=== PATIENT | male | born 1970 | race Hispanic/Latino ===

== ENCOUNTER 2024-03-03 16:11 | Inpatient (IN) | payer SELFPAY ==
[~2024-03-03] VITALS: Ht 157.5 cm; Wt 91.2 kg
[2024-03-03 17:14] LABS: BASOPHILS # (AUTO) 0.01 K/uL (0.00-0.20); BASOPHILS % (AUTO) 0.1 % (0.0-5.0); EOSINOPHILS # (AUTO) 0.01 K/uL (0.00-0.70); EOSINOPHILS % (AUTO) 0.1 % (0.0-8.0); HEMATOCRIT 42.4 % (42-54); IMMATURE GRANULOCYTE ABSOLUTE 0.04 K/uL (0-1); LYMPHOCYTES # (AUTO) 0.9 K/uL (1.0-4.8); LYMPHOCYTES % (AUTO) 9.9 % (21.0-51.0); MEAN CORPUSCULAR HEMOGLOBIN 30.3 pg (27.0-33.0); MEAN CORPUSCULAR HGB CONC 34.9 g/dL (32.0-36.0); MEAN CORPUSCULAR VOLUME 86.7 fL (79-99); MONOCYTES # (AUTO) 0.9 K/uL (0.1-1.0); MONOCYTES % (AUTO) 9.1 % (3.0-13.0); NEUTROPHILS # (AUTO) 7.5 K/uL (1.8-7.7); NEUTROPHILS % (AUTO) 80.4 % (40.0-77.0); PLATELET COUNT (AUTO) 324 K/uL (130-400); RED BLOOD CELL COUNT(AUTO) 4.89 MIL/uL (4.50-6.20); RED CELL DISTRIBUTION WIDTH 12.1 % (11.0-15.5); WHITE BLOOD COUNT (AUTO) 9.3 K/uL (4.8-10.8)
[2024-03-03 17:23] LABS: CREATININE 0.9 mg/dL (0.5-1.3); POTASSIUM 3.5 mmol/L (3.5-5.1)
[2024-03-03 19:22] LABS: BILIRUBIN,DIRECT 0.1 mg/dL (0.0-0.3); BILIRUBIN,TOTAL 0.7 mg/dL (0.2-1.0)
--- NOTE | 2024-03-03 19:31 | ERN ---
ED Note History of Present Illness Stated Complaint: EPIGASTRIC PAIN, CONSTIPATION, NAUSEA Chief Complaint: Abdominal Pain Time Seen by MD: 16:35 Time Seen by Midlevel: 17:30 Dictation: 53-year-old male with history of gout coming in complaining of abdominal pain, nausea and difficulty having a bowel movement. Patient states he had a bowel movement yesterday and today but a very small amount. Denies having any fever, vomiting, chest pain, cough congestion. Allergies: Coded Allergies: No Known Allergies (Unverified Allergy, Unknown, 03/03/24) Past Medical History Past Medical History: Other Additional Past Medical Hx: GOUT Surgical History: None Review of System Dictation Constitutional: Negative for fever,chills, and weight loss Eyes: Negative for injury, pain,redness, and discharge ENT: Negative for injury,pain or swelling Cardiovascular: Negative for chest pain, palpitations, and edema Respiratory: Negative for shortness of breath, cough, and wheezing, Abdomen/GI: Positive for abdominal pain, nausea, no vomiting, no diarrhea, complaining of difficulty having BMs. Back: Negative for injury and pain : Negative for injury, bleeding and discharge MS/Extremity: Negative for injury and deformity Skin: Negative for rash, and discoloration Neuro: Negative for headache, weakness, numbness, tingling, and seizure Psych: Negative for suicide ideation, homicidal ideation, and hallucinations Review of Systems: was completed Initial Vital Sign VS Vital Signs Date Time Temp Pulse Resp B/P (MAP) Pulse Ox O2 Delivery O2 Flow Rate FiO2 03/03/24 16:18 99.1 78 16 158/100 96 Room Air 0 03/03/24 19:40 21 Physical Exam Dictation General: awake, alert, NAD Head/Face: Normocephalic, atraumatic Eyes: PERRL, EOMI, vision at baseline ENT: oral cavity clear, TMs clear, no signs of infection Neck: Trachea midline, supple, no nuchal rigidity Cardiovascular: RRR, normal S1/S2, No MRGs, no JVD Respiratory: CTAB, no respiratory distress, No rales or wheezes Abdomen: Soft, non-tender, non-distended, normal bowel sounds, no guarding or rebound. Skin: Warm, dry, normal turgor, no rash MS/Extremity: Pulses equal, no cyanosis, neurovascular intact, FROM Neuro: COAx4, GCS 15, strength 5/5, CN 2-12 intact, normal cerebellar exam, normal gait, Psych: Normal behavior, mood, and affect normal Results (Laboratory/Radiology) Laboratory/Radiology Laboratory Tests Test 03/03/24 17:02 03/03/24 19:32 03/03/24 21:17 White Blood Count 9.3 K/uL (4.8-10.8) Red Blood Count 4.89 MIL/uL (4.50-6.20) Hemoglobin 14.8 g/dL (14.0-18.0) Hematocrit 42.4 % (42-54) Mean Corpuscular Volume 86.7 fL (79-99) Mean Corpuscular Hemoglobin 30.3 pg (27.0-33.0) Mean Corpuscular Hemoglobin Concent 34.9 g/dL (32.0-36.0) Red Cell Distribution Width 12.1 % (11.0-15.5) Platelet Count 324 K/uL (130-400) Mean Platelet Volume 10.0 fL (7.5-10.5) Immature Granulocyte % (Auto) 0.4 % (0-1) Neutrophils (%) (Auto) 80.4 % (40.0-77.0) H Lymphocytes (%) (Auto) 9.9 % (21.0-51.0) L Monocytes (%) (Auto) 9.1 % (3.0-13.0) Eosinophils (%) (Auto) 0.1 % (0.0-8.0) Basophils (%) (Auto) 0.1 % (0.0-5.0) Neutrophils # (Auto) 7.5 K/uL (1.8-7.7) Lymphocytes # (Auto) 0.9 K/uL (1.0-4.8) L Monocytes # (Auto) 0.9 K/uL (0.1-1.0) Eosinophils # (Auto) 0.01 K/uL (0.00-0.70) Basophils # (Auto) 0.01 K/uL (0.00-0.20) Absolute Immature Granulocyte (auto 0.04 K/uL (0-1) Nucleated Red Blood Cells 0.0 % (0.0-0.19) White Cell Morphology Comment See comments Sodium Level 139 mmol/L (136-145) Potassium Level 3.5 mmol/L (3.5-5.1) Chloride Level 100 mmol/L (101-111) L Carbon Dioxide Level 30 mmol/L (21-32) Blood Urea Nitrogen 12 mg/dL (7-18) Creatinine 0.9 mg/dL (0.5-1.3) Glomerular Filtration Rate Calc 101 mL/min (>90) Random Glucose 124 mg/dL (70-105) H Total Calcium 9.0 mg/dL (8.5-10.1) Total Bilirubin 0.7 mg/dL (0.2-1.0) Direct Bilirubin 0.1 mg/dL (0.0-0.3) Aspartate Amino Transf (AST/SGOT) 22 U/L (10-37) Alanine Aminotransferase (ALT/SGPT) 45 U/L (12-78) Alkaline Phosphatase 70 U/L (50-136) Total Protein 8.0 g/dL (6.0-8.3) Albumin 4.0 g/dL (3.5-5.0) Lipase 58 U/L (16-77) Urine Color YELLOW (YELLOW) Urine Appearance CLEAR (CLEAR) Urine pH 5.5 (5.0-8.0) Urine Specific [place] 1.034 (1.001-1.031) Urine Protein 50 mg/dL (NEGATIVE) H Urine Glucose (UA) NEGATIVE mg/dL (NEGATIVE) Urine Ketones 150 mg/dL (NEGATIVE) H Urine Occult Blood NEGATIVE (NEGATIVE) Urine Nitrate NEGATIVE (NEGATIVE) Urine Bilirubin NEGATIVE mg/dL (NEGATIVE) Urine Urobilinogen 2.0 mg/dL (0.2-1.0) H Urine Leukocyte Esterase NEGATIVE Cuate/uL Urine RBC 2-5 /HPF (0-1) H Urine WBC 0-1 /HPF (0-1) Urine Squamous Epithelial Cells RARE /HPF (0-2) Urine Bacteria RARE /HPF (None Seen) Urine Hyaline Casts 2-5 /LPF (0-1 /LPF) H Lactic Acid Level 1.6 mmol/L (0.8-2.5) Labs Reviewed?: Yes EKG Comment: Date:03/03/24 Time:2232 Ventricular rate:73 DE interval:145 QRS duration:25 QT/QTc:385/424 EKG interpretation: Sinus rhythm, ST elevation probably normal early repolarization pattern Reviewed by ED Attending no STEMI interpreted by ER MD CT Scan Comment: [facility] [address] [place] [address] IMAGING REPORT Signed PATIENT: NELSY DOLL MR#: [id number] : 1970 SEX: M AGE: 53 LOCATION: [facility] ORDER 00 STATUS: REG ER REPORT#: [id number] SERVICE 99 REASON: generalzied abdominal pain ORDERING PHYSICIAN: LURDES BAHENA NP PROCEDURE: ABD PEL W - CT ABDOMEN/PELVIS W/CONTRAST CT ABDOMEN/PELVIS W/CONTRAST HISTORY: Abdominal pain COMPARISON: None TECHNIQUE: Multiple sequential axial images of the abdomen and pelvis were obtained from the dome of the diaphragm through symphysis pubis. Patient was given 75 cc of Omnipaque through intravenous route. Oral contrast was not given. FINDINGS: No pleural effusion is seen bilaterally. There is no evidence of parenchymal disease or pulmonary nodule of the visualized lower lungs. Degenerative changes of the thoracolumbar spine are present. The heart is not enlarged. Liver measures 18 cm. Small hiatal hernia is seen. Small bowel loops are not dilated. There is extensive colonic distention with distal colonic obstruction not completely excluded. The liver, spleen, adrenal glands and pancreas are unremarkable. There is no evidence of hydronephrosis bilaterally. No evidence of renal stone is seen. Fecal material is seen in the colon. There are normal size retroperitoneal and mesenteric lymph nodes. No ascites is seen. Atherosclerotic changes are present. Pelvic sidewalls are symmetric bilaterally. Bladder is well distended without wall thickening. IMPRESSION: 1. Extensive colonic distention with distal colonic obstruction cannot excluded. Findings may also be related to constipation. CT was performed with one or more following dose reduction techniques: automated exposure control, adjustment of the mA and kv according to patient's size, or use of a iterative reconstruction technique. DICTATED BY: LUIS BOWDEN MD DATE: 03/03/242051 ELECTRONICALLY SIGNED BY: LUIS BOWDEN MD DATE: 03/03/242055 ED Course ED Course Orders Procedure Category Date Status Time Cbc With Differential LAB 03/03/24 Complete 16:30 Basic Metabolic Panel LAB 03/03/24 Complete 16:30 Urinalysis Profile LAB 03/03/24 Complete 16:30 Lipase LAB 03/03/24 Complete 18:30 Hepatic Function Panel LAB 03/03/24 Complete 18:30 Ondansetron 4mg Inj PHA 03/03/24 Complete (Zofran 4mg Inj) 18:30 Famotidine 20mg Vial PHA 03/03/24 Complete (Pepcid 20mg Vial) 18:30 Ketorolac PHA 03/03/24 Complete Tromethamine 15mg/Ml 18:30 Ct Abdomen/Pelvis CT 03/03/24 Resulted W/Contrast 20:00 0.9%Nacl 1000ml (Ns PHA 03/03/24 Complete 1000ml) 20:00 Lactic Acid LAB 03/03/24 Complete 21:10 Ngt To Low CPOE 03/03/24 Transmitted Intermittent Suctn 21:18 General Surgery CONPHYSVC 03/03/24 Transmitted Consult 21:18 Abd 1vw RAD 03/03/24 Taken 21:41 Admit Orders ADM 03/03/24 Transmitted 21:50 Edm Admit Bridge Order ADM 03/03/24 Transmitted 21:50 Iohexol (Omnipaque) PHA 03/03/24 Complete 22:19 Admit Orders ADM 03/03/24 Transmitted 22:20 Basic Metabolic Panel LAB 03/04/24 Verified 04:00 Magnesium LAB 03/04/24 Verified 04:00 Phosphorus LAB 03/04/24 Verified 04:00 Cbc With Differential LAB 03/04/24 Verified 04:00 12 Lead Ekg Tracing- EKG 03/03/24 Logged Technical 22:20 Pt And Ptt LAB 03/04/24 Verified 04:00 Type And Screen BBK 03/04/24 Logged 04:00 Famotidine 20mg Vial PHA 03/04/24 In Process (Pepcid 20mg Vial) 09:00 Jesse's And Scd's CPOE 03/03/24 Transmitted 22:20 Acetaminophen 650mg PHA 03/03/24 In Process Supp (Tylenol 650mg 22:30 Ondansetron 4mg Inj PHA 03/03/24 In Process (Zofran 4mg Inj) 22:30 Morphine 4mg Syg PHA 03/03/24 In Process (Morphine 4mg Syg) 22:30 Hydralazine 20mg Inj PHA 03/03/24 In Process (Apresoline 20mg In 22:30 Nothing By Mouth DIET 03/04/24 Transmitted Breakfast Lactated Ringers PHA 03/03/24 In Process 1000ml (Lactated 22:30 Activity: Ad Mariana CPOE 03/03/24 Transmitted 22:20 Vital Signs(Adult CPOE 03/03/24 Transmitted Hospitalist) 22:20 Current Medications Medications (Trade) Dose Ordered Sig/Krishan Route PRN Reason Start Time Stop Time Status Last Admin Dose Admin Acetaminophen (TYLenol 650MG SUPPOSITORY) 650 mg Q6H PRN RC MILD PAIN (1-3) 03/03/24 22:30 04/02/24 22:29 Famotidine (Pepcid 20mg Vial) 20 mg DAILY IV 03/04/24 09:00 04/03/24 08:59 Famotidine (Pepcid 20mg Vial) 20 mg ONCE STAT IV 03/03/24 18:30 03/03/24 18:32 DC 03/03/24 20:11 Hydralazine HCl (APRESOLine 20MG INJ) 10 mg Q6H PRN IV For:SBP above 160;DBP above 90 03/03/24 22:30 04/02/24 22:29 Iohexol (Omnipaque) 75 ml STK-MED ONCE IV 03/03/24 22:19 03/03/24 22:24 DC Ketorolac Tromethamine (toRADol) 15 mg ONCE STAT IV 03/03/24 18:30 03/03/24 18:32 DC 03/03/24 20:11 Lactated Ringer's 1,000 ml @ 100 mls/hr Q10H IV 03/03/24 22:30 04/02/24 22:29 Morphine Sulfate (morPHINE 4MG SYG) 4 mg Q4H PRN IV SEVERE PAIN (7-10) 03/03/24 22:30 03/10/24 22:29 Ondansetron HCl (zoFRAN 4MG INJ) 4 mg ONCE STAT IVP 03/03/24 18:30 03/03/24 18:32 DC 03/03/24 20:11 Ondansetron HCl (zoFRAN 4MG INJ) 4 mg Q6H PRN IV NAUSEA/VOMITING 03/03/24 22:30 04/02/24 22:29 Sodium Chloride 1,000 ml @ 1,000 mls/hr Q1H STAT IV 03/03/24 20:00 03/03/24 20:59 DC 03/03/24 20:11 Vital Signs Date Time Temp Pulse Resp B/P (MAP) Pulse Ox O2 Delivery O2 Flow Rate FiO2 03/03/24 22:15 79 17 147/93 97 Room Air* 0 21 03/03/24 19:40 99.1 78 16 158/100 96 Room Air* 0 21 03/03/24 16:18 99.1 78 16 158/100 96 Room Air 0 Medical Decision Making MDM MDM: 53-year-old male with history of gout coming in complaining of abdominal pain, nausea and difficulty having a bowel movement. Patient states he had a bowel movement yesterday and today but a very small amount. Denies having any fever, vomiting, chest pain, cough congestion. Abdomen is distended, mild pain on palpation.CBC shows no leukocytosis, no anemia, no thrombocytopenia. Chemistry shows no electrolyte abnormality. Normal kidney function. No transaminitis, T bili and lipase within normal range. CT scan of the abdomen shows extensive colonic distention with distal colonic obstruction can not be excluded. Patient's physical assessment and presentation consistent with small- bowel obstruction. Spoke to General surgery on-call Dr. Watkins, agreed to consult patient tomorrow morning. We will insert an NG tube to low intermittent suction. Spoke to Nirmal ROSADO for hospitalist, okay to admit patient Differential diagnosis: Constipation, pancreatitis, GERD Rationale: Tests considered and ordered secondary to shared decision making include: Previous outside records reviewed: Old ER visits. Risk of complication and/or morbidity or mortality of patient management: None Medications-Per medication reconciliation Need for hospitalization: Patient does not meet criteria for hospitalization. Need for emergency major/minor surgery: No There are no social concerns with this patient. Prescription drug management Prescriptions will include symptomatic care Patient's prior external medical records from other ER visits were reviewed by me as indicated. Prior testing and results from previous visits were reviewed. Prior tests were taken into account with medical decision making and resource utilization, independent historian/historians were used to obtain complete medical history. I independently interpreted the test that were performed, results were reviewed by me and considered findings on radiology if ordered. Medical management and examination interpretation discussions were had by me with other qualified healthcare professionals as indicated for the patient's care. DX & DISP Disposition: Inpatient Decision to Admit Date: Mar 03, 2024 Decision to Admit Time: 21:52 Departure Impression: Primary Impression: Small bowel obstruction Condition: Stable Referrals: SELF,REFERRAL (PCP) I have reviewed the case, and I agree with, Diagnosis and Plan LURDES BAHENA NP Mar 03, 2024 19:31
[2024-03-03 19:39] LABS: ADD UA MICROSCOPIC YES; APPEARANCE,URINE CLEAR (CLEAR); BILIRUBIN,URINE NEGATIVE (NEGATIVE); COLOR,URINE YELLOW (YELLOW); GLUCOSE, URINE (UA) NEGATIVE (NEGATIVE); KETONES,URINE 150 mg/dL (NEGATIVE); LEUKOCYTE ESTERASE ,URINE NEGATIVE Leu/uL (NEGATIVE); NITRATE,URINE NEGATIVE (NEGATIVE); OCCULT BLOOD,URINE NEGATIVE (NEGATIVE); PH,URINE 5.5 (5.0-8.0); PROTEIN,URINE 50 mg/dL (NEGATIVE)
[2024-03-03 20:10] LABS: BACTERIA,URINE RARE /HPF (None Seen); MUCUS,URINE FEW LPF (None Seen); SQUAMOUS EPITHELIAL CELL,UR RARE /HPF (0-2); WBC,URINE 0-1 /HPF (0-1)
[2024-03-03] MEDS: ondanSETRON 4MG INJ IVP STA (20:11)
[2024-03-03] MEDS: ketOROlac 15MG/ML VIAL (15MG/ML) IV STA (20:11)
[2024-03-03] MEDS: 0.9%NACL 1000ML 1,000 ML IV STA (20:11)
[2024-03-03] MEDS: FAMOTIDINE 20MG VIAL IV STA (20:11)
--- NOTE | 2024-03-03 20:56 | HMCIMG ---
CT ABDOMEN/PELVIS W/CONTRAST HISTORY: Abdominal pain COMPARISON: None TECHNIQUE: Multiple sequential axial images of the abdomen and pelvis were obtained from the dome of the diaphragm through symphysis pubis. Patient was given 75 cc of Omnipaque through intravenous route. Oral contrast was not given. FINDINGS: No pleural effusion is seen bilaterally. There is no evidence of parenchymal disease or pulmonary nodule of the visualized lower lungs. Degenerative changes of the thoracolumbar spine are present. The heart is not enlarged. Liver measures 18 cm. Small hiatal hernia is seen. Small bowel loops are not dilated. There is extensive colonic distention with distal colonic obstruction not completely excluded. The liver, spleen, adrenal glands and pancreas are unremarkable. There is no evidence of hydronephrosis bilaterally. No evidence of renal stone is seen. Fecal material is seen in the colon. There are normal size retroperitoneal and mesenteric lymph nodes. No ascites is seen. Atherosclerotic changes are present. Pelvic sidewalls are symmetric bilaterally. Bladder is well distended without wall thickening. IMPRESSION: 1. Extensive colonic distention with distal colonic obstruction cannot excluded. Findings may also be related to constipation. CT was performed with one or more following dose reduction techniques: automated exposure control, adjustment of the mA and kv according to patient's size, or use of a iterative reconstruction technique.
--- NOTE | 2024-03-03 21:49 | NUR ---
PT CARE ASSUMED AT THIS TIME, PT PLACED IN ED ROOM 14
--- NOTE | 2024-03-03 21:56 | NUR ---
XRAY CALLED TO VERIFY NG PLACEMENT
--- NOTE | 2024-03-03 22:06 | NUR ---
NG TUBE PLACEMENT CONFIRMED BY RT
[2024-03-03] MEDS ORDERED: IOHEXOL-350 75 ML VIAL IV ONE (22:19)
[2024-03-03] MEDS ORDERED: acetaMINOPHEN 650 MG SUPPOSITORY RC PRN (22:30)
[2024-03-03] MEDS ORDERED: hydrALAZine 20MG/ML VIAL IV PRN (22:30)
--- NOTE | 2024-03-03 22:31 | HP ---
History of Present Illness Reason for Visit: abdominal pain History of Present Illness Mr. Anthony is a 53-year-old male that was seen and examined today 03/03/2024. Patient is a good historian and personal health. Patient's Brynn Dalton is at bedside. Patient reports that he came to the emergency department with a chief complaint of abdominal pain. Onset was one week ago. Location is all four quadrants. Duration is constant. Character is described as" like my stomach is swollen. "There was no alleviating factors. There was no aggravating factors. Patient reports associated decreased appetite. Today in the emergency department CBC unremarkable, chemistry unremarkable, urinalysis unremarkable. CT of abdomen and pelvis shows extensive colonic distention with distal colonic obstruction can not excluded. For that reason emergency room physician contacted general surgeon on-call who requested patient be admitted under hospitalist service. NG tube was inserted in the emergency department. Past Medical History ADDITIONAL PAST MEDICAL HISTORY: [Hyperlipidemia, gout] SOCIAL HISTORY: [Negative for smoking. Patient consumes alcohol about once weekly. Patient reports 2-4 beers that are 12 oz each. Patient denies drug use. Patient lives with his . Patient is typically independent of all his ADLs. Patient denies difficulty pain is bills. 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 Patient has poor access to health care due to lack of health insurance.] SURGICAL HISTORY: [Denies] Review of Systems General: No Fever, No Chills, No Night Sweats, No Fatigue, No Malaise; Appetite (Decrease); No Other HEENT: No Head Aches, No Visual Changes, No Eye Pain, No Ear Pain, No Dysphasia, No Sinus Congestion, No Post Nasal Drip, No Sore Throat, No Other Pulmonary: No Dyspnea, No Cough, No Pleuritic Chest Pain, No Other Cardiovascular: No: Chest Pain, Palpitations, Orthopnea, Paroxysmal Noc. Dyspnea, Edema, Lt Headedness, Other Gastrointestinal: Abdominal Pain; No: Nausea, Vomiting, Diarrhea, Constipation, Melena, Hematochezia, Other Genitourinary: No Dysuria, No Frequency, No Incontinence, No Hematuria, No Retention, No Other Musculoskeletal: No: other, neck pain, shoulder pain, arm pain, back pain, hand pain, leg pain, foot pain Skin: No Urticaria, No Rash, No Other Neurological: No: Weakness, Numbness, Incoordination, Change in speech, Confusion, Seizures, Other Allergies: Coded Allergies: No Known Allergies (Unverified Allergy, Unknown, 03/03/24) Exam Vital Signs Vital Signs Date Time Temp Pulse Resp B/P (MAP) Pulse Ox O2 Delivery O2 Flow Rate FiO2 03/03/24 22:15 79 17 147/93 97 Room Air* 0 21 03/03/24 19:40 99.1 General Appearance: Alert, Oriented X3, Cooperative, mild distress HEENT: Atraumatic, PERRLA, EOMI, Other (Positive nasogastric tube) Respiratory: Clear to auscultation, Normal air movement, NL respiratory effort Cardiovascular: Regular rate, Regular rhythm, Normal S1, Normal S2 Abdominal: Normal bowel sounds, Soft, No tenderness Extremities: No edema Skin: No significant lesion Neuro: Normal speech, Strength at 5/5 X4 ext, Sensation intact, Cranial nerves 3-12 NL Psych/Mental Status: Mental status NL, Mood NL, Thoughts/Content NL Assessment/Plan ASSESSMENT: [ Suspected small bowel obstruction, POA Hyperlipidemia Gout] PLAN: [ Admit patient to medical-surgical floor as inpatient status. Keep patient NPO. Patient is being followed by General surgery Service, Dr. Watkins IV fluid maintenance therapy lactated Ringer's at 100 mL/HR As needed analgesia with morphine Check preprocedure labs, CBC, BMP, magnesium, phosphorus, PTT, UA, type and screen, EKG, CXR Keep nasogastric tube to low wall suction GI prophylaxis, famotidine 20 mg IV once daily. DVT prophylaxis, Jesse's and SCDs avoid anticoagulation at this time due to impending surgical evaluation.] ADVANCED CARE PLANNING 1. Which of the following were discussed? Hospice Care - Yes Therapeutic options - Yes Advance Directives - Yes- patient states he does not have any advance directives in place at this time, however his can make decisions for him if he becomes unable. Other discussions - patient wishes to remain a full code at this time 2. Discussed with who? Patient 3. Voluntary nature of this service was explained to the patient? Yes 4. Amount of time spent - __ 16 minutes 5. Reviewed by Physician? (if this service was performed by NPP) Yes This document was generated in part using voice recognition software, occasional wrong word or sound alike substitutions may have occurred due to the inherent limitations of voice recognition software. Read the chart carefully and recognize using context, where the substitutions have occurred. Although every effort was made to edit the content, locomotive oiler and typing errors may occur ATTESTATION BY PHYSICIAN I have seen and examined the patient. I reviewed the documentation, medical decision making, and treatment plan as noted by the mid-level provider above. I agree with the findings and plan of care. LAUREEN GREEN [facility] Mar 03, 2024 22:31
[2024-03-03] MEDS: LACTATED RINGERS 1000ML 1,000 ML IV SCH (23:49)
[2024-03-04] VITALS (8 sets, daily range): BP systolic 143–156; BP diastolic 83–96; PULSE 70–80; RESP 16–19; TEMP 98.3–98.7; O2SAT 97–99
--- NOTE | 2024-03-04 01:09 | NUR ---
REPORT GIVEN TO DIONI CHAUDHARY AT THIS TIME
--- NOTE | 2024-03-04 01:10 | NUR ---
PT REPORTS NO HOME MEDS
[2024-03-04 05:54] LABS: BASOPHILS # (AUTO) 0.02 K/uL (0.00-0.20); BASOPHILS % (AUTO) 0.2 % (0.0-5.0); EOSINOPHILS # (AUTO) 0.01 K/uL (0.00-0.70); EOSINOPHILS % (AUTO) 0.1 % (0.0-8.0); HEMATOCRIT 38.6 % (42-54); IMMATURE GRANULOCYTE ABSOLUTE 0.03 K/uL (0-1); LYMPHOCYTES # (AUTO) 0.9 K/uL (1.0-4.8); MEAN CORPUSCULAR HEMOGLOBIN 29.5 pg (27.0-33.0); MEAN CORPUSCULAR HGB CONC 34.5 g/dL (32.0-36.0); MEAN CORPUSCULAR VOLUME 85.6 fL (79-99); MONOCYTES # (AUTO) 0.9 K/uL (0.1-1.0); NEUTROPHILS # (AUTO) 6.8 K/uL (1.8-7.7); NEUTROPHILS % (AUTO) 79.3 % (40.0-77.0); PLATELET COUNT (AUTO) 312 K/uL (130-400); RED BLOOD CELL COUNT(AUTO) 4.51 MIL/uL (4.50-6.20); RED CELL DISTRIBUTION WIDTH 12.1 % (11.0-15.5); WHITE BLOOD COUNT (AUTO) 8.5 K/uL (4.8-10.8)
[2024-03-04 06:05] LABS: INR 1.06 (0.85-1.15); PROTHROMBIN TIME 11.4 SEC (9.6-11.6)
[2024-03-04 06:06] LABS: PARTIAL THROMBOPLASTIN TIME 27.5 SEC (26.3-35.5)
[2024-03-04 06:11] LABS: CREATININE 0.7 mg/dL (0.5-1.3); PHOSPHORUS 3.3 mg/dL (2.5-4.9)
[2024-03-04 06:15] LABS: POTASSIUM 2.8 mmol/L (3.5-5.1)
--- NOTE | 2024-03-04 06:27 | EKG ---
[facility] Test Date: 2024-03-03 Test Time: 22:32:17 Pat Name: NELSY DOLL Department: [facility] Room: 311 1 Gender: M Rn Operating Room: 1088 : 1970 Requested By: LAUREEN GREEN Order Number: [id number] Reading MD: Carson Shipley Measurements Intervals [place] Rate: 73 P: 41 TN: 145 QRS: 25 QRSD: 93 T: -7 QT: 385 QTc: 424 Interpretive Statements Sinus rhythm ST elev, probable normal early repol pattern No previous ECG available for comparison Electronically Signed On 03-04-2024 18:10:48 PIN STICKER by Carson Shipley Please click the below link to view image of tracing.
--- NOTE | 2024-03-04 06:38 | NUR ---
notified provider education reporter Joyce simmons of K+ 2.8 provider states she will place order.
--- NOTE | 2024-03-04 08:19 | HMCIMG ---
ABD 1VW REASON: NG TUBE PLACEMENT FINDINGS: Single image of the abdomen was obtained. There is an NG tube with tip just entering the stomach, sidehole remains in the distal esophagus. There is moderate gaseous distention of the colon. There is contrast in the pelvicalyceal systems from recent CT scan. IMPRESSION: 1. NG tube tip just entering the stomach, sidehole remains in the distal esophagus.
[2024-03-04] MEDS: FAMOTIDINE 20MG VIAL IV SCH (09:15)
--- NOTE | 2024-03-04 09:31 | PN ---
[facility] PROGRESS NOTE Date of Service: Mar 04, 2024 Time of Service: 09:22 SUBJECTIVE: [ ] This is a 53-year-old male was admitted on 03/03/2024 presents in ED with chief complaints of abdominal pain. ER workup was consistent with small- bowel obstruction. NGT tube was placed in ED and surgeon was consulted. Patient was seen and examined this morning no output from NG tube patient appears distended. the patient remain Bowel rest until seen by surgeon: will follow recommendations: ordered a repeat KUB for this morning. REVIEW OF SYSTEMS CONSTITUTIONAL: Denies fevers, chills, or night sweats. No unintentional weight loss reported. NEUROLOGICAL: Denies headache, amaurosis fugax, motor weakness, sensory deficit, vertigo/spinning sensation, gait abnormalities, or tremors. ENT: No hearing loss, otalgia, otorrhea, rhinitis, rhinorrhea, hoarseness, or sore throat. CARDIOVASCULAR: Denies any exertional angina, dyspnea on exertion, orthopnea, paroxysmal nocturnal dyspnea, palpitations, life-threatening arrhythmias, claudication. PULMONARY: Denies any shortness of breath, cough, phlegm/sputum, hemoptysis, pleuritic chest pain. SLEEP: Denies morning headaches, daytime somnolence or napping. Denies difficulty falling asleep, staying asleep, waking from sleep. Denies knowledge of snoring. GASTROINTESTINAL: Denies any type of dysphagia to either liquids or solids. Denies nausea, vomiting, pyrosis, early satiety, abdominal pain, diarrhea, co nstipation, or changes in stool consistency or caliber. Denies coffee-ground emesis, hematemesis, hematochezia, or melanotic stools. GENITOURINARY: Denies frequency, urgency, nocturia, hematuria or incontinence (Storage/Irritative symptoms.) Low urinary stream, straining to void, urinary intermittency or hesitancy, splitting of the voiding stream, terminal dribbling. ENDOCRINOLOGIC: Denies polyuria, polydipsia, polyphagia or heat/cold intolerances. HEMATOLOGIC: Denies thrombophilia/previous clots, or coagulopathy/bleeding disorders. ONCOLOGIC: Denies personal history of malignancy. DERMATOLOGIC: Denies rashes or pruritus. PSYCHIATRIC: Denies any suicidal or homicidal ideation. Denies hallucinations. PHYSICAL EXAM GENERAL APPEARANCE: The patient is awake, alert, and oriented, in no acute car diopulmonary distress. NEUROLOGICAL: Cranial nerves II-XII grossly intact. Motor is 5/5 in bilateral upper and lower extremities proximal to distal. No sensory deficits. HEENT: Face is symmetric. Pupils are equal and reactive. Extraocular movements are intact. NECK: Supple. No JVD. No thyromegaly. No submental, submandibular, pre- /postauricular, occipital or supraclavicular lymphadenopathy. CHEST: Normal chest expansion. No Telemetry. LUNGS: Absence of any rales, rhonchi or any wheezing. CARDIOVASCULAR: Regular. S1 and S2 normal. No appreciable rubs, murmurs or gallops. ABDOMEN: Soft, nontender, and nondistended. There is no rebound, voluntary guarding, or rigidity. : Deferred. No Sagastume. EXTREMITIES: Non-edematous and not cyanotic. No clubbing. Good capillary refill. SKIN: No skin breakdown. Vital Signs (last 8hr) Date Time Temp Pulse Resp B/P (MAP) Pulse Ox O2 Delivery O2 Flow Rate FiO2 03/04/24 08:00 98.4 70 18 143/91 94 Room Air 21 03/04/24 03:44 98.8 80 18 154/83 98 Room Air 03/04/24 01:53 99 Room Air* 0 21 03/04/24 01:25 98.8 79 19 156/96 96 Room Air LABS: Laboratory: Test 03/04/24 05:47 03/03/24 21:17 03/03/24 19:32 03/03/24 17:02 Range/Units White Blood Count 8.5 4.8-10.8 K/uL Red Blood Count 4.51 4.50-6.20 MIL/uL Hemoglobin 13.3 L 14.0-18.0 g/dL Hematocrit 38.6 L 42-54 % Mean Corpuscular Volume 85.6 79-99 fL Mean Corpuscular Hemoglobin 29.5 27.0-33.0 pg Mean Corpuscular Hemoglobin Concent 34.5 32.0-36.0 g/dL Red Cell Distribution Width 12.1 11.0-15.5 % Platelet Count 312 130-400 K/uL Mean Platelet Volume 9.9 7.5-10.5 fL Immature Granulocyte % (Auto) 0.4 0-1 % Neutrophils (%) (Auto) 79.3 H 40.0-77.0 % Lymphocytes (%) (Auto) 10.0 L 21.0-51.0 % Monocytes (%) (Auto) 10.0 3.0-13.0 % Eosinophils (%) (Auto) 0.1 0.0-8.0 % Basophils (%) (Auto) 0.2 0.0-5.0 % Neutrophils # (Auto) 6.8 1.8-7.7 K/uL Lymphocytes # (Auto) 0.9 L 1.0-4.8 K/uL Monocytes # (Auto) 0.9 0.1-1.0 K/uL Eosinophils # (Auto) 0.01 0.00-0.70 K/uL Basophils # (Auto) 0.02 0.00-0.20 K/uL Absolute Immature Granulocyte (auto 0.03 0-1 K/uL Nucleated Red Blood Cells 0.0 0.0-0.19 % Prothrombin Time 11.4 9.6-11.6 SEC Prothromb Time International Ratio 1.06 0.85-1.15 Activated Partial Thromboplast Time 27.5 26.3-35.5 SEC Sodium Level 138 136-145 mmol/L Potassium Level 2.8 *L 3.5-5.1 mmol/L Chloride Level 103 101-111 mmol/L Carbon Dioxide Level 27 21-32 mmol/L Blood Urea Nitrogen 11 7-18 mg/dL Creatinine 0.7 0.5-1.3 mg/dL Glomerular Filtration Rate Calc 110 >90 mL/min Random Glucose 106 H 70-105 mg/dL Total Calcium 8.4 L 8.5-10.1 mg/dL Phosphorus Level 3.3 2.5-4.9 mg/dL Magnesium Level 2.00 1.80-2.40 mg/dL Lactic Acid Level 1.6 0.8-2.5 mmol/L Urine Color YELLOW YELLOW Urine Appearance CLEAR CLEAR Urine pH 5.5 5.0-8.0 Urine Specific [place] 1.034 H 1.001-1.031 Urine Protein 50 H NEGATIVE mg/dL Urine Glucose (UA) NEGATIVE NEGATIVE mg/dL Urine Ketones 150 H NEGATIVE mg/dL Urine Occult Blood NEGATIVE NEGATIVE Urine Nitrate NEGATIVE NEGATIVE Urine Bilirubin NEGATIVE NEGATIVE mg/dL Urine Urobilinogen 2.0 H 0.2-1.0 mg/dL Urine Leukocyte Esterase NEGATIVE NEGATIVE Cuate/uL Urine RBC 2-5 H 0-1 /HPF Urine WBC 0-1 0-1 /HPF Urine Squamous Epithelial Cells RARE 0-2 /HPF Urine Bacteria RARE None Seen /HPF Urine Hyaline Casts 2-5 H 0-1 /LPF /LPF White Cell Morphology Comment See comments Total Bilirubin 0.7 0.2-1.0 mg/dL Direct Bilirubin 0.1 0.0-0.3 mg/dL Aspartate Amino Transf (AST/SGOT) 22 10-37 U/L Alanine Aminotransferase (ALT/SGPT) 45 12-78 U/L Alkaline Phosphatase 70 50-136 U/L Total Protein 8.0 6.0-8.3 g/dL Albumin 4.0 3.5-5.0 g/dL Lipase 58 16-77 U/L Current Medications Medications (Trade) Dose Ordered Sig/Krishan Route PRN Reason Start Time Stop Time Status Last Admin Dose Admin Acetaminophen (TYLenol 650MG SUPPOSITORY) 650 mg Q6H PRN RC MILD PAIN (1-3) 03/03/24 22:30 04/02/24 22:29 Famotidine (Pepcid 20mg Vial) 20 mg DAILY IV 03/04/24 09:00 04/03/24 08:59 03/04/24 09:15 20 MG Famotidine (Pepcid 20mg Vial) 20 mg ONCE STAT IV 03/03/24 18:30 03/03/24 18:32 DC 03/03/24 20:11 20 MG Hydralazine HCl (APRESOLine 20MG INJ) 10 mg Q6H PRN IV For:SBP above 160;DBP above 90 03/03/24 22:30 04/02/24 22:29 Ketorolac Tromethamine (toRADol) 15 mg ONCE STAT IV 03/03/24 18:30 03/03/24 18:32 DC 03/03/24 20:11 15 MG Lactated Ringer's 1,000 ml @ 100 mls/hr Q10H IV 03/03/24 22:30 04/02/24 22:29 03/03/24 23:49 100 MLS/HR Morphine Sulfate (morPHINE 4MG SYG) 4 mg Q4H PRN IV SEVERE PAIN (7-10) 03/03/24 22:30 03/10/24 22:29 Ondansetron HCl (zoFRAN 4MG INJ) 4 mg ONCE STAT IVP 03/03/24 18:30 03/03/24 18:32 DC 03/03/24 20:11 4 MG Ondansetron HCl (zoFRAN 4MG INJ) 4 mg Q6H PRN IV NAUSEA/VOMITING 03/03/24 22:30 04/02/24 22:29 Sodium Chloride 1,000 ml @ 1,000 mls/hr Q1H STAT IV 03/03/24 20:00 03/03/24 20:59 DC 03/03/24 20:11 1,000 MLS/HR DIAGNOSTICS / RADIOLOGY: [ ] ASSESSMENT: Suspected small bowel obstruction, POA Intractable abd pain POA Extensive abdominal distention POA electrolytes derangement: Hypokalemia POA Obesity: BMI: 36.1 POA chronic problems; Hyperlipidemia Gout] obe PLAN: [ ] Remain in Surgical floor software sales consultant: General surgeon pending evaluation TEST: repeat KUB Diet: Remain Bowel rest cont with NGT LIWS cont with pain management for adequate pain controlled DVT: SCD applied GI: PUD ppx PRN: MEDICATIONS zofran 4 mg IV every 6 hrs for n/v all questions answered Supervising MD: Dr. Alexander Knapp c/d ATTESTATION BY PHYSICIAN I have seen and examined the patient. I reviewed the documentation, medical decision making, and treatment plan as noted by the resident provider above. I agree with the findings and plan of care. Jt Knapp MD, [facility] NP Mar 04, 2024 09:31
--- NOTE | 2024-03-04 12:11 | HMCIMG ---
ABD 1VW REASON: SBO FINDINGS: Single image of the abdomen was obtained. There is an NG tube with tip at the EG junction, sidehole remains in the distal esophagus. There is persistent gaseous distention of multiple large and small bowel loops, bowel gas pattern is unchanged. Soft tissues appear unremarkable. IMPRESSION: 1. NG tube tip just entering the stomach, sidehole remains in the distal esophagus. 2. Distended loops of large and small bowel, unchanged.
[2024-03-04] MEDS: PoTASSium chloRIDE 20MEQ/100ML 100 ML IV PRN (13:30)
[2024-03-04] MEDS: BisaCODYL 10 MG SUPP.RECT RC ONE (15:13)
--- NOTE | 2024-03-04 16:28 | NUR ---
Discharge Planning: Pt. states she lives with his spouse Lynette Dalton. Contact number is . PCP is Dr. Bernal and preferred pharmacy is [facility] in [place]. Pt. states he is independent with all ADL's. No home health, provider services, or DME. DCP is for home. Pt. is self-pay. Resource packet provided. Financial counselor is following. Addendum: 03/04/24 at 1634 by ANDREW FORTUNE RN CM Amended: Links added.
--- NOTE | 2024-03-04 16:54 | CONS ---
CONSULT NOTE: Consulting physician: Dr. Lopez Consulting service: General surgery Reason for consultation: Small bowel obstruction History of present illness: This is a 53-year-old male consulted to surgery after presenting to the hospital with concerns of abdominal pain that began one week prior. Patient tender in all quadrants. Patient evaluated by Dr. Watkins earlier today. Initial imaging concerning for extensive colonic distention with distal colonic obstruction unable to be excluded and constipation today's KUB however showing distended loops of large bowel bladder unchanged. Patient's abdomen is picker tender helper. Patient's NPO. NG output minimal at this time. Potassium however central bili low at 2.8 currently being covered. Patient has been ambulating since being evaluated by Dr. Watkins Medical history: ADDITIONAL PAST MEDICAL HISTORY: Hyperlipidemia, gout SOCIAL HISTORY: Negative for smoking. Patient consumes alcohol about once weekly. Patient reports 2-4 beers that are 12 oz each. Patient denies drug use. Patient lives with his . Patient is typically independent of all his ADLs. Patient denies difficulty pain is bills. 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 Patient has poor access to health care due to lack of health insurance. SURGICAL HISTORY: Denies Review of systems: General: No Fever, No Chills, No Night Sweats, No Fatigue, No Malaise, No Appetite, No Other HEENT: No Head Aches, No Visual Changes, No Eye Pain, No Ear Pain, No Dysphasia, No Sinus Congestion, No Post Nasal Drip, No Sore Throat, No Other Pulmonary: No Dyspnea, No Cough, No Pleuritic Chest Pain, No Other Cardiovascular: No: Chest Pain, Palpitations, Orthopnea, Paroxysmal No Dyspnea, Edema, Lt Headedness, Other Gastrointestinal: No: Nausea, Vomiting, Diarrhea, Constipation, Melena, Hematochezia, Other Genitourinary: No Dysuria, No Frequency, No Incontinence, No Hematuria, No Retention, No Other Musculoskeletal: No: other, neck pain, shoulder pain, arm pain, back pain, hand pain, leg pain, foot pain Skin: No Urticaria, No Rash, No Other Neurological: No: Weakness, Numbness, Incoordination, Change in speech, Confusion, Seizures, Other Physical exam: General: Awake alert and oriented Heart: Regular rate and rhythm} Lungs: Clear to auscultation no distress Abdomen: [Soft, nontender, nondistended Assessment: This is a 53-year-old male with concerns of small bowel obstruction Plan: This point in time we will continue with conservative management Recommendation will be for suppository Patient encouraged to ambulate Continue with NG tube to LIS Continue to replace and cover potassium Repeat KUB in the morning Dr. Watkins has seen patient and agrees with plan of care at this time. Thank you ROSSY SYLVESTER Jr. Mar 04, 2024 16:54
--- NOTE | 2024-03-04 19:10 | NUR ---
patient ambulating in wild x4, tolerated well
--- NOTE | 2024-03-04 22:01 | NUR ---
patient up and ambulating in wild with , toleration well, voiced no concerns at this time
[2024-03-05] VITALS (7 sets, daily range): BP systolic 132–157; BP diastolic 78–98; PULSE 60–73; RESP 16–20; TEMP 97.8–98.3; O2SAT 96
[2024-03-05 05:27] LABS: BASOPHILS # (AUTO) 0.01 K/uL (0.00-0.20); BASOPHILS % (AUTO) 0.1 % (0.0-5.0); EOSINOPHILS # (AUTO) 0.01 K/uL (0.00-0.70); EOSINOPHILS % (AUTO) 0.1 % (0.0-8.0); HEMATOCRIT 37.4 % (42-54); IMMATURE GRANULOCYTE ABSOLUTE 0.03 K/uL (0-1); LYMPHOCYTES % (AUTO) 12.1 % (21.0-51.0); MEAN CORPUSCULAR HEMOGLOBIN 30.4 pg (27.0-33.0); MEAN CORPUSCULAR HGB CONC 35.6 g/dL (32.0-36.0); MEAN CORPUSCULAR VOLUME 85.4 fL (79-99); MONOCYTES % (AUTO) 11.6 % (3.0-13.0); NEUTROPHILS # (AUTO) 6.2 K/uL (1.8-7.7); NEUTROPHILS % (AUTO) 75.7 % (40.0-77.0); PLATELET COUNT (AUTO) 301 K/uL (130-400); RED BLOOD CELL COUNT(AUTO) 4.38 MIL/uL (4.50-6.20); RED CELL DISTRIBUTION WIDTH 11.9 % (11.0-15.5); WHITE BLOOD COUNT (AUTO) 8.2 K/uL (4.8-10.8)
[2024-03-05 06:03] LABS: ALBUMIN 3.2 g/dL (3.5-5.0); BILIRUBIN,TOTAL 0.5 mg/dL (0.2-1.0); CREATININE 0.7 mg/dL (0.5-1.3); MAGNESIUM 1.9 mg/dL (1.80-2.40); TOTAL PROTEIN, SERUM 6.6 g/dL (6.0-8.3)
[2024-03-05 06:28] LABS: POTASSIUM 2.9 mmol/L (3.5-5.1)
--- NOTE | 2024-03-05 06:40 | NUR ---
PAGED PROVIDER TRAFFIC SIGN SUPERVISOR REGARDING NG TUBE DRAINAGE DARK BROWN IN COLOR, PENDING CALL BACK
--- NOTE | 2024-03-05 07:30 | NUR ---
PAGED PROVIDER ONCALL REGARDING CHANGE IN COLOR ON NG TUBER FROM LIGHT BROWN TO DARK BROWN, PENDING CALL BACK
--- NOTE | 2024-03-05 09:05 | PN ---
[facility] PROGRESS NOTE Date of Service: Mar 05, 2024 Time of Service: 09:04 SUBJECTIVE: [ ] This is a 53-year-old male was admitted on 03/03/2024 presents in ED with chief complaints of abdominal pain. ER workup was consistent with small- bowel obstruction. NGT tube was placed in ED and surgeon was consulted. Patient was seen and examined this morning no output from NG tube patient appears distended. the patient remain Bowel rest until seen by surgeon: will follow recommendations: ordered a repeat KUB for this morning. 03/05/24 Patient is seen and examined with the attending, reviewed chart and discussed. Patient was seen by general surgeon continue conservative management. Patient had four BMs was given suppository laxative. Patient's potassium 2.9 was replaced early this morning we will repeat level and replace as needed we will wait for surgeon continues with NG tube and bowel rest. Repeat KUB: Distended loops of large and small bowel, unchanged. REVIEW OF SYSTEMS CONSTITUTIONAL: Denies fevers, chills, or night sweats. No unintentional weight loss reported. NEUROLOGICAL: Denies headache, amaurosis fugax, motor weakness, sensory deficit, vertigo/spinning sensation, gait abnormalities, or tremors. ENT: No hearing loss, otalgia, otorrhea, rhinitis, rhinorrhea, hoarseness, or sore throat. CARDIOVASCULAR: Denies any exertional angina, dyspnea on exertion, orthopnea, paroxysmal nocturnal dyspnea, palpitations, life-threatening arrhythmias, claudication. PULMONARY: Denies any shortness of breath, cough, phlegm/sputum, hemoptysis, pleuritic chest pain. SLEEP: Denies morning headaches, daytime somnolence or napping. Denies difficulty falling asleep, staying asleep, waking from sleep. Denies knowledge of snoring. GASTROINTESTINAL: Denies any type of dysphagia to either liquids or solids. Denies nausea, vomiting, pyrosis, early satiety, abdominal pain, diarrhea, constipation, or changes in stool consistency or caliber. Denies coffee-ground emesis, hematemesis, hematochezia, or melanotic stools. GENITOURINARY: Denies frequency, urgency, nocturia, hematuria or incontinence (Storage/Irritative symptoms.) Low urinary stream, straining to void, urinary intermittency or hesitancy, splitting of the voiding stream, terminal dribbling. ENDOCRINOLOGIC: Denies polyuria, polydipsia, polyphagia or heat/cold intolerances. HEMATOLOGIC: Denies thrombophilia/previous clots, or coagulopathy/bleeding disorders. ONCOLOGIC: Denies personal history of malignancy. DERMATOLOGIC: Denies rashes or pruritus. PSYCHIATRIC: Denies any suicidal or homicidal ideation. Denies hallucinations. PHYSICAL EXAM GENERAL APPEARANCE: The patient is awake, alert, and oriented, in no acute cardiopulmonary distress. NEUROLOGICAL: Cranial nerves II-XII grossly intact. Motor is 5/5 in bilateral upper and lower extremities proximal to distal. No sensory deficits. HEENT: Face is symmetric. Pupils are equal and reactive. Extraocular movements are intact. NECK: Supple. No JVD. No thyromegaly. No submental, submandibular, pre- /postauricular, occipital or supraclavicular lymphadenopathy. CHEST: Normal chest expansion. No Telemetry. LUNGS: Absence of any rales, rhonchi or any wheezing. CARDIOVASCULAR: Regular. S1 and S2 normal. No appreciable rubs, murmurs or gallops. ABDOMEN: Soft, nontender, and nondistended. There is no rebound, voluntary guarding, or rigidity. : Deferred. No Sagastume. EXTREMITIES: Non-edematous and not cyanotic. No clubbing. Good capillary refill. SKIN: No skin breakdown. Vital Signs (last 8hr) Date Time Temp Pulse Resp B/P (MAP) Pulse Ox O2 Delivery O2 Flow Rate FiO2 03/05/24 08:30 98.2 73 16 150/90 96 03/05/24 04:00 98.2 65 16 132/94 92 Room Air LABS: Laboratory: Test 03/05/24 05:00 03/04/24 05:47 03/03/24 21:17 03/03/24 19:32 Range/Units White Blood Count 8.2 4.8-10.8 K/uL Red Blood Count 4.38 L 4.50-6.20 MIL/uL Hemoglobin 13.3 L 14.0-18.0 g/dL Hematocrit 37.4 L 42-54 % Mean Corpuscular Volume 85.4 79-99 fL Mean Corpuscular Hemoglobin 30.4 27.0-33.0 pg Mean Corpuscular Hemoglobin Concent 35.6 32.0-36.0 g/dL Red Cell Distribution Width 11.9 11.0-15.5 % Platelet Count 301 130-400 K/uL Mean Platelet Volume 9.9 7.5-10.5 fL Immature Granulocyte % (Auto) 0.4 0-1 % Neutrophils (%) (Auto) 75.7 40.0-77.0 % Lymphocytes (%) (Auto) 12.1 L 21.0-51.0 % Monocytes (%) (Auto) 11.6 3.0-13.0 % Eosinophils (%) (Auto) 0.1 0.0-8.0 % Basophils (%) (Auto) 0.1 0.0-5.0 % Neutrophils # (Auto) 6.2 1.8-7.7 K/uL Lymphocytes # (Auto) 1.0 1.0-4.8 K/uL Monocytes # (Auto) 1.0 0.1-1.0 K/uL Eosinophils # (Auto) 0.01 0.00-0.70 K/uL Basophils # (Auto) 0.01 0.00-0.20 K/uL Absolute Immature Granulocyte (auto 0.03 0-1 K/uL Nucleated Red Blood Cells 0.0 0.0-0.19 % Sodium Level 140 136-145 mmol/L Potassium Level 2.9 *L 3.5-5.1 mmol/L Chloride Level 104 101-111 mmol/L Carbon Dioxide Level 27 21-32 mmol/L Blood Urea Nitrogen 10 7-18 mg/dL Creatinine 0.7 0.5-1.3 mg/dL Glomerular Filtration Rate Calc 110 >90 mL/min Random Glucose 106 H 70-105 mg/dL Total Calcium 8.4 L 8.5-10.1 mg/dL Magnesium Level 1.90 1.80-2.40 mg/dL Total Bilirubin 0.5 0.2-1.0 mg/dL Aspartate Amino Transf (AST/SGOT) 17 10-37 U/L Alanine Aminotransferase (ALT/SGPT) 33 12-78 U/L Alkaline Phosphatase 57 50-136 U/L Total Protein 6.6 6.0-8.3 g/dL Albumin 3.2 L 3.5-5.0 g/dL Prothrombin Time 11.4 9.6-11.6 SEC Prothromb Time International Ratio 1.06 0.85-1.15 Activated Partial Thromboplast Time 27.5 26.3-35.5 SEC Phosphorus Level 3.3 2.5-4.9 mg/dL Lactic Acid Level 1.6 0.8-2.5 mmol/L Urine Color YELLOW YELLOW Urine Appearance CLEAR CLEAR Urine pH 5.5 5.0-8.0 Urine Specific [place] 1.034 H 1.001-1.031 Urine Protein 50 H NEGATIVE mg/dL Urine Glucose (UA) NEGATIVE NEGATIVE mg/dL Urine Ketones 150 H NEGATIVE mg/dL Urine Occult Blood NEGATIVE NEGATIVE Urine Nitrate NEGATIVE NEGATIVE Urine Bilirubin NEGATIVE NEGATIVE mg/dL Urine Urobilinogen 2.0 H 0.2-1.0 mg/dL Urine Leukocyte Esterase NEGATIVE NEGATIVE Cuate/uL Urine RBC 2-5 H 0-1 /HPF Urine WBC 0-1 0-1 /HPF Urine Squamous Epithelial Cells RARE 0-2 /HPF Urine Bacteria RARE None Seen /HPF Urine Hyaline Casts 2-5 H 0-1 /LPF /LPF Test 03/03/24 17:02 Range/Units White Cell Morphology Comment See comments Direct Bilirubin 0.1 0.0-0.3 mg/dL Lipase 58 16-77 U/L Current Medications Medications (Trade) Dose Ordered Sig/Krishan Route PRN Reason Start Time Stop Time Status Last Admin Dose Admin Acetaminophen (TYLenol 650MG SUPPOSITORY) 650 mg Q6H PRN RC MILD PAIN (1-3) 03/03/24 22:30 04/02/24 22:29 Famotidine (Pepcid 20mg Vial) 20 mg DAILY IV 03/04/24 09:00 04/03/24 08:59 03/05/24 08:48 20 MG Famotidine (Pepcid 20mg Vial) 20 mg ONCE STAT IV 03/03/24 18:30 03/03/24 18:32 DC 03/03/24 20:11 20 MG Hydralazine HCl (APRESOLine 20MG INJ) 10 mg Q6H PRN IV For:SBP above 160;DBP above 90 03/03/24 22:30 04/02/24 22:29 Ketorolac Tromethamine (toRADol) 15 mg ONCE STAT IV 03/03/24 18:30 03/03/24 18:32 DC 03/03/24 20:11 15 MG Lactated Ringer's 1,000 ml @ 100 mls/hr Q10H IV 03/03/24 22:30 04/02/24 22:29 03/04/24 20:35 100 MLS/HR Magnesium Sulfate 50 ml @ 0 mls/hr PROTOCOL PRN IV low mag level 03/04/24 09:30 04/03/24 09:29 Morphine Sulfate (morPHINE 4MG SYG) 4 mg Q4H PRN IV SEVERE PAIN (7-10) 03/03/24 22:30 03/10/24 22:29 Ondansetron HCl (zoFRAN 4MG INJ) 4 mg ONCE STAT IVP 03/03/24 18:30 03/03/24 18:32 DC 03/03/24 20:11 4 MG Ondansetron HCl (zoFRAN 4MG INJ) 4 mg Q6H PRN IV NAUSEA/VOMITING 03/03/24 22:30 04/02/24 22:29 Potassium Chloride 100 ml @ 50 mls/hr AD PRN IV POTASSIUM PROTOCOL 03/04/24 09:30 04/03/24 09:29 03/05/24 06:32 50 MLS/HR Sodium Chloride 1,000 ml @ 1,000 mls/hr Q1H STAT IV 03/03/24 20:00 03/03/24 20:59 DC 03/03/24 20:11 1,000 MLS/HR DIAGNOSTICS / RADIOLOGY: [ ] ASSESSMENT: Suspected small bowel obstruction, POA Intractable abd pain POA Extensive abdominal distention POA electrolytes derangement: Hypokalemia POA Obesity: BMI: 36.1 POA chronic problems; Hyperlipidemia Gout] obe PLAN: [ ] Remain in Surgical floor continue with conservative family resource management specialist: General surgeon pending evaluation TEST: repeat KUB Distended loops of large and small bowel, unchanged. Diet: Remain Bowel rest cont with NGT LIWS encouraged to ambulate TID oob to chair most of day cont with pain management for adequate pain controlled DVT: SCD applied GI: PUD ppx PRN: MEDICATIONS zofran 4 mg IV every 6 hrs for n/v all questions answered Supervising MD: Dr. Alexander Knapp c/d ATTESTATION BY PHYSICIAN I have seen and examined the patient. I reviewed the documentation, medical decision making, and treatment plan as noted by the resident provider above. I agree with the findings and plan of care. Jt Knapp MD, [facility] CHILD CARE AIDE Mar 05, 2024 09:05
[2024-03-05] MEDS ORDERED: acetylCYSTeine10% 4ML VIAL IH SCH (12:00)
[2024-03-05] MEDS ORDERED: Solu-medROL 40MG VIAL IVP SCH (12:00)
--- NOTE | 2024-03-05 17:09 | PN ---
This is a 53-year-old male with concerns of small bowel obstruction Interval history: This is a 53-year-old male resting in his room Patient with two large bowel movements reported by nursing No abdominal pain on physical exam NG output with 250 reported by nursing Patient reports flatus Physical exam General: Awake alert and oriented Heart: Regular rate and rhythm} Lungs: Clear to auscultation no distress Abdomen: [Soft, nontender, nondistended Assessment : This is a 53-year-old male with concerns of small bowel obstruction which appears to have resolved Plan: NG tube to be removed Patient to be allowed clear liquid diet Diet to be held at clear liquids until advanced by Surgical team Patient to continue with the ambulation Plan will be for continued conservative management Dr. Watkins to be updated in patient's status and surgical team to follow patient closely. Thank you Vitals/Labs Vital Signs Date Time Temp Pulse Resp B/P (MAP) Pulse Ox O2 Delivery O2 Flow Rate FiO2 03/05/24 16:00 97.9 61 20 157/87 97 03/05/24 04:00 Room Air 03/04/24 19:10 0 21 Laboratory Tests 03/05/24 05:00 03/05/24 11:00 Medications Current Medications Ondansetron HCl 4 mg ONCE STAT IVP Last administered on 03/03/24at 20:11; Start 03/03/24 at 18:30; Stop 03/03/24 at 18:32; Status DC Famotidine 20 mg ONCE STAT IV Last administered on 03/03/24at 20:11; Start 03/03/24 at 18:30; Stop 03/03/24 at 18:32; Status DC Ketorolac Tromethamine 15 mg ONCE STAT IV Last administered on 03/03/24at 20:11; Start 03/03/24 at 18:30; Stop 03/03/24 at 18:32; Status DC Sodium Chloride 1,000 ml @ 1,000 mls/hr Q1H STAT IV Last administered on 03/03/24at 20:11; Start 03/03/24 at 20:00; Stop 03/03/24 at 20:59; Status DC Iohexol 75 ml STK-MED ONCE IV; Start 03/03/24 at 22:19; Stop 03/03/24 at 22:24; Status DC Famotidine 20 mg DAILY IV Last administered on 03/05/24at 08:48; Start 03/04/24 at 09:00; Stop 04/03/24 at 08:59 Acetaminophen 650 mg Q6H PRN RC; Start 03/03/24 at 22:30; Stop 04/02/24 at 22:29 Ondansetron HCl 4 mg Q6H PRN IV; Start 03/03/24 at 22:30; Stop 04/02/24 at 22:29 Morphine Sulfate 4 mg Q4H PRN IV; Start 03/03/24 at 22:30; Stop 03/10/24 at 22:29 Hydralazine HCl 10 mg Q6H PRN IV; Start 03/03/24 at 22:30; Stop 04/02/24 at 22:29 Lactated Ringer's 1,000 ml @ 100 mls/hr Q10H IV Last administered on 03/04/24at 20:35; Start 03/03/24 at 22:30; Stop 04/02/24 at 22:29 Magnesium Sulfate 50 ml @ 0 mls/hr PROTOCOL PRN IV; Start 03/04/24 at 09:30; Stop 04/03/24 at 09:29 Potassium Chloride 100 ml @ 50 mls/hr AD PRN IV Last administered on 03/05/24at 06:32; Start 03/04/24 at 09:30; Stop 04/03/24 at 09:29 Bisacodyl 10 mg ONCE ONCE RC Last administered on 03/04/24at 15:13; Start 03/04/24 at 15:00; Stop 03/04/24 at 15:01; Status DC Acetylcysteine 400mg = 4ml [id number] IH; Start 03/05/24 at 12:00; Stop 03/05/24 at 11:36; Status DC Methylprednisolone Sodium Succinate 40 mg Q8H IVP; Start 03/05/24 at 12:00; Stop 03/05/24 at 11:36; Status DC ROSSY SYLVESTER Jr. Mar 05, 2024 17:09
[2024-03-05] MEDS: morPHINE 4 MG SYG IV PRN (17:53)
[2024-03-05] MEDS: MAGNESIUM 2GM PREMIX 50ML 50 ML IV PRN (20:22)
[2024-03-06] VITALS (7 sets, daily range): BP systolic 139–149; BP diastolic 14–94; PULSE 58–66; RESP 18; TEMP 98.6–99.7; O2SAT 96
[2024-03-06 07:25] LABS: POTASSIUM 2.7 mmol/L (3.5-5.1)
--- NOTE | 2024-03-06 08:00 | PN ---
[facility] PROGRESS NOTE Date of Service: Mar 06, 2024 Time of Service: 07:54 SUBJECTIVE: [ ] This is a 53-year-old male was admitted on 03/03/2024 presents in ED with chief complaints of abdominal pain. ER workup was consistent with small- bowel obstruction. NGT tube was placed in ED and surgeon was consulted. Patient was seen and examined this morning no output from NG tube patient appears distended. the patient remain Bowel rest until seen by surgeon: will follow recommendations: ordered a repeat KUB for this morning. 03/05/24 Patient is seen and examined with the attending, reviewed chart and discussed. Patient was seen by general surgeon continue conservative management. Patient had four BMs was given suppository laxative. Patient's potassium 2.9 was replaced early this morning we will repeat level and replace as needed we will wait for surgeon continues with NG tube and bowel rest. Repeat KUB: Distended loops of large and small bowel, unchanged. 03/06/24 patient is seen and examined reviewed chart discussed case with attending. Patient continues with hypokalemia patient is tolerating clear liquid no surgical intervention on this admission we will repeat potassium level at noon. Patient reports no nausea vomiting or abdominal pain. REVIEW OF SYSTEMS CONSTITUTIONAL: Denies fevers, chills, or night sweats. No unintentional weight loss reported. NEUROLOGICAL: Denies headache, amaurosis fugax, motor weakness, sensory deficit , vertigo/spinning sensation, gait abnormalities, or tremors. ENT: No hearing loss, otalgia, otorrhea, rhinitis, rhinorrhea, hoarseness, or sore throat. CARDIOVASCULAR: Denies any exertional angina, dyspnea on exertion, orthopnea, paroxysmal nocturnal dyspnea, palpitations, life-threatening arrhythmias, claudication. PULMONARY: Denies any shortness of breath, cough, phlegm/sputum, hemoptysis, pleuritic chest pain. SLEEP: Denies morning headaches, daytime somnolence or napping. Denies difficulty falling asleep, staying asleep, waking from sleep. Denies knowledge of snoring. GASTROINTESTINAL: Denies any type of dysphagia to either liquids or solids. Denies nausea, vomiting, pyrosis, early satiety, abdominal pain, diarrhea, constipation, or changes in stool consistency or caliber. Denies coffee-ground emesis, hematemesis, hematochezia, or melanotic stools. GENITOURINARY: Denies frequency, urgency, nocturia, hematuria or incontinence (Storage/Irritative symptoms.) Low urinary stream, straining to void, urinary intermittency or hesitancy, splitting of the voiding stream, terminal dribbling. ENDOCRINOLOGIC: Denies polyuria, polydipsia, polyphagia or heat/cold intolerances. HEMATOLOGIC: Denies thrombophilia/previous clots, or coagulopathy/bleeding disorders. ONCOLOGIC: Denies personal history of malignancy. DERMATOLOGIC: Denies rashes or pruritus. PSYCHIATRIC: Denies any suicidal or homicidal ideation. Denies hallucinations. PHYSICAL EXAM GENERAL APPEARANCE: The patient is awake, alert, and oriented, in no acute cardiopulmonary distress. NEUROLOGICAL: Cranial nerves II-XII grossly intact. Motor is 5/5 in bilateral upper and lower extremities proximal to distal. No sensory deficits. HEENT: Face is symmetric. Pupils are equal and reactive. Extraocular movements are intact. NECK: Supple. No JVD. No thyromegaly. No submental, submandibular, pre- /postauricular, occipital or supraclavicular lymphadenopathy. CHEST: Normal chest expansion. No Telemetry. LUNGS: Absence of any rales, rhonchi or any wheezing. CARDIOVASCULAR: Regular. S1 and S2 normal. No appreciable rubs, murmurs or gallops. ABDOMEN: Soft, nontender, and nondistended. There is no rebound, voluntary guarding, or rigidity. : Deferred. No Sagastume. EXTREMITIES: Non-edematous and not cyanotic. No clubbing. Good capillary refill. SKIN: No skin breakdown. Vital Signs (last 8hr) Date Time Temp Pulse Resp B/P (MAP) Pulse Ox O2 Delivery O2 Flow Rate FiO2 03/06/24 04:00 99.0 59 18 149/93 94 Room Air 03/06/24 00:00 98.8 66 18 144/14 96 Room Air LABS: Laboratory: Test 03/06/24 07:04 03/05/24 05:00 Range/Units Potassium Level 2.7 *L 3.5-5.1 mmol/L Magnesium Level 2.00 1.80-2.40 mg/dL White Blood Count 8.2 4.8-10.8 K/uL Red Blood Count 4.38 L 4.50-6.20 MIL/uL Hemoglobin 13.3 L 14.0-18.0 g/dL Hematocrit 37.4 L 42-54 % Mean Corpuscular Volume 85.4 79-99 fL Mean Corpuscular Hemoglobin 30.4 27.0-33.0 pg Mean Corpuscular Hemoglobin Concent 35.6 32.0-36.0 g/dL Red Cell Distribution Width 11.9 11.0-15.5 % Platelet Count 301 130-400 K/uL Mean Platelet Volume 9.9 7.5-10.5 fL Immature Granulocyte % (Auto) 0.4 0-1 % Neutrophils (%) (Auto) 75.7 40.0-77.0 % Lymphocytes (%) (Auto) 12.1 L 21.0-51.0 % Monocytes (%) (Auto) 11.6 3.0-13.0 % Eosinophils (%) (Auto) 0.1 0.0-8.0 % Basophils (%) (Auto) 0.1 0.0-5.0 % Neutrophils # (Auto) 6.2 1.8-7.7 K/uL Lymphocytes # (Auto) 1.0 1.0-4.8 K/uL Monocytes # (Auto) 1.0 0.1-1.0 K/uL Eosinophils # (Auto) 0.01 0.00-0.70 K/uL Basophils # (Auto) 0.01 0.00-0.20 K/uL Absolute Immature Granulocyte (auto 0.03 0-1 K/uL Nucleated Red Blood Cells 0.0 0.0-0.19 % Sodium Level 140 136-145 mmol/L Chloride Level 104 101-111 mmol/L Carbon Dioxide Level 27 21-32 mmol/L Blood Urea Nitrogen 10 7-18 mg/dL Creatinine 0.7 0.5-1.3 mg/dL Glomerular Filtration Rate Calc 110 >90 mL/min Random Glucose 106 H 70-105 mg/dL Total Calcium 8.4 L 8.5-10.1 mg/dL Total Bilirubin 0.5 0.2-1.0 mg/dL Aspartate Amino Transf (AST/SGOT) 17 10-37 U/L Alanine Aminotransferase (ALT/SGPT) 33 12-78 U/L Alkaline Phosphatase 57 50-136 U/L Total Protein 6.6 6.0-8.3 g/dL Albumin 3.2 L 3.5-5.0 g/dL Current Medications Medications (Trade) Dose Ordered Sig/Krishan Route PRN Reason Start Time Stop Time Status Last Admin Dose Admin Acetaminophen (TYLenol 650MG SUPPOSITORY) 650 mg Q6H PRN RC MILD PAIN (1-3) 03/03/24 22:30 04/02/24 22:29 Acetylcysteine (MUComyst 10% 4ML) 400mg = 4ml [id number] IH 03/05/24 12:00 03/05/24 11:36 DC Famotidine (Pepcid 20mg Vial) 20 mg DAILY IV 03/04/24 09:00 04/03/24 08:59 03/05/24 08:48 20 MG Famotidine (Pepcid 20mg Vial) 20 mg ONCE STAT IV 03/03/24 18:30 03/03/24 18:32 DC 03/03/24 20:11 20 MG Hydralazine HCl (APRESOLine 20MG INJ) 10 mg Q6H PRN IV For:SBP above 160;DBP above 90 03/03/24 22:30 04/02/24 22:29 Ketorolac Tromethamine (toRADol) 15 mg ONCE STAT IV 03/03/24 18:30 03/03/24 18:32 DC 03/03/24 20:11 15 MG Lactated Ringer's 1,000 ml @ 100 mls/hr Q10H IV 03/03/24 22:30 04/02/24 22:29 03/06/24 03:34 100 MLS/HR Magnesium Sulfate 50 ml @ 0 mls/hr PROTOCOL PRN IV low mag level 03/04/24 09:30 04/03/24 09:29 03/05/24 20:22 25 MLS/HR Methylprednisolone Sodium Succinate (Solu-medROL 40MG) 40 mg Q8H IVP 03/05/24 12:00 03/05/24 11:36 DC Morphine Sulfate (morPHINE 4MG SYG) 4 mg Q4H PRN IV SEVERE PAIN (7-10) 03/03/24 22:30 03/10/24 22:29 03/05/24 17:53 4 MG Ondansetron HCl (zoFRAN 4MG INJ) 4 mg ONCE STAT IVP 03/03/24 18:30 03/03/24 18:32 DC 03/03/24 20:11 4 MG Ondansetron HCl (zoFRAN 4MG INJ) 4 mg Q6H PRN IV NAUSEA/VOMITING 03/03/24 22:30 04/02/24 22:29 Potassium Chloride 100 ml @ 50 mls/hr AD PRN IV POTASSIUM PROTOCOL 03/04/24 09:30 04/03/24 09:29 03/05/24 06:32 50 MLS/HR Sodium Chloride 1,000 ml @ 1,000 mls/hr Q1H STAT IV 03/03/24 20:00 03/03/24 20:59 DC 03/03/24 20:11 1,000 MLS/HR DIAGNOSTICS / RADIOLOGY: [ ] ASSESSMENT: Suspected small bowel obstruction, POA Intractable abd pain POA Extensive abdominal distention POA electrolytes derangement: Hypokalemia POA Obesity: BMI: 36.1 POA chronic problems; Hyperlipidemia Gout] obe PLAN: [ ] Remain in Surgical floor continue with conservative document management analyst: General surgeon pending evaluation Diet: Clear liquid diet NGT removed yesterday tolerating diet encouraged to ambulate TID oob to chair most of day cont with pain management for adequate pain controlled Repeat potassium and new replace as per protocol. DVT: SCD applied GI: PUD ppx PRN: MEDICATIONS zofran 4 mg IV every 6 hrs for n/v all questions answered Supervising MD: Dr. Alexander Knapp c/d ATTESTATION BY PHYSICIAN I have seen and examined the patient. I reviewed the documentation, medical decision making, and treatment plan as noted by the resident provider above. I agree with the findings and plan of care. Jt Knapp MD, ELIZABETH NP Mar 06, 2024 08:00
[2024-03-06] MEDS: ondanSETRON 4MG INJ IV PRN (08:39)
[2024-03-06] MEDS: PoTASSium chl 10% ELIXIR 20MEQ 20 MEQ/15 ML UDCUP PO PRN (08:43)
--- NOTE | 2024-03-06 10:48 | PN ---
This is a 53-year-old what appears to be resolving small bowel obstruction Interval history: This 53-year-old male seen in his room resting Patient tolerated clear liquids Patient is still reporting some bloatedness been no pain Patient with bowel movements throughout yesterday evening Patient has not been ambulating Physical exam General: Awake alert and oriented Heart: Regular rate and rhythm} Lungs: [Clear to auscultation no distress Abdomen: [No obvious distention on physical exam Assessment : This is a 49 resolving small Plan: At this point we will order KUB to evaluate abdomen Patient could benefit from simethicone Patient encouraged to ambulate more today Surgical team to follow patient closely and conservative management for now. Thank you Vitals/Labs Vital Signs Date Time Temp Pulse Resp B/P (MAP) Pulse Ox O2 Delivery O2 Flow Rate FiO2 03/06/24 08:30 96 Room Air* 0 21 03/06/24 08:12 99.1 58 18 144/89 Laboratory Tests 03/05/24 11:00 03/06/24 07:04 Medications Current Medications Ondansetron HCl 4 mg ONCE STAT IVP Last administered on 03/03/24at 20:11; Start 03/03/24 at 18:30; Stop 03/03/24 at 18:32; Status DC Famotidine 20 mg ONCE STAT IV Last administered on 03/03/24at 20:11; Start 03/03/24 at 18:30; Stop 03/03/24 at 18:32; Status DC Ketorolac Tromethamine 15 mg ONCE STAT IV Last administered on 03/03/24at 20:11; Start 03/03/24 at 18:30; Stop 03/03/24 at 18:32; Status DC Sodium Chloride 1,000 ml @ 1,000 mls/hr Q1H STAT IV Last administered on 03/03/24at 20:11; Start 03/03/24 at 20:00; Stop 03/03/24 at 20:59; Status DC Iohexol 75 ml STK-MED ONCE IV; Start 03/03/24 at 22:19; Stop 03/03/24 at 22:24; Status DC Famotidine 20 mg DAILY IV Last administered on 03/06/24at 08:42; Start 03/04/24 at 09:00; Stop 04/03/24 at 08:59 Acetaminophen 650 mg Q6H PRN RC; Start 03/03/24 at 22:30; Stop 04/02/24 at 22:29 Ondansetron HCl 4 mg Q6H PRN IV Last administered on 03/06/24at 08:39; Start 03/03/24 at 22:30; Stop 04/02/24 at 22:29 Morphine Sulfate 4 mg Q4H PRN IV Last administered on 03/05/24at 17:53; Start 03/03/24 at 22:30; Stop 03/10/24 at 22:29 Hydralazine HCl 10 mg Q6H PRN IV; Start 03/03/24 at 22:30; Stop 04/02/24 at 22:29 Lactated Ringer's 1,000 ml @ 100 mls/hr Q10H IV Last administered on 03/06/24at 03:34; Start 03/03/24 at 22:30; Stop 03/06/24 at 07:54; Status DC Magnesium Sulfate 50 ml @ 0 mls/hr PROTOCOL PRN IV Last administered on 03/05/24at 20:22; Start 03/04/24 at 09:30; Stop 04/03/24 at 09:29 Potassium Chloride 100 ml @ 50 mls/hr AD PRN IV Last administered on 03/05/24at 06:32; Start 03/04/24 at 09:30; Stop 03/06/24 at 07:48; Status DC Bisacodyl 10 mg ONCE ONCE RC Last administered on 03/04/24at 15:13; Start 03/04/24 at 15:00; Stop 03/04/24 at 15:01; Status DC Acetylcysteine 400mg = 4ml [id number] IH; Start 03/05/24 at 12:00; Stop 03/05/24 at 11:36; Status DC Methylprednisolone Sodium Succinate 40 mg Q8H IVP; Start 03/05/24 at 12:00; Stop 03/05/24 at 11:36; Status DC Potassium Chloride 100 ml @ 100 mls/hr AD PRN IV; Start 03/06/24 at 08:00; Stop 04/05/24 at 07:59 Potassium Chloride 20 meq AD PRN PO Last administered on 03/06/24at 08:43; Start 03/06/24 at 08:00; Stop 04/05/24 at 07:59 Potassium Chloride 20 meq AD PRN PO; Start 03/06/24 at 08:00; Stop 04/05/24 at 07:59 ROSSY SYLVESTER Jr. Mar 06, 2024 10:48
--- NOTE | 2024-03-06 12:21 | HMCIMG ---
ABD 1VW REASON: sbo FINDINGS: Single image of the abdomen was obtained. There is persistent moderate to marked gaseous distention of the colon. Small bowel gas pattern appears normal. Bones and soft tissues appear unremarkable. IMPRESSION: 1. Persistent moderate to marked gaseous distention of the colon, this may represent ileus, a low colon obstruction could cause this appearance as well.
[2024-03-06] MEDS: PoTASSium chl 10% ELIXIR 20MEQ 20 MEQ/15 ML UDCUP PO ONE (12:58)
[2024-03-06] MEDS: SIMETHICONE 80 MG TAB.CHEW PO ONE (12:58)
[2024-03-06] MEDS: SIMETHICONE 80 MG TAB.CHEW PO PRN (13:11)
--- NOTE | 2024-03-06 15:01 | NUR ---
PT met with patient who is walking I in halls already and MN for bed mobility. Encouraged continued gait, addressed questions, No needs for PT eval. DC home when ready.
[2024-03-07] VITALS (8 sets, daily range): BP systolic 126–142; BP diastolic 66–92; PULSE 53–70; RESP 18; TEMP 98.2–99.1; O2SAT 94
[2024-03-07 04:48] LABS: BASOPHILS # (AUTO) 0.03 K/uL (0.00-0.20); BASOPHILS % (AUTO) 0.4 % (0.0-5.0); EOSINOPHILS # (AUTO) 0.08 K/uL (0.00-0.70); HEMATOCRIT 37.3 % (42-54); IMMATURE GRANULOCYTE ABSOLUTE 0.02 K/uL (0-1); LYMPHOCYTES # (AUTO) 1.4 K/uL (1.0-4.8); LYMPHOCYTES % (AUTO) 17.7 % (21.0-51.0); MEAN CORPUSCULAR HEMOGLOBIN 30.2 pg (27.0-33.0); MEAN CORPUSCULAR HGB CONC 35.4 g/dL (32.0-36.0); MEAN CORPUSCULAR VOLUME 85.4 fL (79-99); MONOCYTES % (AUTO) 12.8 % (3.0-13.0); NEUTROPHILS # (AUTO) 5.5 K/uL (1.8-7.7); NEUTROPHILS % (AUTO) 67.9 % (40.0-77.0); PLATELET COUNT (AUTO) 284 K/uL (130-400); RED BLOOD CELL COUNT(AUTO) 4.37 MIL/uL (4.50-6.20); RED CELL DISTRIBUTION WIDTH 12.1 % (11.0-15.5); WHITE BLOOD COUNT (AUTO) 8.1 K/uL (4.8-10.8)
[2024-03-07 05:19] LABS: ALBUMIN 3.2 g/dL (3.5-5.0); BILIRUBIN,TOTAL 0.5 mg/dL (0.2-1.0); CREATININE 0.6 mg/dL (0.5-1.3); MAGNESIUM 1.8 mg/dL (1.80-2.40); POTASSIUM 3.2 mmol/L (3.5-5.1); TOTAL PROTEIN, SERUM 6.5 g/dL (6.0-8.3)
--- NOTE | 2024-03-07 08:45 | PN ---
[facility] PROGRESS NOTE Date of Service: Mar 07, 2024 Time of Service: 08:45 SUBJECTIVE: [ ] This is a 53-year-old male was admitted on 03/03/2024 presents in ED with chief complaints of abdominal pain. ER workup was consistent with small- bowel obstruction. NGT tube was placed in ED and surgeon was consulted. Patient was seen and examined this morning no output from NG tube patient appears distended. the patient remain Bowel rest until seen by surgeon: will follow recommendations: ordered a repeat KUB for this morning. 03/05/24 Patient is seen and examined with the attending, reviewed chart and discussed. Patient was seen by general surgeon continue conservative management. Patient had four BMs was given suppository laxative. Patient's potassium 2.9 was replaced early this morning we will repeat level and replace as needed we will wait for surgeon continues with NG tube and bowel rest. Repeat KUB: Distended loops of large and small bowel, unchanged. 03/06/24 patient is seen and examined reviewed chart discussed case with attending. Patient continues with hypokalemia patient is tolerating clear liquid no surgical intervention on this admission we will repeat potassium level at noon. Patient reports no nausea vomiting or abdominal pain. 03/07/24 the patient seen and examined,, the patient continue with abd distention had small bm this moring tolerating CLD General surgeon concern with colonic ileus consulted GI for possible colonoscopy. The patient was made aware a GI specialist will be seeing him today. REVIEW OF SYSTEMS CONSTITUTIONAL: Denies fevers, chills, or night sweats. No unintentional weight loss reported. NEUROLOGICAL: Denies headache, amaurosis fugax, motor weakness, sensory deficit, vertigo/spinning sensation, gait abnormalities, or tremors. ENT: No hearing loss, otalgia, otorrhea, rhinitis, rhinorrhea, hoarseness, or sore throat. CARDIOVASCULAR: Denies any exertional angina, dyspnea on exertion, orthopnea, paroxysmal nocturnal dyspnea, palpitations, life-threatening arrhythmias, claudi cation. PULMONARY: Denies any shortness of breath, cough, phlegm/sputum, hemoptysis, pleuritic chest pain. SLEEP: Denies morning headaches, daytime somnolence or napping. Denies difficulty falling asleep, staying asleep, waking from sleep. Denies knowledge of snoring. GASTROINTESTINAL: Denies any type of dysphagia to either liquids or solids. Denies nausea, vomiting, pyrosis, early satiety, abdominal pain, diarrhea, constipation, or changes in stool consistency or caliber. Denies coffee-ground emesis, hematemesis, hematochezia, or melanotic stools. GENITOURINARY: Denies frequency, urgency, nocturia, hematuria or incontinence (Storage/Irritative symptoms.) Low urinary stream, straining to void, urinary intermittency or hesitancy, splitting of the voiding stream, terminal dribbling. ENDOCRINOLOGIC: Denies polyuria, polydipsia, polyphagia or heat/cold intolerances. HEMATOLOGIC: Denies thrombophilia/previous clots, or coagulopathy/bleeding disorders. ONCOLOGIC: Denies personal history of malignancy. DERMATOLOGIC: Denies rashes or pruritus. PSYCHIATRIC: Denies any suicidal or homicidal ideation. Denies hallucinations. PHYSICAL EXAM GENERAL APPEARANCE: The patient is awake, alert, and oriented, in no acute cardiopulmonary distress. NEUROLOGICAL: Cranial nerves II-XII grossly intact. Motor is 5/5 in bilateral upper and lower extremities proximal to distal. No sensory deficits. HEENT: Face is symmetric. Pupils are equal and reactive. Extraocular movements are intact. NECK: Supple. No JVD. No thyromegaly. No submental, submandibular, pre- /postauricular, occipital or supraclavicular lymphadenopathy. CHEST: Normal chest expansion. No Telemetry. LUNGS: Absence of any rales, rhonchi or any wheezing. CARDIOVASCULAR: Regular. S1 and S2 normal. No appreciable rubs, murmurs or gallops. ABDOMEN: Soft, nontender, and nondistended. There is no rebound, voluntary guarding, or rigidity. : Deferred. No Sagastume. EXTREMITIES: Non-edematous and not cyanotic. No clubbing. Good capillary refill. SKIN: No skin breakdown. Vital Signs (last 8hr) Date Time Temp Pulse Resp B/P (MAP) Pulse Ox O2 Delivery O2 Flow Rate FiO2 03/07/24 07:59 98.2 61 18 136/92 94 Room Air 21 03/07/24 04:00 99.0 61 18 127/66 96 Room Air LABS: Laboratory: Test 03/07/24 04:17 Range/Units White Blood Count 8.1 4.8-10.8 K/uL Red Blood Count 4.37 L 4.50-6.20 MIL/uL Hemoglobin 13.2 L 14.0-18.0 g/dL Hematocrit 37.3 L 42-54 % Mean Corpuscular Volume 85.4 79-99 fL Mean Corpuscular Hemoglobin 30.2 27.0-33.0 pg Mean Corpuscular Hemoglobin Concent 35.4 32.0-36.0 g/dL Red Cell Distribution Width 12.1 11.0-15.5 % Platelet Count 284 130-400 K/uL Mean Platelet Volume 10.1 7.5-10.5 fL Immature Granulocyte % (Auto) 0.2 0-1 % Neutrophils (%) (Auto) 67.9 40.0-77.0 % Lymphocytes (%) (Auto) 17.7 L 21.0-51.0 % Monocytes (%) (Auto) 12.8 3.0-13.0 % Eosinophils (%) (Auto) 1.0 0.0-8.0 % Basophils (%) (Auto) 0.4 0.0-5.0 % Neutrophils # (Auto) 5.5 1.8-7.7 K/uL Lymphocytes # (Auto) 1.4 1.0-4.8 K/uL Monocytes # (Auto) 1.0 0.1-1.0 K/uL Eosinophils # (Auto) 0.08 0.00-0.70 K/uL Basophils # (Auto) 0.03 0.00-0.20 K/uL Absolute Immature Granulocyte (auto 0.02 0-1 K/uL Nucleated Red Blood Cells 0.0 0.0-0.19 % Sodium Level 139 136-145 mmol/L Potassium Level 3.2 L 3.5-5.1 mmol/L Chloride Level 103 101-111 mmol/L Carbon Dioxide Level 25 21-32 mmol/L Blood Urea Nitrogen 10 7-18 mg/dL Creatinine 0.6 0.5-1.3 mg/dL Glomerular Filtration Rate Calc 115 >90 mL/min Random Glucose 95 70-105 mg/dL Total Calcium 8.6 8.5-10.1 mg/dL Magnesium Level 1.80 1.80-2.40 mg/dL Total Bilirubin 0.5 0.2-1.0 mg/dL Aspartate Amino Transf (AST/SGOT) 21 10-37 U/L Alanine Aminotransferase (ALT/SGPT) 33 12-78 U/L Alkaline Phosphatase 53 50-136 U/L Total Protein 6.5 6.0-8.3 g/dL Albumin 3.2 L 3.5-5.0 g/dL Current Medications Medications (Trade) Dose Ordered Sig/Krishan Route PRN Reason Start Time Stop Time Status Last Admin Dose Admin Acetaminophen (TYLenol 325MG TAB) 650 mg Q4H PRN PO TEMPERATURE GREATER THAN 101.5 03/06/24 12:30 04/05/24 12:29 Acetaminophen (TYLenol 650MG SUPPOSITORY) 650 mg Q6H PRN RC MILD PAIN (1-3) 03/03/24 22:30 03/06/24 12:11 DC Acetylcysteine (MUComyst 10% 4ML) 400mg = 4ml [id number] IH 03/05/24 12:00 03/05/24 11:36 DC Famotidine (Pepcid 20mg Vial) 20 mg DAILY IV 03/04/24 09:00 04/03/24 08:59 03/06/24 08:42 20 MG Famotidine (Pepcid 20mg Vial) 20 mg ONCE STAT IV 03/03/24 18:30 03/03/24 18:32 DC 03/03/24 20:11 20 MG Hydralazine HCl (APRESOLine 20MG INJ) 10 mg Q6H PRN IV For:SBP above 160;DBP above 90 03/03/24 22:30 04/02/24 22:29 Ketorolac Tromethamine (toRADol) 15 mg ONCE STAT IV 03/03/24 18:30 03/03/24 18:32 DC 03/03/24 20:11 15 MG Lactated Ringer's 1,000 ml @ 100 mls/hr Q10H IV 03/03/24 22:30 03/06/24 07:54 DC 03/06/24 03:34 100 MLS/HR Magnesium Sulfate 50 ml @ 0 mls/hr PROTOCOL PRN IV low mag level 03/04/24 09:30 04/03/24 09:29 03/05/24 20:22 25 MLS/HR Methylprednisolone Sodium Succinate (Solu-medROL 40MG) 40 mg Q8H IVP 03/05/24 12:00 03/05/24 11:36 DC Morphine Sulfate (morPHINE 4MG SYG) 4 mg Q4H PRN IV SEVERE PAIN (7-10) 03/03/24 22:30 03/10/24 22:29 03/05/24 17:53 4 MG Ondansetron HCl (zoFRAN 4MG INJ) 4 mg ONCE STAT IVP 03/03/24 18:30 03/03/24 18:32 DC 03/03/24 20:11 4 MG Ondansetron HCl (zoFRAN 4MG INJ) 4 mg Q6H PRN IV NAUSEA/VOMITING 03/03/24 22:30 04/02/24 22:29 03/06/24 08:39 4 MG Potassium Chloride 100 ml @ 50 mls/hr AD PRN IV POTASSIUM PROTOCOL 03/04/24 09:30 03/06/24 07:48 DC 03/05/24 06:32 50 MLS/HR Potassium Chloride 100 ml @ 100 mls/hr AD PRN IV POTASSIUM PROTOCOL 03/06/24 08:00 04/05/24 07:59 Potassium Chloride (K-Dur/Klor-Con 20meq) 20 meq AD PRN PO POTASSIUM PROTOCOL 03/06/24 08:00 04/05/24 07:59 Potassium Chloride (KCl 10% Elixir 20meq/15ml) 20 meq AD PRN PO POTASSIUM PROTOCOL 03/06/24 08:00 04/05/24 07:59 03/06/24 19:42 20 MEQ Simethicone (Mylicon) 80 mg PCHS PRN PO GI GAS 03/06/24 12:30 04/05/24 12:29 03/06/24 21:35 80 MG Sodium Chloride 1,000 ml @ 1,000 mls/hr Q1H STAT IV 03/03/24 20:00 03/03/24 20:59 DC 03/03/24 20:11 1,000 MLS/HR DIAGNOSTICS / RADIOLOGY: [ ] ASSESSMENT: Suspected small bowel obstruction, POA Intractable abd pain POA Extensive abdominal distention POA electrolytes derangement: Hypokalemia POA Obesity: BMI: 36.1 POA chronic problems; Hyperlipidemia Gout] obe PLAN: [ ] Remain in Surgical floor continue with conservative management services technician: General surgeon pending evaluation Diet: will be kept NPO for now per surgery. general surgeon: conservative management: consulted GI concern with colonic ileus possible colonoscopy encouraged to ambulate TID oob to chair most of day cont with pain management for adequate pain controlled Repeat potassium and new replace as per protocol. DVT: SCD applied GI: PUD ppx PRN: MEDICATIONS zofran 4 mg IV every 6 hrs for n/v all questions answered Supervising MD: Dr. Alexander Knapp c/d ATTESTATION BY PHYSICIAN I have seen and examined the patient. I reviewed the documentation, medical decision making, and treatment plan as noted by the resident provider above. I agree with the findings and plan of care. Jt Knapp MD, ELIZABETH NP Mar 07, 2024 08:45
[2024-03-07] MEDS: PoTASSium chl 10% ELIXIR 20MEQ 20 MEQ/15 ML UDCUP PO ONE (09:00)
--- NOTE | 2024-03-07 10:39 | PN ---
This is a 53-year-old male with concerns of small bowel obstruction with possible resolution Interval history: This 53-year-old male seen in his room resting Patient continues to have bowel function and tolerating clear liquid diet Patient is still reporting concerns of bloated sensation KUB showing concerns of gaseous distention in the colon concerning for possible ileus No significant abdominal pain reported on physical exam but abdomen for Physical exam General: Awake alert and oriented Heart: Regular rate and rhythm} Lungs: [Clear to auscultation no distress Abdomen: Firm distended nontender Assessment : This is a 53-year-old male with resolving small bowel obstruction with concerns of colonic ileus Plan: Plan will be for conservative management Nursing to consult GI for evaluation of possible colonic ileus and colonoscopy Patient to be kept NPO for now Dr. Watkins to be updated in patient's status and surgical team to follow patient closely. Thank you Vitals/Labs Vital Signs Date Time Temp Pulse Resp B/P (MAP) Pulse Ox O2 Delivery O2 Flow Rate FiO2 03/07/24 07:59 98.2 61 18 136/92 94 Room Air 21 03/06/24 20:00 0 Laboratory Tests 03/06/24 11:42 03/06/24 17:05 03/07/24 04:17 Medications Current Medications Ondansetron HCl 4 mg ONCE STAT IVP Last administered on 03/03/24at 20:11; Start 03/03/24 at 18:30; Stop 03/03/24 at 18:32; Status DC Famotidine 20 mg ONCE STAT IV Last administered on 03/03/24at 20:11; Start 03/03/24 at 18:30; Stop 03/03/24 at 18:32; Status DC Ketorolac Tromethamine 15 mg ONCE STAT IV Last administered on 03/03/24at 20:11; Start 03/03/24 at 18:30; Stop 03/03/24 at 18:32; Status DC Sodium Chloride 1,000 ml @ 1,000 mls/hr Q1H STAT IV Last administered on 03/03/24at 20:11; Start 03/03/24 at 20:00; Stop 03/03/24 at 20:59; Status DC Iohexol 75 ml STK-MED ONCE IV; Start 03/03/24 at 22:19; Stop 03/03/24 at 22:24; Status DC Famotidine 20 mg DAILY IV Last administered on 03/07/24at 08:43; Start 03/04/24 at 09:00; Stop 04/03/24 at 08:59 Acetaminophen 650 mg Q6H PRN RC; Start 03/03/24 at 22:30; Stop 03/06/24 at 12:11; Status DC Ondansetron HCl 4 mg Q6H PRN IV Last administered on 03/06/24at 08:39; Start 03/03/24 at 22:30; Stop 04/02/24 at 22:29 Morphine Sulfate 4 mg Q4H PRN IV Last administered on 03/05/24at 17:53; Start 03/03/24 at 22:30; Stop 03/10/24 at 22:29 Hydralazine HCl 10 mg Q6H PRN IV; Start 03/03/24 at 22:30; Stop 04/02/24 at 22:29 Lactated Ringer's 1,000 ml @ 100 mls/hr Q10H IV Last administered on 03/06/24at 03:34; Start 03/03/24 at 22:30; Stop 03/06/24 at 07:54; Status DC Magnesium Sulfate 50 ml @ 0 mls/hr PROTOCOL PRN IV Last administered on 03/05/24at 20:22; Start 03/04/24 at 09:30; Stop 04/03/24 at 09:29 Potassium Chloride 100 ml @ 50 mls/hr AD PRN IV Last administered on 03/05/24at 06:32; Start 03/04/24 at 09:30; Stop 03/06/24 at 07:48; Status DC Bisacodyl 10 mg ONCE ONCE RC Last administered on 03/04/24at 15:13; Start 03/04/24 at 15:00; Stop 03/04/24 at 15:01; Status DC Acetylcysteine 400mg = 4ml [id number] IH; Start 03/05/24 at 12:00; Stop 03/05/24 at 11:36; Status DC Methylprednisolone Sodium Succinate 40 mg Q8H IVP; Start 03/05/24 at 12:00; Stop 03/05/24 at 11:36; Status DC Potassium Chloride 100 ml @ 100 mls/hr AD PRN IV; Start 03/06/24 at 08:00; Stop 04/05/24 at 07:59 Potassium Chloride 20 meq AD PRN PO Last administered on 03/06/24at 19:42; Start 03/06/24 at 08:00; Stop 04/05/24 at 07:59 Potassium Chloride 20 meq AD PRN PO; Start 03/06/24 at 08:00; Stop 04/05/24 at 07:59 Acetaminophen 650 mg Q4H PRN PO; Start 03/06/24 at 12:30; Stop 04/05/24 at 12:29 Simethicone 120 mg ONCE ONCE PO Last administered on 03/06/24at 12:58; Start 03/06/24 at 12:30; Stop 03/06/24 at 12:31; Status DC Simethicone 80 mg PCHS PRN PO Last administered on 03/06/24at 21:35; Start 03/06/24 at 12:30; Stop 04/05/24 at 12:29 Potassium Chloride 40 meq ONCE ONCE PO Last administered on 03/06/24at 12:58; Start 03/06/24 at 12:30; Stop 03/06/24 at 12:31; Status DC Potassium Chloride 20 meq ONCE ONCE PO; Start 03/07/24 at 09:00; Stop 03/07/24 at 09:01; Status DC ROSSY SYLVESTER Jr. Mar 07, 2024 10:39
--- NOTE | 2024-03-07 10:50 | HMCIMG ---
ABD 1VW REASON: sbo FINDINGS: Single image of the abdomen was obtained. There is persistent marked gaseous distention of the colon to the level of the pelvis. This could represent a low colon obstruction. The small bowel is not distended, and KV and intact ileocecal valve. IMPRESSION: 1. Marked gaseous distention of the colon, this could represent a low colon obstruction.
--- NOTE | 2024-03-07 14:10 | CONS ---
GASTROENTEROLOGY CONSULTATION NOTE Date of Consultation: Mar 07, 2024 Time of Consultation: 14:10 History of Present Illness: This is a 53-year-old male with past medical history of hyperlipidemia and gout who presented due to abdominal pain. On admission he had a CT abdomen and pelvis revealed extensive colonic distention with distal colonic obstruction not excluded. This could be related to constipation. Patient was being followed by surgery for which she had NG tube in place at first. He was eventually started on clear liquid diet and he is having small soft bowel movements. He continues with abdominal distention. KUB today revealing marked gaseous distention of the colon which could represent a low colonic obstruction. Potassium has persistently been low however today 3.2 trending up. No history of colonoscopy. Review of Systems: CONSTITUTIONAL: No malaise or change in sensation of wellbeing. ENMT: No rhinorrhea, otorrhea, sinus pain, ear ache. CARDIOVASCULAR: No angina, palpitations, orthopnea or paroxysmal dyspnea. RESPIRATORY: No SOB. GASTROINTESTINAL: No abdominal pain, nausea, vomiting, diarrhea, hematemesis, melena or change in the patient's habitual bowel movements consistency/number. GENITOURINARY: No dysuria, hematuria or change in bladder continence. MUSCULOSKELETAL: No new muscle pain or decrease in muscular strength. No new joint swelling, redness or tenderness. SKIN: No new rash. Past Medical History: ADDITIONAL PAST MEDICAL HISTORY: [Hyperlipidemia, gout] SOCIAL HISTORY: [Negative for smoking. Patient consumes alcohol about once weekly. Patient reports 2-4 beers that are 12 oz each. Patient denies drug use. Patient lives with his . Patient is typically independent of all his ADLs. Patient denies difficulty pain is bills. 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 Patient has poor access to health care due to lack of health insurance.] SURGICAL HISTORY: [Denies] Coded Allergies: No Known Allergies (Unverified Allergy, Unknown, 03/03/24) Physical Exam: GEN: Awake, alert, oriented in person, time and place, and in no acute distress. HEENT: No sinus tenderness. Tympanic membranes were not examined. No rhinorrhea. Oral pharyngeal mucosa is pink, moist and within normal limits. Neck is supple with no cervical lymphadenopathy, thyromegaly or JVD. CHEST: Inspection, palpation and percussion of the chest were unremarkable. Lung auscultation revealed normal breath sounds bilaterally. CARDIAC: PMI is within normal limits. Heart sounds are regular. Normal S1, S2. No gallop or murmur. ABD: Soft, non-tender and not distended. No peritoneal signs on palpation. No organomegaly. Normal bowel sounds. EXT: No cyanosis or clubbing. No edema. SKIN: Intact. No rashes. JOINTS: No evidence of synovitis or acute arthritis. NEURO: Alert and oriented to name, place and person. Cranial nerve examination is unremarkable. No focal motor deficits. Normal speech. Gait is normal. Strength is normal. Vital Sign (Last 24 Hours) 03/07/24 03/07/24 08:00 12:00 Temp 98.2 Pulse 63 Resp 18 B/P (MAP) 137/86 Pulse Ox 95 O2 Delivery Room Air O2 Flow Rate 0 FiO2 21 l Intake & Output (last 24hrs) 03/06/24 03/06/24 03/07/24 15:00 23:00 07:00 Intake Total 820 ml Balance 820 ml Laboratory: [ ] Laboratory: Test 03/07/24 04:17 Range/Units White Blood Count 8.1 4.8-10.8 K/uL Red Blood Count 4.37 L 4.50-6.20 MIL/uL Hemoglobin 13.2 L 14.0-18.0 g/dL Hematocrit 37.3 L 42-54 % Mean Corpuscular Volume 85.4 79-99 fL Mean Corpuscular Hemoglobin 30.2 27.0-33.0 pg Mean Corpuscular Hemoglobin Concent 35.4 32.0-36.0 g/dL Red Cell Distribution Width 12.1 11.0-15.5 % Platelet Count 284 130-400 K/uL Mean Platelet Volume 10.1 7.5-10.5 fL Immature Granulocyte % (Auto) 0.2 0-1 % Neutrophils (%) (Auto) 67.9 40.0-77.0 % Lymphocytes (%) (Auto) 17.7 L 21.0-51.0 % Monocytes (%) (Auto) 12.8 3.0-13.0 % Eosinophils (%) (Auto) 1.0 0.0-8.0 % Basophils (%) (Auto) 0.4 0.0-5.0 % Neutrophils # (Auto) 5.5 1.8-7.7 K/uL Lymphocytes # (Auto) 1.4 1.0-4.8 K/uL Monocytes # (Auto) 1.0 0.1-1.0 K/uL Eosinophils # (Auto) 0.08 0.00-0.70 K/uL Basophils # (Auto) 0.03 0.00-0.20 K/uL Absolute Immature Granulocyte (auto 0.02 0-1 K/uL Nucleated Red Blood Cells 0.0 0.0-0.19 % Sodium Level 139 136-145 mmol/L Potassium Level 3.2 L 3.5-5.1 mmol/L Chloride Level 103 101-111 mmol/L Carbon Dioxide Level 25 21-32 mmol/L Blood Urea Nitrogen 10 7-18 mg/dL Creatinine 0.6 0.5-1.3 mg/dL Glomerular Filtration Rate Calc 115 >90 mL/min Random Glucose 95 70-105 mg/dL Total Calcium 8.6 8.5-10.1 mg/dL Magnesium Level 1.80 1.80-2.40 mg/dL Total Bilirubin 0.5 0.2-1.0 mg/dL Aspartate Amino Transf (AST/SGOT) 21 10-37 U/L Alanine Aminotransferase (ALT/SGPT) 33 12-78 U/L Alkaline Phosphatase 53 50-136 U/L Total Protein 6.5 6.0-8.3 g/dL Albumin 3.2 L 3.5-5.0 g/dL Current Medications Medications (Trade) Dose Ordered Sig/Krishan Route PRN Reason Start Time Stop Time Status Last Admin Dose Admin Acetaminophen (TYLenol 325MG TAB) 650 mg Q4H PRN PO TEMPERATURE GREATER THAN 101.5 03/06/24 12:30 04/05/24 12:29 Acetaminophen (TYLenol 650MG SUPPOSITORY) 650 mg Q6H PRN RC MILD PAIN (1-3) 03/03/24 22:30 03/06/24 12:11 DC Acetylcysteine (MUComyst 10% 4ML) 400mg = 4ml [id number] IH 03/05/24 12:00 03/05/24 11:36 DC Famotidine (Pepcid 20mg Vial) 20 mg DAILY IV 03/04/24 09:00 04/03/24 08:59 03/07/24 08:43 20 MG Famotidine (Pepcid 20mg Vial) 20 mg ONCE STAT IV 03/03/24 18:30 03/03/24 18:32 DC 03/03/24 20:11 20 MG Hydralazine HCl (APRESOLine 20MG INJ) 10 mg Q6H PRN IV For:SBP above 160;DBP above 90 03/03/24 22:30 04/02/24 22:29 Ketorolac Tromethamine (toRADol) 15 mg ONCE STAT IV 03/03/24 18:30 03/03/24 18:32 DC 03/03/24 20:11 15 MG Lactated Ringer's 1,000 ml @ 100 mls/hr Q10H IV 03/03/24 22:30 03/06/24 07:54 DC 03/06/24 03:34 100 MLS/HR Magnesium Sulfate 50 ml @ 0 mls/hr PROTOCOL PRN IV low mag level 03/04/24 09:30 04/03/24 09:29 03/05/24 20:22 25 MLS/HR Methylprednisolone Sodium Succinate (Solu-medROL 40MG) 40 mg Q8H IVP 03/05/24 12:00 03/05/24 11:36 DC Morphine Sulfate (morPHINE 4MG SYG) 4 mg Q4H PRN IV SEVERE PAIN (7-10) 03/03/24 22:30 03/10/24 22:29 03/05/24 17:53 4 MG Ondansetron HCl (zoFRAN 4MG INJ) 4 mg ONCE STAT IVP 03/03/24 18:30 03/03/24 18:32 DC 03/03/24 20:11 4 MG Ondansetron HCl (zoFRAN 4MG INJ) 4 mg Q6H PRN IV NAUSEA/VOMITING 03/03/24 22:30 04/02/24 22:29 03/06/24 08:39 4 MG Potassium Chloride 100 ml @ 50 mls/hr AD PRN IV POTASSIUM PROTOCOL 03/04/24 09:30 03/06/24 07:48 DC 03/05/24 06:32 50 MLS/HR Potassium Chloride 100 ml @ 100 mls/hr AD PRN IV POTASSIUM PROTOCOL 03/06/24 08:00 04/05/24 07:59 Potassium Chloride (K-Dur/Klor-Con 20meq) 20 meq AD PRN PO POTASSIUM PROTOCOL 03/06/24 08:00 04/05/24 07:59 Potassium Chloride (KCl 10% Elixir 20meq/15ml) 20 meq AD PRN PO POTASSIUM PROTOCOL 03/06/24 08:00 04/05/24 07:59 03/06/24 19:42 20 MEQ Simethicone (Mylicon) 80 mg PCHS PRN PO GI GAS 03/06/24 12:30 04/05/24 12:29 03/06/24 21:35 80 MG Sodium Chloride 1,000 ml @ 1,000 mls/hr Q1H STAT IV 03/03/24 20:00 03/03/24 20:59 DC 03/03/24 20:11 1,000 MLS/HR Diagnostics / Radiology: [COPY/PASTE HERE IF NO REPORTS PLEASE DELETE SECTION] Assessment: Colon distention Constipation Plan: Flex sig in AM Encourage ambulation Avoid opioids Replenish electrolytes PETTY MANUEL [employer]ING [employer] MANAGER Mar 07, 2024 14:10
--- NOTE | 2024-03-07 21:20 | NUR ---
CALL TO [facility] COMPLAINING OF ABDOMINAL DISTENTION, DENIES PASSING FLATUS, AND HAS HAD SOME NAUSEA THROUGH OUT THE DAY, PAGED Dave [employer] METAL CHARGER FOR HOSPITALIST, PENDING CALL BACK.
--- NOTE | 2024-03-07 21:45 | NUR ---
CALL BACK PAGE RETURNED, INFORMED OF PT'S STATUS, ORDERS RECEIVED. INFORMED PT OF [employer] ACQUISITION ANALYST'S ORDER, AGREES WITH TREATMENT PLAN.
[2024-03-08] VITALS (24 sets, daily range): BP systolic 108–138; BP diastolic 40–92; PULSE 75–105; RESP 16–20; TEMP 97.1–98.9; O2SAT 92–98
[2024-03-08] MEDS ORDERED: proPOFol 10 MG/ML 20ML VIAL IV ONE (07:39)
[2024-03-08] MEDS ORDERED: LIDOCAINE PF 100MG/5ML (2%) SYRINGE 5ML ONE (07:39)
--- NOTE | 2024-03-08 09:05 | PN ---
[facility] PROGRESS NOTE Date of Service: Mar 08, 2024 Time of Service: 09:03 SUBJECTIVE: [ ] This is a 53-year-old male was admitted on 03/03/2024 presents in ED with chief complaints of abdominal pain. ER workup was consistent with small- bowel obstruction. NGT tube was placed in ED and surgeon was consulted. Patient was seen and examined this morning no output from NG tube patient appears distended. the patient remain Bowel rest until seen by surgeon: will follow recommendations: ordered a repeat KUB for this morning. 03/05/24 Patient is seen and examined with the attending, reviewed chart and discussed. Patient was seen by general surgeon continue conservative management. Patient had four BMs was given suppository laxative. Patient's potassium 2.9 was replaced early this morning we will repeat level and replace as needed we will wait for surgeon continues with NG tube and bowel rest. Repeat KUB: Distended loops of large and small bowel, unchanged. 03/06/24 patient is seen and examined reviewed chart discussed case with attending. Patient continues with hypokalemia patient is tolerating clear liquid no surgical intervention on this admission we will repeat potassium level at noon. Patient reports no nausea vomiting or abdominal pain. 03/07/24 the patient seen and examined,, the patient continue with abd distention had small bm this moring tolerating CLD General surgeon concern with colonic ileus consulted GI for possible colonoscopy. The patient was made aware a GI specialist will be seeing him today. 03/08/24 the patient was evaluated by GI scheduled patient flex sigmoid today will follow up result: cont Bowel rest with NGT to LIWS. cont with Nauseated. The patient denies chest pain or sob Given to findings of flexible sigmoidoscopy stricture of distal sigmoid will need surgery high risk for perforation today per Dr Watkins ex lap and diversion. The patient aware of risk and benefit is agreement with surgeon recommendations. DR Parnell evaluated the patient reviewed imaging: will scheduled the patient tomorrow am. REVIEW OF SYSTEMS CONSTITUTIONAL: Denies fevers, chills, or night sweats. No unintentional weight loss reported. NEUROLOGICAL: Denies headache, amaurosis fugax, motor weakness, sensory deficit, vertigo/spinning sensation, gait abnormalities, or tremors. ENT: No hearing loss, otalgia, otorrhea, rhinitis, rhinorrhea, hoarseness, or sore throat. CARDIOVASCULAR: Denies any exertional angina, dyspnea on exertion, orthopnea, paroxysmal nocturnal dyspnea, palpitations, life-threatening arrhythmias, claudication. PULMONARY: Denies any shortness of breath, cough, phlegm/sputum, hemoptysis, pleuritic chest pain. SLEEP: Denies morning headaches, daytime somnolence or napping. Denies dif ficulty falling asleep, staying asleep, waking from sleep. Denies knowledge of snoring. GASTROINTESTINAL: Denies any type of dysphagia to either liquids or solids. Denies nausea, vomiting, pyrosis, early satiety, abdominal pain, diarrhea, constipation, or changes in stool consistency or caliber. Denies coffee-ground emesis, hematemesis, hematochezia, or melanotic stools. GENITOURINARY: Denies frequency, urgency, nocturia, hematuria or incontinence (Storage/Irritative symptoms.) Low urinary stream, straining to void, urinary intermittency or hesitancy, splitting of the voiding stream, terminal dribbling. ENDOCRINOLOGIC: Denies polyuria, polydipsia, polyphagia or heat/cold i ntolerances. HEMATOLOGIC: Denies thrombophilia/previous clots, or coagulopathy/bleeding disorders. ONCOLOGIC: Denies personal history of malignancy. DERMATOLOGIC: Denies rashes or pruritus. PSYCHIATRIC: Denies any suicidal or homicidal ideation. Denies hallucinations. PHYSICAL EXAM GENERAL APPEARANCE: The patient is awake, alert, and oriented, in no acute cardiopulmonary distress. NEUROLOGICAL: Cranial nerves II-XII grossly intact. Motor is 5/5 in bilateral upper and lower extremities proximal to distal. No sensory deficits. HEENT: Face is symmetric. Pupils are equal and reactive. Extraocular movements are intact. NECK: Supple. No JVD. No thyromegaly. No submental, submandibular, pre- /postauricular, occipital or supraclavicular lymphadenopathy. CHEST: Normal chest expansion. No Telemetry. LUNGS: Absence of any rales, rhonchi or any wheezing. CARDIOVASCULAR: Regular. S1 and S2 normal. No appreciable rubs, murmurs or gallops. ABDOMEN: Soft, nontender, and nondistended. There is no rebound, voluntary guarding, or rigidity. : Deferred. No Sagastume. EXTREMITIES: Non-edematous and not cyanotic. No clubbing. Good capillary refill. SKIN: No skin breakdown. Vital Signs (last 8hr) Date Time Temp Pulse Resp B/P (MAP) Pulse Ox O2 Delivery O2 Flow Rate FiO2 03/08/24 08:20 97.2 86 19 129/87 97 Nasal Cannula 3.0 28 03/08/24 08:15 97.2 82 20 125/86 95 Nasal Cannula 3.0 28 03/08/24 08:10 97.2 82 19 133/90 96 Nasal Cannula 3.0 03/08/24 08:05 97.2 81 19 137/89 97 Nasal Cannula 3.0 03/08/24 08:00 97.2 84 19 123/84 96 Nasal Cannula 3.0 03/08/24 07:55 97.2 87 19 111/82 96 Nasal Cannula 3.0 03/08/24 07:50 97.2 88 18 117/76 96 Nasal Cannula 3.0 03/08/24 03:44 98.1 103 18 136/92 96 Room Air LABS: Laboratory: Test 03/07/24 04:17 Range/Units White Blood Count 8.1 4.8-10.8 K/uL Red Blood Count 4.37 L 4.50-6.20 MIL/uL Hemoglobin 13.2 L 14.0-18.0 g/dL Hematocrit 37.3 L 42-54 % Mean Corpuscular Volume 85.4 79-99 fL Mean Corpuscular Hemoglobin 30.2 27.0-33.0 pg Mean Corpuscular Hemoglobin Concent 35.4 32.0-36.0 g/dL Red Cell Distribution Width 12.1 11.0-15.5 % Platelet Count 284 130-400 K/uL Mean Platelet Volume 10.1 7.5-10.5 fL Immature Granulocyte % (Auto) 0.2 0-1 % Neutrophils (%) (Auto) 67.9 40.0-77.0 % Lymphocytes (%) (Auto) 17.7 L 21.0-51.0 % Monocytes (%) (Auto) 12.8 3.0-13.0 % Eosinophils (%) (Auto) 1.0 0.0-8.0 % Basophils (%) (Auto) 0.4 0.0-5.0 % Neutrophils # (Auto) 5.5 1.8-7.7 K/uL Lymphocytes # (Auto) 1.4 1.0-4.8 K/uL Monocytes # (Auto) 1.0 0.1-1.0 K/uL Eosinophils # (Auto) 0.08 0.00-0.70 K/uL Basophils # (Auto) 0.03 0.00-0.20 K/uL Absolute Immature Granulocyte (auto 0.02 0-1 K/uL Nucleated Red Blood Cells 0.0 0.0-0.19 % Sodium Level 139 136-145 mmol/L Potassium Level 3.2 L 3.5-5.1 mmol/L Chloride Level 103 101-111 mmol/L Carbon Dioxide Level 25 21-32 mmol/L Blood Urea Nitrogen 10 7-18 mg/dL Creatinine 0.6 0.5-1.3 mg/dL Glomerular Filtration Rate Calc 115 >90 mL/min Random Glucose 95 70-105 mg/dL Total Calcium 8.6 8.5-10.1 mg/dL Magnesium Level 1.80 1.80-2.40 mg/dL Total Bilirubin 0.5 0.2-1.0 mg/dL Aspartate Amino Transf (AST/SGOT) 21 10-37 U/L Alanine Aminotransferase (ALT/SGPT) 33 12-78 U/L Alkaline Phosphatase 53 50-136 U/L Total Protein 6.5 6.0-8.3 g/dL Albumin 3.2 L 3.5-5.0 g/dL Current Medications Medications (Trade) Dose Ordered Sig/Krishan Route PRN Reason Start Time Stop Time Status Last Admin Dose Admin Acetaminophen (TYLenol 325MG TAB) 650 mg Q4H PRN PO TEMPERATURE GREATER THAN 101.5 03/06/24 12:30 04/05/24 12:29 Acetaminophen (TYLenol 650MG SUPPOSITORY) 650 mg Q6H PRN RC MILD PAIN (1-3) 03/03/24 22:30 03/06/24 12:11 DC Acetylcysteine (MUComyst 10% 4ML) 400mg = 4ml [id number] IH 03/05/24 12:00 03/05/24 11:36 DC Famotidine (Pepcid 20mg Vial) 20 mg DAILY IV 03/04/24 09:00 04/03/24 08:59 03/07/24 08:43 20 MG Famotidine (Pepcid 20mg Vial) 20 mg ONCE STAT IV 03/03/24 18:30 03/03/24 18:32 DC 03/03/24 20:11 20 MG Hydralazine HCl (APRESOLine 20MG INJ) 10 mg Q6H PRN IV For:SBP above 160;DBP above 90 03/03/24 22:30 04/02/24 22:29 Ketorolac Tromethamine (toRADol) 15 mg ONCE STAT IV 03/03/24 18:30 03/03/24 18:32 DC 03/03/24 20:11 15 MG Lactated Ringer's 1,000 ml @ 100 mls/hr Q10H IV 03/03/24 22:30 03/06/24 07:54 DC 03/06/24 03:34 100 MLS/HR Magnesium Sulfate 50 ml @ 0 mls/hr PROTOCOL PRN IV low mag level 03/04/24 09:30 04/03/24 09:29 03/05/24 20:22 25 MLS/HR Methylprednisolone Sodium Succinate (Solu-medROL 40MG) 40 mg Q8H IVP 03/05/24 12:00 03/05/24 11:36 DC Morphine Sulfate (morPHINE 4MG SYG) 4 mg Q4H PRN IV SEVERE PAIN (7-10) 03/03/24 22:30 03/10/24 22:29 03/08/24 05:44 4 MG Ondansetron HCl (zoFRAN 4MG INJ) 4 mg ONCE STAT IVP 03/03/24 18:30 03/03/24 18:32 DC 03/03/24 20:11 4 MG Ondansetron HCl (zoFRAN 4MG INJ) 4 mg Q6H PRN IV NAUSEA/VOMITING 03/03/24 22:30 04/02/24 22:29 03/06/24 08:39 4 MG Potassium Chloride 100 ml @ 50 mls/hr AD PRN IV POTASSIUM PROTOCOL 03/04/24 09:30 03/06/24 07:48 DC 03/05/24 06:32 50 MLS/HR Potassium Chloride 100 ml @ 100 mls/hr AD PRN IV POTASSIUM PROTOCOL 03/06/24 08:00 04/05/24 07:59 Potassium Chloride (K-Dur/Klor-Con 20meq) 20 meq AD PRN PO POTASSIUM PROTOCOL 03/06/24 08:00 04/05/24 07:59 Potassium Chloride (KCl 10% Elixir 20meq/15ml) 20 meq AD PRN PO POTASSIUM PROTOCOL 03/06/24 08:00 04/05/24 07:59 03/07/24 18:13 20 MEQ Simethicone (Mylicon) 80 mg PCHS PRN PO GI GAS 03/06/24 12:30 04/05/24 12:29 03/06/24 21:35 80 MG Sodium Chloride 1,000 ml @ 1,000 mls/hr Q1H STAT IV 03/03/24 20:00 03/03/24 20:59 DC 03/03/24 20:11 1,000 MLS/HR DIAGNOSTICS / RADIOLOGY: [ ] ASSESSMENT: colonic stricture distal of sigmoid evidence per flexible sigmoidoscopy Suspected small bowel obstruction, POA Intractable abd pain POA Extensive abdominal distention POA electrolytes derangement: Hypokalemia POA Obesity: BMI: 36.1 POA chronic problems; Hyperlipidemia Gout] obe PLAN: [ ] Remain in Surgical floor continue with conservative management GI: s/p flexible sigmoidoscopy found stricture distal sigmoid validation consultant: General surgeon scheduled the patient for sx today: Ex lap and diversion Diet: NPO remain bowel rest with LIWS encouraged to ambulate TID oob to chair most of day cont with pain management for adequate pain controlled Replaced electrolytes potassium and magnesium to keep potassium >4.0 and mag: > 2.0 DVT: SCD applied GI: PUD ppx PRN: MEDICATIONS Zofran 4 mg IV every 6 hrs for n/v all questions answered further orders as per response to tx. Supervising MD: Dr. Alexander Knapp c/d ATTESTATION BY PHYSICIAN I have seen and examined the patient. I reviewed the documentation, medical decision making, and treatment plan as noted by the resident provider above. I agree with the findings and plan of care. Jt Knapp MD, ELIZABETH NP Mar 08, 2024 09:05
[2024-03-08 09:42] LABS: CREATININE 1.1 mg/dL (0.5-1.3); POTASSIUM 5.2 mmol/L (3.5-5.1)
[2024-03-08 09:46] LABS: ALBUMIN 3.9 g/dL (3.5-5.0); BILIRUBIN,TOTAL 0.9 mg/dL (0.2-1.0); MAGNESIUM 2.2 mg/dL (1.80-2.40)
[2024-03-08] MEDS: ketOROlac 30MG VIAL (30MG/ML) IVP ONE (09:54)
--- NOTE | 2024-03-08 12:02 | PN ---
This is a 53-year-old male with concerns of colonic distention Interval history: This 53-year-old male seen in his room resting Patient underwent EGD this morning with concerns of colonic stricture with recommendations of surgery by GI team made NG tube placed with an output of 800 Patient is no longer reporting flatus as he was yesterday and today before Patient is NPO Physical exam General: Awake alert and oriented Heart: Regular rate and rhythm} Lungs: [Clear to auscultation no distress Abdomen: Distention nontender firm Assessment : This is a 53-year-old male with concerns of colonic stricture noted on recent colonoscopy Plan: At this point in time Dr. Watkins has been updated in patient's status and patient to be taken to OR for open sigmoid colectomy Patient made aware of surgical procedure risks and benefits and agrees with the surgery at this time Dr. Watkins and surgical team to follow patient closely. Thank you Vitals/Labs Vital Signs Date Time Temp Pulse Resp B/P (MAP) Pulse Ox O2 Delivery O2 Flow Rate FiO2 03/08/24 11:25 97.9 87 18 124/76 98 Nasal Cannula 2.0 24 Laboratory Tests 03/08/24 09:10 Medications Current Medications Ondansetron HCl 4 mg ONCE STAT IVP Last administered on 03/03/24at 20:11; Start 03/03/24 at 18:30; Stop 03/03/24 at 18:32; Status DC Famotidine 20 mg ONCE STAT IV Last administered on 03/03/24at 20:11; Start 03/03/24 at 18:30; Stop 03/03/24 at 18:32; Status DC Ketorolac Tromethamine 15 mg ONCE STAT IV Last administered on 03/03/24at 20:11; Start 03/03/24 at 18:30; Stop 03/03/24 at 18:32; Status DC Sodium Chloride 1,000 ml @ 1,000 mls/hr Q1H STAT IV Last administered on 03/03/24at 20:11; Start 03/03/24 at 20:00; Stop 03/03/24 at 20:59; Status DC Iohexol 75 ml STK-MED ONCE IV; Start 03/03/24 at 22:19; Stop 03/03/24 at 22:24; Status DC Famotidine 20 mg DAILY IV Last administered on 03/08/24at 09:55; Start 03/04/24 at 09:00; Stop 04/03/24 at 08:59 Acetaminophen 650 mg Q6H PRN RC; Start 03/03/24 at 22:30; Stop 03/06/24 at 12:11; Status DC Ondansetron HCl 4 mg Q6H PRN IV Last administered on 03/06/24at 08:39; Start 03/03/24 at 22:30; Stop 04/02/24 at 22:29 Morphine Sulfate 4 mg Q4H PRN IV Last administered on 03/08/24at 05:44; Start 03/03/24 at 22:30; Stop 03/08/24 at 09:03; Status DC Hydralazine HCl 10 mg Q6H PRN IV; Start 03/03/24 at 22:30; Stop 04/02/24 at 22:29 Lactated Ringer's 1,000 ml @ 100 mls/hr Q10H IV Last administered on 03/06/24at 03:34; Start 03/03/24 at 22:30; Stop 03/06/24 at 07:54; Status DC Magnesium Sulfate 50 ml @ 0 mls/hr PROTOCOL PRN IV Last administered on 03/05/24at 20:22; Start 03/04/24 at 09:30; Stop 04/03/24 at 09:29 Potassium Chloride 100 ml @ 50 mls/hr AD PRN IV Last administered on 03/05/24at 06:32; Start 03/04/24 at 09:30; Stop 03/06/24 at 07:48; Status DC Bisacodyl 10 mg ONCE ONCE RC Last administered on 03/04/24at 15:13; Start 03/04/24 at 15:00; Stop 03/04/24 at 15:01; Status DC Acetylcysteine 400mg = 4ml [id number] IH; Start 03/05/24 at 12:00; Stop 03/05/24 at 11:36; Status DC Methylprednisolone Sodium Succinate 40 mg Q8H IVP; Start 03/05/24 at 12:00; Stop 03/05/24 at 11:36; Status DC Potassium Chloride 100 ml @ 100 mls/hr AD PRN IV; Start 03/06/24 at 08:00; Stop 04/05/24 at 07:59 Potassium Chloride 20 meq AD PRN PO Last administered on 03/07/24at 18:13; Start 03/06/24 at 08:00; Stop 04/05/24 at 07:59 Potassium Chloride 20 meq AD PRN PO; Start 03/06/24 at 08:00; Stop 04/05/24 at 07:59 Acetaminophen 650 mg Q4H PRN PO; Start 03/06/24 at 12:30; Stop 04/05/24 at 12:29 Simethicone 120 mg ONCE ONCE PO Last administered on 03/06/24at 12:58; Start 03/06/24 at 12:30; Stop 03/06/24 at 12:31; Status DC Simethicone 80 mg PCHS PRN PO Last administered on 03/06/24at 21:35; Start 03/06/24 at 12:30; Stop 04/05/24 at 12:29 Potassium Chloride 40 meq ONCE ONCE PO Last administered on 03/06/24at 12:58; Start 03/06/24 at 12:30; Stop 03/06/24 at 12:31; Status DC Potassium Chloride 20 meq ONCE ONCE PO Last administered on 03/07/24at 09:00; Start 03/07/24 at 09:00; Stop 03/07/24 at 09:01; Status DC Propofol 200 mg STK-MED ONCE IV; Start 03/08/24 at 07:39; Stop 03/08/24 at 07:39; Status DC Lidocaine HCl 100 mg STK-MED ONCE .ROUTE; Start 03/08/24 at 07:39; Stop 03/08/24 at 07:39; Status DC Ketorolac Tromethamine 30 mg ONCE ONCE IVP Last administered on 03/08/24at 09:54; Start 03/08/24 at 10:00; Stop 03/08/24 at 10:01; Status DC ROSSY SYLVESTER Jr. Mar 08, 2024 12:02
--- NOTE | 2024-03-08 15:48 | HMCIMG ---
Exam Type: ABD 1VW Clinical Information: STRICTURE IN COLON Comparison: None Findings: Abdomen demonstrates no evidence of pathologic calcification or soft tissue mass. There are no radiopacities to suggest calculous disease. There is distention of large bowel without small bowel dilatation. There is distention of large bowel has decreased when compared with prior exam. Nasogastric tube tip in stomach. The bony structures are unremarkable. IMPRESSION: There is distention of large bowel without small bowel dilatation. There is distention of large bowel has decreased when compared with prior exam.
--- NOTE | 2024-03-08 16:28 | PN ---
Patient is a 53-year-old male that had been in the hospital for the past six days with bowel obstruction. Has been determined the bowel structures in the large bowel in the patient has been awaited for colonoscopy for a few days. Today a colonoscopy was done the stricture was seen and according to the note from the GI doctor he recommended an emergency surgery. I came to see this patient as request of Dr. Watknis because he was unable to take the patient to the OR today. We did a KUB and a KUB showed that is better than the previous days. Patient is hemodynamically stable NG tube has drained about 2 L per minutes of a knot. Need it. White count is normal. I think the patient needs surgery but there is definitely no immediate emergency. I have talked to the patient and family and we will perform the surgery in the morning. I have also explained that most likely patient will end up having a colostomy. Vitals/Labs Vital Signs Date Time Temp Pulse Resp B/P (MAP) Pulse Ox O2 Delivery O2 Flow Rate FiO2 03/08/24 14:25 97.9 90 18 118/79 100 Nasal Cannula 2.0 24 Laboratory Tests 03/08/24 09:10 LIDIA COLORADO MD Mar 08, 2024 16:28
[2024-03-08] MEDS: 0.9%NACL 1000ML 1,000 ML IV SCH (17:00)
[2024-03-08] MEDS: hydroMORPHone 0.5 MG SYG (0.5MG/0.5ML) IVP PRN (19:51)
--- NOTE | 2024-03-08 19:51 | NUR ---
MEDS SHIFT ASSESSMENT DONE, PLEASE REFER TO CHART. PT CLAIMS OF ABDOMINAL PAINS. MEDICATED WITH DILAUDID IV AND ZOFRAN IV GIVEN FOR NAUSEA. KEPT COMFORTABLE IN BED WITH HOB ELEVATED. KEPT NPO ORDERED. CALL LIGHT WITHIN EACH. FAMILY AT BEDSIDE.
[2024-03-09] VITALS (24 sets, daily range): BP systolic 94–130; BP diastolic 55–87; PULSE 84–114; RESP 18–21; TEMP 97.9–99.9; O2SAT 94
--- NOTE | 2024-03-09 02:41 | NUR ---
PAIN PT CLAIMS OF ABDOMINAL PAINS. PT'S HR ELEVATED TO 120'S BUT PT WAS MOVING TO URINATE. ASSISTED TO GET BACK IN BED. KEPT HOB ELEVATED. MEDICATED WITH DILAUDID IV. WILL RE-ASSESS PT.
--- NOTE | 2024-03-09 05:40 | NUR ---
ROUNDS PT JUST HAD A SHOWER, TOLERATED ACTIVITY WELL. PLACED BACK NGT TO LIS. RE-STARTED IVF OF NS AT 75CC/HR. TELE MONITOR PLACED BACK ON PT. KEPT NPO. KEPT RESTED AND COMFORTABLE WITH HOB ELEVATED. CALL LIGHT WITHIN REACH. FOR MORE CARE.
[2024-03-09 05:54] LABS: BASOPHILS # (AUTO) 0.05 K/uL (0.00-0.20); BASOPHILS % (AUTO) 0.4 % (0.0-5.0); EOSINOPHILS # (AUTO) 0.03 K/uL (0.00-0.70); EOSINOPHILS % (AUTO) 0.2 % (0.0-8.0); IMMATURE GRANULOCYTE ABSOLUTE 0.05 K/uL (0-1); LYMPHOCYTES % (AUTO) 8.3 % (21.0-51.0); MEAN CORPUSCULAR HGB CONC 34.3 g/dL (32.0-36.0); MEAN CORPUSCULAR VOLUME 87.5 fL (79-99); MONOCYTES # (AUTO) 1.1 K/uL (0.1-1.0); MONOCYTES % (AUTO) 8.7 % (3.0-13.0); NEUTROPHILS # (AUTO) 9.8 K/uL (1.8-7.7); PLATELET COUNT (AUTO) 452 K/uL (130-400); RED BLOOD CELL COUNT(AUTO) 5.37 MIL/uL (4.50-6.20); RED CELL DISTRIBUTION WIDTH 12.7 % (11.0-15.5)
[2024-03-09 06:39] LABS: ALBUMIN 3.6 g/dL (3.5-5.0); BILIRUBIN,TOTAL 1.2 mg/dL (0.2-1.0); CREATININE 1.2 mg/dL (0.5-1.3); MAGNESIUM 2.3 mg/dL (1.80-2.40)
[2024-03-09 06:58] LABS: TOTAL PROTEIN, SERUM 7.7 g/dL (6.0-8.3)
[2024-03-09] MEDS ORDERED: MIDAZOLAM HCL 1 MG/ML 2ML VIAL ONE (08:09)
[2024-03-09] MEDS ORDERED: rocuRONium bROMide 10MG/1ML 5ML VL ONE ×3 (08:09→09:30)
[2024-03-09] MEDS ORDERED: SUCCINYLCHOLINE CHLORIDE 20 MG/ML 10 ML VIAL ONE (08:09)
[2024-03-09] MEDS ORDERED: LIDOCAINE PF 100MG/5ML (2%) SYRINGE 5ML ONE (08:09)
[2024-03-09] MEDS ORDERED: proPOFol 10 MG/ML 20ML VIAL IV ONE (08:09)
[2024-03-09] MEDS ORDERED: FENTanyl CITRate PF 50 MCG/1 ML 2ML VIAL ONE (08:12)
[2024-03-09] MEDS ORDERED: phenylEPHRINE HCL 10 MG/ML 1ML VIAL IV ONE (08:29)
[2024-03-09] MEDS: ceFAZolin SODIUM 2 GM VIAL IVPB ONE (08:30)
[2024-03-09] MEDS ORDERED: ceFAZolin SODIUM 1 GM VIAL ONE (08:43)
[2024-03-09] MEDS ORDERED: ALBUMIN (HUMAN) 5% 250 ML IV ONE (09:18)
[2024-03-09] MEDS ORDERED: ROPivacaine 0.5% 5MG/ML 30ML ONE (09:49)
[2024-03-09] MEDS ORDERED: dexaMETHasone SOD PHOSPHATE 10MG/ML 1ML VIAL ONE (10:13)
[2024-03-09] MEDS ORDERED: ondanSETRON 4MG INJ ONE (10:13)
[2024-03-09] MEDS: MEPERIDINE-PF 25 MG/ML SYG ONE (10:31)
[2024-03-09] MEDS: SUGAMMADEX SODIUM 200 MG/2 ML VIAL IV ONE (11:38)
[2024-03-09] MEDS: metRONIDazole 500MG/100ML BAG IV SCH (11:41)
[2024-03-09] MEDS: ketOROlac 30MG VIAL (30MG/ML) IVP SCH (11:42)
[2024-03-09] MEDS ORDERED: ketOROlac 30MG VIAL (30MG/ML) IV SCH (12:00)
[2024-03-09] MEDS ORDERED: ketOROlac 30MG VIAL (30MG/ML) IM SCH (12:00)
[2024-03-09] MEDS ORDERED: metRONIDazole 500MG/100ML BAG IV SCH (12:30)
--- NOTE | 2024-03-09 15:44 | PN ---
[facility] PROGRESS NOTE Date of Service: Mar 09, 2024 Time of Service: 15:38 SUBJECTIVE: [ ] This is a 53-year-old male was admitted on 03/03/2024 presents in ED with chief complaints of abdominal pain. ER workup was consistent with small- bowel obstruction. NGT tube was placed in ED and surgeon was consulted. Patient was seen and examined this morning no output from NG tube patient appears distended. the patient remain Bowel rest until seen by surgeon: will follow recommendations: ordered a repeat KUB for this morning. 03/05/24 Patient is seen and examined with the attending, reviewed chart and discussed. Patient was seen by general surgeon continue conservative management. Patient had four BMs was given suppository laxative. Patient's potassium 2.9 was replaced early this morning we will repeat level and replace as needed we will wait for surgeon continues with NG tube and bowel rest. Repeat KUB: Distended loops of large and small bowel, unchanged. 03/06/24 patient is seen and examined reviewed chart discussed case with attending. Patient continues with hypokalemia patient is tolerating clear liquid no surgical intervention on this admission we will repeat potassium level at noon. Patient reports no nausea vomiting or abdominal pain. 03/07/24 the patient seen and examined,, the patient continue with abd distention had small bm this moring tolerating CLD General surgeon concern with colonic ileus consulted GI for possible colonoscopy. The patient was made aware a GI specialist will be seeing him today. 03/08/24 the patient was evaluated by GI scheduled patient flex sigmoid today will follow up result: cont Bowel rest with NGT to LIWS. cont with Nauseated. The patient denies chest pain or sob Given to findings of flexible sigmoidoscopy stricture of distal sigmoid will need surgery high risk for perforation today per Dr Watkins ex lap and diversion. The patient aware of risk and benefit is agreement with surgeon recommendations. DR Parnell evaluated the patient reviewed imaging: will scheduled the patient tomorrow am. 03/09/24: the patient was seen earlier: s/p POD 0 open sigmoid colectomy : the patient is doing well, abd binder colostomy bag: and j p drain: right upper quad encouraged to use IS while awake will follow Dr Parnell post operative recommendations. started the patient on Cefazolin 2 gm Q8hrs, metribudazike 500mg po Q8 hrs. will be monitored closed: continue with IV fluids. REVIEW OF SYSTEMS CONSTITUTIONAL: Denies fevers, chills, or night sweats. No unintentional weight loss reported. NEUROLOGICAL: Denies headache, amaurosis fugax, motor weakness, sensory deficit, vertigo/spinning sensation, gait abnormalities, or tremors. ENT: No hearing loss, otalgia, otorrhea, rhinitis, rhinorrhea, hoarseness, or sore throat. CARDIOVASCULAR: Denies any exertional angina, dyspnea on exertion, orthopnea, paroxysmal nocturnal dyspnea, palpitations, life-threatening arrhythmias, claudication. PULMONARY: Denies any shortness of breath, cough, phlegm/sputum, hemoptysis, pleuritic chest pain. SLEEP: Denies morning headaches, daytime somnolence or napping. Denies diffic ulty falling asleep, staying asleep, waking from sleep. Denies knowledge of snoring. GASTROINTESTINAL: Denies any type of dysphagia to either liquids or solids. Denies nausea, vomiting, pyrosis, early satiety, abdominal pain, diarrhea, constipation, or changes in stool consistency or caliber. Denies coffee-ground emesis, hematemesis, hematochezia, or melanotic stools. GENITOURINARY: Denies frequency, urgency, nocturia, hematuria or incontinence (Storage/Irritative symptoms.) Low urinary stream, straining to void, urinary intermittency or hesitancy, splitting of the voiding stream, terminal dribbling. ENDOCRINOLOGIC: Denies polyuria, polydipsia, polyphagia or heat/cold into lerances. HEMATOLOGIC: Denies thrombophilia/previous clots, or coagulopathy/bleeding disorders. ONCOLOGIC: Denies personal history of malignancy. DERMATOLOGIC: Denies rashes or pruritus. PSYCHIATRIC: Denies any suicidal or homicidal ideation. Denies hallucinations. PHYSICAL EXAM GENERAL APPEARANCE: The patient is awake, alert, and oriented, in no acute cardiopulmonary distress. NEUROLOGICAL: Cranial nerves II-XII grossly intact. Motor is 5/5 in bilateral upper and lower extremities proximal to distal. No sensory deficits. HEENT: Face is symmetric. Pupils are equal and reactive. Extraocular movements are intact. NECK: Supple. No JVD. No thyromegaly. No submental, submandibular, pre- /postauricular, occipital or supraclavicular lymphadenopathy. CHEST: Normal chest expansion. No Telemetry. LUNGS: Absence of any rales, rhonchi or any wheezing. CARDIOVASCULAR: Regular. S1 and S2 normal. No appreciable rubs, murmurs or gallops. ABDOMEN: Soft, nontender, and nondistended. There is no rebound, voluntary guarding, or rigidity. : Deferred. No Sagastume. EXTREMITIES: Non-edematous and not cyanotic. No clubbing. Good capillary refill. SKIN: No skin breakdown. Vital Signs (last 8hr) Date Time Temp Pulse Resp B/P (MAP) Pulse Ox O2 Delivery O2 Flow Rate FiO2 03/09/24 14:00 95 20 111/71 97 Nasal Cannula 3.0 03/09/24 12:00 88 20 111/70 94 Nasal Cannula 3.0 03/09/24 11:45 90 20 99/65 94 Nasal Cannula 3.0 03/09/24 11:30 98.2 87 20 102/66 95 Room Air 03/09/24 11:15 98.2 88 20 104/66 Room Air 03/09/24 11:10 94 Nasal Cannula* 3 32 03/09/24 11:04 98.1 87 19 109/65 97 Nasal Cannula 3.0 03/09/24 10:59 88 20 113/63 96 Nasal Cannula 3.0 03/09/24 10:54 88 19 107/69 95 Nasal Cannula 3.0 03/09/24 10:49 90 20 107/66 97 Nasal Cannula 3.0 03/09/24 10:44 88 20 114/68 100 Nonrebreathing Mask 10.0 03/09/24 10:39 88 20 114/68 100 Nonrebreathing Mask 10.0 03/09/24 10:34 87 20 111/67 100 Nonrebreathing Mask 10.0 03/09/24 10:29 88 19 113/69 100 Nonrebreathing Mask 10.0 03/09/24 10:24 86 21 106/64 100 Nonrebreathing Mask 10.0 03/09/24 10:19 97.9 85 20 94/55 100 Nonrebreathing Mask 10.0 LABS: Laboratory: Test 03/09/24 05:27 Range/Units White Blood Count 12.0 H 4.8-10.8 K/uL Red Blood Count 5.37 4.50-6.20 MIL/uL Hemoglobin 16.1 # 14.0-18.0 g/dL Hematocrit 47.0 # 42-54 % Mean Corpuscular Volume 87.5 79-99 fL Mean Corpuscular Hemoglobin 30.0 27.0-33.0 pg Mean Corpuscular Hemoglobin Concent 34.3 32.0-36.0 g/dL Red Cell Distribution Width 12.7 11.0-15.5 % Platelet Count 452 #H 130-400 K/uL Mean Platelet Volume 10.2 7.5-10.5 fL Immature Granulocyte % (Auto) 0.4 0-1 % Neutrophils (%) (Auto) 82.0 H 40.0-77.0 % Lymphocytes (%) (Auto) 8.3 L 21.0-51.0 % Monocytes (%) (Auto) 8.7 3.0-13.0 % Eosinophils (%) (Auto) 0.2 0.0-8.0 % Basophils (%) (Auto) 0.4 0.0-5.0 % Neutrophils # (Auto) 9.8 H 1.8-7.7 K/uL Lymphocytes # (Auto) 1.0 1.0-4.8 K/uL Monocytes # (Auto) 1.1 H 0.1-1.0 K/uL Eosinophils # (Auto) 0.03 0.00-0.70 K/uL Basophils # (Auto) 0.05 0.00-0.20 K/uL Absolute Immature Granulocyte (auto 0.05 0-1 K/uL Nucleated Red Blood Cells 0.0 0.0-0.19 % Sodium Level 136 136-145 mmol/L Potassium Level 4.0 3.5-5.1 mmol/L Chloride Level 99 L 101-111 mmol/L Carbon Dioxide Level 25 21-32 mmol/L Blood Urea Nitrogen 35 H 7-18 mg/dL Creatinine 1.2 0.5-1.3 mg/dL Glomerular Filtration Rate Calc 72 >90 mL/min Random Glucose 144 H 70-105 mg/dL Total Calcium 9.2 8.5-10.1 mg/dL Magnesium Level 2.30 1.80-2.40 mg/dL Total Bilirubin 1.2 #H 0.2-1.0 mg/dL Aspartate Amino Transf (AST/SGOT) 24 10-37 U/L Alanine Aminotransferase (ALT/SGPT) 49 12-78 U/L Alkaline Phosphatase 70 50-136 U/L Total Protein 7.7 6.0-8.3 g/dL Albumin 3.6 3.5-5.0 g/dL Current Medications Medications (Trade) Dose Ordered Sig/Krishan Route PRN Reason Start Time Stop Time Status Last Admin Dose Admin Acetaminophen (TYLenol 325MG TAB) 650 mg Q4H PRN PO TEMPERATURE GREATER THAN 101.5 03/06/24 12:30 04/05/24 12:29 Acetaminophen (TYLenol 650MG SUPPOSITORY) 650 mg Q6H PRN RC MILD PAIN (1-3) 03/03/24 22:30 03/06/24 12:11 DC Acetylcysteine (MUComyst 10% 4ML) 400mg = 4ml [id number] IH 03/05/24 12:00 03/05/24 11:36 DC Cefazolin Sodium (Ancef) 2 gm Q8H IVPB 03/09/24 16:30 03/09/24 11:29 DC Cefazolin Sodium (Ancef) 2 gm Q8H IVPB 03/09/24 16:30 03/19/24 16:29 Famotidine (Pepcid 20mg Vial) 20 mg DAILY IV 03/04/24 09:00 04/03/24 08:59 03/08/24 09:55 20 MG Famotidine (Pepcid 20mg Vial) 20 mg ONCE STAT IV 03/03/24 18:30 03/03/24 18:32 DC 03/03/24 20:11 20 MG Hydralazine HCl (APRESOLine 20MG INJ) 10 mg Q6H PRN IV For:SBP above 160;DBP above 90 03/03/24 22:30 04/02/24 22:29 Hydromorphone HCl (DiLAUDid 0.5MG INJ) 0.5 mg Q4H PRN IVP SEVERE PAIN (7-10) 03/08/24 16:00 03/13/24 15:59 03/09/24 02:41 0.5 MG Ketorolac Tromethamine (toRADol) 15 mg ONCE STAT IV 03/03/24 18:30 03/03/24 18:32 DC 03/03/24 20:11 15 MG Ketorolac Tromethamine (toRADol) 30 mg Q6H IM 03/09/24 12:00 03/09/24 11:25 DC Ketorolac Tromethamine (toRADol) 30 mg Q6H IV 03/09/24 12:00 03/09/24 11:27 DC Ketorolac Tromethamine (toRADol) 30 mg Q6H IVP 03/09/24 12:00 03/14/24 11:59 03/09/24 11:42 30 MG Lactated Ringer's 1,000 ml @ 100 mls/hr Q10H IV 03/03/24 22:30 03/06/24 07:54 DC 03/06/24 03:34 100 MLS/HR Magnesium Sulfate 50 ml @ 0 mls/hr PROTOCOL PRN IV low mag level 03/04/24 09:30 04/03/24 09:29 03/05/24 20:22 25 MLS/HR Methylprednisolone Sodium Succinate (Solu-medROL 40MG) 40 mg Q8H IVP 03/05/24 12:00 03/05/24 11:36 DC Metronidazole/ Sodium Chloride (flaGYL) 500 mg Q8H IV 03/09/24 11:30 03/19/24 11:29 03/09/24 11:41 500 MG Metronidazole/ Sodium Chloride (flaGYL) 500 mg Q8H IV 03/09/24 12:30 03/09/24 11:27 DC Morphine Sulfate (morPHINE 4MG SYG) 4 mg Q4H PRN IV SEVERE PAIN (7-10) 03/03/24 22:30 03/08/24 09:03 DC 03/08/24 05:44 4 MG Ondansetron HCl (zoFRAN 4MG INJ) 4 mg ONCE STAT IVP 03/03/24 18:30 03/03/24 18:32 DC 03/03/24 20:11 4 MG Ondansetron HCl (zoFRAN 4MG INJ) 4 mg Q6H PRN IV NAUSEA/VOMITING 03/03/24 22:30 04/02/24 22:29 03/08/24 19:51 4 MG Potassium Chloride 100 ml @ 50 mls/hr AD PRN IV POTASSIUM PROTOCOL 03/04/24 09:30 03/06/24 07:48 DC 03/05/24 06:32 50 MLS/HR Potassium Chloride 100 ml @ 100 mls/hr AD PRN IV POTASSIUM PROTOCOL 03/06/24 08:00 04/05/24 07:59 Potassium Chloride (K-Dur/Klor-Con 20meq) 20 meq AD PRN PO POTASSIUM PROTOCOL 03/06/24 08:00 04/05/24 07:59 Potassium Chloride (KCl 10% Elixir 20meq/15ml) 20 meq AD PRN PO POTASSIUM PROTOCOL 03/06/24 08:00 04/05/24 07:59 03/07/24 18:13 20 MEQ Simethicone (Mylicon) 80 mg PCHS PRN PO GI GAS 03/06/24 12:30 04/05/24 12:29 03/06/24 21:35 80 MG Sodium Chloride 1,000 ml @ 75 mls/hr [id number] IV 03/08/24 17:00 04/07/24 16:59 03/09/24 04:50 75 MLS/HR Sodium Chloride 1,000 ml @ 1,000 mls/hr Q1H STAT IV 03/03/24 20:00 03/03/24 20:59 DC 03/03/24 20:11 1,000 MLS/HR DIAGNOSTICS / RADIOLOGY: [ ] ASSESSMENT: colonic stricture distal of sigmoid evidence per flexible sigmoidoscopy Suspected small bowel obstruction, POA Intractable abd pain POA Extensive abdominal distention POA electrolytes derangement: Hypokalemia POA Obesity: BMI: 36.1 POA chronic problems; Hyperlipidemia Gout] obesity PLAN: [ ] Remain in Surgical floor GI: s/p flexible sigmoidoscopy found stricture distal sigmoid [employer] consultant: General surgeon scheduled the patient for sx today: sigmoid colectomy will follow post operative recommendations will monitor colostomy site, RADHA drain output. continue with abd bindr. Diet: NPO remain bowel rest with LIWS encouraged to ambulate TID oob to chair as tolerated PT services to eval IS while awake cont with pain management for adequate pain controlled Replaced electrolytes potassium and magnesium to keep potassium >4.0 and mag: > 2.0 DVT: SCD applied GI: PUD ppx PRN: MEDICATIONS Zofran 4 mg IV every 6 hrs for n/v all questions answered further orders as per response to tx. Supervising MD: Dr. Alexander Knapp c/d ATTESTATION BY PHYSICIAN I have seen and examined the patient. I reviewed the documentation, medical decision making, and treatment plan as noted by the mid-level provider above. I agree with the findings and plan of care. Joann Knapp MD, ELIZABETH NP Mar 09, 2024 15:44
[2024-03-09] MEDS ORDERED: ceFAZolin SODIUM 2 GM VIAL IVPB SCH (16:30)
[2024-03-09] MEDS: ceFAZolin SODIUM 2 GM VIAL IVPB SCH (16:33)
--- NOTE | 2024-03-09 17:45 | NUR ---
CHANGED COLOSTOMY BAG DUE TO LEAKAGE. STOMA RED, STOOL LIQUID BROWN WITH MILD BLOOD. ABDOMEN DISTENDED, TENDER AND SOFT. PATIENT TOLERATED DRESSING CHANGE WELL. AT BEDSIDE.
[2024-03-10] VITALS (8 sets, daily range): BP systolic 103–119; BP diastolic 61–68; PULSE 74–89; RESP 17–19; TEMP 97.5–100.2; O2SAT 95
--- NOTE | 2024-03-10 03:27 | NUR ---
TEMP 100.2, NOTIFIED PROVIDER DIRECTOR OF SPA AND GUEST EXPERIENCE ORDER GIVEN FOR NS 500CC BOLUS X1 NOW, PT CURRENTLY NPO, RECEIVING TORADOL 30MG IVP [id number] SCHEDULED PER ADONIS ROSADO [id number] Addendum: 03/10/24 at 0351 by DIONI MCDOWELL RN RN TEMP RECHECKED 98.9
[2024-03-10 05:12] LABS: BASOPHILS # (AUTO) 0.03 K/uL (0.00-0.20); BASOPHILS % (AUTO) 0.4 % (0.0-5.0); EOSINOPHILS # (AUTO) 0.01 K/uL (0.00-0.70); EOSINOPHILS % (AUTO) 0.1 % (0.0-8.0); HEMATOCRIT 35.9 % (42-54); IMMATURE GRANULOCYTE ABSOLUTE 0.04 K/uL (0-1); LYMPHOCYTES # (AUTO) 0.7 K/uL (1.0-4.8); LYMPHOCYTES % (AUTO) 8.5 % (21.0-51.0); MEAN CORPUSCULAR HEMOGLOBIN 30.4 pg (27.0-33.0); MEAN CORPUSCULAR HGB CONC 34.3 g/dL (32.0-36.0); MEAN CORPUSCULAR VOLUME 88.9 fL (79-99); MONOCYTES # (AUTO) 1.3 K/uL (0.1-1.0); MONOCYTES % (AUTO) 14.8 % (3.0-13.0); NEUTROPHILS # (AUTO) 6.4 K/uL (1.8-7.7); NEUTROPHILS % (AUTO) 75.7 % (40.0-77.0); PLATELET COUNT (AUTO) 279 K/uL (130-400); RED BLOOD CELL COUNT(AUTO) 4.04 MIL/uL (4.50-6.20); RED CELL DISTRIBUTION WIDTH 12.7 % (11.0-15.5); WHITE BLOOD COUNT (AUTO) 8.5 K/uL (4.8-10.8)
[2024-03-10 05:39] LABS: ALBUMIN 2.6 g/dL (3.5-5.0); BILIRUBIN,TOTAL 0.5 mg/dL (0.2-1.0); CREATININE 1.1 mg/dL (0.5-1.3); MAGNESIUM 2.3 mg/dL (1.80-2.40)
[2024-03-10] MEDS: PoTASSium chloRIDE 20MEQ/100ML 100 ML IV PRN (06:09)
--- NOTE | 2024-03-10 08:14 | PN ---
[facility] PROGRESS NOTE Date of Service: Mar 10, 2024 Time of Service: 08:13 SUBJECTIVE: [ ] This is a 53-year-old male was admitted on 03/03/2024 presents in ED with chief complaints of abdominal pain. ER workup was consistent with small- bowel obstruction. NGT tube was placed in ED and surgeon was consulted. Patient was seen and examined this morning no output from NG tube patient appears distended. the patient remain Bowel rest until seen by surgeon: will follow recommendations: ordered a repeat KUB for this morning. 03/05/24 Patient is seen and examined with the attending, reviewed chart and discussed. Patient was seen by general surgeon continue conservative management. Patient had four BMs was given suppository laxative. Patient's potassium 2.9 was replaced early this morning we will repeat level and replace as needed we will wait for surgeon continues with NG tube and bowel rest. Repeat KUB: Distended loops of large and small bowel, unchanged. 03/06/24 patient is seen and examined reviewed chart discussed case with attending. Patient continues with hypokalemia patient is tolerating clear liquid no surgical intervention on this admission we will repeat potassium level at noon. Patient reports no nausea vomiting or abdominal pain. 03/07/24 the patient seen and examined,, the patient continue with abd distention had small bm this moring tolerating CLD General surgeon concern with colonic ileus consulted GI for possible colonoscopy. The patient was made aware a GI specialist will be seeing him today. 03/08/24 the patient was evaluated by GI scheduled patient flex sigmoid today will follow up result: cont Bowel rest with NGT to LIWS. cont with Nauseated. The patient denies chest pain or sob Given to findings of flexible sigmoidoscopy stricture of distal sigmoid will need surgery high risk for perforation today per Dr Watkins ex lap and diversion. The patient aware of risk and benefit is agreement with surgeon recommendations. DR Parnell evaluated the patient reviewed imaging: will scheduled the patient tomorrow am. 03/09/24: the patient was seen earlier: s/p POD 0 open sigmoid colectomy : the patient is doing well, abd binder colostomy bag: and j p drain: right upper quad encouraged to use IS while awake will follow Dr Parnell post operative recommendations. started the patient on Cefazolin 2 gm Q8hrs, metribudazike 500mg po Q8 hrs. will be monitored closed: continue with IV fluids. 03/10/24 s/p sigmoid colectomy: Day 1 physical therapy will work with patient today out of bed to chair as tolerated encouraged patient to use his IS while awake. Colostomy with output. NG tube with very minimal output. We will follow postoperative recommendations from surgeon. Patient denied chest pain shortness a breath. REVIEW OF SYSTEMS CONSTITUTIONAL: Denies fevers, chills, or night sweats. No unintentional weight loss reported. NEUROLOGICAL: Denies headache, amaurosis fugax, motor weakness, sensory deficit, vertigo/spinning sensation, gait abnormalities, or tremors. ENT: No hearing loss, otalgia, otorrhea, rhinitis, rhinorrhea, hoarseness, or sore throat. CARDIOVASCULAR: Denies any exertional angina, dyspnea on exertion, orthopnea, paroxysmal nocturnal dyspnea, palpitations, life-threatening arrhythmias, claudication. PULMONARY: Denies any shortness of breath, cough, phlegm/sputum, hemoptysis, pleuritic chest pain. SLEEP: Denies morning headaches, daytime somnolence or napping. Denies difficulty falling asleep, staying asleep, waking from sleep. Denies knowledge of snoring. GASTROINTESTINAL: Denies any type of dysphagia to either liquids or solids. Denies nausea, vomiting, pyrosis, early satiety, abdominal pain, diarrhea, constipation, or changes in stool consistency or caliber. Denies coffee-ground emesis, hematemesis, hematochezia, or melanotic stools. GENITOURINARY: Denies frequency, urgency, nocturia, hematuria or incontinence (Storage/Irritative symptoms.) Low urinary stream, straining to void, urinary intermittency or hesitancy, splitting of the voiding stream, terminal dribbling. ENDOCRINOLOGIC: Denies polyuria, polydipsia, polyphagia or heat/cold intolerances. HEMATOLOGIC: Denies thrombophilia/previous clots, or coagulopathy/bleeding disorders. ONCOLOGIC: Denies personal history of malignancy. DERMATOLOGIC: Denies rashes or pruritus. PSYCHIATRIC: Denies any suicidal or homicidal ideation. Denies hallucinations. PHYSICAL EXAM GENERAL APPEARANCE: The patient is awake, alert, and oriented, in no acute cardiopulmonary distress. NEUROLOGICAL: Cranial nerves II-XII grossly intact. Motor is 5/5 in bilateral upper and lower extremities proximal to distal. No sensory deficits. HEENT: Face is symmetric. Pupils are equal and reactive. Extraocular movements are intact. NECK: Supple. No JVD. No thyromegaly. No submental, submandibular, pre- /postauricular, occipital or supraclavicular lymphadenopathy. CHEST: Normal chest expansion. No Telemetry. LUNGS: Absence of any rales, rhonchi or any wheezing. CARDIOVASCULAR: Regular. S1 and S2 normal. No appreciable rubs, murmurs or gallops. ABDOMEN: Soft, nontender, and nondistended. There is no rebound, voluntary guarding, or rigidity. : Deferred. No Sagastume. EXTREMITIES: Non-edematous and not cyanotic. No clubbing. Good capillary refill. SKIN: No skin breakdown. Vital Signs (last 8hr) Date Time Temp Pulse Resp B/P (MAP) Pulse Ox O2 Delivery O2 Flow Rate FiO2 03/10/24 08:00 97.5 81 17 106/68 95 Room Air 0.0 03/10/24 03:46 100.2 84 18 105/61 100 Nasal Cannula 2.0 24 LABS: Laboratory: Test 03/10/24 04:43 Range/Units White Blood Count 8.5 # 4.8-10.8 K/uL Red Blood Count 4.04 #L 4.50-6.20 MIL/uL Hemoglobin 12.3 #L 14.0-18.0 g/dL Hematocrit 35.9 #L 42-54 % Mean Corpuscular Volume 88.9 79-99 fL Mean Corpuscular Hemoglobin 30.4 27.0-33.0 pg Mean Corpuscular Hemoglobin Concent 34.3 32.0-36.0 g/dL Red Cell Distribution Width 12.7 11.0-15.5 % Platelet Count 279 # 130-400 K/uL Mean Platelet Volume 10.3 7.5-10.5 fL Immature Granulocyte % (Auto) 0.5 0-1 % Neutrophils (%) (Auto) 75.7 40.0-77.0 % Lymphocytes (%) (Auto) 8.5 L 21.0-51.0 % Monocytes (%) (Auto) 14.8 H 3.0-13.0 % Eosinophils (%) (Auto) 0.1 0.0-8.0 % Basophils (%) (Auto) 0.4 0.0-5.0 % Neutrophils # (Auto) 6.4 1.8-7.7 K/uL Lymphocytes # (Auto) 0.7 L 1.0-4.8 K/uL Monocytes # (Auto) 1.3 H 0.1-1.0 K/uL Eosinophils # (Auto) 0.01 0.00-0.70 K/uL Basophils # (Auto) 0.03 0.00-0.20 K/uL Absolute Immature Granulocyte (auto 0.04 0-1 K/uL Nucleated Red Blood Cells 0.0 0.0-0.19 % Sodium Level 144 136-145 mmol/L Potassium Level 3.0 *L 3.5-5.1 mmol/L Chloride Level 109 101-111 mmol/L Carbon Dioxide Level 27 21-32 mmol/L Blood Urea Nitrogen 28 H 7-18 mg/dL Creatinine 1.1 0.5-1.3 mg/dL Glomerular Filtration Rate Calc 80 >90 mL/min Random Glucose 138 H 70-105 mg/dL Total Calcium 7.8 L 8.5-10.1 mg/dL Magnesium Level 2.30 1.80-2.40 mg/dL Total Bilirubin 0.5 # 0.2-1.0 mg/dL Aspartate Amino Transf (AST/SGOT) 26 10-37 U/L Alanine Aminotransferase (ALT/SGPT) 35 # 12-78 U/L Alkaline Phosphatase 46 #L 50-136 U/L Total Protein 6.0 # 6.0-8.3 g/dL Albumin 2.6 #L 3.5-5.0 g/dL Current Medications Medications (Trade) Dose Ordered Sig/Krishan Route PRN Reason Start Time Stop Time Status Last Admin Dose Admin Acetaminophen (TYLenol 325MG TAB) 650 mg Q4H PRN PO TEMPERATURE GREATER THAN 101.5 03/06/24 12:30 04/05/24 12:29 Acetaminophen (TYLenol 650MG SUPPOSITORY) 650 mg Q6H PRN RC MILD PAIN (1-3) 03/03/24 22:30 03/06/24 12:11 DC Acetylcysteine (MUComyst 10% 4ML) 400mg = 4ml [id number] IH 03/05/24 12:00 03/05/24 11:36 DC Cefazolin Sodium (Ancef) 2 gm Q8H IVPB 03/09/24 16:30 03/09/24 11:29 DC Cefazolin Sodium (Ancef) 2 gm Q8H IVPB 03/09/24 16:30 03/19/24 16:29 03/09/24 23:20 2 GM Famotidine (Pepcid 20mg Vial) 20 mg DAILY IV 03/04/24 09:00 04/03/24 08:59 03/08/24 09:55 20 MG Famotidine (Pepcid 20mg Vial) 20 mg ONCE STAT IV 03/03/24 18:30 03/03/24 18:32 DC 03/03/24 20:11 20 MG Hydralazine HCl (APRESOLine 20MG INJ) 10 mg Q6H PRN IV For:SBP above 160;DBP above 90 03/03/24 22:30 04/02/24 22:29 Hydromorphone HCl (DiLAUDid 0.5MG INJ) 0.5 mg Q4H PRN IVP SEVERE PAIN (7-10) 03/08/24 16:00 03/13/24 15:59 03/09/24 20:05 0.5 MG Ketorolac Tromethamine (toRADol) 15 mg ONCE STAT IV 03/03/24 18:30 03/03/24 18:32 DC 03/03/24 20:11 15 MG Ketorolac Tromethamine (toRADol) 30 mg Q6H IM 03/09/24 12:00 03/09/24 11:25 DC Ketorolac Tromethamine (toRADol) 30 mg Q6H IV 03/09/24 12:00 03/09/24 11:27 DC Ketorolac Tromethamine (toRADol) 30 mg Q6H IVP 03/09/24 12:00 03/14/24 11:59 03/10/24 05:17 30 MG Lactated Ringer's 1,000 ml @ 100 mls/hr Q10H IV 03/03/24 22:30 03/06/24 07:54 DC 03/06/24 03:34 100 MLS/HR Magnesium Sulfate 50 ml @ 0 mls/hr PROTOCOL PRN IV low mag level 03/04/24 09:30 04/03/24 09:29 03/05/24 20:22 25 MLS/HR Methylprednisolone Sodium Succinate (Solu-medROL 40MG) 40 mg Q8H IVP 03/05/24 12:00 03/05/24 11:36 DC Metronidazole/ Sodium Chloride (flaGYL) 500 mg Q8H IV 03/09/24 11:30 03/19/24 11:29 03/10/24 03:09 500 MG Metronidazole/ Sodium Chloride (flaGYL) 500 mg Q8H IV 03/09/24 12:30 03/09/24 11:27 DC Morphine Sulfate (morPHINE 4MG SYG) 4 mg Q4H PRN IV SEVERE PAIN (7-10) 03/03/24 22:30 03/08/24 09:03 DC 03/08/24 05:44 4 MG Ondansetron HCl (zoFRAN 4MG INJ) 4 mg ONCE STAT IVP 03/03/24 18:30 03/03/24 18:32 DC 03/03/24 20:11 4 MG Ondansetron HCl (zoFRAN 4MG INJ) 4 mg Q6H PRN IV NAUSEA/VOMITING 03/03/24 22:30 04/02/24 22:29 03/08/24 19:51 4 MG Potassium Chloride 100 ml @ 50 mls/hr AD PRN IV POTASSIUM PROTOCOL 03/04/24 09:30 03/06/24 07:48 DC 03/05/24 06:32 50 MLS/HR Potassium Chloride 100 ml @ 100 mls/hr AD PRN IV POTASSIUM PROTOCOL 03/06/24 08:00 04/05/24 07:59 03/10/24 06:09 100 MLS/HR Potassium Chloride (K-Dur/Klor-Con 20meq) 20 meq AD PRN PO POTASSIUM PROTOCOL 03/06/24 08:00 04/05/24 07:59 Potassium Chloride (KCl 10% Elixir 20meq/15ml) 20 meq AD PRN PO POTASSIUM PROTOCOL 03/06/24 08:00 04/05/24 07:59 03/07/24 18:13 20 MEQ Simethicone (Mylicon) 80 mg PCHS PRN PO GI GAS 03/06/24 12:30 04/05/24 12:29 03/06/24 21:35 80 MG Sodium Chloride 1,000 ml @ 75 mls/hr [id number] IV 03/08/24 17:00 04/07/24 16:59 03/10/24 01:12 75 MLS/HR Sodium Chloride 1,000 ml @ 1,000 mls/hr Q1H STAT IV 03/03/24 20:00 03/03/24 20:59 DC 03/03/24 20:11 1,000 MLS/HR DIAGNOSTICS / RADIOLOGY: [ ] ASSESSMENT: colonic stricture distal of sigmoid evidence per flexible sigmoidoscopy s/p colectomy with colostomy Suspected small bowel obstruction, POA Intractable abd pain POA Extensive abdominal distention POA electrolytes derangement: Hypokalemia POA Obesity: BMI: 36.1 POA chronic problems; Hyperlipidemia Gout] obesity PLAN: [ ] Remain in Surgical floor GI: s/p flexible sigmoidoscopy found stricture distal sigmoid j2ee consultant: General surgeon scheduled the patient for sx today: sigmoid colectomy will follow post operative recommendations will monitor colostomy site, RADHA drain output. continue with abd binder. Diet: NPO remain bowel rest with LIWS encouraged to ambulate TID oob to chair as tolerated PT services to eval IS while awake cont with pain management for adequate pain controlled Replaced electrolytes potassium and magnesium to keep potassium >4.0 and mag: > 2.0 DVT: SCD applied GI: PUD ppx PRN: MEDICATIONS Zofran 4 mg IV every 6 hrs for n/v all questions answered further orders as per response to tx. Supervising MD: Dr. Hernandez c/d ATTESTATION BY PHYSICIAN I have seen and examined the patient. I reviewed the documentation, medical decision making, and treatment plan as noted by the mid-level provider above. I agree with the findings and plan of care. PARADISE HERNANDEZ MD, ELIZABETH NP Mar 10, 2024 08:14
[2024-03-10] MEDS ORDERED: hydroMORPHone 0.5 MG SYG (0.5MG/0.5ML) IVP PRN (10:30)
--- NOTE | 2024-03-10 11:06 | PN ---
Postop day one after Neisha's procedure. Patient is hemodynamically stable. He had low-grade temperature last night. Patient looks good. Pain is adequately controlled. NG tube drained 700 cc last night. This morning not draining much. Ostomy starts working. He is viable. Abdomen is soft. Patient has started to see in his chair. Sagastume catheter is still in place he urine is clear. White count is normal. Hemoglobin is stable. Renal function is normal. Potassium is 2.9. We will increase the IV fluid rate. We will keep the G-tube and NPO. We will provide incentive spirometry and encourage ambulation with physical therapy. Continue current postop management. Sagastume may come out today. Vitals/Labs Vital Signs Date Time Temp Pulse Resp B/P (MAP) Pulse Ox O2 Delivery O2 Flow Rate FiO2 03/10/24 08:00 97.5 81 17 106/68 95 Room Air 0.0 03/10/24 03:46 24 Laboratory Tests 03/10/24 04:43 LIDIA COLORADO MD Mar 10, 2024 11:06
[2024-03-10] MEDS: PHENOL 177 ML BOTTLE PO PRN (23:54)
[2024-03-11] VITALS (8 sets, daily range): BP systolic 107–130; BP diastolic 63–79; PULSE 53–71; RESP 16–18; TEMP 97.8–98.8; O2SAT 97
[2024-03-11 05:54] LABS: BASOPHILS # (AUTO) 0.01 K/uL (0.00-0.20); BASOPHILS % (AUTO) 0.1 % (0.0-5.0); EOSINOPHILS # (AUTO) 0.09 K/uL (0.00-0.70); EOSINOPHILS % (AUTO) 1.3 % (0.0-8.0); HEMATOCRIT 31.7 % (42-54); IMMATURE GRANULOCYTE ABSOLUTE 0.04 K/uL (0-1); LYMPHOCYTES # (AUTO) 0.7 K/uL (1.0-4.8); LYMPHOCYTES % (AUTO) 9.6 % (21.0-51.0); MEAN CORPUSCULAR HEMOGLOBIN 30.3 pg (27.0-33.0); MEAN CORPUSCULAR HGB CONC 33.8 g/dL (32.0-36.0); MEAN CORPUSCULAR VOLUME 89.8 fL (79-99); MONOCYTES # (AUTO) 0.9 K/uL (0.1-1.0); NEUTROPHILS # (AUTO) 5.4 K/uL (1.8-7.7); NEUTROPHILS % (AUTO) 76.4 % (40.0-77.0); PLATELET COUNT (AUTO) 244 K/uL (130-400); RED BLOOD CELL COUNT(AUTO) 3.53 MIL/uL (4.50-6.20); RED CELL DISTRIBUTION WIDTH 13.2 % (11.0-15.5); WHITE BLOOD COUNT (AUTO) 7.1 K/uL (4.8-10.8)
[2024-03-11 06:17] LABS: ALBUMIN 2.3 g/dL (3.5-5.0); BILIRUBIN,TOTAL 0.4 mg/dL (0.2-1.0); CREATININE 0.8 mg/dL (0.5-1.3); MAGNESIUM 2.4 mg/dL (1.80-2.40); TOTAL PROTEIN, SERUM 5.7 g/dL (6.0-8.3)
[2024-03-11 06:19] LABS: POTASSIUM 2.7 mmol/L (3.5-5.1)
--- NOTE | 2024-03-11 06:45 | NUR ---
PAGED [employer]OR TENDER REGARDING K+ 2.7, PENDING CALL BACK
--- NOTE | 2024-03-11 09:53 | PN ---
[facility] PROGRESS NOTE Date of Service: Mar 11, 2024 Time of Service: 09:51 SUBJECTIVE: [ ] This is a 53-year-old male was admitted on 03/03/2024 presents in ED with chief complaints of abdominal pain. ER workup was consistent with small- bowel obstruction. NGT tube was placed in ED and surgeon was consulted. Patient was seen and examined this morning no output from NG tube patient appears distended. the patient remain Bowel rest until seen by surgeon: will follow recommendations: ordered a repeat KUB for this morning. 03/05/24 Patient is seen and examined with the attending, reviewed chart and discussed. Patient was seen by general surgeon continue conservative management. Patient had four BMs was given suppository laxative. Patient's potassium 2.9 was replaced early this morning we will repeat level and replace as needed we will wait for surgeon continues with NG tube and bowel rest. Repeat KUB: Distended loops of large and small bowel, unchanged. 03/06/24 patient is seen and examined reviewed chart discussed case with attending. Patient continues with hypokalemia patient is tolerating clear liquid no surgical intervention on this admission we will repeat potassium level at noon. Patient reports no nausea vomiting or abdominal pain. 03/07/24 the patient seen and examined,, the patient continue with abd distention had small bm this moring tolerating CLD General surgeon concern with colonic ileus consulted GI for possible colonoscopy. The patient was made aware a GI specialist will be seeing him today. 03/08/24 the patient was evaluated by GI scheduled patient flex sigmoid today will follow up result: cont Bowel rest with NGT to LIWS. cont with Nauseated. The patient denies chest pain or sob Given to findings of flexible sigmoidoscopy stricture of distal sigmoid will need surgery high risk for perforation today per Dr Watkins ex lap and diversion. The patient aware of risk and benefit is agreement with surgeon recommendations. DR Parnell evaluated the patient reviewed imaging: will scheduled the patient tomorrow am. 03/09/24: the patient was seen earlier: s/p POD 0 open sigmoid colectomy : the patient is doing well, abd binder colostomy bag: and j p drain: right upper quad encouraged to use IS while awake will follow Dr Parnell post operative recommendations. started the patient on Cefazolin 2 gm Q8hrs, metribudazike 500mg po Q8 hrs. will be monitored closed: continue with IV fluids. 03/10/24 s/p sigmoid colectomy: Day 1 physical therapy will work with patient today out of bed to chair as tolerated encouraged patient to use his IS while awake. Colostomy with output. NG tube with very minimal output. We will follow postoperative recommendations from surgeon. Patient denied chest pain shortness a breath. 03/11/24 the patient is seen and examined, reviewed chart: s/p POD 2 cont with NGT with LIWS with 350 output colostomy output: 1500 ml persistent hypokalemia 2.7 being replaced. will repeat potassium level: will follow post operative recommendations. will start CLD DC NG tube REVIEW OF SYSTEMS CONSTITUTIONAL: Denies fevers, chills, or night sweats. No unintentional weight loss reported. NEUROLOGICAL: Denies headache, amaurosis fugax, motor weakness, sensory deficit, vertigo/spinning sensation, gait abnormalities, or tremors. ENT: No hearing loss, otalgia, otorrhea, rhinitis, rhinorrhea, hoarseness, or sore throat. CARDIOVASCULAR: Denies any exertional angina, dyspnea on exertion, orthopnea, paroxysmal nocturnal dyspnea, palpitations, life-threatening arrhythmias, claudication. PULMONARY: Denies any shortness of breath, cough, phlegm/sputum, hemoptysis, pleuritic chest pain. SLEEP: Denies morning headaches, daytime somnolence or napping. Denies difficulty falling asleep, staying asleep, waking from sleep. Denies knowledge of snoring. GASTROINTESTINAL: Denies any type of dysphagia to either liquids or solids. Denies nausea, vomiting, pyrosis, early satiety, abdominal pain, diarrhea, constipation, or changes in stool consistency or caliber. Denies coffee-ground emesis, hematemesis, hematochezia, or melanotic stools. GENITOURINARY: Denies frequency, urgency, nocturia, hematuria or incontinence (Storage/Irritative symptoms.) Low urinary stream, straining to void, urinary intermittency or hesitancy, splitting of the voiding stream, terminal dribbling. ENDOCRINOLOGIC: Denies polyuria, polydipsia, polyphagia or heat/cold intolerances. HEMATOLOGIC: Denies thrombophilia/previous clots, or coagulopathy/bleeding disorders. ONCOLOGIC: Denies personal history of malignancy. DERMATOLOGIC: Denies rashes or pruritus. PSYCHIATRIC: Denies any suicidal or homicidal ideation. Denies hallucinations. PHYSICAL EXAM GENERAL APPEARANCE: The patient is awake, alert, and oriented, in no acute cardiopulmonary distress. NEUROLOGICAL: Cranial nerves II-XII grossly intact. Motor is 5/5 in bilateral upper and lower extremities proximal to distal. No sensory deficits. HEENT: Face is symmetric. Pupils are equal and reactive. Extraocular movements are intact. NECK: Supple. No JVD. No thyromegaly. No submental, submandibular, pre- /postauricular, occipital or supraclavicular lymphadenopathy. CHEST: Normal chest expansion. No Telemetry. LUNGS: Absence of any rales, rhonchi or any wheezing. CARDIOVASCULAR: Regular. S1 and S2 normal. No appreciable rubs, murmurs or gallops. ABDOMEN: Soft, nontender, and nondistended. There is no rebound, voluntary guarding, or rigidity. : Deferred. No Sagastume. EXTREMITIES: Non-edematous and not cyanotic. No clubbing. Good capillary refill. SKIN: No skin breakdown. Vital Signs (last 8hr) Date Time Temp Pulse Resp B/P (MAP) Pulse Ox O2 Delivery O2 Flow Rate FiO2 03/11/24 08:00 97.9 62 18 115/68 97 Room Air 0.0 03/11/24 03:34 98.8 66 18 107/63 96 Room Air 21 LABS: Laboratory: Test 03/11/24 05:45 Range/Units White Blood Count 7.1 4.8-10.8 K/uL Red Blood Count 3.53 L 4.50-6.20 MIL/uL Hemoglobin 10.7 L 14.0-18.0 g/dL Hematocrit 31.7 L 42-54 % Mean Corpuscular Volume 89.8 79-99 fL Mean Corpuscular Hemoglobin 30.3 27.0-33.0 pg Mean Corpuscular Hemoglobin Concent 33.8 32.0-36.0 g/dL Red Cell Distribution Width 13.2 11.0-15.5 % Platelet Count 244 130-400 K/uL Mean Platelet Volume 10.2 7.5-10.5 fL Immature Granulocyte % (Auto) 0.6 0-1 % Neutrophils (%) (Auto) 76.4 40.0-77.0 % Lymphocytes (%) (Auto) 9.6 L 21.0-51.0 % Monocytes (%) (Auto) 12.0 3.0-13.0 % Eosinophils (%) (Auto) 1.3 0.0-8.0 % Basophils (%) (Auto) 0.1 0.0-5.0 % Neutrophils # (Auto) 5.4 1.8-7.7 K/uL Lymphocytes # (Auto) 0.7 L 1.0-4.8 K/uL Monocytes # (Auto) 0.9 0.1-1.0 K/uL Eosinophils # (Auto) 0.09 0.00-0.70 K/uL Basophils # (Auto) 0.01 0.00-0.20 K/uL Absolute Immature Granulocyte (auto 0.04 0-1 K/uL Nucleated Red Blood Cells 0.0 0.0-0.19 % White Cell Morphology Comment See comments Sodium Level 148 H 136-145 mmol/L Potassium Level 2.7 *L 3.5-5.1 mmol/L Chloride Level 114 H 101-111 mmol/L Carbon Dioxide Level 25 21-32 mmol/L Blood Urea Nitrogen 23 H 7-18 mg/dL Creatinine 0.8 0.5-1.3 mg/dL Glomerular Filtration Rate Calc 105 >90 mL/min Random Glucose 112 H 70-105 mg/dL Total Calcium 8.4 L 8.5-10.1 mg/dL Magnesium Level 2.40 1.80-2.40 mg/dL Total Bilirubin 0.4 0.2-1.0 mg/dL Aspartate Amino Transf (AST/SGOT) 30 10-37 U/L Alanine Aminotransferase (ALT/SGPT) 27 12-78 U/L Alkaline Phosphatase 46 L 50-136 U/L Total Protein 5.7 L 6.0-8.3 g/dL Albumin 2.3 L 3.5-5.0 g/dL Current Medications Medications (Trade) Dose Ordered Sig/Krishan Route PRN Reason Start Time Stop Time Status Last Admin Dose Admin Acetaminophen (TYLenol 325MG TAB) 650 mg Q4H PRN PO TEMPERATURE GREATER THAN 101.5 03/06/24 12:30 04/05/24 12:29 Acetaminophen (TYLenol 650MG SUPPOSITORY) 650 mg Q6H PRN RC MILD PAIN (1-3) 03/03/24 22:30 03/06/24 12:11 DC Acetylcysteine (MUComyst 10% 4ML) 400mg = 4ml [id number] IH 03/05/24 12:00 03/05/24 11:36 DC Cefazolin Sodium (Ancef) 2 gm Q8H IVPB 03/09/24 16:30 03/09/24 11:29 DC Cefazolin Sodium (Ancef) 2 gm Q8H IVPB 03/09/24 16:30 03/19/24 16:29 03/11/24 08:54 2 GM Famotidine (Pepcid 20mg Vial) 20 mg DAILY IV 03/04/24 09:00 04/03/24 08:59 03/11/24 08:54 20 MG Famotidine (Pepcid 20mg Vial) 20 mg ONCE STAT IV 03/03/24 18:30 03/03/24 18:32 DC 03/03/24 20:11 20 MG Hydralazine HCl (APRESOLine 20MG INJ) 10 mg Q6H PRN IV For:SBP above 160;DBP above 90 03/03/24 22:30 04/02/24 22:29 Hydromorphone HCl (DiLAUDid 0.5MG INJ) 0.5 mg Q4H PRN IVP SEVERE PAIN (7-10) 03/08/24 16:00 03/10/24 08:19 DC 03/09/24 20:05 0.5 MG Hydromorphone HCl (DiLAUDid 0.5MG INJ) 0.5 mg Q4H PRN IVP SEVERE PAIN (7-10) 03/10/24 10:30 03/15/24 10:29 Ketorolac Tromethamine (toRADol) 15 mg ONCE STAT IV 03/03/24 18:30 03/03/24 18:32 DC 03/03/24 20:11 15 MG Ketorolac Tromethamine (toRADol) 30 mg Q6H IM 03/09/24 12:00 03/09/24 11:25 DC Ketorolac Tromethamine (toRADol) 30 mg Q6H IV 03/09/24 12:00 03/09/24 11:27 DC Ketorolac Tromethamine (toRADol) 30 mg Q6H IVP 03/09/24 12:00 03/14/24 11:59 03/11/24 05:37 30 MG Lactated Ringer's 1,000 ml @ 100 mls/hr Q10H IV 03/03/24 22:30 03/06/24 07:54 DC 03/06/24 03:34 100 MLS/HR Magnesium Sulfate 50 ml @ 0 mls/hr PROTOCOL PRN IV low mag level 03/04/24 09:30 04/03/24 09:29 03/05/24 20:22 25 MLS/HR Methylprednisolone Sodium Succinate (Solu-medROL 40MG) 40 mg Q8H IVP 03/05/24 12:00 03/05/24 11:36 DC Metronidazole/ Sodium Chloride (flaGYL) 500 mg Q8H IV 03/09/24 11:30 03/19/24 11:29 03/11/24 02:38 500 MG Metronidazole/ Sodium Chloride (flaGYL) 500 mg Q8H IV 03/09/24 12:30 03/09/24 11:27 DC Morphine Sulfate (morPHINE 4MG SYG) 4 mg Q4H PRN IV SEVERE PAIN (7-10) 03/03/24 22:30 03/08/24 09:03 DC 03/08/24 05:44 4 MG Ondansetron HCl (zoFRAN 4MG INJ) 4 mg ONCE STAT IVP 03/03/24 18:30 03/03/24 18:32 DC 03/03/24 20:11 4 MG Ondansetron HCl (zoFRAN 4MG INJ) 4 mg Q6H PRN IV NAUSEA/VOMITING 03/03/24 22:30 04/02/24 22:29 03/08/24 19:51 4 MG Phenol (Sore Throat [place]) 1 spry Q4H PRN PO SORE THROAT 03/11/24 00:00 04/10/24 00:00 03/10/24 23:54 1 SPRY Potassium Chloride 100 ml @ 50 mls/hr AD PRN IV POTASSIUM PROTOCOL 03/04/24 09:30 03/06/24 07:48 DC 03/05/24 06:32 50 MLS/HR Potassium Chloride 100 ml @ 100 mls/hr AD PRN IV POTASSIUM PROTOCOL 03/06/24 08:00 04/05/24 07:59 03/11/24 06:59 100 MLS/HR Potassium Chloride (K-Dur/Klor-Con 20meq) 20 meq AD PRN PO POTASSIUM PROTOCOL 03/06/24 08:00 04/05/24 07:59 Potassium Chloride (KCl 10% Elixir 20meq/15ml) 20 meq AD PRN PO POTASSIUM PROTOCOL 03/06/24 08:00 04/05/24 07:59 03/07/24 18:13 20 MEQ Simethicone (Mylicon) 80 mg PCHS PRN PO GI GAS 03/06/24 12:30 04/05/24 12:29 03/06/24 21:35 80 MG Sodium Chloride 1,000 ml @ 125 mls/hr Q8H IV 03/08/24 17:00 04/07/24 16:59 03/11/24 02:41 125 MLS/HR Sodium Chloride 1,000 ml @ 1,000 mls/hr Q1H STAT IV 03/03/24 20:00 03/03/24 20:59 DC 03/03/24 20:11 1,000 MLS/HR DIAGNOSTICS / RADIOLOGY: [ ] ASSESSMENT: colonic stricture distal of sigmoid evidence per flexible sigmoidoscopy s/p colectomy with colostomy Suspected small bowel obstruction, POA Intractable abd pain POA Extensive abdominal distention POA electrolytes derangement: Hypokalemia POA Obesity: BMI: 36.1 POA chronic problems; Hyperlipidemia Gout] obesity PLAN: [ ] Remain in Surgical floor GI: s/p flexible sigmoidoscopy found stricture distal sigmoid sigmoid colectomy will follow post operative recommendations POD#2 will monitor colostomy site and RADHA drain output. continue with abd binder. Diet: CLD as per surgeon discontinue NGT encouraged to ambulate TID oob to chair as tolerated PT services to eval IS while awake cont with pain management for adequate pain controlled Replaced electrolytes potassium and magnesium to keep potassium >4.0 and mag: > 2.0 DVT: SCD applied GI: PUD ppx and pain management PRN: MEDICATIONS Zofran 4 mg IV every 6 hrs for n/v all questions answered further orders as per response to tx. Supervising MD: Dr. Hernandez c/d ATTESTATION BY PHYSICIAN I have seen and examined the patient. I reviewed the documentation, medical decision making, and treatment plan as noted by the mid-level provider above. I agree with the findings and plan of care. PARADISE HERNANDEZ MD, ELIZABETH NP Mar 11, 2024 09:53
--- NOTE | 2024-03-11 11:03 | PN ---
This is a 53-year-old male status post Neisha's procedure postop day two Interval history: This 53-year-old male seen room resting NG output decreasing Patient continues with output from ostomy Sagastume left in place Incisions clean and dry Abdomen significantly less distended WBCs 7.1 with a hemoglobin of 10.7 Physical exam General: Awake alert and oriented Heart: Regular rate and rhythm} Lungs: [Clear to auscultation no distress Abdomen: [Incisions clean with jodie in place, ostomy functioning properly RADHA serosanguineous Sagastume in place Assessment : This is a 53-year-old male postop day two for Neisha's procedure Plan: DC Sagastume DC NG tube Patient to be started on clear liquid diet Physical therapy to assess patient Abdominal binder to be ordered for patient Dr. Parnell to be updated on patient's status and surgical team to follow patient closely Vitals/Labs Vital Signs Date Time Temp Pulse Resp B/P (MAP) Pulse Ox O2 Delivery O2 Flow Rate FiO2 03/11/24 08:00 97.9 62 18 115/68 97 Room Air 0.0 03/11/24 03:34 21 Laboratory Tests 03/10/24 14:01 03/11/24 05:45 Medications Current Medications Ondansetron HCl 4 mg ONCE STAT IVP Last administered on 03/03/24at 20:11; Start 03/03/24 at 18:30; Stop 03/03/24 at 18:32; Status DC Famotidine 20 mg ONCE STAT IV Last administered on 03/03/24at 20:11; Start 03/03/24 at 18:30; Stop 03/03/24 at 18:32; Status DC Ketorolac Tromethamine 15 mg ONCE STAT IV Last administered on 03/03/24at 20:11; Start 03/03/24 at 18:30; Stop 03/03/24 at 18:32; Status DC Sodium Chloride 1,000 ml @ 1,000 mls/hr Q1H STAT IV Last administered on 03/03/24at 20:11; Start 03/03/24 at 20:00; Stop 03/03/24 at 20:59; Status DC Iohexol 75 ml STK-MED ONCE IV; Start 03/03/24 at 22:19; Stop 03/03/24 at 22:24; Status DC Famotidine 20 mg DAILY IV Last administered on 03/11/24at 08:54; Start 03/04/24 at 09:00; Stop 04/03/24 at 08:59 Acetaminophen 650 mg Q6H PRN RC; Start 03/03/24 at 22:30; Stop 03/06/24 at 12:11; Status DC Ondansetron HCl 4 mg Q6H PRN IV Last administered on 03/08/24at 19:51; Start 03/03/24 at 22:30; Stop 04/02/24 at 22:29 Morphine Sulfate 4 mg Q4H PRN IV Last administered on 03/08/24at 05:44; Start 03/03/24 at 22:30; Stop 03/08/24 at 09:03; Status DC Hydralazine HCl 10 mg Q6H PRN IV; Start 03/03/24 at 22:30; Stop 04/02/24 at 22:29 Lactated Ringer's 1,000 ml @ 100 mls/hr Q10H IV Last administered on 03/06/24at 03:34; Start 03/03/24 at 22:30; Stop 03/06/24 at 07:54; Status DC Magnesium Sulfate 50 ml @ 0 mls/hr PROTOCOL PRN IV Last administered on 03/05/24at 20:22; Start 03/04/24 at 09:30; Stop 04/03/24 at 09:29 Potassium Chloride 100 ml @ 50 mls/hr AD PRN IV Last administered on 03/05/24at 06:32; Start 03/04/24 at 09:30; Stop 03/06/24 at 07:48; Status DC Bisacodyl 10 mg ONCE ONCE RC Last administered on 03/04/24at 15:13; Start 03/04/24 at 15:00; Stop 03/04/24 at 15:01; Status DC Acetylcysteine 400mg = 4ml [id number] IH; Start 03/05/24 at 12:00; Stop 03/05/24 at 11:36; Status DC Methylprednisolone Sodium Succinate 40 mg Q8H IVP; Start 03/05/24 at 12:00; Stop 03/05/24 at 11:36; Status DC Potassium Chloride 100 ml @ 100 mls/hr AD PRN IV Last administered on 03/11/24at 06:59; Start 03/06/24 at 08:00; Stop 04/05/24 at 07:59 Potassium Chloride 20 meq AD PRN PO Last administered on 03/07/24at 18:13; Start 03/06/24 at 08:00; Stop 04/05/24 at 07:59 Potassium Chloride 20 meq AD PRN PO; Start 03/06/24 at 08:00; Stop 04/05/24 at 07:59 Acetaminophen 650 mg Q4H PRN PO; Start 03/06/24 at 12:30; Stop 04/05/24 at 12:29 Simethicone 120 mg ONCE ONCE PO Last administered on 03/06/24at 12:58; Start 03/06/24 at 12:30; Stop 03/06/24 at 12:31; Status DC Simethicone 80 mg PCHS PRN PO Last administered on 03/06/24at 21:35; Start 03/06/24 at 12:30; Stop 04/05/24 at 12:29 Potassium Chloride 40 meq ONCE ONCE PO Last administered on 03/06/24at 12:58; Start 03/06/24 at 12:30; Stop 03/06/24 at 12:31; Status DC Potassium Chloride 20 meq ONCE ONCE PO Last administered on 03/07/24at 09:00; Start 03/07/24 at 09:00; Stop 03/07/24 at 09:01; Status DC Propofol 200 mg STK-MED ONCE IV; Start 03/08/24 at 07:39; Stop 03/08/24 at 07:39; Status DC Lidocaine HCl 100 mg STK-MED ONCE .ROUTE; Start 03/08/24 at 07:39; Stop 03/08/24 at 07:39; Status DC Ketorolac Tromethamine 30 mg ONCE ONCE IVP Last administered on 03/08/24at 09:54; Start 03/08/24 at 10:00; Stop 03/08/24 at 10:01; Status DC Hydromorphone HCl 0.5 mg Q4H PRN IVP Last administered on 03/09/24at 20:05; Start 03/08/24 at 16:00; Stop 03/10/24 at 08:19; Status DC Sodium Chloride 1,000 ml @ 125 mls/hr Q8H IV Last administered on 03/11/24at 02:41; Start 03/08/24 at 17:00; Stop 04/07/24 at 16:59 Lidocaine HCl 100 mg STK-MED ONCE .ROUTE; Start 03/09/24 at 08:09; Stop 03/09/24 at 08:09; Status DC Succinylcholine Chloride 200 mg STK-MED ONCE .ROUTE; Start 03/09/24 at 08:09; Stop 03/09/24 at 08:09; Status DC Propofol 200 mg STK-MED ONCE IV; Start 03/09/24 at 08:09; Stop 03/09/24 at 08:09; Status DC Midazolam HCl 2 mg STK-MED ONCE .ROUTE; Start 03/09/24 at 08:09; Stop 03/09/24 at 08:09; Status DC Rocuronium [place] 50 mg STK-MED ONCE .ROUTE; Start 03/09/24 at 08:09; Stop 03/09/24 at 08:09; Status DC Fentanyl Citrate 100 mcg STK-MED ONCE .ROUTE; Start 03/09/24 at 08:12; Stop 03/09/24 at 08:12; Status DC Phenylephrine HCl 10 mg STK-MED ONCE IV; Start 03/09/24 at 08:29; Stop 03/09/24 at 08:29; Status DC Cefazolin Sodium 1 gm STK-MED ONCE .ROUTE; Start 03/09/24 at 08:43; Stop 03/09/24 at 08:43; Status DC Rocuronium [place] 50 mg STK-MED ONCE .ROUTE; Start 03/09/24 at 08:44; Stop 03/09/24 at 08:44; Status DC Albumin Human 250 ml @ As Directed STK-MED ONCE IV; Start 03/09/24 at 09:18; Stop 03/09/24 at 09:18; Status DC Rocuronium [place] 50 mg STK-MED ONCE .ROUTE; Start 03/09/24 at 09:30; Stop 03/09/24 at 09:30; Status DC Ropivacaine 150 mg STK-MED ONCE .ROUTE; Start 03/09/24 at 09:49; Stop 03/09/24 at 09:50; Status DC Ondansetron HCl 4 mg STK-MED ONCE .ROUTE; Start 03/09/24 at 10:13; Stop 03/09/24 at 10:13; Status DC Dexamethasone Sodium Phosphate 10 mg STK-MED ONCE .ROUTE; Start 03/09/24 at 10:13; Stop 03/09/24 at 10:14; Status DC Meperidine HCl 25 mg STK-MED ONCE .ROUTE Last administered on 03/09/24at 10:31; Start 03/09/24 at 10:27; Stop 03/09/24 at 10:28; Status DC Cefazolin Sodium 2 gm STK-MED ONCE IVPB Last administered on 03/09/24at 08:30; Start 03/09/24 at 08:30; Stop 03/09/24 at 10:51; Status DC Metronidazole/ Sodium Chloride 500 mg Q8H IV; Start 03/09/24 at 12:30; Stop 03/09/24 at 11:27; Status DC Cefazolin Sodium 2 gm Q8H IVPB; Start 03/09/24 at 16:30; Stop 03/09/24 at 11:29; Status DC Ketorolac Tromethamine 30 mg Q6H IM; Start 03/09/24 at 12:00; Stop 03/09/24 at 11:25; Status DC Ketorolac Tromethamine 30 mg Q6H IV; Start 03/09/24 at 12:00; Stop 03/09/24 at 11:27; Status DC Metronidazole/ Sodium Chloride 500 mg Q8H IV Last administered on 03/11/24at 10:51; Start 03/09/24 at 11:30; Stop 03/19/24 at 11:29 Cefazolin Sodium 2 gm Q8H IVPB Last administered on 03/11/24at 08:54; Start 03/09/24 at 16:30; Stop 03/19/24 at 16:29 Ketorolac Tromethamine 30 mg Q6H IVP Last administered on 03/11/24at 05:37; Start 03/09/24 at 12:00; Stop 03/14/24 at 11:59 Hydromorphone HCl 0.5 mg Q4H PRN IVP; Start 03/10/24 at 10:30; Stop 03/15/24 at 10:29 Phenol 1 spry Q4H PRN PO Last administered on 03/10/24at 23:54; Start 03/11/24 at 00:00; Stop 04/10/24 at 00:00 ROSSY SYLVESTER Jr. Mar 11, 2024 11:03
--- NOTE | 2024-03-11 11:15 | NUR ---
REMOVED LABOY CATHETER, TOLERATED WELL. POST DC, PT'S UA OUTPUT IN URINAL WAS 400CC.
--- NOTE | 2024-03-11 12:00 | NUR ---
REMOVED NGT, TOLERATED WELL AND GLAD IT WAS OUT, PT EAGER TO DRINK LIQUIDS. PT TOLERATED THIN LIQUIDS, NO S/S OF ASPIRATION. WILL CONTINUE TO MONITOR.
[2024-03-11] MEDS: PoTASSium chloRIDE 20MEQ ER 20 MEQ ERTAB PO PRN (16:27)
--- NOTE | 2024-03-11 20:34 | PN ---
GASTROENTEROLOGY PROGRESS NOTE Date of Visit: Mar 11, 2024 Time of Visit: 20:34 Events / Notes: [ ] Review of Systems: CONSTITUTIONAL: No malaise or change in sensation of wellbeing. ENMT: No rhinorrhea, otorrhea, sinus pain, ear ache. CARDIOVASCULAR: No angina, palpitations, orthopnea or paroxysmal dyspnea. RESPIRATORY: No SOB. GASTROINTESTINAL: No abdominal pain, nausea, vomiting, diarrhea, hematemesis, melena or change in the patient's habitual bowel movements consistency/number. GENITOURINARY: No dysuria, hematuria or change in bladder continence. MUSCULOSKELETAL: No new muscle pain or decrease in muscular strength. No new joint swelling, redness or tenderness. SKIN: No new rash. Physical Exam: GEN: Awake, alert, oriented in person, time and place, and in no acute distress. HEENT: No sinus tenderness. Tympanic membranes were not examined. No rhinorrhea. Oral pharyngeal mucosa is pink, moist and within normal limits. Neck is supple with no cervical lymphadenopathy, thyromegaly or JVD. CHEST: Inspection, palpation and percussion of the chest were unremarkable. Lung auscultation revealed normal breath sounds bilaterally. CARDIAC: PMI is within normal limits. Heart sounds are regular. Normal S1, S2. No gallop or murmur. ABD: Soft, non-tender and not distended. No peritoneal signs on palpation. No organomegaly. Normal bowel sounds. EXT: No cyanosis or clubbing. No edema. SKIN: Intact. No rashes. JOINTS: No evidence of synovitis or acute arthritis. NEURO: Alert and oriented to name, place and person. Cranial nerve examination is unremarkable. No focal motor deficits. Normal speech. Gait is normal. Strength is normal. Vital Signs (last 8hr) Date Time Temp Pulse Resp B/P (MAP) Pulse Ox O2 Delivery O2 Flow Rate FiO2 03/11/24 20:08 98.2 66 18 127/77 98 Room Air 21 03/11/24 16:00 97.9 53 16 126/71 99 Room Air 0.0 Laboratory: [ ] Laboratory: Test 03/11/24 13:00 03/11/24 05:45 Range/Units Potassium Level 2.9 *L 3.5-5.1 mmol/L White Blood Count 7.1 4.8-10.8 K/uL Red Blood Count 3.53 L 4.50-6.20 MIL/uL Hemoglobin 10.7 L 14.0-18.0 g/dL Hematocrit 31.7 L 42-54 % Mean Corpuscular Volume 89.8 79-99 fL Mean Corpuscular Hemoglobin 30.3 27.0-33.0 pg Mean Corpuscular Hemoglobin Concent 33.8 32.0-36.0 g/dL Red Cell Distribution Width 13.2 11.0-15.5 % Platelet Count 244 130-400 K/uL Mean Platelet Volume 10.2 7.5-10.5 fL Immature Granulocyte % (Auto) 0.6 0-1 % Neutrophils (%) (Auto) 76.4 40.0-77.0 % Lymphocytes (%) (Auto) 9.6 L 21.0-51.0 % Monocytes (%) (Auto) 12.0 3.0-13.0 % Eosinophils (%) (Auto) 1.3 0.0-8.0 % Basophils (%) (Auto) 0.1 0.0-5.0 % Neutrophils # (Auto) 5.4 1.8-7.7 K/uL Lymphocytes # (Auto) 0.7 L 1.0-4.8 K/uL Monocytes # (Auto) 0.9 0.1-1.0 K/uL Eosinophils # (Auto) 0.09 0.00-0.70 K/uL Basophils # (Auto) 0.01 0.00-0.20 K/uL Absolute Immature Granulocyte (auto 0.04 0-1 K/uL Nucleated Red Blood Cells 0.0 0.0-0.19 % White Cell Morphology Comment See comments Sodium Level 148 H 136-145 mmol/L Chloride Level 114 H 101-111 mmol/L Carbon Dioxide Level 25 21-32 mmol/L Blood Urea Nitrogen 23 H 7-18 mg/dL Creatinine 0.8 0.5-1.3 mg/dL Glomerular Filtration Rate Calc 105 >90 mL/min Random Glucose 112 H 70-105 mg/dL Total Calcium 8.4 L 8.5-10.1 mg/dL Magnesium Level 2.40 1.80-2.40 mg/dL Total Bilirubin 0.4 0.2-1.0 mg/dL Aspartate Amino Transf (AST/SGOT) 30 10-37 U/L Alanine Aminotransferase (ALT/SGPT) 27 12-78 U/L Alkaline Phosphatase 46 L 50-136 U/L Total Protein 5.7 L 6.0-8.3 g/dL Albumin 2.3 L 3.5-5.0 g/dL Current Medications Medications (Trade) Dose Ordered Sig/Krishan Route PRN Reason Start Time Stop Time Status Last Admin Dose Admin Acetaminophen (TYLenol 325MG TAB) 650 mg Q4H PRN PO TEMPERATURE GREATER THAN 101.5 03/06/24 12:30 04/05/24 12:29 Acetaminophen (TYLenol 650MG SUPPOSITORY) 650 mg Q6H PRN RC MILD PAIN (1-3) 03/03/24 22:30 03/06/24 12:11 DC Acetylcysteine (MUComyst 10% 4ML) 400mg = 4ml [id number] IH 03/05/24 12:00 03/05/24 11:36 DC Cefazolin Sodium (Ancef) 2 gm Q8H IVPB 03/09/24 16:30 03/09/24 11:29 DC Cefazolin Sodium (Ancef) 2 gm Q8H IVPB 03/09/24 16:30 03/19/24 16:29 03/11/24 16:27 2 GM Famotidine (Pepcid 20mg Vial) 20 mg DAILY IV 03/04/24 09:00 04/03/24 08:59 03/11/24 08:54 20 MG Famotidine (Pepcid 20mg Vial) 20 mg ONCE STAT IV 03/03/24 18:30 03/03/24 18:32 DC 03/03/24 20:11 20 MG Hydralazine HCl (APRESOLine 20MG INJ) 10 mg Q6H PRN IV For:SBP above 160;DBP above 90 03/03/24 22:30 04/02/24 22:29 Hydromorphone HCl (DiLAUDid 0.5MG INJ) 0.5 mg Q4H PRN IVP SEVERE PAIN (7-10) 03/08/24 16:00 03/10/24 08:19 DC 03/09/24 20:05 0.5 MG Hydromorphone HCl (DiLAUDid 0.5MG INJ) 0.5 mg Q4H PRN IVP SEVERE PAIN (7-10) 03/10/24 10:30 03/15/24 10:29 Ketorolac Tromethamine (toRADol) 15 mg ONCE STAT IV 03/03/24 18:30 03/03/24 18:32 DC 03/03/24 20:11 15 MG Ketorolac Tromethamine (toRADol) 30 mg Q6H IM 03/09/24 12:00 03/09/24 11:25 DC Ketorolac Tromethamine (toRADol) 30 mg Q6H IV 03/09/24 12:00 03/09/24 11:27 DC Ketorolac Tromethamine (toRADol) 30 mg Q6H IVP 03/09/24 12:00 03/14/24 11:59 03/11/24 17:27 30 MG Lactated Ringer's 1,000 ml @ 100 mls/hr Q10H IV 03/03/24 22:30 03/06/24 07:54 DC 03/06/24 03:34 100 MLS/HR Magnesium Sulfate 50 ml @ 0 mls/hr PROTOCOL PRN IV low mag level 03/04/24 09:30 04/03/24 09:29 03/05/24 20:22 25 MLS/HR Methylprednisolone Sodium Succinate (Solu-medROL 40MG) 40 mg Q8H IVP 03/05/24 12:00 03/05/24 11:36 DC Metronidazole/ Sodium Chloride (flaGYL) 500 mg Q8H IV 03/09/24 11:30 03/19/24 11:29 03/11/24 20:07 500 MG Metronidazole/ Sodium Chloride (flaGYL) 500 mg Q8H IV 03/09/24 12:30 03/09/24 11:27 DC Morphine Sulfate (morPHINE 4MG SYG) 4 mg Q4H PRN IV SEVERE PAIN (7-10) 03/03/24 22:30 03/08/24 09:03 DC 03/08/24 05:44 4 MG Ondansetron HCl (zoFRAN 4MG INJ) 4 mg ONCE STAT IVP 03/03/24 18:30 03/03/24 18:32 DC 03/03/24 20:11 4 MG Ondansetron HCl (zoFRAN 4MG INJ) 4 mg Q6H PRN IV NAUSEA/VOMITING 03/03/24 22:30 04/02/24 22:29 03/08/24 19:51 4 MG Phenol (Sore Throat [place]) 1 spry Q4H PRN PO SORE THROAT 03/11/24 00:00 04/10/24 00:00 03/10/24 23:54 1 SPRY Potassium Chloride 100 ml @ 50 mls/hr AD PRN IV POTASSIUM PROTOCOL 03/04/24 09:30 03/06/24 07:48 DC 03/05/24 06:32 50 MLS/HR Potassium Chloride 100 ml @ 100 mls/hr AD PRN IV POTASSIUM PROTOCOL 03/06/24 08:00 04/05/24 07:59 03/11/24 16:28 100 MLS/HR Potassium Chloride (K-Dur/Klor-Con 20meq) 20 meq AD PRN PO POTASSIUM PROTOCOL 03/06/24 08:00 04/05/24 07:59 03/11/24 20:15 20 MEQ Potassium Chloride (KCl 10% Elixir 20meq/15ml) 20 meq AD PRN PO POTASSIUM PROTOCOL 03/06/24 08:00 04/05/24 07:59 03/07/24 18:13 20 MEQ Simethicone (Mylicon) 80 mg PCHS PRN PO GI GAS 03/06/24 12:30 04/05/24 12:29 03/06/24 21:35 80 MG Sodium Chloride 1,000 ml @ 125 mls/hr Q8H IV 03/08/24 17:00 04/07/24 16:59 03/11/24 02:41 125 MLS/HR Sodium Chloride 1,000 ml @ 1,000 mls/hr Q1H STAT IV 03/03/24 20:00 03/03/24 20:59 DC 03/03/24 20:11 1,000 MLS/HR Diagnostics / Radiology: [COPY/PASTE HERE IF NO REPORTS PLEASE DELETE SECTION] Assessment: Colon distention Constipation Plan: Follow surgery recs Encourage ambulation Avoid opioids Replenish electrolytes PETTY MANUEL CLINICAL ANALYST Mar 11, 2024 20:34
[2024-03-12] VITALS (7 sets, daily range): BP systolic 115–137; BP diastolic 60–88; PULSE 55–86; RESP 16–20; TEMP 98–98.8; O2SAT 98
[2024-03-12 05:07] LABS: BASOPHILS # (AUTO) 0.01 K/uL (0.00-0.20); BASOPHILS % (AUTO) 0.1 % (0.0-5.0); EOSINOPHILS # (AUTO) 0.08 K/uL (0.00-0.70); EOSINOPHILS % (AUTO) 0.8 % (0.0-8.0); HEMATOCRIT 32.8 % (42-54); IMMATURE GRANULOCYTE ABSOLUTE 0.09 K/uL (0-1); LYMPHOCYTES # (AUTO) 0.6 K/uL (1.0-4.8); LYMPHOCYTES % (AUTO) 5.4 % (21.0-51.0); MEAN CORPUSCULAR HEMOGLOBIN 29.8 pg (27.0-33.0); MEAN CORPUSCULAR HGB CONC 33.8 g/dL (32.0-36.0); MEAN CORPUSCULAR VOLUME 88.2 fL (79-99); NEUTROPHILS # (AUTO) 8.7 K/uL (1.8-7.7); NEUTROPHILS % (AUTO) 82.8 % (40.0-77.0); PLATELET COUNT (AUTO) 314 K/uL (130-400); RED BLOOD CELL COUNT(AUTO) 3.72 MIL/uL (4.50-6.20); RED CELL DISTRIBUTION WIDTH 13.1 % (11.0-15.5); WHITE BLOOD COUNT (AUTO) 10.4 K/uL (4.8-10.8)
[2024-03-12 05:36] LABS: ALBUMIN 2.4 g/dL (3.5-5.0); BILIRUBIN,TOTAL 0.5 mg/dL (0.2-1.0); CREATININE 0.9 mg/dL (0.5-1.3)
[2024-03-12 05:41] LABS: POTASSIUM 2.7 mmol/L (3.5-5.1)
--- NOTE | 2024-03-12 10:30 | NUR ---
POTASSIUM PO PT REFUSED POTASSIUM PO. STATES HE DOES NOT TOLERATE PO POTASSIUM.
[2024-03-12] MEDS: PoTASSium chloRIDE 20MEQ ER 20 MEQ ERTAB PO ONE (10:36)
[2024-03-12] MEDS: PoTASSium chloRIDE 20MEQ/100ML 100 ML IV ONE (10:36)
--- NOTE | 2024-03-12 10:40 | NUR ---
EMESIS PT HAD 800 ML OF GREEN EMESIS. ZOFRAN GIVEN.
--- NOTE | 2024-03-12 10:44 | PN ---
Interval history: This is a 53-year-old male status post Neisha's procedure This 53-year-old male seen in his room resting Patient reports episodes of emesis yesterday after taking oral potassium Potassium still needing to be covered Patient continues with high output from ostomy Patient has been urinating well Vitals stable Physical exam General: Awake alert and oriented Heart: Regular rate and rhythm} Lungs: [Clear to auscultation no distress Abdomen: [Soft, some distention with productive ostomy Assessment : This is a 53-year-old male status post Neisha's procedure postop day three Plan: Patient to continue with potassium replacement via IV Patient encouraged to ambulate Hold oral replacement of potassium and move forward with IV replacement Surgical team to follow Patient closely do not advance diet Dr. Parnell to be updated in patient's status and surgical team to follow patient closely Vitals/Labs Vital Signs Date Time Temp Pulse Resp B/P (MAP) Pulse Ox O2 Delivery O2 Flow Rate FiO2 03/12/24 08:29 98.4 71 18 120/71 98 Room Air 03/12/24 04:08 21 03/11/24 20:00 0 Laboratory Tests 03/11/24 13:00 03/12/24 04:37 Medications Current Medications Ondansetron HCl 4 mg ONCE STAT IVP Last administered on 03/03/24at 20:11; Start 03/03/24 at 18:30; Stop 03/03/24 at 18:32; Status DC Famotidine 20 mg ONCE STAT IV Last administered on 03/03/24at 20:11; Start 03/03/24 at 18:30; Stop 03/03/24 at 18:32; Status DC Ketorolac Tromethamine 15 mg ONCE STAT IV Last administered on 03/03/24at 20:11; Start 03/03/24 at 18:30; Stop 03/03/24 at 18:32; Status DC Sodium Chloride 1,000 ml @ 1,000 mls/hr Q1H STAT IV Last administered on 03/03/24at 20:11; Start 03/03/24 at 20:00; Stop 03/03/24 at 20:59; Status DC Iohexol 75 ml STK-MED ONCE IV; Start 03/03/24 at 22:19; Stop 03/03/24 at 22:24; Status DC Famotidine 20 mg DAILY IV Last administered on 03/12/24at 10:35; Start 03/04/24 at 09:00; Stop 04/03/24 at 08:59 Acetaminophen 650 mg Q6H PRN RC; Start 03/03/24 at 22:30; Stop 03/06/24 at 12:11; Status DC Ondansetron HCl 4 mg Q6H PRN IV Last administered on 03/12/24at 10:35; Start 03/03/24 at 22:30; Stop 04/02/24 at 22:29 Morphine Sulfate 4 mg Q4H PRN IV Last administered on 03/08/24at 05:44; Start 03/03/24 at 22:30; Stop 03/08/24 at 09:03; Status DC Hydralazine HCl 10 mg Q6H PRN IV; Start 03/03/24 at 22:30; Stop 04/02/24 at 22:29 Lactated Ringer's 1,000 ml @ 100 mls/hr Q10H IV Last administered on 03/06/24at 03:34; Start 03/03/24 at 22:30; Stop 03/06/24 at 07:54; Status DC Magnesium Sulfate 50 ml @ 0 mls/hr PROTOCOL PRN IV Last administered on 03/05/24at 20:22; Start 03/04/24 at 09:30; Stop 04/03/24 at 09:29 Potassium Chloride 100 ml @ 50 mls/hr AD PRN IV Last administered on 03/05/24at 06:32; Start 03/04/24 at 09:30; Stop 03/06/24 at 07:48; Status DC Bisacodyl 10 mg ONCE ONCE RC Last administered on 03/04/24at 15:13; Start 03/04/24 at 15:00; Stop 03/04/24 at 15:01; Status DC Acetylcysteine 400mg = 4ml [id number] IH; Start 03/05/24 at 12:00; Stop 03/05/24 at 11:36; Status DC Methylprednisolone Sodium Succinate 40 mg Q8H IVP; Start 03/05/24 at 12:00; Stop 03/05/24 at 11:36; Status DC Potassium Chloride 100 ml @ 100 mls/hr AD PRN IV Last administered on 03/12/24at 06:22; Start 03/06/24 at 08:00; Stop 04/05/24 at 07:59 Potassium Chloride 20 meq AD PRN PO Last administered on 03/07/24at 18:13; Start 03/06/24 at 08:00; Stop 04/05/24 at 07:59 Potassium Chloride 20 meq AD PRN PO Last administered on 03/11/24at 20:15; Start 03/06/24 at 08:00; Stop 04/05/24 at 07:59 Acetaminophen 650 mg Q4H PRN PO; Start 03/06/24 at 12:30; Stop 04/05/24 at 12:29 Simethicone 120 mg ONCE ONCE PO Last administered on 03/06/24at 12:58; Start 03/06/24 at 12:30; Stop 03/06/24 at 12:31; Status DC Simethicone 80 mg PCHS PRN PO Last administered on 03/06/24at 21:35; Start 03/06/24 at 12:30; Stop 04/05/24 at 12:29 Potassium Chloride 40 meq ONCE ONCE PO Last administered on 03/06/24at 12:58; Start 03/06/24 at 12:30; Stop 03/06/24 at 12:31; Status DC Potassium Chloride 20 meq ONCE ONCE PO Last administered on 03/07/24at 09:00; Start 03/07/24 at 09:00; Stop 03/07/24 at 09:01; Status DC Propofol 200 mg STK-MED ONCE IV; Start 03/08/24 at 07:39; Stop 03/08/24 at 07:39; Status DC Lidocaine HCl 100 mg STK-MED ONCE .ROUTE; Start 03/08/24 at 07:39; Stop 03/08/24 at 07:39; Status DC Ketorolac Tromethamine 30 mg ONCE ONCE IVP Last administered on 03/08/24at 09:54; Start 03/08/24 at 10:00; Stop 03/08/24 at 10:01; Status DC Hydromorphone HCl 0.5 mg Q4H PRN IVP Last administered on 03/09/24at 20:05; Start 03/08/24 at 16:00; Stop 03/10/24 at 08:19; Status DC Sodium Chloride 1,000 ml @ 125 mls/hr Q8H IV Last administered on 03/12/24at 10:36; Start 03/08/24 at 17:00; Stop 04/07/24 at 16:59 Lidocaine HCl 100 mg STK-MED ONCE .ROUTE; Start 03/09/24 at 08:09; Stop 03/09/24 at 08:09; Status DC Succinylcholine Chloride 200 mg STK-MED ONCE .ROUTE; Start 03/09/24 at 08:09; Stop 03/09/24 at 08:09; Status DC Propofol 200 mg STK-MED ONCE IV; Start 03/09/24 at 08:09; Stop 03/09/24 at 08:09; Status DC Midazolam HCl 2 mg STK-MED ONCE .ROUTE; Start 03/09/24 at 08:09; Stop 03/09/24 at 08:09; Status DC Rocuronium [place] 50 mg STK-MED ONCE .ROUTE; Start 03/09/24 at 08:09; Stop 03/09/24 at 08:09; Status DC Fentanyl Citrate 100 mcg STK-MED ONCE .ROUTE; Start 03/09/24 at 08:12; Stop 03/09/24 at 08:12; Status DC Phenylephrine HCl 10 mg STK-MED ONCE IV; Start 03/09/24 at 08:29; Stop 03/09/24 at 08:29; Status DC Cefazolin Sodium 1 gm STK-MED ONCE .ROUTE; Start 03/09/24 at 08:43; Stop 03/09/24 at 08:43; Status DC Rocuronium [place] 50 mg STK-MED ONCE .ROUTE; Start 03/09/24 at 08:44; Stop 03/09/24 at 08:44; Status DC Albumin Human 250 ml @ As Directed STK-MED ONCE IV; Start 03/09/24 at 09:18; Stop 03/09/24 at 09:18; Status DC Rocuronium [place] 50 mg STK-MED ONCE .ROUTE; Start 03/09/24 at 09:30; Stop 03/09/24 at 09:30; Status DC Ropivacaine 150 mg STK-MED ONCE .ROUTE; Start 03/09/24 at 09:49; Stop 03/09/24 at 09:50; Status DC Ondansetron HCl 4 mg STK-MED ONCE .ROUTE; Start 03/09/24 at 10:13; Stop 03/09/24 at 10:13; Status DC Dexamethasone Sodium Phosphate 10 mg STK-MED ONCE .ROUTE; Start 03/09/24 at 10:13; Stop 03/09/24 at 10:14; Status DC Meperidine HCl 25 mg STK-MED ONCE .ROUTE Last administered on 03/09/24at 10:31; Start 03/09/24 at 10:27; Stop 03/09/24 at 10:28; Status DC Cefazolin Sodium 2 gm STK-MED ONCE IVPB Last administered on 03/09/24at 08:30; Start 03/09/24 at 08:30; Stop 03/09/24 at 10:51; Status DC Metronidazole/ Sodium Chloride 500 mg Q8H IV; Start 03/09/24 at 12:30; Stop 03/09/24 at 11:27; Status DC Cefazolin Sodium 2 gm Q8H IVPB; Start 03/09/24 at 16:30; Stop 03/09/24 at 11:29; Status DC Ketorolac Tromethamine 30 mg Q6H IM; Start 03/09/24 at 12:00; Stop 03/09/24 at 11:25; Status DC Ketorolac Tromethamine 30 mg Q6H IV; Start 03/09/24 at 12:00; Stop 03/09/24 at 11:27; Status DC Metronidazole/ Sodium Chloride 500 mg Q8H IV Last administered on 03/12/24at 03:20; Start 03/09/24 at 11:30; Stop 03/19/24 at 11:29 Cefazolin Sodium 2 gm Q8H IVPB Last administered on 03/12/24at 10:35; Start 03/09/24 at 16:30; Stop 03/19/24 at 16:29 Ketorolac Tromethamine 30 mg Q6H IVP Last administered on 03/12/24at 06:21; Start 03/09/24 at 12:00; Stop 03/14/24 at 11:59 Hydromorphone HCl 0.5 mg Q4H PRN IVP; Start 03/10/24 at 10:30; Stop 03/15/24 at 10:29 Phenol 1 spry Q4H PRN PO Last administered on 03/10/24at 23:54; Start 03/11/24 at 00:00; Stop 04/10/24 at 00:00 Potassium Chloride 40 meq ONCE ONCE PO; Start 03/12/24 at 09:00; Stop 03/12/24 at 09:01; Status DC Potassium Chloride 100 ml @ 50 mls/hr ONCE ONCE IV Last administered on 03/12/24at 10:36; Start 03/12/24 at 09:00; Stop 03/12/24 at 10:59 ROSSY SYLVESTER Jr. Mar 12, 2024 10:44
--- NOTE | 2024-03-12 12:11 | PN ---
[facility] PROGRESS NOTE Date of Service: Mar 12, 2024 Time of Service: 12:10 SUBJECTIVE: [ ] This is a 53-year-old male was admitted on 03/03/2024 presents in ED with chief complaints of abdominal pain. ER workup was consistent with small- bowel obstruction. NGT tube was placed in ED and surgeon was consulted. Patient was seen and examined this morning no output from NG tube patient appears distended. the patient remain Bowel rest until seen by surgeon: will follow recommendations: ordered a repeat KUB for this morning. 03/05/24 Patient is seen and examined with the attending, reviewed chart and discussed. Patient was seen by general surgeon continue conservative management. Patient had four BMs was given suppository laxative. Patient's potassium 2.9 was replaced early this morning we will repeat level and replace as needed we will wait for surgeon continues with NG tube and bowel rest. Repeat KUB: Distended loops of large and small bowel, unchanged. 03/06/24 patient is seen and examined reviewed chart discussed case with attending. Patient continues with hypokalemia patient is tolerating clear liquid no surgical intervention on this admission we will repeat potassium level at noon. Patient reports no nausea vomiting or abdominal pain. 03/07/24 the patient seen and examined,, the patient continue with abd distention had small bm this moring tolerating CLD General surgeon concern with colonic ileus consulted GI for possible colonoscopy. The patient was made aware a GI specialist will be seeing him today. 03/08/24 the patient was evaluated by GI scheduled patient flex sigmoid today will follow up result: cont Bowel rest with NGT to LIWS. cont with Nauseated. The patient denies chest pain or sob Given to findings of flexible sigmoidoscopy stricture of distal sigmoid will need surgery high risk for perforation today per Dr Watkins ex lap and diversion. The patient aware of risk and benefit is agreement with surgeon recommendations. DR Parnell evaluated the patient reviewed imaging: will scheduled the patient tomorrow am. 03/09/24: the patient was seen earlier: s/p POD 0 open sigmoid colectomy : the patient is doing well, abd binder colostomy bag: and j p drain: right upper quad encouraged to use IS while awake will follow Dr Parnell post operative recommendations. started the patient on Cefazolin 2 gm Q8hrs, metribudazike 500mg po Q8 hrs. will be monitored closed: continue with IV fluids. 03/10/24 s/p sigmoid colectomy: Day 1 physical therapy will work with patient today out of bed to chair as tolerated encouraged patient to use his IS while awake. Colostomy with output. NG tube with very minimal output. We will follow postoperative recommendations from surgeon. Patient denied chest pain shortness a breath. 03/11/24 the patient is seen and examined, reviewed chart: s/p POD 2 cont with NGT with LIWS with 350 output colostomy output: 1500 ml persistent hypokalemia 2.7 being replaced. will repeat potassium level: will follow post operative recommendations. will start CLD DC NG tube 03/12 the patient is seen and examined earlier this morning, had episode of emesis several times last night, noted to have abdominal distention, hemodynamically stable, no chest pain, no shortness a breath. Currently getting potassium supplementation IV per protocol. REVIEW OF SYSTEMS CONSTITUTIONAL: Denies fevers, chills, or night sweats. No unintentional weight loss reported. NEUROLOGICAL: Denies headache, amaurosis fugax, motor weakness, sensory deficit, vertigo/spinning sensation, gait abnormalities, or tremors. ENT: No hearing loss, otalgia, otorrhea, rhinitis, rhinorrhea, hoarseness, or sore throat. CARDIOVASCULAR: Denies any exertional angina, dyspnea on exertion, orthopnea, paroxysmal nocturnal dyspnea, palpitations, life-threatening arrhythmias, cla udication. PULMONARY: Denies any shortness of breath, cough, phlegm/sputum, hemoptysis, pleuritic chest pain. SLEEP: Denies morning headaches, daytime somnolence or napping. Denies difficulty falling asleep, staying asleep, waking from sleep. Denies knowledge of snoring. GASTROINTESTINAL: Denies any type of dysphagia to either liquids or solids. Denies nausea, vomiting, pyrosis, early satiety, abdominal pain, diarrhea, constipation, or changes in stool consistency or caliber. Denies coffee-ground emesis, hematemesis, hematochezia, or melanotic stools. GENITOURINARY: Denies frequency, urgency, nocturia, hematuria or incontinence (Storage/Irritative symptoms.) Low urinary stream, straining to void, urinary intermittency or hesitancy, splitting of the voiding stream, terminal dribbling. ENDOCRINOLOGIC: Denies polyuria, polydipsia, polyphagia or heat/cold intolerances. HEMATOLOGIC: Denies thrombophilia/previous clots, or coagulopathy/bleeding disorders. ONCOLOGIC: Denies personal history of malignancy. DERMATOLOGIC: Denies rashes or pruritus. PSYCHIATRIC: Denies any suicidal or homicidal ideation. Denies hallucinations. PHYSICAL EXAM GENERAL APPEARANCE: The patient is awake, alert, and oriented, in no acute cardiopulmonary distress. NEUROLOGICAL: Cranial nerves II-XII grossly intact. Motor is 5/5 in bilateral upper and lower extremities proximal to distal. No sensory deficits. HEENT: Face is symmetric. Pupils are equal and reactive. Extraocular movements are intact. NECK: Supple. No JVD. No thyromegaly. No submental, submandibular, pre- /postauricular, occipital or supraclavicular lymphadenopathy. CHEST: Normal chest expansion. No Telemetry. LUNGS: Absence of any rales, rhonchi or any wheezing. CARDIOVASCULAR: Regular. S1 and S2 normal. No appreciable rubs, murmurs or gallops. ABDOMEN: Distended, decreased bowel sounds present. : Deferred. No Sagastume. EXTREMITIES: Non-edematous and not cyanotic. No clubbing. Good capillary refill. SKIN: No skin breakdown. Vital Signs (last 8hr) Date Time Temp Pulse Resp B/P (MAP) Pulse Ox O2 Delivery O2 Flow Rate FiO2 03/12/24 08:29 98.4 71 18 120/71 98 Room Air LABS: Laboratory: Test 03/12/24 04:37 03/11/24 05:45 Range/Units White Blood Count 10.4 # 4.8-10.8 K/uL Red Blood Count 3.72 L 4.50-6.20 MIL/uL Hemoglobin 11.1 L 14.0-18.0 g/dL Hematocrit 32.8 L 42-54 % Mean Corpuscular Volume 88.2 79-99 fL Mean Corpuscular Hemoglobin 29.8 27.0-33.0 pg Mean Corpuscular Hemoglobin Concent 33.8 32.0-36.0 g/dL Red Cell Distribution Width 13.1 11.0-15.5 % Platelet Count 314 # 130-400 K/uL Mean Platelet Volume 10.5 7.5-10.5 fL Immature Granulocyte % (Auto) 0.9 0-1 % Neutrophils (%) (Auto) 82.8 H 40.0-77.0 % Lymphocytes (%) (Auto) 5.4 L 21.0-51.0 % Monocytes (%) (Auto) 10.0 3.0-13.0 % Eosinophils (%) (Auto) 0.8 0.0-8.0 % Basophils (%) (Auto) 0.1 0.0-5.0 % Neutrophils # (Auto) 8.7 H 1.8-7.7 K/uL Lymphocytes # (Auto) 0.6 L 1.0-4.8 K/uL Monocytes # (Auto) 1.0 0.1-1.0 K/uL Eosinophils # (Auto) 0.08 0.00-0.70 K/uL Basophils # (Auto) 0.01 0.00-0.20 K/uL Absolute Immature Granulocyte (auto 0.09 0-1 K/uL Nucleated Red Blood Cells 0.0 0.0-0.19 % Sodium Level 146 H 136-145 mmol/L Potassium Level 2.7 *L 3.5-5.1 mmol/L Chloride Level 111 101-111 mmol/L Carbon Dioxide Level 23 21-32 mmol/L Blood Urea Nitrogen 21 H 7-18 mg/dL Creatinine 0.9 0.5-1.3 mg/dL Glomerular Filtration Rate Calc 101 >90 mL/min Random Glucose 122 H 70-105 mg/dL Total Calcium 8.4 L 8.5-10.1 mg/dL Magnesium Level 2.00 1.80-2.40 mg/dL Total Bilirubin 0.5 # 0.2-1.0 mg/dL Aspartate Amino Transf (AST/SGOT) 29 10-37 U/L Alanine Aminotransferase (ALT/SGPT) 32 12-78 U/L Alkaline Phosphatase 51 50-136 U/L Total Protein 6.0 6.0-8.3 g/dL Albumin 2.4 L 3.5-5.0 g/dL White Cell Morphology Comment See comments Current Medications Medications (Trade) Dose Ordered Sig/Krishan Route PRN Reason Start Time Stop Time Status Last Admin Dose Admin Acetaminophen (TYLenol 325MG TAB) 650 mg Q4H PRN PO TEMPERATURE GREATER THAN 101.5 03/06/24 12:30 04/05/24 12:29 Acetaminophen (TYLenol 650MG SUPPOSITORY) 650 mg Q6H PRN RC MILD PAIN (1-3) 03/03/24 22:30 03/06/24 12:11 DC Acetylcysteine (MUComyst 10% 4ML) 400mg = 4ml [id number] IH 03/05/24 12:00 03/05/24 11:36 DC Cefazolin Sodium (Ancef) 2 gm Q8H IVPB 03/09/24 16:30 03/09/24 11:29 DC Cefazolin Sodium (Ancef) 2 gm Q8H IVPB 03/09/24 16:30 03/19/24 16:29 03/12/24 10:35 2 GM Famotidine (Pepcid 20mg Vial) 20 mg DAILY IV 03/04/24 09:00 04/03/24 08:59 03/12/24 10:35 20 MG Famotidine (Pepcid 20mg Vial) 20 mg ONCE STAT IV 03/03/24 18:30 03/03/24 18:32 DC 03/03/24 20:11 20 MG Hydralazine HCl (APRESOLine 20MG INJ) 10 mg Q6H PRN IV For:SBP above 160;DBP above 90 03/03/24 22:30 04/02/24 22:29 Hydromorphone HCl (DiLAUDid 0.5MG INJ) 0.5 mg Q4H PRN IVP SEVERE PAIN (7-10) 03/08/24 16:00 03/10/24 08:19 DC 03/09/24 20:05 0.5 MG Hydromorphone HCl (DiLAUDid 0.5MG INJ) 0.5 mg Q4H PRN IVP SEVERE PAIN (7-10) 03/10/24 10:30 03/15/24 10:29 Ketorolac Tromethamine (toRADol) 15 mg ONCE STAT IV 03/03/24 18:30 03/03/24 18:32 DC 03/03/24 20:11 15 MG Ketorolac Tromethamine (toRADol) 30 mg Q6H IM 03/09/24 12:00 03/09/24 11:25 DC Ketorolac Tromethamine (toRADol) 30 mg Q6H IV 03/09/24 12:00 03/09/24 11:27 DC Ketorolac Tromethamine (toRADol) 30 mg Q6H IVP 03/09/24 12:00 03/14/24 11:59 03/12/24 06:21 30 MG Lactated Ringer's 1,000 ml @ 100 mls/hr Q10H IV 03/03/24 22:30 03/06/24 07:54 DC 03/06/24 03:34 100 MLS/HR Magnesium Sulfate 50 ml @ 0 mls/hr PROTOCOL PRN IV low mag level 03/04/24 09:30 04/03/24 09:29 03/05/24 20:22 25 MLS/HR Methylprednisolone Sodium Succinate (Solu-medROL 40MG) 40 mg Q8H IVP 03/05/24 12:00 03/05/24 11:36 DC Metronidazole/ Sodium Chloride (flaGYL) 500 mg Q8H IV 03/09/24 11:30 03/19/24 11:29 03/12/24 10:45 500 MG Metronidazole/ Sodium Chloride (flaGYL) 500 mg Q8H IV 03/09/24 12:30 03/09/24 11:27 DC Morphine Sulfate (morPHINE 4MG SYG) 4 mg Q4H PRN IV SEVERE PAIN (7-10) 03/03/24 22:30 03/08/24 09:03 DC 03/08/24 05:44 4 MG Ondansetron HCl (zoFRAN 4MG INJ) 4 mg ONCE STAT IVP 03/03/24 18:30 03/03/24 18:32 DC 03/03/24 20:11 4 MG Ondansetron HCl (zoFRAN 4MG INJ) 4 mg Q6H PRN IV NAUSEA/VOMITING 03/03/24 22:30 04/02/24 22:29 03/12/24 10:35 4 MG Phenol (Sore Throat [place]) 1 spry Q4H PRN PO SORE THROAT 03/11/24 00:00 04/10/24 00:00 03/10/24 23:54 1 SPRY Potassium Chloride 100 ml @ 50 mls/hr AD PRN IV POTASSIUM PROTOCOL 03/04/24 09:30 03/06/24 07:48 DC 03/05/24 06:32 50 MLS/HR Potassium Chloride 100 ml @ 100 mls/hr AD PRN IV POTASSIUM PROTOCOL 03/06/24 08:00 04/05/24 07:59 03/12/24 06:22 100 MLS/HR Potassium Chloride (K-Dur/Klor-Con 20meq) 20 meq AD PRN PO POTASSIUM PROTOCOL 03/06/24 08:00 04/05/24 07:59 03/11/24 20:15 20 MEQ Potassium Chloride (KCl 10% Elixir 20meq/15ml) 20 meq AD PRN PO POTASSIUM PROTOCOL 03/06/24 08:00 04/05/24 07:59 03/07/24 18:13 20 MEQ Simethicone (Mylicon) 80 mg PCHS PRN PO GI GAS 03/06/24 12:30 04/05/24 12:29 03/06/24 21:35 80 MG Sodium Chloride 1,000 ml @ 125 mls/hr Q8H IV 03/08/24 17:00 04/07/24 16:59 03/12/24 10:36 125 MLS/HR Sodium Chloride 1,000 ml @ 1,000 mls/hr Q1H STAT IV 03/03/24 20:00 03/03/24 20:59 DC 03/03/24 20:11 1,000 MLS/HR DIAGNOSTICS / RADIOLOGY: [ ] ASSESSMENT: colonic stricture distal of sigmoid evidence per flexible sigmoidoscopy s/p colectomy with colostomy Suspected small bowel obstruction, POA Intractable abd pain POA Extensive abdominal distention POA electrolytes derangement: Hypokalemia POA Obesity: BMI: 36.1 POA chronic problems; Hyperlipidemia Gout] obesity PLAN: [ ] Remain in Surgical floor GI: s/p flexible sigmoidoscopy found stricture distal sigmoid sigmoid colectomy will follow post operative recommendations POD#2 will monitor colostomy site and RADHA drain output. continue with abd binder. Diet: CLD as per surgeon discontinue NGT encouraged to ambulate TID oob to chair as tolerated PT services to eval IS while awake cont with pain management for adequate pain controlled Replaced electrolytes potassium and magnesium to keep potassium >4.0 and mag: > 2.0 DVT: SCD applied GI: PUD ppx and pain management PRN: MEDICATIONS Zofran 4 mg IV every 6 hrs for n/v further orders as per response to tx. Disposition: Remains admitted to medical floor, we will keep NPO, stat CT abdomen pelvis requested, surgical input noted and appreciated. Continue to follow. Plan of action discussed in detail with the patient, all questions answered, agreed and understood the information provided PARADISE MANZANARES MD Mar 12, 2024 12:11
--- NOTE | 2024-03-12 13:25 | HMCIMG ---
CT ABDOMEN/PELVIS W/O CONTRAST HISTORY: Nausea and vomiting COMPARISON: None TECHNIQUE: Multiple sequential axial images of the abdomen and pelvis were obtained from the dome of the diaphragm through symphysis pubis. Patient was not given contrast through intravenous route. Oral contrast was not given. FINDINGS: No pleural effusion is seen bilaterally. There is no evidence of parenchymal disease or pulmonary nodule of the visualized lower lungs. Degenerative changes of the thoracolumbar spine are present. The heart is not enlarged. Liver measured 20 cm. There is gastric distention with small bowel dilatation with air-fluid levels may be related to postop ileus versus small bowel obstruction. Gastrostomy tube is seen. Drainage tube is seen with distal tip in the left lower abdomen. The liver, spleen, adrenal glands and pancreas are unremarkable. There is no evidence of hydronephrosis bilaterally. No evidence of renal stone is seen. Fecal material is seen in the colon. There are normal size retroperitoneal and mesenteric lymph nodes. No ascites is seen. Atherosclerotic changes are present. Pelvic sidewalls are symmetric bilaterally. Bladder is well distended without wall thickening. IMPRESSION: 1. There is gastric distention with small bowel dilatation with air-fluid levels may be related to postop ileus versus small bowel obstruction. Gastrostomy tube is seen. Drainage tube is seen with distal tip in the left lower abdomen. CT was performed with one or more following dose reduction techniques: automated exposure control, adjustment of the mA and kv according to patient's size, or use of a iterative reconstruction technique.
[2024-03-12 14:49] LABS: ALBUMIN 2.6 g/dL (3.5-5.0); CREATININE 0.9 mg/dL (0.5-1.3)
[2024-03-12 14:51] LABS: POTASSIUM 2.8 mmol/L (3.5-5.1)
[2024-03-12 15:00] LABS: BILIRUBIN,TOTAL 0.4 mg/dL (0.2-1.0); TOTAL PROTEIN, SERUM 6.5 g/dL (6.0-8.3)
--- NOTE | 2024-03-12 15:56 | NUR ---
Discharge Update: Pt. enrolled in [facility] for [facility] colostomy supplies.
[2024-03-12] MEDS: PoTASSium chloRIDE 10MEQ/100ML 100 ML IV SCH (16:22)
--- NOTE | 2024-03-12 16:26 | PN ---
GASTROENTEROLOGY PROGRESS NOTE Date of Visit: Mar 12, 2024 Time of Visit: 16:26 Events / Notes: [ ] Review of Systems: CONSTITUTIONAL: No malaise or change in sensation of wellbeing. ENMT: No rhinorrhea, otorrhea, sinus pain, ear ache. CARDIOVASCULAR: No angina, palpitations, orthopnea or paroxysmal dyspnea. RESPIRATORY: No SOB. GASTROINTESTINAL: No abdominal pain, nausea, vomiting, diarrhea, hematemesis, melena or change in the patient's habitual bowel movements consistency/number. GENITOURINARY: No dysuria, hematuria or change in bladder continence. MUSCULOSKELETAL: No new muscle pain or decrease in muscular strength. No new joint swelling, redness or tenderness. SKIN: No new rash. Physical Exam: GEN: Awake, alert, oriented in person, time and place, and in no acute distress. HEENT: No sinus tenderness. Tympanic membranes were not examined. No rhinorrhea. Oral pharyngeal mucosa is pink, moist and within normal limits. Neck is supple with no cervical lymphadenopathy, thyromegaly or JVD. CHEST: Inspection, palpation and percussion of the chest were unremarkable. Lung auscultation revealed normal breath sounds bilaterally. CARDIAC: PMI is within normal limits. Heart sounds are regular. Normal S1, S2. No gallop or murmur. ABD: Soft, non-tender and not distended. No peritoneal signs on palpation. No organomegaly. Normal bowel sounds. EXT: No cyanosis or clubbing. No edema. SKIN: Intact. No rashes. JOINTS: No evidence of synovitis or acute arthritis. NEURO: Alert and oriented to name, place and person. Cranial nerve examination is unremarkable. No focal motor deficits. Normal speech. Gait is normal. Strength is normal. Vital Signs (last 8hr) Date Time Temp Pulse Resp B/P (MAP) Pulse Ox O2 Delivery O2 Flow Rate FiO2 03/12/24 12:29 98.2 86 18 115/60 97 Room Air 03/12/24 08:29 98.4 71 18 120/71 98 Room Air Laboratory: [ ] Laboratory: Test 03/12/24 14:33 03/12/24 04:37 03/11/24 05:45 Range/Units Sodium Level 147 H 136-145 mmol/L Potassium Level 2.8 *L 3.5-5.1 mmol/L Chloride Level 111 101-111 mmol/L Carbon Dioxide Level 25 21-32 mmol/L Blood Urea Nitrogen 23 H 7-18 mg/dL Creatinine 0.9 0.5-1.3 mg/dL Glomerular Filtration Rate Calc 101 >90 mL/min Random Glucose 141 H 70-105 mg/dL Total Calcium 8.5 8.5-10.1 mg/dL Total Bilirubin 0.4 0.2-1.0 mg/dL Aspartate Amino Transf (AST/SGOT) 31 10-37 U/L Alanine Aminotransferase (ALT/SGPT) 32 12-78 U/L Alkaline Phosphatase 56 50-136 U/L Total Protein 6.5 6.0-8.3 g/dL Albumin 2.6 L 3.5-5.0 g/dL White Blood Count 10.4 # 4.8-10.8 K/uL Red Blood Count 3.72 L 4.50-6.20 MIL/uL Hemoglobin 11.1 L 14.0-18.0 g/dL Hematocrit 32.8 L 42-54 % Mean Corpuscular Volume 88.2 79-99 fL Mean Corpuscular Hemoglobin 29.8 27.0-33.0 pg Mean Corpuscular Hemoglobin Concent 33.8 32.0-36.0 g/dL Red Cell Distribution Width 13.1 11.0-15.5 % Platelet Count 314 # 130-400 K/uL Mean Platelet Volume 10.5 7.5-10.5 fL Immature Granulocyte % (Auto) 0.9 0-1 % Neutrophils (%) (Auto) 82.8 H 40.0-77.0 % Lymphocytes (%) (Auto) 5.4 L 21.0-51.0 % Monocytes (%) (Auto) 10.0 3.0-13.0 % Eosinophils (%) (Auto) 0.8 0.0-8.0 % Basophils (%) (Auto) 0.1 0.0-5.0 % Neutrophils # (Auto) 8.7 H 1.8-7.7 K/uL Lymphocytes # (Auto) 0.6 L 1.0-4.8 K/uL Monocytes # (Auto) 1.0 0.1-1.0 K/uL Eosinophils # (Auto) 0.08 0.00-0.70 K/uL Basophils # (Auto) 0.01 0.00-0.20 K/uL Absolute Immature Granulocyte (auto 0.09 0-1 K/uL Nucleated Red Blood Cells 0.0 0.0-0.19 % Magnesium Level 2.00 1.80-2.40 mg/dL White Cell Morphology Comment See comments Current Medications Medications (Trade) Dose Ordered Sig/Krishan Route PRN Reason Start Time Stop Time Status Last Admin Dose Admin Acetaminophen (TYLenol 325MG TAB) 650 mg Q4H PRN PO TEMPERATURE GREATER THAN 101.5 03/06/24 12:30 04/05/24 12:29 Acetaminophen (TYLenol 650MG SUPPOSITORY) 650 mg Q6H PRN RC MILD PAIN (1-3) 03/03/24 22:30 03/06/24 12:11 DC Acetylcysteine (MUComyst 10% 4ML) 400mg = 4ml [id number] IH 03/05/24 12:00 03/05/24 11:36 DC Cefazolin Sodium (Ancef) 2 gm Q8H IVPB 03/09/24 16:30 03/09/24 11:29 DC Cefazolin Sodium (Ancef) 2 gm Q8H IVPB 03/09/24 16:30 03/19/24 16:29 03/12/24 16:21 2 GM Famotidine (Pepcid 20mg Vial) 20 mg DAILY IV 03/04/24 09:00 04/03/24 08:59 03/12/24 10:35 20 MG Famotidine (Pepcid 20mg Vial) 20 mg ONCE STAT IV 03/03/24 18:30 03/03/24 18:32 DC 03/03/24 20:11 20 MG Hydralazine HCl (APRESOLine 20MG INJ) 10 mg Q6H PRN IV For:SBP above 160;DBP above 90 03/03/24 22:30 04/02/24 22:29 Hydromorphone HCl (DiLAUDid 0.5MG INJ) 0.5 mg Q4H PRN IVP SEVERE PAIN (7-10) 03/08/24 16:00 03/10/24 08:19 DC 03/09/24 20:05 0.5 MG Hydromorphone HCl (DiLAUDid 0.5MG INJ) 0.5 mg Q4H PRN IVP SEVERE PAIN (7-10) 03/10/24 10:30 03/15/24 10:29 Ketorolac Tromethamine (toRADol) 15 mg ONCE STAT IV 03/03/24 18:30 03/03/24 18:32 DC 03/03/24 20:11 15 MG Ketorolac Tromethamine (toRADol) 30 mg Q6H IM 03/09/24 12:00 03/09/24 11:25 DC Ketorolac Tromethamine (toRADol) 30 mg Q6H IV 03/09/24 12:00 03/09/24 11:27 DC Ketorolac Tromethamine (toRADol) 30 mg Q6H IVP 03/09/24 12:00 03/14/24 11:59 03/12/24 12:16 30 MG Lactated Ringer's 1,000 ml @ 100 mls/hr Q10H IV 03/03/24 22:30 03/06/24 07:54 DC 03/06/24 03:34 100 MLS/HR Magnesium Sulfate 50 ml @ 0 mls/hr PROTOCOL PRN IV low mag level 03/04/24 09:30 04/03/24 09:29 03/05/24 20:22 25 MLS/HR Methylprednisolone Sodium Succinate (Solu-medROL 40MG) 40 mg Q8H IVP 03/05/24 12:00 03/05/24 11:36 DC Metronidazole/ Sodium Chloride (flaGYL) 500 mg Q8H IV 03/09/24 11:30 03/19/24 11:29 03/12/24 10:45 500 MG Metronidazole/ Sodium Chloride (flaGYL) 500 mg Q8H IV 03/09/24 12:30 03/09/24 11:27 DC Morphine Sulfate (morPHINE 4MG SYG) 4 mg Q4H PRN IV SEVERE PAIN (7-10) 03/03/24 22:30 03/08/24 09:03 DC 03/08/24 05:44 4 MG Ondansetron HCl (zoFRAN 4MG INJ) 4 mg ONCE STAT IVP 03/03/24 18:30 03/03/24 18:32 DC 03/03/24 20:11 4 MG Ondansetron HCl (zoFRAN 4MG INJ) 4 mg Q6H PRN IV NAUSEA/VOMITING 03/03/24 22:30 04/02/24 22:29 03/12/24 10:35 4 MG Phenol (Sore Throat [place]) 1 spry Q4H PRN PO SORE THROAT 03/11/24 00:00 04/10/24 00:00 03/10/24 23:54 1 SPRY Potassium Chloride 100 ml @ 50 mls/hr AD PRN IV POTASSIUM PROTOCOL 03/04/24 09:30 03/06/24 07:48 DC 03/05/24 06:32 50 MLS/HR Potassium Chloride 100 ml @ 100 mls/hr AD PRN IV POTASSIUM PROTOCOL 03/06/24 08:00 04/05/24 07:59 03/12/24 06:22 100 MLS/HR Potassium Chloride 100 ml @ 100 mls/hr Q1H IV 03/12/24 16:00 03/12/24 19:59 03/12/24 16:22 100 MLS/HR Potassium Chloride (K-Dur/Klor-Con 20meq) 20 meq AD PRN PO POTASSIUM PROTOCOL 03/06/24 08:00 04/05/24 07:59 03/11/24 20:15 20 MEQ Potassium Chloride (KCl 10% Elixir 20meq/15ml) 20 meq AD PRN PO POTASSIUM PROTOCOL 03/06/24 08:00 04/05/24 07:59 03/07/24 18:13 20 MEQ Simethicone (Mylicon) 80 mg PCHS PRN PO GI GAS 03/06/24 12:30 04/05/24 12:29 03/06/24 21:35 80 MG Sodium Chloride 1,000 ml @ 125 mls/hr Q8H IV 03/08/24 17:00 04/07/24 16:59 03/12/24 10:36 125 MLS/HR Sodium Chloride 1,000 ml @ 1,000 mls/hr Q1H STAT IV 03/03/24 20:00 03/03/24 20:59 DC 03/03/24 20:11 1,000 MLS/HR Diagnostics / Radiology: [COPY/PASTE HERE IF NO REPORTS PLEASE DELETE SECTION] Assessment: Colon distention Constipation Plan: Follow surgery recs Encourage ambulation Avoid opioids Replenish electrolytes PETTY MANUEL [employer] Mar 12, 2024 16:26
--- NOTE | 2024-03-12 21:38 | NUR ---
PAGED HOSPITALIST PAGED BIOINFORMATICS COMPUTER SCIENTIST ORE DRYER FOR HOSPITALIST FOR POTASSIUM, PENDING CALL BACK
--- NOTE | 2024-03-12 21:46 | NUR ---
PAGE RETURNED CALL BACK FROM Davie TRUONG NREMT FO HOSPITALIST, INFORM OF POTASSIUM RESULTS, INFORMED PT HAD NOT BE TOLERATING PO POTASSIUM AND HAD BEEN GIVEN IV POTASSIUM. ORDERS TO TRY PO LIQUID POTASSIUM.
[2024-03-13] VITALS (7 sets, daily range): BP systolic 124–138; BP diastolic 75–83; PULSE 18–68; RESP 18; TEMP 98.1–98.6; O2SAT 100
[2024-03-13 06:43] LABS: HEMATOCRIT 32.7 % (42-54); MEAN CORPUSCULAR HEMOGLOBIN 30.1 pg (27.0-33.0); MEAN CORPUSCULAR HGB CONC 34.3 g/dL (32.0-36.0); MEAN CORPUSCULAR VOLUME 87.9 fL (79-99); RED BLOOD CELL COUNT(AUTO) 3.72 MIL/uL (4.50-6.20); RED CELL DISTRIBUTION WIDTH 13.2 % (11.0-15.5); WHITE BLOOD COUNT (AUTO) 10.4 K/uL (4.8-10.8)
[2024-03-13 07:02] LABS: ALBUMIN 2.4 g/dL (3.5-5.0); BILIRUBIN,TOTAL 0.4 mg/dL (0.2-1.0); CREATININE 0.8 mg/dL (0.5-1.3); MAGNESIUM 1.9 mg/dL (1.80-2.40); POTASSIUM 3.2 mmol/L (3.5-5.1); TOTAL PROTEIN, SERUM 5.8 g/dL (6.0-8.3)
--- NOTE | 2024-03-13 08:41 | PN ---
[facility] PROGRESS NOTE Date of Service: Mar 13, 2024 Time of Service: 08:40 SUBJECTIVE: [ ] This is a 53-year-old male was admitted on 03/03/2024 presents in ED with chief complaints of abdominal pain. ER workup was consistent with small- bowel obstruction. NGT tube was placed in ED and surgeon was consulted. Patient was seen and examined this morning no output from NG tube patient appears distended. the patient remain Bowel rest until seen by surgeon: will follow recommendations: ordered a repeat KUB for this morning. 03/05/24 Patient is seen and examined with the attending, reviewed chart and discussed. Patient was seen by general surgeon continue conservative management. Patient had four BMs was given suppository laxative. Patient's potassium 2.9 was replaced early this morning we will repeat level and replace as needed we will wait for surgeon continues with NG tube and bowel rest. Repeat KUB: Distended loops of large and small bowel, unchanged. 03/06/24 patient is seen and examined reviewed chart discussed case with attending. Patient continues with hypokalemia patient is tolerating clear liquid no surgical intervention on this admission we will repeat potassium level at noon. Patient reports no nausea vomiting or abdominal pain. 03/07/24 the patient seen and examined,, the patient continue with abd distention had small bm this moring tolerating CLD General surgeon concern with colonic ileus consulted GI for possible colonoscopy. The patient was made aware a GI specialist will be seeing him today. 03/08/24 the patient was evaluated by GI scheduled patient flex sigmoid today will follow up result: cont Bowel rest with NGT to LIWS. cont with Nauseated. The patient denies chest pain or sob Given to findings of flexible sigmoidoscopy stricture of distal sigmoid will need surgery high risk for perforation today per Dr Watkins ex lap and diversion. The patient aware of risk and benefit is agreement with surgeon recommendations. DR Parnell evaluated the patient reviewed imaging: will scheduled the patient tomorrow am. 03/09/24: the patient was seen earlier: s/p POD 0 open sigmoid colectomy : the patient is doing well, abd binder colostomy bag: and j p drain: right upper quad encouraged to use IS while awake will follow Dr Parnell post operative recommendations. started the patient on Cefazolin 2 gm Q8hrs, metribudazike 500mg po Q8 hrs. will be monitored closed: continue with IV fluids. 03/10/24 s/p sigmoid colectomy: Day 1 physical therapy will work with patient today out of bed to chair as tolerated encouraged patient to use his IS while awake. Colostomy with output. NG tube with very minimal output. We will follow postoperative recommendations from surgeon. Patient denied chest pain shortness a breath. 03/11/24 the patient is seen and examined, reviewed chart: s/p POD 2 cont with NGT with LIWS with 350 output colostomy output: 1500 ml persistent hypokalemia 2.7 being replaced. will repeat potassium level: will follow post operative recommendations. will start CLD DC NG tube 03/12 the patient is seen and examined earlier this morning, had episode of emesis several times last night, noted to have abdominal distention, hemodynamically stable, no chest pain, no shortness a breath. Currently getting potassium supplementation IV per protocol. 03/13 patient is seen and examined this morning, acute events overnight, he is alert and oriented x3, hemodynamically stable, feels less distended, results of CT of the abdomen performed yesterday input reviewed and discussed with the aim of the at the bedside, patient was started back on clear liquid diet per General surgery, he is tolerating well, he is currently getting potassium IV per protocol during my visit. Already seen by General surgery, dressing changed. REVIEW OF SYSTEMS CONSTITUTIONAL: Denies fevers, chills, or night sweats. No unintentional weight loss reported. NEUROLOGICAL: Denies headache, amaurosis fugax, motor weakness, sensory deficit, vertigo/spinning sensation, gait abnormalities, or tremors. ENT: No hearing loss, otalgia, otorrhea, rhinitis, rhinorrhea, hoarseness, or sore throat. CARDIOVASCULAR: Denies any exertional angina, dyspnea on exertion, orthopnea, paroxysmal nocturnal dyspnea, palpitations, life-threatening arrhythmias, claudication. PULMONARY: Denies any shortness of breath, cough, phlegm/sputum, hemoptysis, pleuritic chest pain. SLEEP: Denies morning headaches, daytime somnolence or napping. Denies difficulty falling asleep, staying asleep, waking from sleep. Denies knowledge of snoring. GASTROINTESTINAL: Denies any type of dysphagia to either liquids or solids. Denies nausea, vomiting, pyrosis, early satiety, abdominal pain, diarrhea, constipation, or changes in stool consistency or caliber. Denies coffee-ground emesis, hematemesis, hematochezia, or melanotic stools. GENITOURINARY: Denies frequency, urgency, nocturia, hematuria or incontinence (Storage/Irritative symptoms.) Low urinary stream, straining to void, urinary intermittency or hesitancy, splitting of the voiding stream, terminal dribbling. ENDOCRINOLOGIC: Denies polyuria, polydipsia, polyphagia or heat/cold intolerances. HEMATOLOGIC: Denies thrombophilia/previous clots, or coagulopathy/bleeding disorders. ONCOLOGIC: Denies personal history of malignancy. DERMATOLOGIC: Denies rashes or pruritus. PSYCHIATRIC: Denies any suicidal or homicidal ideation. Denies hallucinations. PHYSICAL EXAM GENERAL APPEARANCE: The patient is awake, alert, and oriented, in no acute cardiopulmonary distress. NEUROLOGICAL: Cranial nerves II-XII grossly intact. Motor is 5/5 in bilateral upper and lower extremities proximal to distal. No sensory deficits. HEENT: Face is symmetric. Pupils are equal and reactive. Extraocular movements are intact. NECK: Supple. No JVD. No thyromegaly. No submental, submandibular, pre- /postauricular, occipital or supraclavicular lymphadenopathy. CHEST: Normal chest expansion. No Telemetry. LUNGS: Absence of any rales, rhonchi or any wheezing. CARDIOVASCULAR: Regular. S1 and S2 normal. No appreciable rubs, murmurs or gallops. ABDOMEN: Less distended, binder in place. : Deferred. No Sagastume. EXTREMITIES: Non-edematous and not cyanotic. No clubbing. Good capillary refill. SKIN: No skin breakdown. Vital Signs (last 8hr) Date Time Temp Pulse Resp B/P (MAP) Pulse Ox O2 Delivery O2 Flow Rate FiO2 03/13/24 08:00 98.2 68 18 125/75 100 Room Air 03/13/24 04:21 98.6 63 18 131/81 100 Room Air LABS: Laboratory: Test 03/13/24 06:40 03/12/24 04:37 Range/Units White Blood Count 10.4 4.8-10.8 K/uL Red Blood Count 3.72 L 4.50-6.20 MIL/uL Hemoglobin 11.2 L 14.0-18.0 g/dL Hematocrit 32.7 L 42-54 % Mean Corpuscular Volume 87.9 79-99 fL Mean Corpuscular Hemoglobin 30.1 27.0-33.0 pg Mean Corpuscular Hemoglobin Concent 34.3 32.0-36.0 g/dL Red Cell Distribution Width 13.2 11.0-15.5 % Platelet Count 316 130-400 K/uL Mean Platelet Volume 10.2 7.5-10.5 fL Nucleated Red Blood Cells 0.0 0.0-0.19 % Sodium Level 147 H 136-145 mmol/L Potassium Level 3.2 L 3.5-5.1 mmol/L Chloride Level 115 H 101-111 mmol/L Carbon Dioxide Level 23 21-32 mmol/L Blood Urea Nitrogen 16 7-18 mg/dL Creatinine 0.8 0.5-1.3 mg/dL Glomerular Filtration Rate Calc 105 >90 mL/min Random Glucose 157 H 70-105 mg/dL Total Calcium 8.3 L 8.5-10.1 mg/dL Magnesium Level 1.90 1.80-2.40 mg/dL Total Bilirubin 0.4 0.2-1.0 mg/dL Aspartate Amino Transf (AST/SGOT) 24 10-37 U/L Alanine Aminotransferase (ALT/SGPT) 19 # 12-78 U/L Alkaline Phosphatase 48 L 50-136 U/L Total Protein 5.8 L 6.0-8.3 g/dL Albumin 2.4 L 3.5-5.0 g/dL Immature Granulocyte % (Auto) 0.9 0-1 % Neutrophils (%) (Auto) 82.8 H 40.0-77.0 % Lymphocytes (%) (Auto) 5.4 L 21.0-51.0 % Monocytes (%) (Auto) 10.0 3.0-13.0 % Eosinophils (%) (Auto) 0.8 0.0-8.0 % Basophils (%) (Auto) 0.1 0.0-5.0 % Neutrophils # (Auto) 8.7 H 1.8-7.7 K/uL Lymphocytes # (Auto) 0.6 L 1.0-4.8 K/uL Monocytes # (Auto) 1.0 0.1-1.0 K/uL Eosinophils # (Auto) 0.08 0.00-0.70 K/uL Basophils # (Auto) 0.01 0.00-0.20 K/uL Absolute Immature Granulocyte (auto 0.09 0-1 K/uL Current Medications Medications (Trade) Dose Ordered Sig/Krishan Route PRN Reason Start Time Stop Time Status Last Admin Dose Admin Acetaminophen (TYLenol 325MG TAB) 650 mg Q4H PRN PO TEMPERATURE GREATER THAN 101.5 03/06/24 12:30 04/05/24 12:29 Acetaminophen (TYLenol 650MG SUPPOSITORY) 650 mg Q6H PRN RC MILD PAIN (1-3) 03/03/24 22:30 03/06/24 12:11 DC Acetylcysteine (MUComyst 10% 4ML) 400mg = 4ml [id number] IH 03/05/24 12:00 03/05/24 11:36 DC Cefazolin Sodium (Ancef) 2 gm Q8H IVPB 03/09/24 16:30 03/09/24 11:29 DC Cefazolin Sodium (Ancef) 2 gm Q8H IVPB 03/09/24 16:30 03/19/24 16:29 03/13/24 00:36 2 GM Famotidine (Pepcid 20mg Vial) 20 mg DAILY IV 03/04/24 09:00 04/03/24 08:59 03/12/24 10:35 20 MG Famotidine (Pepcid 20mg Vial) 20 mg ONCE STAT IV 03/03/24 18:30 03/03/24 18:32 DC 03/03/24 20:11 20 MG Hydralazine HCl (APRESOLine 20MG INJ) 10 mg Q6H PRN IV For:SBP above 160;DBP above 90 03/03/24 22:30 04/02/24 22:29 Hydromorphone HCl (DiLAUDid 0.5MG INJ) 0.5 mg Q4H PRN IVP SEVERE PAIN (7-10) 03/08/24 16:00 03/10/24 08:19 DC 03/09/24 20:05 0.5 MG Hydromorphone HCl (DiLAUDid 0.5MG INJ) 0.5 mg Q4H PRN IVP SEVERE PAIN (7-10) 03/10/24 10:30 03/15/24 10:29 Ketorolac Tromethamine (toRADol) 15 mg ONCE STAT IV 03/03/24 18:30 03/03/24 18:32 DC 03/03/24 20:11 15 MG Ketorolac Tromethamine (toRADol) 30 mg Q6H IM 03/09/24 12:00 03/09/24 11:25 DC Ketorolac Tromethamine (toRADol) 30 mg Q6H IV 03/09/24 12:00 03/09/24 11:27 DC Ketorolac Tromethamine (toRADol) 30 mg Q6H IVP 03/09/24 12:00 03/14/24 11:59 03/13/24 05:14 30 MG Lactated Ringer's 1,000 ml @ 100 mls/hr Q10H IV 03/03/24 22:30 03/06/24 07:54 DC 03/06/24 03:34 100 MLS/HR Magnesium Sulfate 50 ml @ 0 mls/hr PROTOCOL IV 03/13/24 08:30 04/12/24 08:29 Magnesium Sulfate 50 ml @ 0 mls/hr PROTOCOL PRN IV low mag level 03/04/24 09:30 04/03/24 09:29 03/05/24 20:22 25 MLS/HR Methylprednisolone Sodium Succinate (Solu-medROL 40MG) 40 mg Q8H IVP 03/05/24 12:00 03/05/24 11:36 DC Metronidazole/ Sodium Chloride (flaGYL) 500 mg Q8H IV 03/09/24 11:30 03/19/24 11:29 03/13/24 02:56 500 MG Metronidazole/ Sodium Chloride (flaGYL) 500 mg Q8H IV 03/09/24 12:30 03/09/24 11:27 DC Morphine Sulfate (morPHINE 4MG SYG) 4 mg Q4H PRN IV SEVERE PAIN (7-10) 03/03/24 22:30 03/08/24 09:03 DC 03/08/24 05:44 4 MG Ondansetron HCl (zoFRAN 4MG INJ) 4 mg ONCE STAT IVP 03/03/24 18:30 03/03/24 18:32 DC 03/03/24 20:11 4 MG Ondansetron HCl (zoFRAN 4MG INJ) 4 mg Q6H PRN IV NAUSEA/VOMITING 03/03/24 22:30 18/25 22:29 03/12/24 10:35 4 MG Phenol (Sore Throat Bradford) 1 spry Q4H PRN PO SORE THROAT 03/11/24 00:00 04/10/24 00:00 03/10/24 23:54 1 SPRY Potassium Chloride 100 ml @ 50 mls/hr AD PRN IV POTASSIUM PROTOCOL 03/04/24 09:30 03/06/24 07:48 DC 03/05/24 06:32 50 MLS/HR Potassium Chloride 100 ml @ 100 mls/hr AD PRN IV POTASSIUM PROTOCOL 03/06/24 08:00 04/05/24 07:59 03/13/24 01:23 100 MLS/HR Potassium Chloride 100 ml @ 100 mls/hr Q1H IV 03/12/24 16:00 03/12/24 19:59 DC 03/12/24 19:53 100 MLS/HR Potassium Chloride (K-Dur/Klor-Con 20meq) 20 meq AD PRN PO POTASSIUM PROTOCOL 03/06/24 08:00 04/05/24 07:59 03/11/24 20:15 20 MEQ Potassium Chloride (KCl 10% Elixir 20meq/15ml) 20 meq AD PRN PO POTASSIUM PROTOCOL 03/06/24 08:00 04/05/24 07:59 03/13/24 05:05 20 MEQ Simethicone (Mylicon) 80 mg PCHS PRN PO GI GAS 03/06/24 12:30 04/05/24 12:29 03/06/24 21:35 80 MG Sodium Chloride 1,000 ml @ 125 mls/hr Q8H IV 03/08/24 17:00 04/07/24 16:59 03/13/24 00:37 125 MLS/HR Sodium Chloride 1,000 ml @ 1,000 mls/hr Q1H STAT IV 03/03/24 20:00 03/03/24 20:59 DC 03/03/24 20:11 1,000 MLS/HR DIAGNOSTICS / RADIOLOGY: [ ] ASSESSMENT: colonic stricture distal of sigmoid evidence per flexible sigmoidoscopy s/p colectomy with colostomy Suspected small bowel obstruction, POA Intractable abd pain POA Extensive abdominal distention POA electrolytes derangement: Hypokalemia POA Obesity: BMI: 36.1 POA chronic problems; Hyperlipidemia Gout] obesity PLAN: [ ] Remain in Surgical floor GI: s/p flexible sigmoidoscopy found stricture distal sigmoid sigmoid colectomy will follow post operative recommendations POD#2 will monitor colostomy site and RADHA drain output. continue with abd binder. Diet: CLD as per surgeon discontinue NGT encouraged to ambulate TID oob to chair as tolerated PT services to eval IS while awake cont with pain management for adequate pain controlled Replaced electrolytes potassium and magnesium to keep potassium >4.0 and mag: > 2.0 DVT: SCD applied GI: PUD ppx and pain management PRN: MEDICATIONS Zofran 4 mg IV every 6 hrs for n/v further orders as per response to tx. Disposition: Remains admitted to medical floor, continue clear liquid diet, advanced as tolerated, replace electrolytes IV per protocol, continue dressing changes, continue with PT, continue to follow surgical input and recommendations. Plan of action discussed in detail with the patient, all questions answered, agreed and understood the information provided PARADISE MANZANARES MD Mar 13, 2024 08:41
[2024-03-13] MEDS: PoTASSium chloRIDE 20MEQ/100ML 100 ML IV ONE ×2 (08:49→11:31)
[2024-03-13] MEDS: MAGNESIUM 2GM PREMIX 50ML 50 ML IV SCH (08:50)
--- NOTE | 2024-03-13 09:59 | PN ---
This is a 53-year-old male status post Neisha procedure postop day four Interval history: This 53-year-old male seen in his room resting Patient with significantly high output from ostomy overnight Potassium still low but being covered Patient has been sent for CT concerning for possible ileus versus obstruction but patient again having high output so less likely obstruction at this time Patient's pain controlled Lower portion of wound with serosanguineous drainage noted Patient otherwise stable Labs unremarkable patient tolerating clear liquid diet Physical exam General: Awake alert and oriented Heart: Regular rate and rhythm} Lungs: [Clear to auscultation no distress Abdomen: Midline incision clean ostomy very productive Abdomen less distended Assessment : This is a 53-year-old male postop day four for Neisha's procedure Plan: Wound care to be performed twice daily Patient to advance to full liquid diet Patient encouraged to ambulate Surgical team to follow patient closely Dr. Parnell to be updated in patient's status Continue with the appropriate coverage of potassium Vitals/Labs Vital Signs Date Time Temp Pulse Resp B/P (MAP) Pulse Ox O2 Delivery O2 Flow Rate FiO2 03/13/24 08:00 98.2 68 18 125/75 100 Room Air 03/12/24 20:15 0 21 Laboratory Tests 03/12/24 14:33 03/12/24 21:08 03/13/24 06:40 Medications Current Medications Ondansetron HCl 4 mg ONCE STAT IVP Last administered on 03/03/24at 20:11; Start 03/03/24 at 18:30; Stop 03/03/24 at 18:32; Status DC Famotidine 20 mg ONCE STAT IV Last administered on 03/03/24at 20:11; Start 03/03/24 at 18:30; Stop 03/03/24 at 18:32; Status DC Ketorolac Tromethamine 15 mg ONCE STAT IV Last administered on 03/03/24at 20:11; Start 03/03/24 at 18:30; Stop 03/03/24 at 18:32; Status DC Sodium Chloride 1,000 ml @ 1,000 mls/hr Q1H STAT IV Last administered on 03/03/24at 20:11; Start 03/03/24 at 20:00; Stop 03/03/24 at 20:59; Status DC Iohexol 75 ml STK-MED ONCE IV; Start 03/03/24 at 22:19; Stop 03/03/24 at 22:24; Status DC Famotidine 20 mg DAILY IV Last administered on 03/13/24at 08:49; Start 03/04/24 at 09:00; Stop 04/03/24 at 08:59 Acetaminophen 650 mg Q6H PRN RC; Start 03/03/24 at 22:30; Stop 03/06/24 at 12:11; Status DC Ondansetron HCl 4 mg Q6H PRN IV Last administered on 03/12/24at 10:35; Start 03/03/24 at 22:30; Stop 04/02/24 at 22:29 Morphine Sulfate 4 mg Q4H PRN IV Last administered on 03/08/24at 05:44; Start 03/03/24 at 22:30; Stop 03/08/24 at 09:03; Status DC Hydralazine HCl 10 mg Q6H PRN IV; Start 03/03/24 at 22:30; Stop 04/02/24 at 22:29 Lactated Ringer's 1,000 ml @ 100 mls/hr Q10H IV Last administered on 03/06/24at 03:34; Start 03/03/24 at 22:30; Stop 03/06/24 at 07:54; Status DC Magnesium Sulfate 50 ml @ 0 mls/hr PROTOCOL PRN IV Last administered on 03/05/24at 20:22; Start 03/04/24 at 09:30; Stop 04/03/24 at 09:29 Potassium Chloride 100 ml @ 50 mls/hr AD PRN IV Last administered on 03/05/24at 06:32; Start 03/04/24 at 09:30; Stop 03/06/24 at 07:48; Status DC Bisacodyl 10 mg ONCE ONCE RC Last administered on 03/04/24at 15:13; Start 03/04/24 at 15:00; Stop 03/04/24 at 15:01; Status DC Acetylcysteine 400mg = 4ml [id number] IH; Start 03/05/24 at 12:00; Stop 03/05/24 at 11:36; Status DC Methylprednisolone Sodium Succinate 40 mg Q8H IVP; Start 03/05/24 at 12:00; Stop 03/05/24 at 11:36; Status DC Potassium Chloride 100 ml @ 100 mls/hr AD PRN IV Last administered on 03/13/24at 01:23; Start 03/06/24 at 08:00; Stop 04/05/24 at 07:59 Potassium Chloride 20 meq AD PRN PO Last administered on 03/13/24at 05:05; Start 03/06/24 at 08:00; Stop 04/05/24 at 07:59 Potassium Chloride 20 meq AD PRN PO Last administered on 03/11/24at 20:15; Start 03/06/24 at 08:00; Stop 04/05/24 at 07:59 Acetaminophen 650 mg Q4H PRN PO; Start 03/06/24 at 12:30; Stop 04/05/24 at 12:29 Simethicone 120 mg ONCE ONCE PO Last administered on 03/06/24at 12:58; Start 03/06/24 at 12:30; Stop 03/06/24 at 12:31; Status DC Simethicone 80 mg PCHS PRN PO Last administered on 03/06/24at 21:35; Start 03/06/24 at 12:30; Stop 04/05/24 at 12:29 Potassium Chloride 40 meq ONCE ONCE PO Last administered on 03/06/24at 12:58; Start 03/06/24 at 12:30; Stop 03/06/24 at 12:31; Status DC Potassium Chloride 20 meq ONCE ONCE PO Last administered on 03/07/24at 09:00; Start 03/07/24 at 09:00; Stop 03/07/24 at 09:01; Status DC Propofol 200 mg STK-MED ONCE IV; Start 03/08/24 at 07:39; Stop 03/08/24 at 07:39; Status DC Lidocaine HCl 100 mg STK-MED ONCE .ROUTE; Start 03/08/24 at 07:39; Stop 03/08/24 at 07:39; Status DC Ketorolac Tromethamine 30 mg ONCE ONCE IVP Last administered on 03/08/24at 09:54; Start 03/08/24 at 10:00; Stop 03/08/24 at 10:01; Status DC Hydromorphone HCl 0.5 mg Q4H PRN IVP Last administered on 03/09/24at 20:05; Start 03/08/24 at 16:00; Stop 03/10/24 at 08:19; Status DC Sodium Chloride 1,000 ml @ 125 mls/hr Q8H IV Last administered on 03/13/24at 08:49; Start 03/08/24 at 17:00; Stop 04/07/24 at 16:59 Lidocaine HCl 100 mg STK-MED ONCE .ROUTE; Start 03/09/24 at 08:09; Stop 03/09/24 at 08:09; Status DC Succinylcholine Chloride 200 mg STK-MED ONCE .ROUTE; Start 03/09/24 at 08:09; Stop 03/09/24 at 08:09; Status DC Propofol 200 mg STK-MED ONCE IV; Start 03/09/24 at 08:09; Stop 03/09/24 at 08:09; Status DC Midazolam HCl 2 mg STK-MED ONCE .ROUTE; Start 03/09/24 at 08:09; Stop 03/09/24 at 08:09; Status DC Rocuronium Coleman 50 mg STK-MED ONCE .ROUTE; Start 03/09/24 at 08:09; Stop 03/09/24 at 08:09; Status DC Fentanyl Citrate 100 mcg STK-MED ONCE .ROUTE; Start 03/09/24 at 08:12; Stop 03/09/24 at 08:12; Status DC Phenylephrine HCl 10 mg STK-MED ONCE IV; Start 03/09/24 at 08:29; Stop 03/09/24 at 08:29; Status DC Cefazolin Sodium 1 gm STK-MED ONCE .ROUTE; Start 03/09/24 at 08:43; Stop 03/09/24 at 08:43; Status DC Rocuronium Coleman 50 mg STK-MED ONCE .ROUTE; Start 03/09/24 at 08:44; Stop 03/09/24 at 08:44; Status DC Albumin Human 250 ml @ As Directed STK-MED ONCE IV; Start 03/09/24 at 09:18; Stop 03/09/24 at 09:18; Status DC Rocuronium Coleman 50 mg STK-MED ONCE .ROUTE; Start 03/09/24 at 09:30; Stop 03/09/24 at 09:30; Status DC Ropivacaine 150 mg STK-MED ONCE .ROUTE; Start 03/09/24 at 09:49; Stop 03/09/24 at 09:50; Status DC Ondansetron HCl 4 mg STK-MED ONCE .ROUTE; Start 03/09/24 at 10:13; Stop 03/09/24 at 10:13; Status DC Dexamethasone Sodium Phosphate 10 mg STK-MED ONCE .ROUTE; Start 03/09/24 at 10:13; Stop 03/09/24 at 10:14; Status DC Meperidine HCl 25 mg STK-MED ONCE .ROUTE Last administered on 03/09/24at 10:31; Start 03/09/24 at 10:27; Stop 03/09/24 at 10:28; Status DC Cefazolin Sodium 2 gm STK-MED ONCE IVPB Last administered on 03/09/24at 08:30; Start 03/09/24 at 08:30; Stop 03/09/24 at 10:51; Status DC Metronidazole/ Sodium Chloride 500 mg Q8H IV; Start 03/09/24 at 12:30; Stop 03/09/24 at 11:27; Status DC Cefazolin Sodium 2 gm Q8H IVPB; Start 03/09/24 at 16:30; Stop 03/09/24 at 11:29; Status DC Ketorolac Tromethamine 30 mg Q6H IM; Start 03/09/24 at 12:00; Stop 03/09/24 at 11:25; Status DC Ketorolac Tromethamine 30 mg Q6H IV; Start 03/09/24 at 12:00; Stop 03/09/24 at 11:27; Status DC Metronidazole/ Sodium Chloride 500 mg Q8H IV Last administered on 03/13/24at 02:56; Start 03/09/24 at 11:30; Stop 03/19/24 at 11:29 Cefazolin Sodium 2 gm Q8H IVPB Last administered on 03/13/24at 08:50; Start 03/09/24 at 16:30; Stop 03/19/24 at 16:29 Ketorolac Tromethamine 30 mg Q6H IVP Last administered on 03/13/24at 05:14; Start 03/09/24 at 12:00; Stop 03/14/24 at 11:59 Hydromorphone HCl 0.5 mg Q4H PRN IVP; Start 03/10/24 at 10:30; Stop 03/15/24 at 10:29 Phenol 1 spry Q4H PRN PO Last administered on 03/10/24at 23:54; Start 03/11/24 at 00:00; Stop 04/10/24 at 00:00 Potassium Chloride 40 meq ONCE ONCE PO; Start 03/12/24 at 09:00; Stop 03/12/24 at 09:01; Status DC Potassium Chloride 100 ml @ 50 mls/hr ONCE ONCE IV Last administered on 03/12/24at 10:36; Start 03/12/24 at 09:00; Stop 03/12/24 at 10:59; Status DC Potassium Chloride 100 ml @ 100 mls/hr Q1H IV Last administered on 03/12/24at 19:53; Start 03/12/24 at 16:00; Stop 03/12/24 at 19:59; Status DC Potassium Chloride 100 ml @ 50 mls/hr ONCE ONCE IV Last administered on 03/13/24at 08:49; Start 03/13/24 at 08:30; Stop 03/13/24 at 10:29 Magnesium Sulfate 50 ml @ 0 mls/hr PROTOCOL IV Last administered on 03/13/24at 08:50; Start 03/13/24 at 08:30; Stop 04/12/24 at 08:29 ROSSY SYLVESTER Jr. Mar 13, 2024 09:59
--- NOTE | 2024-03-13 11:26 | NUR ---
Discharge Planning: Called [facility] this morning and spoke to Garrett. States they are mailing out starter kit for patient and he should have it at this home by Sunday. States to provide patient with [facility] number in case they have any questions. Gordon's son Pawel Billy updated. .
[2024-03-13] MEDS: PoTASSium chloRIDE 10MEQ/100ML 100 ML IV SCH (20:17)
--- NOTE | 2024-03-13 22:01 | PN ---
GASTROENTEROLOGY PROGRESS NOTE Date of Visit: Mar 13, 2024 Time of Visit: 22:01 Events / Notes: [ ] Review of Systems: CONSTITUTIONAL: No malaise or change in sensation of wellbeing. ENMT: No rhinorrhea, otorrhea, sinus pain, ear ache. CARDIOVASCULAR: No angina, palpitations, orthopnea or paroxysmal dyspnea. RESPIRATORY: No SOB. GASTROINTESTINAL: No abdominal pain, nausea, vomiting, diarrhea, hematemesis, melena or change in the patient's habitual bowel movements consistency/number. GENITOURINARY: No dysuria, hematuria or change in bladder continence. MUSCULOSKELETAL: No new muscle pain or decrease in muscular strength. No new joint swelling, redness or tenderness. SKIN: No new rash. Physical Exam: GEN: Awake, alert, oriented in person, time and place, and in no acute distress. HEENT: No sinus tenderness. Tympanic membranes were not examined. No rhinorrhea. Oral pharyngeal mucosa is pink, moist and within normal limits. Neck is supple with no cervical lymphadenopathy, thyromegaly or JVD. CHEST: Inspection, palpation and percussion of the chest were unremarkable. Lung auscultation revealed normal breath sounds bilaterally. CARDIAC: PMI is within normal limits. Heart sounds are regular. Normal S1, S2. No gallop or murmur. ABD: Soft, non-tender and not distended. No peritoneal signs on palpation. No organomegaly. Normal bowel sounds. EXT: No cyanosis or clubbing. No edema. SKIN: Intact. No rashes. JOINTS: No evidence of synovitis or acute arthritis. NEURO: Alert and oriented to name, place and person. Cranial nerve examination is unremarkable. No focal motor deficits. Normal speech. Gait is normal. Strength is normal. Vital Signs (last 8hr) Date Time Temp Pulse Resp B/P (MAP) Pulse Ox O2 Delivery O2 Flow Rate FiO2 03/13/24 20:15 98.6 18 18 138/81 99 Room Air 03/13/24 16:00 98.1 67 18 125/81 99 Laboratory: [ ] Laboratory: Test 03/13/24 17:55 03/13/24 06:40 03/12/24 04:37 Range/Units Potassium Level 2.9 *L 3.5-5.1 mmol/L White Blood Count 10.4 4.8-10.8 K/uL Red Blood Count 3.72 L 4.50-6.20 MIL/uL Hemoglobin 11.2 L 14.0-18.0 g/dL Hematocrit 32.7 L 42-54 % Mean Corpuscular Volume 87.9 79-99 fL Mean Corpuscular Hemoglobin 30.1 27.0-33.0 pg Mean Corpuscular Hemoglobin Concent 34.3 32.0-36.0 g/dL Red Cell Distribution Width 13.2 11.0-15.5 % Platelet Count 316 130-400 K/uL Mean Platelet Volume 10.2 7.5-10.5 fL Nucleated Red Blood Cells 0.0 0.0-0.19 % Sodium Level 147 H 136-145 mmol/L Chloride Level 115 H 101-111 mmol/L Carbon Dioxide Level 23 21-32 mmol/L Blood Urea Nitrogen 16 7-18 mg/dL Creatinine 0.8 0.5-1.3 mg/dL Glomerular Filtration Rate Calc 105 >90 mL/min Random Glucose 157 H 70-105 mg/dL Total Calcium 8.3 L 8.5-10.1 mg/dL Magnesium Level 1.90 1.80-2.40 mg/dL Total Bilirubin 0.4 0.2-1.0 mg/dL Aspartate Amino Transf (AST/SGOT) 24 10-37 U/L Alanine Aminotransferase (ALT/SGPT) 19 # 12-78 U/L Alkaline Phosphatase 48 L 50-136 U/L Total Protein 5.8 L 6.0-8.3 g/dL Albumin 2.4 L 3.5-5.0 g/dL Immature Granulocyte % (Auto) 0.9 0-1 % Neutrophils (%) (Auto) 82.8 H 40.0-77.0 % Lymphocytes (%) (Auto) 5.4 L 21.0-51.0 % Monocytes (%) (Auto) 10.0 3.0-13.0 % Eosinophils (%) (Auto) 0.8 0.0-8.0 % Basophils (%) (Auto) 0.1 0.0-5.0 % Neutrophils # (Auto) 8.7 H 1.8-7.7 K/uL Lymphocytes # (Auto) 0.6 L 1.0-4.8 K/uL Monocytes # (Auto) 1.0 0.1-1.0 K/uL Eosinophils # (Auto) 0.08 0.00-0.70 K/uL Basophils # (Auto) 0.01 0.00-0.20 K/uL Absolute Immature Granulocyte (auto 0.09 0-1 K/uL Current Medications Medications (Trade) Dose Ordered Sig/Krishan Route PRN Reason Start Time Stop Time Status Last Admin Dose Admin Acetaminophen (TYLenol 325MG TAB) 650 mg Q4H PRN PO TEMPERATURE GREATER THAN 101.5 03/06/24 12:30 04/05/24 12:29 Acetaminophen (TYLenol 650MG SUPPOSITORY) 650 mg Q6H PRN RC MILD PAIN (1-3) 03/03/24 22:30 03/06/24 12:11 DC Acetylcysteine (MUComyst 10% 4ML) 400mg = 4ml [id number] IH 03/05/24 12:00 03/05/24 11:36 DC Cefazolin Sodium (Ancef) 2 gm Q8H IVPB 03/09/24 16:30 03/09/24 11:29 DC Cefazolin Sodium (Ancef) 2 gm Q8H IVPB 03/09/24 16:30 03/19/24 16:29 03/13/24 18:24 2 GM Famotidine (Pepcid 20mg Vial) 20 mg DAILY IV 03/04/24 09:00 04/03/24 08:59 03/13/24 08:49 20 MG Famotidine (Pepcid 20mg Vial) 20 mg ONCE STAT IV 03/03/24 18:30 03/03/24 18:32 DC 03/03/24 20:11 20 MG Hydralazine HCl (APRESOLine 20MG INJ) 10 mg Q6H PRN IV For:SBP above 160;DBP above 90 03/03/24 22:30 04/02/24 22:29 Hydromorphone HCl (DiLAUDid 0.5MG INJ) 0.5 mg Q4H PRN IVP SEVERE PAIN (7-10) 03/08/24 16:00 03/10/24 08:19 DC 03/09/24 20:05 0.5 MG Hydromorphone HCl (DiLAUDid 0.5MG INJ) 0.5 mg Q4H PRN IVP SEVERE PAIN (7-10) 03/10/24 10:30 03/15/24 10:29 Ketorolac Tromethamine (toRADol) 15 mg ONCE STAT IV 03/03/24 18:30 03/03/24 18:32 DC 03/03/24 20:11 15 MG Ketorolac Tromethamine (toRADol) 30 mg Q6H IM 03/09/24 12:00 03/09/24 11:25 DC Ketorolac Tromethamine (toRADol) 30 mg Q6H IV 03/09/24 12:00 03/09/24 11:27 DC Ketorolac Tromethamine (toRADol) 30 mg Q6H IVP 03/09/24 12:00 03/14/24 11:59 03/13/24 18:24 30 MG Lactated Ringer's 1,000 ml @ 100 mls/hr Q10H IV 03/03/24 22:30 03/06/24 07:54 DC 03/06/24 03:34 100 MLS/HR Magnesium Sulfate 50 ml @ 0 mls/hr PROTOCOL IV 03/13/24 08:30 04/12/24 08:29 03/13/24 08:50 25 MLS/HR Magnesium Sulfate 50 ml @ 0 mls/hr PROTOCOL PRN IV low mag level 03/04/24 09:30 03/13/24 19:48 DC 03/05/24 20:22 25 MLS/HR Methylprednisolone Sodium Succinate (Solu-medROL 40MG) 40 mg Q8H IVP 03/05/24 12:00 03/05/24 11:36 DC Metronidazole/ Sodium Chloride (flaGYL) 500 mg Q8H IV 03/09/24 11:30 03/19/24 11:29 03/13/24 18:34 500 MG Metronidazole/ Sodium Chloride (flaGYL) 500 mg Q8H IV 03/09/24 12:30 03/09/24 11:27 DC Morphine Sulfate (morPHINE 4MG SYG) 4 mg Q4H PRN IV SEVERE PAIN (7-10) 03/03/24 22:30 03/08/24 09:03 DC 03/08/24 05:44 4 MG Ondansetron HCl (zoFRAN 4MG INJ) 4 mg ONCE STAT IVP 03/03/24 18:30 03/03/24 18:32 DC 03/03/24 20:11 4 MG Ondansetron HCl (zoFRAN 4MG INJ) 4 mg Q6H PRN IV NAUSEA/VOMITING 03/03/24 22:30 04/02/24 22:29 03/12/24 10:35 4 MG Phenol (Sore Throat Pixley) 1 spry Q4H PRN PO SORE THROAT 03/11/24 00:00 04/10/24 00:00 03/10/24 23:54 1 SPRY Potassium Chloride 100 ml @ 50 mls/hr AD PRN IV POTASSIUM PROTOCOL 03/04/24 09:30 03/06/24 07:48 DC 03/05/24 06:32 50 MLS/HR Potassium Chloride 100 ml @ 100 mls/hr AD PRN IV POTASSIUM PROTOCOL 03/06/24 08:00 04/05/24 07:59 03/13/24 01:23 100 MLS/HR Potassium Chloride 100 ml @ 100 mls/hr Q1H IV 03/12/24 16:00 03/12/24 19:59 DC 03/12/24 19:53 100 MLS/HR Potassium Chloride 100 ml @ 100 mls/hr Q1H IV 03/13/24 20:00 03/14/24 01:59 03/13/24 21:34 100 MLS/HR Potassium Chloride (K-Dur/Klor-Con 20meq) 20 meq AD PRN PO POTASSIUM PROTOCOL 03/06/24 08:00 04/05/24 07:59 03/11/24 20:15 20 MEQ Potassium Chloride (KCl 10% Elixir 20meq/15ml) 20 meq AD PRN PO POTASSIUM PROTOCOL 03/06/24 08:00 04/05/24 07:59 03/13/24 05:05 20 MEQ Simethicone (Mylicon) 80 mg PCHS PRN PO GI GAS 03/06/24 12:30 04/05/24 12:29 03/06/24 21:35 80 MG Sodium Chloride 1,000 ml @ 125 mls/hr Q8H IV 03/08/24 17:00 04/07/24 16:59 03/13/24 18:25 125 MLS/HR Sodium Chloride 1,000 ml @ 1,000 mls/hr Q1H STAT IV 03/03/24 20:00 03/03/24 20:59 DC 03/03/24 20:11 1,000 MLS/HR Diagnostics / Radiology: [COPY/PASTE HERE IF NO REPORTS PLEASE DELETE SECTION] Assessment: Colon distention Constipation Plan: Follow surgery recs Encourage ambulation Avoid opioids Replenish electrolytes PETTY MANUEL [employer] Mar 13, 2024 22:01
[2024-03-14 03:31] VITALS: BP 122/88; PULSE 72; RESP 16; TEMP 97.7
[2024-03-14 03:33] VITALS: BP 120/76; PULSE 60; RESP 18; TEMP 98.2
[2024-03-14 06:20] LABS: HEMATOCRIT 31.1 % (42-54); MEAN CORPUSCULAR HEMOGLOBIN 29.7 pg (27.0-33.0); MEAN CORPUSCULAR HGB CONC 32.8 g/dL (32.0-36.0); MEAN CORPUSCULAR VOLUME 90.4 fL (79-99); RED BLOOD CELL COUNT(AUTO) 3.44 MIL/uL (4.50-6.20); RED CELL DISTRIBUTION WIDTH 13.3 % (11.0-15.5); WHITE BLOOD COUNT (AUTO) 8.9 K/uL (4.8-10.8)
[2024-03-14 06:33] LABS: ALBUMIN 2.1 g/dL (3.5-5.0); BILIRUBIN,TOTAL 0.3 mg/dL (0.2-1.0); CREATININE 0.7 mg/dL (0.5-1.3); MAGNESIUM 1.7 mg/dL (1.80-2.40); TOTAL PROTEIN, SERUM 5.5 g/dL (6.0-8.3)
[2024-03-14 08:00] VITALS: BP 135/80; PULSE 60; RESP 17; TEMP 98.4; O2SAT 98
--- NOTE | 2024-03-14 09:00 | NUR ---
NEW WOUND CARE: PER SHARDA MEAD WITH DR. MIROSLAVA MD 2 JACINTA REMOVED FROM THE LOWER PORTION OF MID-LINE INCISION. WILL START PACK WITH IODOFORM 1/2 COVER WITH 4X4 AND USE PAPER TAPE BID. PT TOLERATED WELL PROCEDURE PER PROTOCOL, REPLACED K+ 3.0 X1 IV AND X3 PO ELIXER. ALSO REPLACED MAG 1.7 IV X1 DOSE
--- NOTE | 2024-03-14 10:25 | PN ---
This is a 53-year-old male status post Neisha procedure postop day 5 Interval history: This 53-year-old male seen in his room Patient continues to have drainage to lower portion of midline incision To jodie removed from midline incision and lower portion in sanguinous output noted no signs of purulence Patient's white count unremarkable Patient otherwise stable Nursing to perform packing Ostomy productive RADHA with serosanguineous output with an output of greater than 150 Physical exam General: Awake alert and oriented Heart: Regular rate and rhythm} Lungs: [Clear to auscultation no distress Abdomen: [RADHA in place, no dehiscence to fascia noted, Cm section of midline incision open to allow for drainage of sanguinous material Assessment : This is a 53-year-old male status post Neisha's Plan: Nursing to perform wound care with half-inch iodoform twice daily Hold IV fluids Continue to replace potassium Patient encouraged to ambulate Dr. Rai to be updated in patient's status Vitals/Labs Vital Signs Date Time Temp Pulse Resp B/P (MAP) Pulse Ox O2 Delivery O2 Flow Rate FiO2 03/14/24 08:00 98.4 60 17 135/80 98 Room Air 03/13/24 19:45 0 21 Laboratory Tests 03/13/24 17:55 03/14/24 05:59 Medications Current Medications Ondansetron HCl 4 mg ONCE STAT IVP Last administered on 03/03/24at 20:11; Start 03/03/24 at 18:30; Stop 03/03/24 at 18:32; Status DC Famotidine 20 mg ONCE STAT IV Last administered on 03/03/24at 20:11; Start 03/03/24 at 18:30; Stop 03/03/24 at 18:32; Status DC Ketorolac Tromethamine 15 mg ONCE STAT IV Last administered on 03/03/24at 20:11; Start 03/03/24 at 18:30; Stop 03/03/24 at 18:32; Status DC Sodium Chloride 1,000 ml @ 1,000 mls/hr Q1H STAT IV Last administered on 03/03/24at 20:11; Start 03/03/24 at 20:00; Stop 03/03/24 at 20:59; Status DC Iohexol 75 ml STK-MED ONCE IV; Start 03/03/24 at 22:19; Stop 03/03/24 at 22:24; Status DC Famotidine 20 mg DAILY IV Last administered on 03/14/24at 09:50; Start 03/04/24 at 09:00; Stop 04/03/24 at 08:59 Acetaminophen 650 mg Q6H PRN RC; Start 03/03/24 at 22:30; Stop 03/06/24 at 12:11; Status DC Ondansetron HCl 4 mg Q6H PRN IV Last administered on 03/12/24at 10:35; Start 03/03/24 at 22:30; Stop 04/02/24 at 22:29 Morphine Sulfate 4 mg Q4H PRN IV Last administered on 03/08/24at 05:44; Start 03/03/24 at 22:30; Stop 03/08/24 at 09:03; Status DC Hydralazine HCl 10 mg Q6H PRN IV; Start 03/03/24 at 22:30; Stop 04/02/24 at 22:29 Lactated Ringer's 1,000 ml @ 100 mls/hr Q10H IV Last administered on 03/06/24at 03:34; Start 03/03/24 at 22:30; Stop 03/06/24 at 07:54; Status DC Magnesium Sulfate 50 ml @ 0 mls/hr PROTOCOL PRN IV Last administered on 03/05/24at 20:22; Start 03/04/24 at 09:30; Stop 03/13/24 at 19:48; Status DC Potassium Chloride 100 ml @ 50 mls/hr AD PRN IV Last administered on 03/05/24at 06:32; Start 03/04/24 at 09:30; Stop 03/06/24 at 07:48; Status DC Bisacodyl 10 mg ONCE ONCE RC Last administered on 03/04/24at 15:13; Start 03/04/24 at 15:00; Stop 03/04/24 at 15:01; Status DC Acetylcysteine 400mg = 4ml [id number] IH; Start 03/05/24 at 12:00; Stop 03/05/24 at 11:36; Status DC Methylprednisolone Sodium Succinate 40 mg Q8H IVP; Start 03/05/24 at 12:00; Stop 03/05/24 at 11:36; Status DC Potassium Chloride 100 ml @ 100 mls/hr AD PRN IV Last administered on 03/13/24at 01:23; Start 03/06/24 at 08:00; Stop 04/05/24 at 07:59 Potassium Chloride 20 meq AD PRN PO Last administered on 03/13/24at 05:05; Start 03/06/24 at 08:00; Stop 04/05/24 at 07:59 Potassium Chloride 20 meq AD PRN PO Last administered on 03/11/24at 20:15; Start 03/06/24 at 08:00; Stop 04/05/24 at 07:59 Acetaminophen 650 mg Q4H PRN PO; Start 03/06/24 at 12:30; Stop 04/05/24 at 12:29 Simethicone 120 mg ONCE ONCE PO Last administered on 03/06/24at 12:58; Start 03/06/24 at 12:30; Stop 03/06/24 at 12:31; Status DC Simethicone 80 mg PCHS PRN PO Last administered on 03/06/24at 21:35; Start 03/06/24 at 12:30; Stop 04/05/24 at 12:29 Potassium Chloride 40 meq ONCE ONCE PO Last administered on 03/06/24at 12:58; Start 03/06/24 at 12:30; Stop 03/06/24 at 12:31; Status DC Potassium Chloride 20 meq ONCE ONCE PO Last administered on 03/07/24at 09:00; Start 03/07/24 at 09:00; Stop 03/07/24 at 09:01; Status DC Propofol 200 mg STK-MED ONCE IV; Start 03/08/24 at 07:39; Stop 03/08/24 at 07:39; Status DC Lidocaine HCl 100 mg STK-MED ONCE .ROUTE; Start 03/08/24 at 07:39; Stop 03/08/24 at 07:39; Status DC Ketorolac Tromethamine 30 mg ONCE ONCE IVP Last administered on 03/08/24at 09:54; Start 03/08/24 at 10:00; Stop 03/08/24 at 10:01; Status DC Hydromorphone HCl 0.5 mg Q4H PRN IVP Last administered on 03/09/24at 20:05; Start 03/08/24 at 16:00; Stop 03/10/24 at 08:19; Status DC Sodium Chloride 1,000 ml @ 125 mls/hr Q8H IV Last administered on 03/14/24at 03:19; Start 03/08/24 at 17:00; Stop 04/07/24 at 16:59 Lidocaine HCl 100 mg STK-MED ONCE .ROUTE; Start 03/09/24 at 08:09; Stop 03/09/24 at 08:09; Status DC Succinylcholine Chloride 200 mg STK-MED ONCE .ROUTE; Start 03/09/24 at 08:09; Stop 03/09/24 at 08:09; Status DC Propofol 200 mg STK-MED ONCE IV; Start 03/09/24 at 08:09; Stop 03/09/24 at 08:09; Status DC Midazolam HCl 2 mg STK-MED ONCE .ROUTE; Start 03/09/24 at 08:09; Stop 03/09/24 at 08:09; Status DC Rocuronium Barre 50 mg STK-MED ONCE .ROUTE; Start 03/09/24 at 08:09; Stop 03/09/24 at 08:09; Status DC Fentanyl Citrate 100 mcg STK-MED ONCE .ROUTE; Start 03/09/24 at 08:12; Stop 03/09/24 at 08:12; Status DC Phenylephrine HCl 10 mg STK-MED ONCE IV; Start 03/09/24 at 08:29; Stop 03/09/24 at 08:29; Status DC Cefazolin Sodium 1 gm STK-MED ONCE .ROUTE; Start 03/09/24 at 08:43; Stop 03/09/24 at 08:43; Status DC Rocuronium Barre 50 mg STK-MED ONCE .ROUTE; Start 03/09/24 at 08:44; Stop 03/09/24 at 08:44; Status DC Albumin Human 250 ml @ As Directed STK-MED ONCE IV; Start 03/09/24 at 09:18; Stop 03/09/24 at 09:18; Status DC Rocuronium Barre 50 mg STK-MED ONCE .ROUTE; Start 03/09/24 at 09:30; Stop 03/09/24 at 09:30; Status DC Ropivacaine 150 mg STK-MED ONCE .ROUTE; Start 03/09/24 at 09:49; Stop 03/09/24 at 09:50; Status DC Ondansetron HCl 4 mg STK-MED ONCE .ROUTE; Start 03/09/24 at 10:13; Stop 03/09/24 at 10:13; Status DC Dexamethasone Sodium Phosphate 10 mg STK-MED ONCE .ROUTE; Start 03/09/24 at 10:13; Stop 03/09/24 at 10:14; Status DC Meperidine HCl 25 mg STK-MED ONCE .ROUTE Last administered on 03/09/24at 10:31; Start 03/09/24 at 10:27; Stop 03/09/24 at 10:28; Status DC Cefazolin Sodium 2 gm STK-MED ONCE IVPB Last administered on 03/09/24at 08:30; Start 03/09/24 at 08:30; Stop 03/09/24 at 10:51; Status DC Metronidazole/ Sodium Chloride 500 mg Q8H IV; Start 03/09/24 at 12:30; Stop 03/09/24 at 11:27; Status DC Cefazolin Sodium 2 gm Q8H IVPB; Start 03/09/24 at 16:30; Stop 03/09/24 at 11:29; Status DC Ketorolac Tromethamine 30 mg Q6H IM; Start 03/09/24 at 12:00; Stop 03/09/24 at 11:25; Status DC Ketorolac Tromethamine 30 mg Q6H IV; Start 03/09/24 at 12:00; Stop 03/09/24 at 11:27; Status DC Metronidazole/ Sodium Chloride 500 mg Q8H IV Last administered on 03/14/24at 03:29; Start 03/09/24 at 11:30; Stop 03/19/24 at 11:29 Cefazolin Sodium 2 gm Q8H IVPB Last administered on 03/14/24at 09:50; Start 03/09/24 at 16:30; Stop 03/19/24 at 16:29 Ketorolac Tromethamine 30 mg Q6H IVP Last administered on 03/14/24at 05:46; Start 03/09/24 at 12:00; Stop 03/14/24 at 11:59 Hydromorphone HCl 0.5 mg Q4H PRN IVP; Start 03/10/24 at 10:30; Stop 03/15/24 at 10:29 Phenol 1 spry Q4H PRN PO Last administered on 03/10/24at 23:54; Start 03/11/24 at 00:00; Stop 04/10/24 at 00:00 Potassium Chloride 40 meq ONCE ONCE PO; Start 03/12/24 at 09:00; Stop 03/12/24 at 09:01; Status DC Potassium Chloride 100 ml @ 50 mls/hr ONCE ONCE IV Last administered on 03/12/24at 10:36; Start 03/12/24 at 09:00; Stop 03/12/24 at 10:59; Status DC Potassium Chloride 100 ml @ 100 mls/hr Q1H IV Last administered on 03/12/24at 19:53; Start 03/12/24 at 16:00; Stop 03/12/24 at 19:59; Status DC Potassium Chloride 100 ml @ 50 mls/hr ONCE ONCE IV Last administered on 03/13/24at 08:49; Start 03/13/24 at 08:30; Stop 03/13/24 at 10:29; Status DC Magnesium Sulfate 50 ml @ 0 mls/hr PROTOCOL IV Last administered on 03/13/24at 08:50; Start 03/13/24 at 08:30; Stop 04/12/24 at 08:29 Potassium Chloride 100 ml @ 50 mls/hr ONCE ONCE IV Last administered on 03/13/24at 11:31; Start 03/13/24 at 11:00; Stop 03/13/24 at 12:59; Status DC Potassium Chloride 100 ml @ 100 mls/hr Q1H IV Last administered on 03/14/24at 02:09; Start 03/13/24 at 20:00; Stop 03/14/24 at 01:59; Status DC ROSSY SYLVESTER Jr. Mar 14, 2024 10:25
--- NOTE | 2024-03-14 10:35 | PN ---
GASTROENTEROLOGY PROGRESS NOTE Date of Visit: Mar 14, 2024 Time of Visit: 10:35 Events / Notes: [ ] Review of Systems: CONSTITUTIONAL: No malaise or change in sensation of wellbeing. ENMT: No rhinorrhea, otorrhea, sinus pain, ear ache. CARDIOVASCULAR: No angina, palpitations, orthopnea or paroxysmal dyspnea. RESPIRATORY: No SOB. GASTROINTESTINAL: No abdominal pain, nausea, vomiting, diarrhea, hematemesis, melena or change in the patient's habitual bowel movements consistency/number. GENITOURINARY: No dysuria, hematuria or change in bladder continence. MUSCULOSKELETAL: No new muscle pain or decrease in muscular strength. No new joint swelling, redness or tenderness. SKIN: No new rash. Physical Exam: GEN: Awake, alert, oriented in person, time and place, and in no acute distress. HEENT: No sinus tenderness. Tympanic membranes were not examined. No rhinorrhea. Oral pharyngeal mucosa is pink, moist and within normal limits. Neck is supple with no cervical lymphadenopathy, thyromegaly or JVD. CHEST: Inspection, palpation and percussion of the chest were unremarkable. Lung auscultation revealed normal breath sounds bilaterally. CARDIAC: PMI is within normal limits. Heart sounds are regular. Normal S1, S2. No gallop or murmur. ABD: Soft, non-tender and not distended. No peritoneal signs on palpation. No organomegaly. Normal bowel sounds. EXT: No cyanosis or clubbing. No edema. SKIN: Intact. No rashes. JOINTS: No evidence of synovitis or acute arthritis. NEURO: Alert and oriented to name, place and person. Cranial nerve examination is unremarkable. No focal motor deficits. Normal speech. Gait is normal. Strength is normal. Vital Signs (last 8hr) Date Time Temp Pulse Resp B/P (MAP) Pulse Ox O2 Delivery O2 Flow Rate FiO2 03/14/24 08:00 98.4 60 17 135/80 98 Room Air 03/14/24 03:33 98.2 60 18 120/76 99 Room Air Laboratory: [ ] Laboratory: Test 03/14/24 05:59 Range/Units White Blood Count 8.9 4.8-10.8 K/uL Red Blood Count 3.44 L 4.50-6.20 MIL/uL Hemoglobin 10.2 L 14.0-18.0 g/dL Hematocrit 31.1 L 42-54 % Mean Corpuscular Volume 90.4 79-99 fL Mean Corpuscular Hemoglobin 29.7 27.0-33.0 pg Mean Corpuscular Hemoglobin Concent 32.8 32.0-36.0 g/dL Red Cell Distribution Width 13.3 11.0-15.5 % Platelet Count 312 130-400 K/uL Mean Platelet Volume 10.4 7.5-10.5 fL Nucleated Red Blood Cells 0.0 0.0-0.19 % Sodium Level 141 136-145 mmol/L Potassium Level 3.0 *L 3.5-5.1 mmol/L Chloride Level 111 101-111 mmol/L Carbon Dioxide Level 24 21-32 mmol/L Blood Urea Nitrogen 12 7-18 mg/dL Creatinine 0.7 0.5-1.3 mg/dL Glomerular Filtration Rate Calc 110 >90 mL/min Random Glucose 113 H 70-105 mg/dL Total Calcium 7.8 L 8.5-10.1 mg/dL Magnesium Level 1.70 L 1.80-2.40 mg/dL Total Bilirubin 0.3 # 0.2-1.0 mg/dL Aspartate Amino Transf (AST/SGOT) 25 10-37 U/L Alanine Aminotransferase (ALT/SGPT) 22 12-78 U/L Alkaline Phosphatase 45 L 50-136 U/L Total Protein 5.5 L 6.0-8.3 g/dL Albumin 2.1 L 3.5-5.0 g/dL Current Medications Medications (Trade) Dose Ordered Sig/Krishan Route PRN Reason Start Time Stop Time Status Last Admin Dose Admin Acetaminophen (TYLenol 325MG TAB) 650 mg Q4H PRN PO TEMPERATURE GREATER THAN 101.5 03/06/24 12:30 04/05/24 12:29 Acetaminophen (TYLenol 650MG SUPPOSITORY) 650 mg Q6H PRN RC MILD PAIN (1-3) 03/03/24 22:30 03/06/24 12:11 DC Acetylcysteine (MUComyst 10% 4ML) 400mg = 4ml Q7AENIR IH 03/05/24 12:00 03/05/24 11:36 DC Cefazolin Sodium (Ancef) 2 gm Q8H IVPB 03/09/24 16:30 03/09/24 11:29 DC Cefazolin Sodium (Ancef) 2 gm Q8H IVPB 03/09/24 16:30 03/19/24 16:29 03/14/24 09:50 2 GM Famotidine (Pepcid 20mg Vial) 20 mg DAILY IV 03/04/24 09:00 04/03/24 08:59 03/14/24 09:50 20 MG Famotidine (Pepcid 20mg Vial) 20 mg ONCE STAT IV 03/03/24 18:30 03/03/24 18:32 DC 03/03/24 20:11 20 MG Hydralazine HCl (APRESOLine 20MG INJ) 10 mg Q6H PRN IV For:SBP above 160;DBP above 90 03/03/24 22:30 04/02/24 22:29 Hydromorphone HCl (DiLAUDid 0.5MG INJ) 0.5 mg Q4H PRN IVP SEVERE PAIN (7-10) 03/08/24 16:00 03/10/24 08:19 DC 03/09/24 20:05 0.5 MG Hydromorphone HCl (DiLAUDid 0.5MG INJ) 0.5 mg Q4H PRN IVP SEVERE PAIN (7-10) 03/10/24 10:30 03/15/24 10:29 Ketorolac Tromethamine (toRADol) 15 mg ONCE STAT IV 03/03/24 18:30 03/03/24 18:32 DC 03/03/24 20:11 15 MG Ketorolac Tromethamine (toRADol) 30 mg Q6H IM 03/09/24 12:00 03/09/24 11:25 DC Ketorolac Tromethamine (toRADol) 30 mg Q6H IV 03/09/24 12:00 03/09/24 11:27 DC Ketorolac Tromethamine (toRADol) 30 mg Q6H IVP 03/09/24 12:00 03/14/24 11:59 03/14/24 05:46 30 MG Lactated Ringer's 1,000 ml @ 100 mls/hr Q10H IV 03/03/24 22:30 03/06/24 07:54 DC 03/06/24 03:34 100 MLS/HR Magnesium Sulfate 50 ml @ 0 mls/hr PROTOCOL IV 03/13/24 08:30 04/12/24 08:29 12/19/24 08:50 25 MLS/HR Magnesium Sulfate 50 ml @ 0 mls/hr PROTOCOL PRN IV low mag level 03/04/24 09:30 03/13/24 19:48 DC 03/05/24 20:22 25 MLS/HR Methylprednisolone Sodium Succinate (Solu-medROL 40MG) 40 mg Q8H IVP 03/05/24 12:00 03/05/24 11:36 DC Metronidazole/ Sodium Chloride (flaGYL) 500 mg Q8H IV 03/09/24 11:30 03/19/24 11:29 03/14/24 03:29 500 MG Metronidazole/ Sodium Chloride (flaGYL) 500 mg Q8H IV 03/09/24 12:30 03/09/24 11:27 DC Morphine Sulfate (morPHINE 4MG SYG) 4 mg Q4H PRN IV SEVERE PAIN (7-10) 03/03/24 22:30 03/08/24 09:03 DC 03/08/24 05:44 4 MG Ondansetron HCl (zoFRAN 4MG INJ) 4 mg ONCE STAT IVP 03/03/24 18:30 03/03/24 18:32 DC 03/03/24 20:11 4 MG Ondansetron HCl (zoFRAN 4MG INJ) 4 mg Q6H PRN IV NAUSEA/VOMITING 03/03/24 22:30 04/02/24 22:29 03/12/24 10:35 4 MG Phenol (Sore Throat [place]) 1 spry Q4H PRN PO SORE THROAT 03/11/24 00:00 04/10/24 00:00 03/10/24 23:54 1 SPRY Potassium Chloride 100 ml @ 50 mls/hr AD PRN IV POTASSIUM PROTOCOL 03/04/24 09:30 03/06/24 07:48 DC 03/05/24 06:32 50 MLS/HR Potassium Chloride 100 ml @ 100 mls/hr AD PRN IV POTASSIUM PROTOCOL 03/06/24 08:00 04/05/24 07:59 03/13/24 01:23 100 MLS/HR Potassium Chloride 100 ml @ 100 mls/hr Q1H IV 03/12/24 16:00 03/12/24 19:59 DC 03/12/24 19:53 100 MLS/HR Potassium Chloride 100 ml @ 100 mls/hr Q1H IV 03/13/24 20:00 03/14/24 01:59 DC 03/14/24 02:09 100 MLS/HR Potassium Chloride (K-Dur/Klor-Con 20meq) 20 meq AD PRN PO POTASSIUM PROTOCOL 03/06/24 08:00 04/05/24 07:59 03/11/24 20:15 20 MEQ Potassium Chloride (KCl 10% Elixir 20meq/15ml) 20 meq AD PRN PO POTASSIUM PROTOCOL 03/06/24 08:00 04/05/24 07:59 03/13/24 05:05 20 MEQ Simethicone (Mylicon) 80 mg PCHS PRN PO GI GAS 03/06/24 12:30 04/05/24 12:29 03/06/24 21:35 80 MG Sodium Chloride 1,000 ml @ 125 mls/hr Q8H IV 03/08/24 17:00 04/07/24 16:59 03/14/24 03:19 125 MLS/HR Sodium Chloride 1,000 ml @ 1,000 mls/hr Q1H STAT IV 03/03/24 20:00 03/03/24 20:59 DC 03/03/24 20:11 1,000 MLS/HR Diagnostics / Radiology: [COPY/PASTE HERE IF NO REPORTS PLEASE DELETE SECTION] Assessment: Colon distention Constipation Plan: Follow surgery recs Encourage ambulation Avoid opioids Replenish electrolytes PETTY MANUEL [employer] Mar 14, 2024 10:35
--- NOTE | 2024-03-14 11:28 | PN ---
[facility] PROGRESS NOTE Date of Service: Mar 14, 2024 Time of Service: 11:27 SUBJECTIVE: [ ] This is a 53-year-old male was admitted on 03/03/2024 presents in ED with chief complaints of abdominal pain. ER workup was consistent with small- bowel obstruction. NGT tube was placed in ED and surgeon was consulted. Patient was seen and examined this morning no output from NG tube patient appears distended. the patient remain Bowel rest until seen by surgeon: will follow recommendations: ordered a repeat KUB for this morning. 03/05/24 Patient is seen and examined with the attending, reviewed chart and discussed. Patient was seen by general surgeon continue conservative management. Patient had four BMs was given suppository laxative. Patient's potassium 2.9 was replaced early this morning we will repeat level and replace as needed we will wait for surgeon continues with NG tube and bowel rest. Repeat KUB: Distended loops of large and small bowel, unchanged. 03/06/24 patient is seen and examined reviewed chart discussed case with attending. Patient continues with hypokalemia patient is tolerating clear liquid no surgical intervention on this admission we will repeat potassium level at noon. Patient reports no nausea vomiting or abdominal pain. 03/07/24 the patient seen and examined,, the patient continue with abd distention had small bm this moring tolerating CLD General surgeon concern with colonic ileus consulted GI for possible colonoscopy. The patient was made aware a GI specialist will be seeing him today. 03/08/24 the patient was evaluated by GI scheduled patient flex sigmoid today will follow up result: cont Bowel rest with NGT to LIWS. cont with Nauseated. The patient denies chest pain or sob Given to findings of flexible sigmoidoscopy stricture of distal sigmoid will need surgery high risk for perforation today per Dr Watkins ex lap and diversion. The patient aware of risk and benefit is agreement with surgeon recommendations. DR Parnell evaluated the patient reviewed imaging: will scheduled the patient tomorrow am. 03/09/24: the patient was seen earlier: s/p POD 0 open sigmoid colectomy : the patient is doing well, abd binder colostomy bag: and j p drain: right upper quad encouraged to use IS while awake will follow Dr Parnell post operative recommendations. started the patient on Cefazolin 2 gm Q8hrs, metribudazike 500mg po Q8 hrs. will be monitored closed: continue with IV fluids. 03/10/24 s/p sigmoid colectomy: Day 1 physical therapy will work with patient today out of bed to chair as tolerated encouraged patient to use his IS while awake. Colostomy with output. NG tube with very minimal output. We will follow postoperative recommendations from surgeon. Patient denied chest pain shortness a breath. 03/11/24 the patient is seen and examined, reviewed chart: s/p POD 2 cont with NGT with LIWS with 350 output colostomy output: 1500 ml persistent hypokalemia 2.7 being replaced. will repeat potassium level: will follow post operative recommendations. will start CLD DC NG tube 03/12 the patient is seen and examined earlier this morning, had episode of emesis several times last night, noted to have abdominal distention, hemodynamically stable, no chest pain, no shortness a breath. Currently getting potassium supplementation IV per protocol. 03/13 patient is seen and examined this morning, acute events overnight, he is alert and oriented x3, hemodynamically stable, feels less distended, results of CT of the abdomen performed yesterday input reviewed and discussed with the aim of the at the bedside, patient was started back on clear liquid diet per General surgery, he is tolerating well, he is currently getting potassium IV per protocol during my visit. Already seen by General surgery, dressing changed. 03/14 the patient has been seen and examined today, no acute events overnight, diet has been advanced to full liquid diet, tolerating well, no nausea, no vomiting, no abdominal pain. Patient is still with persistent hypokalemia, potassium level at 3.0. We will continue to replace IV per protocol. Magnesium level of 1.7, we will give 2 g of magnesium sulfate IV x1. Nephrology consultation requested, follow input and recommendation. Follow urine electrolytes. Discussed with the patient, all questions answered, in agreement REVIEW OF SYSTEMS CONSTITUTIONAL: Denies fevers, chills, or night sweats. No unintentional weight loss reported. NEUROLOGICAL: Denies headache, amaurosis fugax, motor weakness, sensory deficit, vertigo/spinning sensation, gait abnormalities, or tremors. ENT: No hearing loss, otalgia, otorrhea, rhinitis, rhinorrhea, hoarseness, or sore throat. CARDIOVASCULAR: Denies any exertional angina, dyspnea on exertion, orthopnea, paroxysmal nocturnal dyspnea, palpitations, life-threatening arrhythmias, claudication. PULMONARY: Denies any shortness of breath, cough, phlegm/sputum, hemoptysis, pleuritic chest pain. SLEEP: Denies morning headaches, daytime somnolence or napping. Denies difficulty falling asleep, staying asleep, waking from sleep. Denies knowledge of snoring. GASTROINTESTINAL: Denies any type of dysphagia to either liquids or solids. Denies nausea, vomiting, pyrosis, early satiety, abdominal pain, diarrhea, constipation, or changes in stool consistency or caliber. Denies coffee-ground emesis, hematemesis, hematochezia, or melanotic stools. GENITOURINARY: Denies frequency, urgency, nocturia, hematuria or incontinence (Storage/Irritative symptoms.) Low urinary stream, straining to void, urinary intermittency or hesitancy, splitting of the voiding stream, terminal dribbling. ENDOCRINOLOGIC: Denies polyuria, polydipsia, polyphagia or heat/cold intolerances. HEMATOLOGIC: Denies thrombophilia/previous clots, or coagulopathy/bleeding disorders. ONCOLOGIC: Denies personal history of malignancy. DERMATOLOGIC: Denies rashes or pruritus. PSYCHIATRIC: Denies any suicidal or homicidal ideation. Denies hallucinations. PHYSICAL EXAM GENERAL APPEARANCE: The patient is awake, alert, and oriented, in no acute cardiopulmonary distress. NEUROLOGICAL: Cranial nerves II-XII grossly intact. Motor is 5/5 in bilateral upper and lower extremities proximal to distal. No sensory deficits. HEENT: Face is symmetric. Pupils are equal and reactive. Extraocular movements are intact. NECK: Supple. No JVD. No thyromegaly. No submental, submandibular, pre- /postauricular, occipital or supraclavicular lymphadenopathy. CHEST: Normal chest expansion. No Telemetry. LUNGS: Absence of any rales, rhonchi or any wheezing. CARDIOVASCULAR: Regular. S1 and S2 normal. No appreciable rubs, murmurs or gallops. ABDOMEN: Less distended, binder in place. : Deferred. No Sagastume. EXTREMITIES: Non-edematous and not cyanotic. No clubbing. Good capillary refill. SKIN: No skin breakdown. Vital Signs (last 8hr) Date Time Temp Pulse Resp B/P (MAP) Pulse Ox O2 Delivery O2 Flow Rate FiO2 03/14/24 08:00 98.4 60 17 135/80 98 Room Air 03/14/24 03:33 98.2 60 18 120/76 99 Room Air LABS: Laboratory: Test 03/14/24 05:59 Range/Units White Blood Count 8.9 4.8-10.8 K/uL Red Blood Count 3.44 L 4.50-6.20 MIL/uL Hemoglobin 10.2 L 14.0-18.0 g/dL Hematocrit 31.1 L 42-54 % Mean Corpuscular Volume 90.4 79-99 fL Mean Corpuscular Hemoglobin 29.7 27.0-33.0 pg Mean Corpuscular Hemoglobin Concent 32.8 32.0-36.0 g/dL Red Cell Distribution Width 13.3 11.0-15.5 % Platelet Count 312 130-400 K/uL Mean Platelet Volume 10.4 7.5-10.5 fL Nucleated Red Blood Cells 0.0 0.0-0.19 % Sodium Level 141 136-145 mmol/L Potassium Level 3.0 *L 3.5-5.1 mmol/L Chloride Level 111 101-111 mmol/L Carbon Dioxide Level 24 21-32 mmol/L Blood Urea Nitrogen 12 7-18 mg/dL Creatinine 0.7 0.5-1.3 mg/dL Glomerular Filtration Rate Calc 110 >90 mL/min Random Glucose 113 H 70-105 mg/dL Total Calcium 7.8 L 8.5-10.1 mg/dL Magnesium Level 1.70 L 1.80-2.40 mg/dL Total Bilirubin 0.3 # 0.2-1.0 mg/dL Aspartate Amino Transf (AST/SGOT) 25 10-37 U/L Alanine Aminotransferase (ALT/SGPT) 22 12-78 U/L Alkaline Phosphatase 45 L 50-136 U/L Total Protein 5.5 L 6.0-8.3 g/dL Albumin 2.1 L 3.5-5.0 g/dL Current Medications Medications (Trade) Dose Ordered Sig/Krishan Route PRN Reason Start Time Stop Time Status Last Admin Dose Admin Acetaminophen (TYLenol 325MG TAB) 650 mg Q4H PRN PO TEMPERATURE GREATER THAN 101.5 03/06/24 12:30 04/05/24 12:29 Acetaminophen (TYLenol 650MG SUPPOSITORY) 650 mg Q6H PRN RC MILD PAIN (1-3) 03/03/24 22:30 03/06/24 12:11 DC Acetylcysteine (MUComyst 10% 4ML) 400mg = 4ml [id number] IH 03/05/24 12:00 03/05/24 11:36 DC Cefazolin Sodium (Ancef) 2 gm Q8H IVPB 03/09/24 16:30 03/09/24 11:29 DC Cefazolin Sodium (Ancef) 2 gm Q8H IVPB 03/09/24 16:30 03/19/24 16:29 03/14/24 09:50 2 GM Famotidine (Pepcid 20mg Vial) 20 mg DAILY IV 03/04/24 09:00 04/03/24 08:59 03/14/24 09:50 20 MG Famotidine (Pepcid 20mg Vial) 20 mg ONCE STAT IV 03/03/24 18:30 03/03/24 18:32 DC 03/03/24 20:11 20 MG Hydralazine HCl (APRESOLine 20MG INJ) 10 mg Q6H PRN IV For:SBP above 160;DBP above 90 03/03/24 22:30 04/02/24 22:29 Hydromorphone HCl (DiLAUDid 0.5MG INJ) 0.5 mg Q4H PRN IVP SEVERE PAIN (7-10) 03/08/24 16:00 03/10/24 08:19 DC 03/09/24 20:05 0.5 MG Hydromorphone HCl (DiLAUDid 0.5MG INJ) 0.5 mg Q4H PRN IVP SEVERE PAIN (7-10) 03/10/24 10:30 03/15/24 10:29 Ketorolac Tromethamine (toRADol) 15 mg ONCE STAT IV 03/03/24 18:30 03/03/24 18:32 DC 03/03/24 20:11 15 MG Ketorolac Tromethamine (toRADol) 30 mg Q6H IM 03/09/24 12:00 03/09/24 11:25 DC Ketorolac Tromethamine (toRADol) 30 mg Q6H IV 03/09/24 12:00 03/09/24 11:27 DC Ketorolac Tromethamine (toRADol) 30 mg Q6H IVP 03/09/24 12:00 03/14/24 11:59 03/14/24 05:46 30 MG Lactated Ringer's 1,000 ml @ 100 mls/hr Q10H IV 03/03/24 22:30 03/06/24 07:54 DC 03/06/24 03:34 100 MLS/HR Magnesium Sulfate 50 ml @ 0 mls/hr PROTOCOL IV 03/13/24 08:30 04/12/24 08:29 03/13/24 08:50 25 MLS/HR Magnesium Sulfate 50 ml @ 0 mls/hr PROTOCOL IV 03/14/24 11:30 04/13/24 11:29 UNV Magnesium Sulfate 50 ml @ 0 mls/hr PROTOCOL PRN IV low mag level 03/04/24 09:30 03/13/24 19:48 DC 03/05/24 20:22 25 MLS/HR Methylprednisolone Sodium Succinate (Solu-medROL 40MG) 40 mg Q8H IVP 03/05/24 12:00 03/05/24 11:36 DC Metronidazole/ Sodium Chloride (flaGYL) 500 mg Q8H IV 03/09/24 11:30 03/19/24 11:29 03/14/24 03:29 500 MG Metronidazole/ Sodium Chloride (flaGYL) 500 mg Q8H IV 03/09/24 12:30 03/09/24 11:27 DC Morphine Sulfate (morPHINE 4MG SYG) 4 mg Q4H PRN IV SEVERE PAIN (7-10) 03/03/24 22:30 03/08/24 09:03 DC 03/08/24 05:44 4 MG Ondansetron HCl (zoFRAN 4MG INJ) 4 mg ONCE STAT IVP 03/03/24 18:30 03/03/24 18:32 DC 03/03/24 20:11 4 MG Ondansetron HCl (zoFRAN 4MG INJ) 4 mg Q6H PRN IV NAUSEA/VOMITING 03/03/24 22:30 04/02/24 22:29 03/12/24 10:35 4 MG Phenol (Sore Throat Beyer) 1 spry Q4H PRN PO SORE THROAT 03/11/24 00:00 04/10/24 00:00 03/10/24 23:54 1 SPRY Potassium Chloride 100 ml @ 50 mls/hr AD PRN IV POTASSIUM PROTOCOL 03/04/24 09:30 03/06/24 07:48 DC 03/05/24 06:32 50 MLS/HR Potassium Chloride 100 ml @ 100 mls/hr AD PRN IV POTASSIUM PROTOCOL 03/06/24 08:00 04/05/24 07:59 03/13/24 01:23 100 MLS/HR Potassium Chloride 100 ml @ 100 mls/hr Q1H IV 03/12/24 16:00 03/12/24 19:59 DC 03/12/24 19:53 100 MLS/HR Potassium Chloride 100 ml @ 100 mls/hr Q1H IV 03/13/24 20:00 03/14/24 01:59 DC 03/14/24 02:09 100 MLS/HR Potassium Chloride (K-Dur/Klor-Con 20meq) 20 meq AD PRN PO POTASSIUM PROTOCOL 03/06/24 08:00 04/05/24 07:59 03/11/24 20:15 20 MEQ Potassium Chloride (KCl 10% Elixir 20meq/15ml) 20 meq AD PRN PO POTASSIUM PROTOCOL 03/06/24 08:00 04/05/24 07:59 03/14/24 10:57 20 MEQ Simethicone (Mylicon) 80 mg PCHS PRN PO GI GAS 03/06/24 12:30 04/05/24 12:29 03/06/24 21:35 80 MG Sodium Chloride 1,000 ml @ 125 mls/hr Q8H IV 03/08/24 17:00 04/07/24 16:59 03/14/24 10:56 125 MLS/HR Sodium Chloride 1,000 ml @ 1,000 mls/hr Q1H STAT IV 03/03/24 20:00 03/03/24 20:59 DC 03/03/24 20:11 1,000 MLS/HR DIAGNOSTICS / RADIOLOGY: [ ] ASSESSMENT: colonic stricture distal of sigmoid evidence per flexible sigmoidoscopy s/p colectomy with colostomy Suspected small bowel obstruction, POA Intractable abd pain POA Extensive abdominal distention POA electrolytes derangement: Hypokalemia POA Obesity: BMI: 36.1 POA chronic problems; Hyperlipidemia Gout] obesity PLAN: [ ] Remain in Surgical floor GI: s/p flexible sigmoidoscopy found stricture distal sigmoid sigmoid colectomy will follow post operative recommendations POD#2 will monitor colostomy site and RADHA drain output. continue with abd binder. Diet: CLD as per surgeon discontinue NGT encouraged to ambulate TID oob to chair as tolerated PT services to eval IS while awake cont with pain management for adequate pain controlled Replaced electrolytes potassium and magnesium to keep potassium >4.0 and mag: > 2.0 DVT: SCD applied GI: PUD ppx and pain management PRN: MEDICATIONS Zofran 4 mg IV every 6 hrs for n/v further orders as per response to tx. Disposition: Remains admitted to medical floor, continue full liquid diet, replace electrolytes IV per protocol, follow surgical and Nephrology input and recommendation. Plan of action discussed in detail with the patient, all questions answered, agreed and understood the information provided PARADISE MANZANARES MD Mar 14, 2024 11:28
[2024-03-14 12:00] VITALS: BP 130/79; PULSE 65; RESP 18; TEMP 98.2
[2024-03-14] MEDS: MAGNESIUM 2GM PREMIX 50ML 50 ML IV SCH (12:49)
[2024-03-14] MEDS: PoTASSium chloRIDE 20MEQ/100ML 100 ML IV ONE (12:49)
--- NOTE | 2024-03-14 14:51 | CONS ---
NEPHROLOGY CONSULTATION NOTE Date/Time Patient Seen: Mar 14, 2024 [id number] Reason for Consultation: Hypokalemia HISTORY OF PRESENT ILLNESS: This is a 53-year-old male with a past medical history of hyperlipidemia and gout He presented to the emergency with complaints of abdominal pain. He has been in the hospital for several days. He was admitted further evaluation and management of suspected small-bowel obstruction. S/p Neisha procedure. He continues to be followed by surgery. He was noted for hypokalemia. Was seen in the medical floor, in no acute distress Family at the bedside Prognosis remains guarded REVIEW OF SYSTEMS: GENERAL: Negative for any nausea, vomiting, fevers, chills, or weight loss. NEUROLOGIC: Negative for any blurry vision, blind spots, double vision, facial asymmetry, dysphagia, dysarthria, hemiparesis, hemisensory deficits, vertigo, ataxia. HEENT: Negative for any head trauma, neck trauma, neck stiffness, photophobia, phonophobia, sinusitis, rhinitis. CARDIAC: Negative for any chest pain, dyspnea on exertion, paroxysmal nocturnal dyspnea, peripheral edema. PULMONARY: Negative for any shortness of breath, wheezing, COPD, or TB exposure. GASTROINTESTINAL: Negative for any abdominal pain, nausea, vomiting, bright red blood per rectum, melena. GENITOURINARY: Negative for any dysuria, hematuria, incontinence. INTEGUMENTARY: Negative for any rashes, cuts, insect bites. RHEUMATOLOGIC: Negative for any joint pains, photosensitive rashes, history of vasculitis or kidney problems. HEMATOLOGIC: Negative for any abnormal bruising, frequent infections or bleeding. PAST MEDICAL HISTORY: Gout Hyperlipidemia PAST SURGICAL HISTORY: Neisha's procedure PAST SOCIAL HISTORY: Denies use tobacco or illicit drugs Current EtOH use FAMILY HISTORY: Noncontributory PHYSICAL EXAM: GENERAL: Alert and oriented x 3. No acute distress. Well-nourished. EYES: EOMI. Anicteric. HENT: Moist mucous membranes. No scleral icterus. No cervical lymphadenopathy. LUNGS: Clear to auscultation bilaterally. No accessory muscle use. CARDIOVASCULAR: Regular rate and rhythm. No murmur. No JVD. ABDOMEN: Soft, non-tender and non-distended. No palpable masses. EXTREMITIES: No edema. Non-tender.?SKIN: No rashes or lesions. Warm. NEUROLOGIC: No focal neurological deficits. CN II-XII grossly intact, but not individually tested. PSYCHIATRIC: Cooperative. Appropriate mood and affect. MEDICATIONS: [ ] Current Medications Medications (Trade) Dose Ordered Sig/Krishan Route PRN Reason Start Time Stop Time Status Last Admin Dose Admin Acetaminophen (TYLenol 325MG TAB) 650 mg Q4H PRN PO TEMPERATURE GREATER THAN 101.5 03/06/24 12:30 04/05/24 12:29 Acetaminophen (TYLenol 650MG SUPPOSITORY) 650 mg Q6H PRN RC MILD PAIN (1-3) 03/03/24 22:30 03/06/24 12:11 DC Acetylcysteine (MUComyst 10% 4ML) 400mg = 4ml [id number] IH 03/05/24 12:00 03/05/24 11:36 DC Cefazolin Sodium (Ancef) 2 gm Q8H IVPB 03/09/24 16:30 03/09/24 11:29 DC Cefazolin Sodium (Ancef) 2 gm Q8H IVPB 03/09/24 16:30 03/19/24 16:29 03/14/24 09:50 2 GM Famotidine (Pepcid 20mg Vial) 20 mg DAILY IV 03/04/24 09:00 04/03/24 08:59 03/14/24 09:50 20 MG Famotidine (Pepcid 20mg Vial) 20 mg ONCE STAT IV 03/03/24 18:30 03/03/24 18:32 DC 03/03/24 20:11 20 MG Hydralazine HCl (APRESOLine 20MG INJ) 10 mg Q6H PRN IV For:SBP above 160;DBP above 90 03/03/24 22:30 04/02/24 22:29 Hydromorphone HCl (DiLAUDid 0.5MG INJ) 0.5 mg Q4H PRN IVP SEVERE PAIN (7-10) 03/08/24 16:00 03/10/24 08:19 DC 03/09/24 20:05 0.5 MG Hydromorphone HCl (DiLAUDid 0.5MG INJ) 0.5 mg Q4H PRN IVP SEVERE PAIN (7-10) 03/10/24 10:30 03/15/24 10:29 Ketorolac Tromethamine (toRADol) 15 mg ONCE STAT IV 03/03/24 18:30 03/03/24 18:32 DC 03/03/24 20:11 15 MG Ketorolac Tromethamine (toRADol) 30 mg Q6H IM 03/09/24 12:00 03/09/24 11:25 DC Ketorolac Tromethamine (toRADol) 30 mg Q6H IV 03/09/24 12:00 03/09/24 11:27 DC Ketorolac Tromethamine (toRADol) 30 mg Q6H IVP 03/09/24 12:00 03/14/24 11:59 DC 03/14/24 05:46 30 MG Lactated Ringer's 1,000 ml @ 100 mls/hr Q10H IV 03/03/24 22:30 03/06/24 07:54 DC 03/06/24 03:34 100 MLS/HR Magnesium Sulfate 50 ml @ 0 mls/hr PROTOCOL IV 03/13/24 08:30 03/14/24 11:27 DC 03/13/24 08:50 25 MLS/HR Magnesium Sulfate 50 ml @ 0 mls/hr PROTOCOL IV 03/14/24 11:30 04/13/24 11:29 03/14/24 12:49 25 MLS/HR Magnesium Sulfate 50 ml @ 0 mls/hr PROTOCOL PRN IV low mag level 03/04/24 09:30 03/13/24 19:48 DC 03/05/24 20:22 25 MLS/HR Methylprednisolone Sodium Succinate (Solu-medROL 40MG) 40 mg Q8H IVP 03/05/24 12:00 03/05/24 11:36 DC Metronidazole/ Sodium Chloride (flaGYL) 500 mg Q8H IV 03/09/24 11:30 03/19/24 11:29 03/14/24 12:14 500 MG Metronidazole/ Sodium Chloride (flaGYL) 500 mg Q8H IV 03/09/24 12:30 03/09/24 11:27 DC Morphine Sulfate (morPHINE 4MG SYG) 4 mg Q4H PRN IV SEVERE PAIN (7-10) 03/03/24 22:30 03/08/24 09:03 DC 03/08/24 05:44 4 MG Ondansetron HCl (zoFRAN 4MG INJ) 4 mg ONCE STAT IVP 03/03/24 18:30 03/03/24 18:32 DC 03/03/24 20:11 4 MG Ondansetron HCl (zoFRAN 4MG INJ) 4 mg Q6H PRN IV NAUSEA/VOMITING 03/03/24 22:30 04/02/24 22:29 03/12/24 10:35 4 MG Phenol (Sore Throat [place]) 1 spry Q4H PRN PO SORE THROAT 03/11/24 00:00 04/10/24 00:00 03/10/24 23:54 1 SPRY Potassium Chloride 100 ml @ 50 mls/hr AD PRN IV POTASSIUM PROTOCOL 03/04/24 09:30 03/06/24 07:48 DC 03/05/24 06:32 50 MLS/HR Potassium Chloride 100 ml @ 100 mls/hr AD PRN IV POTASSIUM PROTOCOL 03/06/24 08:00 04/05/24 07:59 03/13/24 01:23 100 MLS/HR Potassium Chloride 100 ml @ 100 mls/hr Q1H IV 03/12/24 16:00 03/12/24 19:59 DC 03/12/24 19:53 100 MLS/HR Potassium Chloride 100 ml @ 100 mls/hr Q1H IV 03/13/24 20:00 03/14/24 01:59 DC 03/14/24 02:09 100 MLS/HR Potassium Chloride (K-Dur/Klor-Con 20meq) 20 meq AD PRN PO POTASSIUM PROTOCOL 03/06/24 08:00 04/05/24 07:59 03/11/24 20:15 20 MEQ Potassium Chloride (KCl 10% Elixir 20meq/15ml) 20 meq AD PRN PO POTASSIUM PROTOCOL 03/06/24 08:00 04/05/24 07:59 03/14/24 10:57 20 MEQ Simethicone (Mylicon) 80 mg PCHS PRN PO GI GAS 03/06/24 12:30 04/05/24 12:29 03/06/24 21:35 80 MG Sodium Chloride 1,000 ml @ 125 mls/hr Q8H IV 03/08/24 17:00 04/07/24 16:59 03/14/24 10:56 125 MLS/HR Sodium Chloride 1,000 ml @ 1,000 mls/hr Q1H STAT IV 03/03/24 20:00 12/9/24 20:59 DC 03/03/24 20:11 1,000 MLS/HR Vital Signs (last 8hr) Date Time Temp Pulse Resp B/P (MAP) Pulse Ox O2 Delivery O2 Flow Rate FiO2 03/14/24 12:00 98.2 65 18 130/79 98 Room Air 03/14/24 08:00 98 Room Air* 0 21 03/14/24 08:00 98.4 60 17 135/80 98 Room Air DIAGNOSTICS / RADIOLOGY: REASON: nausea and vomiting. Abdominal distension ORDERING PHYSICIAN: PARADISE MANZANARES MD PROCEDURE: ABD PEL WO - CT ABDOMEN/PELVIS W/O CONTRAST CT ABDOMEN/PELVIS W/O CONTRAST HISTORY: Nausea and vomiting COMPARISON: None TECHNIQUE: Multiple sequential axial images of the abdomen and pelvis were obtained from the dome of the diaphragm through symphysis pubis. Patient was not given contrast through intravenous route. Oral contrast was not given. FINDINGS: No pleural effusion is seen bilaterally. There is no evidence of parenchymal disease or pulmonary nodule of the visualized lower lungs. Degenerative changes of the thoracolumbar spine are present. The heart is not enlarged. Liver measured 20 cm. There is gastric distention with small bowel dilatation with air-fluid levels may be related to postop ileus versus small bowel obstruction. Gastrostomy tube is seen. Drainage tube is seen with distal tip in the left lower abdomen. The liver, spleen, adrenal glands and pancreas are unremarkable. There is no evidence of hydronephrosis bilaterally. No evidence of renal stone is seen. Fecal material is seen in the colon. There are normal size retroperitoneal and mesenteric lymph nodes. No ascites is seen. Atherosclerotic changes are present. Pelvic sidewalls are symmetric bilaterally. Bladder is well distended without wall thickening. IMPRESSION: 1. There is gastric distention with small bowel dilatation with air-fluid levels may be related to postop ileus versus small bowel obstruction. Gastrostomy tube is seen. Drainage tube is seen with distal tip in the left lower abdomen. CT was performed with one or more following dose reduction techniques: automated exposure control, adjustment of the mA and kv according to patient's size, or use of a iterative reconstruction technique. DICTATED BY: LUIS BOWDEN MD DATE: 03/12/24 1305 REASON: STRICTURE IN COLON ORDERING PHYSICIAN: ROSSY SYLVESTER Jr. PROCEDURE: ABD 1VW - ABD 1VW Exam Type: ABD 1VW Clinical Information: STRICTURE IN COLON Comparison: None Findings: Abdomen demonstrates no evidence of pathologic calcification or soft tissue mass. There are no radiopacities to suggest calculous disease. There is distention of large bowel without small bowel dilatation. There is distention of large bowel has decreased when compared with prior exam. Nasogastric tube tip in stomach. The bony structures are unremarkable. IMPRESSION: There is distention of large bowel without small bowel dilatation. There is distention of large bowel has decreased when compared with prior exam. DICTATED BY: JENS DEVINE MD DATE: 03/08/24 1545 REASON: sbo ORDERING PHYSICIAN: AGAPITO PRIETO NP PROCEDURE: ABD 1VW - ABD 1VW ABD 1VW REASON: sbo FINDINGS: Single image of the abdomen was obtained. There is persistent marked gaseous distention of the colon to the level of the pelvis. This could represent a low colon obstruction. The small bowel is not distended, and KV and intact ileocecal valve. IMPRESSION: 1. Marked gaseous distention of the colon, this could represent a low colon obstruction. DICTATED BY: LORENA OTERO MD DATE: 03/07/24 1046 REASON: sbo ORDERING PHYSICIAN: ROSSY SYLVESTER Jr. PROCEDURE: ABD 1VW - ABD 1VW ABD 1VW REASON: sbo FINDINGS: Single image of the abdomen was obtained. There is persistent moderate to marked gaseous distention of the colon. Small bowel gas pattern appears normal. Bones and soft tissues appear unremarkable. IMPRESSION: 1. Persistent moderate to marked gaseous distention of the colon, this may represent ileus, a low colon obstruction could cause this appearance as well. DICTATED BY: LORENA OTERO MD DATE: 03/06/24 1218 REASON: SBO ORDERING PHYSICIAN: AGAPITO PRIETO NP PROCEDURE: ABD 1VW - ABD 1VW ABD 1VW REASON: SBO FINDINGS: Single image of the abdomen was obtained. There is an NG tube with tip at the EG junction, sidehole remains in the distal esophagus. There is persistent gaseous distention of multiple large and small bowel loops, bowel gas pattern is unchanged. Soft tissues appear unremarkable. IMPRESSION: 1. NG tube tip just entering the stomach, sidehole remains in the distal esophagus. 2. Distended loops of large and small bowel, unchanged. DICTATED BY: LORENA OTERO MD DATE: 03/04/24 1208 REASON: NG TUBE PLACEMENT ORDERING PHYSICIAN: REHANA OTT MD PROCEDURE: ABD 1VW - ABD 1VW ABD 1VW REASON: NG TUBE PLACEMENT FINDINGS: Single image of the abdomen was obtained. There is an NG tube with tip just entering the stomach, sidehole remains in the distal esophagus. There is moderate gaseous distention of the colon. There is contrast in the pelvicalyceal systems from recent CT scan. IMPRESSION: 1. NG tube tip just entering the stomach, sidehole remains in the distal esophagus. DICTATED BY: LORENA OTERO MD DATE: 03/04/24 0816 REASON: generalzied abdominal pain ORDERING PHYSICIAN: LURDES BAHENA NP PROCEDURE: ABD PEL W - CT ABDOMEN/PELVIS W/CONTRAST CT ABDOMEN/PELVIS W/CONTRAST HISTORY: Abdominal pain COMPARISON: None TECHNIQUE: Multiple sequential axial images of the abdomen and pelvis were obtained from the dome of the diaphragm through symphysis pubis. Patient was given 75 cc of Omnipaque through intravenous route. Oral contrast was not given. FINDINGS: No pleural effusion is seen bilaterally. There is no evidence of parenchymal disease or pulmonary nodule of the visualized lower lungs. Degenerative changes of the thoracolumbar spine are present. The heart is not enlarged. Liver measures 18 cm. Small hiatal hernia is seen. Small bowel loops are not dilated. There is extensive colonic distention with distal colonic obstruction not completely excluded. The liver, spleen, adrenal glands and pancreas are unremarkable. There is no evidence of hydronephrosis bilaterally. No evidence of renal stone is seen. Fecal material is seen in the colon. There are normal size retroperitoneal and mesenteric lymph nodes. No ascites is seen. Atherosclerotic changes are present. Pelvic sidewalls are symmetric bilaterally. Bladder is well distended without wall thickening. IMPRESSION: 1. Extensive colonic distention with distal colonic obstruction cannot excluded. Findings may also be related to constipation. CT was performed with one or more following dose reduction techniques: automated exposure control, adjustment of the mA and kv according to patient's size, or use of a iterative reconstruction technique. DICTATED BY: LUIS BOWDEN MD DATE: 03/03/242051 LABORATORY: [ ] Hematology Labs: Test 03/14/24 05:59 Range/Units White Blood Count 8.9 4.8-10.8 K/uL Red Blood Count 3.44 L 4.50-6.20 MIL/uL Hemoglobin 10.2 L 14.0-18.0 g/dL Hematocrit 31.1 L 42-54 % Mean Corpuscular Volume 90.4 79-99 fL Mean Corpuscular Hemoglobin 29.7 27.0-33.0 pg Mean Corpuscular Hemoglobin Concent 32.8 32.0-36.0 g/dL Red Cell Distribution Width 13.3 11.0-15.5 % Platelet Count 312 130-400 K/uL Mean Platelet Volume 10.4 7.5-10.5 fL Nucleated Red Blood Cells 0.0 0.0-0.19 % Chemistry Labs: Test 03/14/24 05:59 Range/Units Sodium Level 141 136-145 mmol/L Potassium Level 3.0 *L 3.5-5.1 mmol/L Chloride Level 111 101-111 mmol/L Carbon Dioxide Level 24 21-32 mmol/L Blood Urea Nitrogen 12 7-18 mg/dL Creatinine 0.7 0.5-1.3 mg/dL Glomerular Filtration Rate Calc 110 >90 mL/min Random Glucose 113 H 70-105 mg/dL Total Calcium 7.8 L 8.5-10.1 mg/dL Magnesium Level 1.70 L 1.80-2.40 mg/dL Total Bilirubin 0.3 # 0.2-1.0 mg/dL Aspartate Amino Transf (AST/SGOT) 25 10-37 U/L Alanine Aminotransferase (ALT/SGPT) 22 12-78 U/L Alkaline Phosphatase 45 L 50-136 U/L Total Protein 5.5 L 6.0-8.3 g/dL Albumin 2.1 L 3.5-5.0 g/dL ASSESSMENT: Hypokalemia colonic stricture distal of sigmoid evidence per flexible sigmoidoscopy s/p colectomy with colostomy Suspected small bowel obstruction, Intractable abd pain Extensive abdominal distention electrolytes derangement: Hypokalemia Obesity: BMI: 36.1 PLAN: Labs, diagnostic, radiologic exams reviewed and interpreted by myself and supervising physician. We have reviewed external records in detail Obtain a renal ultrasound, obtain plasma renin activity and aldosterone level in the a.m.. Mac replacement has been ordered. Require close monitoring of renal function and electrolytes Order CBC, CMP, and electrolytes in am Continue with antibiotics BiPAP as necessary, for respiratory distress Monitor blood pressure adjust medication doses as needed Avoid hypotensive episodes May use Dilaudid 0.5 mg IV every 6 hours as needed for severe pain Monitor blood sugars Strict intake, output, and daily weight should be monitored Please renally adjust medications Avoid nephrotoxic and nonsteroidal drugs Avoid contrast if possible Will continue to monitor renal function, anemia, electrolytes Treatment plan discussed with patient Questions were answered We have discussed with the other team physicians in detail about the care plan We will continue to monitor the patient closely Thank you for allowing us to participate in the care of this patient ATTESTATION BY PHYSICIAN I have seen and examined the patient. I reviewed the documentation, medical decision making, and treatment plan as noted by the mid-level provider above. I agree with the findings and plan of care. DAJUAN MCDONALD MD, [facility] Mar 14, 2024 14:51
[2024-03-14 16:00] VITALS: BP 135/83; PULSE 63; RESP 19; TEMP 98.3
[2024-03-14] MEDS: acetaMINOPHEN 325 MG TAB PO PRN (16:46)
[2024-03-14 20:00] VITALS: BP 130/63; PULSE 61; RESP 17; TEMP 98.3; O2SAT 99
--- NOTE | 2024-03-14 23:01 | HMCIMG ---
US RENAL SONOGRAM HISTORY: Acute renal insufficiency COMPARISON: None TECHNIQUE: Renal and bladder ultrasound study was performed. FINDINGS: The right kidney measures 12.2 x 6.1 x 4.6 cm. The left kidney measures 12.1 x 5.6 x 5.5 cm. No evidence of hydronephrosis is seen of either kidney. Both kidneys are seen. Bladder is poorly visualized due to overlying bandages. IMPRESSION: 1. No hydronephrosis is seen.
[2024-03-15] VITALS (7 sets, daily range): BP systolic 125–143; BP diastolic 64–80; PULSE 53–68; RESP 16–19; TEMP 97.7–98.8; O2SAT 97–98
[2024-03-15 05:14] LABS: BASOPHILS # (AUTO) 0.03 K/uL (0.00-0.20); BASOPHILS % (AUTO) 0.4 % (0.0-5.0); EOSINOPHILS % (AUTO) 2.6 % (0.0-8.0); HEMATOCRIT 30.7 % (42-54); IMMATURE GRANULOCYTE ABSOLUTE 0.09 K/uL (0-1); LYMPHOCYTES # (AUTO) 0.9 K/uL (1.0-4.8); LYMPHOCYTES % (AUTO) 11.3 % (21.0-51.0); MEAN CORPUSCULAR HEMOGLOBIN 29.6 pg (27.0-33.0); MEAN CORPUSCULAR HGB CONC 33.9 g/dL (32.0-36.0); MEAN CORPUSCULAR VOLUME 87.5 fL (79-99); MONOCYTES # (AUTO) 1.1 K/uL (0.1-1.0); MONOCYTES % (AUTO) 14.6 % (3.0-13.0); NEUTROPHILS # (AUTO) 5.3 K/uL (1.8-7.7); NEUTROPHILS % (AUTO) 69.9 % (40.0-77.0); PLATELET COUNT (AUTO) 363 K/uL (130-400); RED BLOOD CELL COUNT(AUTO) 3.51 MIL/uL (4.50-6.20); RED CELL DISTRIBUTION WIDTH 13.1 % (11.0-15.5); WHITE BLOOD COUNT (AUTO) 7.6 K/uL (4.8-10.8)
[2024-03-15 05:32] LABS: BILIRUBIN,TOTAL 0.3 mg/dL (0.2-1.0); CREATININE 0.7 mg/dL (0.5-1.3); MAGNESIUM 1.7 mg/dL (1.80-2.40); PHOSPHORUS 2.8 mg/dL (2.5-4.9); TOTAL PROTEIN, SERUM 5.5 g/dL (6.0-8.3)
[2024-03-15 05:43] LABS: POTASSIUM 2.9 mmol/L (3.5-5.1)
--- NOTE | 2024-03-15 08:30 | NUR ---
MEDS: MEDICATIONS ADMINISTERED & PT TOLERATED WELL. EMPTY OUT COLOSTOMY, 500 ML
[2024-03-15] MEDS ORDERED: MAGNESIUM 2GM PREMIX 50ML 50 ML IV SCH (10:00)
--- NOTE | 2024-03-15 10:21 | PN ---
[facility] PROGRESS NOTE Date of Service: Mar 15, 2024 Time of Service: 10:21 SUBJECTIVE: [ ] This is a 53-year-old male was admitted on 03/03/2024 presents in ED with chief complaints of abdominal pain. ER workup was consistent with small- bowel obstruction. NGT tube was placed in ED and surgeon was consulted. Patient was seen and examined this morning no output from NG tube patient appears distended. the patient remain Bowel rest until seen by surgeon: will follow recommendations: ordered a repeat KUB for this morning. 03/05/24 Patient is seen and examined with the attending, reviewed chart and discussed. Patient was seen by general surgeon continue conservative management. Patient had four BMs was given suppository laxative. Patient's potassium 2.9 was replaced early this morning we will repeat level and replace as needed we will wait for surgeon continues with NG tube and bowel rest. Repeat KUB: Distended loops of large and small bowel, unchanged. 03/06/24 patient is seen and examined reviewed chart discussed case with attending. Patient continues with hypokalemia patient is tolerating clear liquid no surgical intervention on this admission we will repeat potassium level at noon. Patient reports no nausea vomiting or abdominal pain. 03/07/24 the patient seen and examined,, the patient continue with abd distention had small bm this moring tolerating CLD General surgeon concern with colonic ileus consulted GI for possible colonoscopy. The patient was made aware a GI specialist will be seeing him today. 03/08/24 the patient was evaluated by GI scheduled patient flex sigmoid today will follow up result: cont Bowel rest with NGT to LIWS. cont with Nauseated. The patient denies chest pain or sob Given to findings of flexible sigmoidoscopy stricture of distal sigmoid will need surgery high risk for perforation today per Dr Watkins ex lap and diversion. The patient aware of risk and benefit is agreement with surgeon recommendations. DR Parnell evaluated the patient reviewed imaging: will scheduled the patient tomorrow am. 03/09/24: the patient was seen earlier: s/p POD 0 open sigmoid colectomy : the patient is doing well, abd binder colostomy bag: and j p drain: right upper quad encouraged to use IS while awake will follow Dr Parnell post operative recommendations. started the patient on Cefazolin 2 gm Q8hrs, metribudazike 500mg po Q8 hrs. will be monitored closed: continue with IV fluids. 03/10/24 s/p sigmoid colectomy: Day 1 physical therapy will work with patient today out of bed to chair as tolerated encouraged patient to use his IS while awake. Colostomy with output. NG tube with very minimal output. We will follow postoperative recommendations from surgeon. Patient denied chest pain shortness a breath. 03/11/24 the patient is seen and examined, reviewed chart: s/p POD 2 cont with NGT with LIWS with 350 output colostomy output: 1500 ml persistent hypokalemia 2.7 being replaced. will repeat potassium level: will follow post operative recommendations. will start CLD DC NG tube 03/12 the patient is seen and examined earlier this morning, had episode of emesis several times last night, noted to have abdominal distention, hemodynamically stable, no chest pain, no shortness a breath. Currently getting potassium supplementation IV per protocol. 03/13 patient is seen and examined this morning, acute events overnight, he is alert and oriented x3, hemodynamically stable, feels less distended, results of CT of the abdomen performed yesterday input reviewed and discussed with the aim of the at the bedside, patient was started back on clear liquid diet per General surgery, he is tolerating well, he is currently getting potassium IV per protocol during my visit. Already seen by General surgery, dressing changed. 03/14 the patient has been seen and examined today, no acute events overnight, diet has been advanced to full liquid diet, tolerating well, no nausea, no vomiting, no abdominal pain. Patient is still with persistent hypokalemia, potassium level at 3.0. We will continue to replace IV per protocol. Magnesium level of 1.7, we will give 2 g of magnesium sulfate IV x1. Nephrology consultation requested, follow input and recommendation. Follow urine electrolytes. Discussed with the patient, all questions answered, in agreement 03/15 patient is seen and examined today during rounding, no acute events overnight, remains hemodynamically stable, no chest pain, no shortness a breath, no nausea, no vomiting, he feels less distended, passing gas. Remains on full liquid diet, tolerating well. Potassium level remains low at 2.9, magnesium 1.7, we will replace IV per protocol, patient evaluated by extermination supervisor, aldosterone renin level ordered, we will follow up. REVIEW OF SYSTEMS CONSTITUTIONAL: Denies fevers, chills, or night sweats. No unintentional weight loss reported. NEUROLOGICAL: Denies headache, amaurosis fugax, motor weakness, sensory deficit, vertigo/spinning sensation, gait abnormalities, or tremors. ENT: No hearing loss, otalgia, otorrhea, rhinitis, rhinorrhea, hoarseness, or sore throat. CARDIOVASCULAR: Denies any exertional angina, dyspnea on exertion, orthopnea, paroxysmal nocturnal dyspnea, palpitations, life-threatening arrhythmias, claudication. PULMONARY: Denies any shortness of breath, cough, phlegm/sputum, hemoptysis, pleuritic chest pain. SLEEP: Denies morning headaches, daytime somnolence or napping. Denies difficulty falling asleep, staying asleep, waking from sleep. Denies knowledge of snoring. GASTROINTESTINAL: Denies any type of dysphagia to either liquids or solids. Denies nausea, vomiting, pyrosis, early satiety, abdominal pain, diarrhea, constipation, or changes in stool consistency or caliber. Denies coffee-ground emesis, hematemesis, hematochezia, or melanotic stools. GENITOURINARY: Denies frequency, urgency, nocturia, hematuria or incontinence (Storage/Irritative symptoms.) Low urinary stream, straining to void, urinary intermittency or hesitancy, splitting of the voiding stream, terminal dribbling. ENDOCRINOLOGIC: Denies polyuria, polydipsia, polyphagia or heat/cold intolerances. HEMATOLOGIC: Denies thrombophilia/previous clots, or coagulopathy/bleeding disorders. ONCOLOGIC: Denies personal history of malignancy. DERMATOLOGIC: Denies rashes or pruritus. PSYCHIATRIC: Denies any suicidal or homicidal ideation. Denies hallucinations. PHYSICAL EXAM GENERAL APPEARANCE: The patient is awake, alert, and oriented, in no acute cardiopulmonary distress. NEUROLOGICAL: Cranial nerves II-XII grossly intact. Motor is 5/5 in bilateral upper and lower extremities proximal to distal. No sensory deficits. HEENT: Face is symmetric. Pupils are equal and reactive. Extraocular movements are intact. NECK: Supple. No JVD. No thyromegaly. No submental, submandibular, pre- /postauricular, occipital or supraclavicular lymphadenopathy. CHEST: Normal chest expansion. No Telemetry. LUNGS: Absence of any rales, rhonchi or any wheezing. CARDIOVASCULAR: Regular. S1 and S2 normal. No appreciable rubs, murmurs or gallops. ABDOMEN: Less distended, binder in place. : Deferred. No Sagastume. EXTREMITIES: Non-edematous and not cyanotic. No clubbing. Good capillary refill. SKIN: No skin breakdown. Vital Signs (last 8hr) Date Time Temp Pulse Resp B/P (MAP) Pulse Ox O2 Delivery O2 Flow Rate FiO2 03/15/24 08:00 97 Room Air* 0 21 03/15/24 08:00 98.4 61 19 125/80 97 Room Air 03/15/24 04:00 97.9 68 19 128/64 99 Room Air LABS: Laboratory: Test 03/15/24 04:37 Range/Units White Blood Count 7.6 4.8-10.8 K/uL Red Blood Count 3.51 L 4.50-6.20 MIL/uL Hemoglobin 10.4 L 14.0-18.0 g/dL Hematocrit 30.7 L 42-54 % Mean Corpuscular Volume 87.5 79-99 fL Mean Corpuscular Hemoglobin 29.6 27.0-33.0 pg Mean Corpuscular Hemoglobin Concent 33.9 32.0-36.0 g/dL Red Cell Distribution Width 13.1 11.0-15.5 % Platelet Count 363 130-400 K/uL Mean Platelet Volume 10.6 H 7.5-10.5 fL Immature Granulocyte % (Auto) 1.2 H 0-1 % Neutrophils (%) (Auto) 69.9 40.0-77.0 % Lymphocytes (%) (Auto) 11.3 L 21.0-51.0 % Monocytes (%) (Auto) 14.6 H 3.0-13.0 % Eosinophils (%) (Auto) 2.6 0.0-8.0 % Basophils (%) (Auto) 0.4 0.0-5.0 % Neutrophils # (Auto) 5.3 1.8-7.7 K/uL Lymphocytes # (Auto) 0.9 L 1.0-4.8 K/uL Monocytes # (Auto) 1.1 H 0.1-1.0 K/uL Eosinophils # (Auto) 0.20 0.00-0.70 K/uL Basophils # (Auto) 0.03 0.00-0.20 K/uL Absolute Immature Granulocyte (auto 0.09 0-1 K/uL Nucleated Red Blood Cells 0.0 0.0-0.19 % Sodium Level 141 136-145 mmol/L Potassium Level 2.9 *L 3.5-5.1 mmol/L Chloride Level 109 101-111 mmol/L Carbon Dioxide Level 27 21-32 mmol/L Blood Urea Nitrogen 7 7-18 mg/dL Creatinine 0.7 0.5-1.3 mg/dL Glomerular Filtration Rate Calc 110 >90 mL/min Random Glucose 112 H 70-105 mg/dL Total Calcium 7.7 L 8.5-10.1 mg/dL Phosphorus Level 2.8 2.5-4.9 mg/dL Magnesium Level 1.70 L 1.80-2.40 mg/dL Total Bilirubin 0.3 0.2-1.0 mg/dL Aspartate Amino Transf (AST/SGOT) 30 10-37 U/L Alanine Aminotransferase (ALT/SGPT) 23 12-78 U/L Alkaline Phosphatase 44 L 50-136 U/L Total Protein 5.5 L 6.0-8.3 g/dL Albumin 2.0 L 3.5-5.0 g/dL Current Medications Medications (Trade) Dose Ordered Sig/Krishan Route PRN Reason Start Time Stop Time Status Last Admin Dose Admin Acetaminophen (TYLenol 325MG TAB) 650 mg Q4H PRN PO TEMPERATURE GREATER THAN 101.5 03/06/24 12:30 04/05/24 12:29 03/14/24 16:46 650 MG Acetaminophen (TYLenol 650MG SUPPOSITORY) 650 mg Q6H PRN RC MILD PAIN (1-3) 03/03/24 22:30 03/06/24 12:11 DC Acetylcysteine (MUComyst 10% 4ML) 400mg = 4ml [id number] IH 03/05/24 12:00 03/05/24 11:36 DC Cefazolin Sodium (Ancef) 2 gm Q8H IVPB 03/09/24 16:30 03/09/24 11:29 DC Cefazolin Sodium (Ancef) 2 gm Q8H IVPB 03/09/24 16:30 03/19/24 16:29 03/15/24 08:31 2 GM Famotidine (Pepcid 20mg Vial) 20 mg DAILY IV 03/04/24 09:00 04/03/24 08:59 03/15/24 08:31 20 MG Famotidine (Pepcid 20mg Vial) 20 mg ONCE STAT IV 03/03/24 18:30 03/03/24 18:32 DC 03/03/24 20:11 20 MG Hydralazine HCl (APRESOLine 20MG INJ) 10 mg Q6H PRN IV For:SBP above 160;DBP above 90 03/03/24 22:30 04/02/24 22:29 Hydromorphone HCl (DiLAUDid 0.5MG INJ) 0.5 mg Q4H PRN IVP SEVERE PAIN (7-10) 03/08/24 16:00 03/10/24 08:19 DC 03/09/24 20:05 0.5 MG Hydromorphone HCl (DiLAUDid 0.5MG INJ) 0.5 mg Q4H PRN IVP SEVERE PAIN (7-10) 03/10/24 10:30 03/15/24 10:29 Ketorolac Tromethamine (toRADol) 15 mg ONCE STAT IV 03/03/24 18:30 03/03/24 18:32 DC 03/03/24 20:11 15 MG Ketorolac Tromethamine (toRADol) 30 mg Q6H IM 03/09/24 12:00 03/09/24 11:25 DC Ketorolac Tromethamine (toRADol) 30 mg Q6H IV 03/09/24 12:00 03/09/24 11:27 DC Ketorolac Tromethamine (toRADol) 30 mg Q6H IVP 03/09/24 12:00 03/14/24 11:59 DC 03/14/24 05:46 30 MG Lactated Ringer's 1,000 ml @ 100 mls/hr Q10H IV 03/03/24 22:30 03/06/24 07:54 DC 03/06/24 03:34 100 MLS/HR Magnesium Sulfate 50 ml @ 0 mls/hr PROTOCOL IV 03/13/24 08:30 03/14/24 11:27 DC 03/13/24 08:50 25 MLS/HR Magnesium Sulfate 50 ml @ 0 mls/hr PROTOCOL IV 03/14/24 11:30 03/15/24 09:44 DC 03/14/24 12:49 25 MLS/HR Magnesium Sulfate 50 ml @ 0 mls/hr PROTOCOL IV 03/15/24 10:00 04/14/24 09:59 Magnesium Sulfate 50 ml @ 0 mls/hr PROTOCOL PRN IV low mag level 03/04/24 09:30 03/13/24 19:48 DC 03/05/24 20:22 25 MLS/HR Methylprednisolone Sodium Succinate (Solu-medROL 40MG) 40 mg Q8H IVP 03/05/24 12:00 03/05/24 11:36 DC Metronidazole/ Sodium Chloride (flaGYL) 500 mg Q8H IV 03/09/24 11:30 03/19/24 11:29 03/15/24 02:45 500 MG Metronidazole/ Sodium Chloride (flaGYL) 500 mg Q8H IV 03/09/24 12:30 03/09/24 11:27 DC Morphine Sulfate (morPHINE 4MG SYG) 4 mg Q4H PRN IV SEVERE PAIN (7-10) 03/03/24 22:30 03/08/24 09:03 DC 03/08/24 05:44 4 MG Ondansetron HCl (zoFRAN 4MG INJ) 4 mg ONCE STAT IVP 03/03/24 18:30 03/03/24 18:32 DC 03/03/24 20:11 4 MG Ondansetron HCl (zoFRAN 4MG INJ) 4 mg Q6H PRN IV NAUSEA/VOMITING 03/03/24 22:30 04/02/24 22:29 03/12/24 10:35 4 MG Phenol (Sore Throat Willcox) 1 spry Q4H PRN PO SORE THROAT 03/11/24 00:00 04/10/24 00:00 03/10/24 23:54 1 SPRY Potassium Chloride 100 ml @ 50 mls/hr AD PRN IV POTASSIUM PROTOCOL 03/04/24 09:30 03/06/24 07:48 DC 03/05/24 06:32 50 MLS/HR Potassium Chloride 100 ml @ 100 mls/hr AD PRN IV POTASSIUM PROTOCOL 03/06/24 08:00 04/05/24 07:59 03/15/24 06:18 100 MLS/HR Potassium Chloride 100 ml @ 100 mls/hr Q1H IV 03/12/24 16:00 03/12/24 19:59 DC 03/12/24 19:53 100 MLS/HR Potassium Chloride 100 ml @ 100 mls/hr Q1H IV 03/13/24 20:00 03/14/24 01:59 DC 03/14/24 02:09 100 MLS/HR Potassium Chloride (K-Dur/Klor-Con 20meq) 20 meq AD PRN PO POTASSIUM PROTOCOL 03/06/24 08:00 04/05/24 07:59 03/11/24 20:15 20 MEQ Potassium Chloride (KCl 10% Elixir 20meq/15ml) 20 meq AD PRN PO POTASSIUM PROTOCOL 03/06/24 08:00 04/05/24 07:59 03/14/24 18:11 20 MEQ Simethicone (Mylicon) 80 mg PCHS PRN PO GI GAS 03/06/24 12:30 04/05/24 12:29 03/14/24 23:45 80 MG Sodium Chloride 1,000 ml @ 125 mls/hr Q8H IV 03/08/24 17:00 04/07/24 16:59 03/15/24 08:33 125 MLS/HR Sodium Chloride 1,000 ml @ 1,000 mls/hr Q1H STAT IV 03/03/24 20:00 03/03/24 20:59 DC 03/03/24 20:11 1,000 MLS/HR DIAGNOSTICS / RADIOLOGY: [ ] ASSESSMENT: colonic stricture distal of sigmoid evidence per flexible sigmoidoscopy s/p colectomy with colostomy Suspected small bowel obstruction, POA Intractable abd pain POA Extensive abdominal distention POA electrolytes derangement: Hypokalemia POA Obesity: BMI: 36.1 POA chronic problems; Hyperlipidemia Gout] obesity PLAN: [ ] Remain in Surgical floor GI: s/p flexible sigmoidoscopy found stricture distal sigmoid sigmoid colectomy will follow post operative recommendations POD#2 will monitor colostomy site and RADHA drain output. continue with abd binder. Diet: CLD as per surgeon discontinue NGT encouraged to ambulate TID oob to chair as tolerated PT services to eval IS while awake cont with pain management for adequate pain controlled Replaced electrolytes potassium and magnesium to keep potassium >4.0 and mag: > 2.0 DVT: SCD applied GI: PUD ppx and pain management PRN: MEDICATIONS Zofran 4 mg IV every 6 hrs for n/v further orders as per response to tx. Disposition: Remains admitted to medical floor, continue full liquid diet, replace electrolytes IV per protocol, follow surgical and Nephrology input and recommendation. Plan of action discussed in detail with the patient, all questions answered, agreed and understood the information provided PARADISE MANZANARES MD Mar 15, 2024 10:21
[2024-03-15 15:06] LABS: CHLORIDE,URINE RANDOM 202 mmol/L (110-250); POTASSIUM,URINE RANDOM 20 mmol/L (25-125); SODIUM,URINE RANDOM 134 mmol/l (40-220)
--- NOTE | 2024-03-15 15:52 | PN ---
NEPHROLOGY PROGRESS NOTE Date/Time Patient Seen: Mar 15, 2024 SUBJECTIVE: This is a 53-year-old male with a past medical history of hyperlipidemia and gout He presented to the emergency with complaints of abdominal pain. He has been in the hospital for several days. He was admitted further evaluation and management of suspected small-bowel obstruction. S/p Neisha procedure. He continues to be followed by surgery. He was noted for hypokalemia. Potassium today was 2.9, replacement has been ordered. Pending urine electrolytes, creatinine, osmolality and plasma renin activity and aldosterone. Was seen in the medical floor, in no acute distress No family at the bedside Prognosis remains guarded REVIEW OF SYSTEMS: GENERAL: Negative for any nausea, vomiting, fevers, chills, or weight loss. NEUROLOGIC: Negative for any blurry vision, blind spots, double vision, facial asymmetry, dysphagia, dysarthria, hemiparesis, hemisensory deficits, vertigo, ataxia. HEENT: Negative for any head trauma, neck trauma, neck stiffness, photophobia, phonophobia, sinusitis, rhinitis. CARDIAC: Negative for any chest pain, dyspnea on exertion, paroxysmal nocturnal dyspnea, peripheral edema. PULMONARY: Negative for any shortness of breath, wheezing, COPD, or TB exposure. GASTROINTESTINAL: Negative for any abdominal pain, nausea, vomiting, bright red blood per rectum, melena. GENITOURINARY: Negative for any dysuria, hematuria, incontinence. INTEGUMENTARY: Negative for any rashes, cuts, insect bites. RHEUMATOLOGIC: Negative for any joint pains, photosensitive rashes, history of vasculitis or kidney problems. HEMATOLOGIC: Negative for any abnormal bruising, frequent infections or bleeding. PHYSICAL EXAM: GENERAL: Alert and oriented x 3. No acute distress. Well-nourished. EYES: EOMI. Anicteric. HENT: Moist mucous membranes. No scleral icterus. No cervical lymphadenopathy. LUNGS: Clear to auscultation bilaterally. No accessory muscle use. CARDIOVASCULAR: Regular rate and rhythm. No murmur. No JVD. ABDOMEN: Soft, non-tender and non-distended. No palpable masses. EXTREMITIES: No edema. Non-tender.?SKIN: No rashes or lesions. Warm. NEUROLOGIC: No focal neurological deficits. CN II-XII grossly intact, but not individually tested. PSYCHIATRIC: Cooperative. Appropriate mood and affect. LABORATORY: [ ] Hematology Labs: Test 03/15/24 04:37 Range/Units White Blood Count 7.6 4.8-10.8 K/uL Red Blood Count 3.51 L 4.50-6.20 MIL/uL Hemoglobin 10.4 L 14.0-18.0 g/dL Hematocrit 30.7 L 42-54 % Mean Corpuscular Volume 87.5 79-99 fL Mean Corpuscular Hemoglobin 29.6 27.0-33.0 pg Mean Corpuscular Hemoglobin Concent 33.9 32.0-36.0 g/dL Red Cell Distribution Width 13.1 11.0-15.5 % Platelet Count 363 130-400 K/uL Mean Platelet Volume 10.6 H 7.5-10.5 fL Immature Granulocyte % (Auto) 1.2 H 0-1 % Neutrophils (%) (Auto) 69.9 40.0-77.0 % Lymphocytes (%) (Auto) 11.3 L 21.0-51.0 % Monocytes (%) (Auto) 14.6 H 3.0-13.0 % Eosinophils (%) (Auto) 2.6 0.0-8.0 % Basophils (%) (Auto) 0.4 0.0-5.0 % Neutrophils # (Auto) 5.3 1.8-7.7 K/uL Lymphocytes # (Auto) 0.9 L 1.0-4.8 K/uL Monocytes # (Auto) 1.1 H 0.1-1.0 K/uL Eosinophils # (Auto) 0.20 0.00-0.70 K/uL Basophils # (Auto) 0.03 0.00-0.20 K/uL Absolute Immature Granulocyte (auto 0.09 0-1 K/uL Nucleated Red Blood Cells 0.0 0.0-0.19 % Chemistry Labs: Test 03/15/24 04:37 Range/Units Sodium Level 141 136-145 mmol/L Potassium Level 2.9 *L 3.5-5.1 mmol/L Chloride Level 109 101-111 mmol/L Carbon Dioxide Level 27 21-32 mmol/L Blood Urea Nitrogen 7 7-18 mg/dL Creatinine 0.7 0.5-1.3 mg/dL Glomerular Filtration Rate Calc 110 >90 mL/min Random Glucose 112 H 70-105 mg/dL Total Calcium 7.7 L 8.5-10.1 mg/dL Phosphorus Level 2.8 2.5-4.9 mg/dL Magnesium Level 1.70 L 1.80-2.40 mg/dL Total Bilirubin 0.3 0.2-1.0 mg/dL Aspartate Amino Transf (AST/SGOT) 30 10-37 U/L Alanine Aminotransferase (ALT/SGPT) 23 12-78 U/L Alkaline Phosphatase 44 L 50-136 U/L Total Protein 5.5 L 6.0-8.3 g/dL Albumin 2.0 L 3.5-5.0 g/dL DIAGNOSTICS / RADIOLOGY: REASON: nausea and vomiting. Abdominal distension ORDERING PHYSICIAN: PARADISE MANZANARES MD PROCEDURE: ABD PEL WO - CT ABDOMEN/PELVIS W/O CONTRAST CT ABDOMEN/PELVIS W/O CONTRAST HISTORY: Nausea and vomiting COMPARISON: None TECHNIQUE: Multiple sequential axial images of the abdomen and pelvis were obtained from the dome of the diaphragm through symphysis pubis. Patient was not given contrast through intravenous route. Oral contrast was not given. FINDINGS: No pleural effusion is seen bilaterally. There is no evidence of parenchymal disease or pulmonary nodule of the visualized lower lungs. Degenerative changes of the thoracolumbar spine are present. The heart is not enlarged. Liver measured 20 cm. There is gastric distention with small bowel dilatation with air-fluid levels may be related to postop ileus versus small bowel obstruction. Gastrostomy tube is seen. Drainage tube is seen with distal tip in the left lower abdomen. The liver, spleen, adrenal glands and pancreas are unremarkable. There is no evidence of hydronephrosis bilaterally. No evidence of renal stone is seen. Fecal material is seen in the colon. There are normal size retroperitoneal and mesenteric lymph nodes. No ascites is seen. Atherosclerotic changes are present. Pelvic sidewalls are symmetric bilaterally. Bladder is well distended without wall thickening. IMPRESSION: 1. There is gastric distention with small bowel dilatation with air-fluid levels may be related to postop ileus versus small bowel obstruction. Gastrostomy tube is seen. Drainage tube is seen with distal tip in the left lower abdomen. CT was performed with one or more following dose reduction techniques: automated exposure control, adjustment of the mA and kv according to patient's size, or use of a iterative reconstruction technique. DICTATED BY: LUIS BOWDEN MD DATE: 03/12/24 1305 REASON: STRICTURE IN COLON ORDERING PHYSICIAN: ROSSY SYLVESTER Jr. PROCEDURE: ABD 1VW - ABD 1VW Exam Type: ABD 1VW Clinical Information: STRICTURE IN COLON Comparison: None Findings: Abdomen demonstrates no evidence of pathologic calcification or soft tissue mass. There are no radiopacities to suggest calculous disease. There is distention of large bowel without small bowel dilatation. There is distention of large bowel has decreased when compared with prior exam. Nasogastric tube tip in stomach. The bony structures are unremarkable. IMPRESSION: There is distention of large bowel without small bowel dilatation. There is distention of large bowel has decreased when compared with prior exam. DICTATED BY: JENS DEVINE MD DATE: 03/08/24 1545 REASON: sbo ORDERING PHYSICIAN: AGAPITO PRIETO NP PROCEDURE: ABD 1VW - ABD 1VW ABD 1VW REASON: sbo FINDINGS: Single image of the abdomen was obtained. There is persistent marked gaseous distention of the colon to the level of the pelvis. This could represent a low colon obstruction. The small bowel is not distended, and KV and intact ileocecal valve. IMPRESSION: 1. Marked gaseous distention of the colon, this could represent a low colon obstruction. DICTATED BY: LORENA OTERO MD DATE: 03/07/24 1046 REASON: sbo ORDERING PHYSICIAN: ROSSY SYLVESTER Jr. PROCEDURE: ABD 1VW - ABD 1VW ABD 1VW REASON: sbo FINDINGS: Single image of the abdomen was obtained. There is persistent moderate to marked gaseous distention of the colon. Small bowel gas pattern appears normal. Bones and soft tissues appear unremarkable. IMPRESSION: 1. Persistent moderate to marked gaseous distention of the colon, this may represent ileus, a low colon obstruction could cause this appearance as well. DICTATED BY: LORENA OTERO MD DATE: 03/06/24 1218 REASON: SBO ORDERING PHYSICIAN: AGAPITO PRIETO NP PROCEDURE: ABD 1VW - ABD 1VW ABD 1VW REASON: SBO FINDINGS: Single image of the abdomen was obtained. There is an NG tube with tip at the EG junction, sidehole remains in the distal esophagus. There is persistent gaseous distention of multiple large and small bowel loops, bowel gas pattern is unchanged. Soft tissues appear unremarkable. IMPRESSION: 1. NG tube tip just entering the stomach, sidehole remains in the distal esophagus. 2. Distended loops of large and small bowel, unchanged. DICTATED BY: LORENA OTERO MD DATE: 03/04/24 1208 REASON: NG TUBE PLACEMENT ORDERING PHYSICIAN: REHANA OTT MD PROCEDURE: ABD 1VW - ABD 1VW ABD 1VW REASON: NG TUBE PLACEMENT FINDINGS: Single image of the abdomen was obtained. There is an NG tube with tip just entering the stomach, sidehole remains in the distal esophagus. There is moderate gaseous distention of the colon. There is contrast in the pelvicalyceal systems from recent CT scan. IMPRESSION: 1. NG tube tip just entering the stomach, sidehole remains in the distal esophagus. DICTATED BY: LORENA OTERO MD DATE: 03/04/24 0816 REASON: generalzied abdominal pain ORDERING PHYSICIAN: LURDES BAHENA NP PROCEDURE: ABD PEL W - CT ABDOMEN/PELVIS W/CONTRAST CT ABDOMEN/PELVIS W/CONTRAST HISTORY: Abdominal pain COMPARISON: None TECHNIQUE: Multiple sequential axial images of the abdomen and pelvis were obtained from the dome of the diaphragm through symphysis pubis. Patient was given 75 cc of Omnipaque through intravenous route. Oral contrast was not given. FINDINGS: No pleural effusion is seen bilaterally. There is no evidence of parenchymal disease or pulmonary nodule of the visualized lower lungs. Degenerative changes of the thoracolumbar spine are present. The heart is not enlarged. Liver measures 18 cm. Small hiatal hernia is seen. Small bowel loops are not dilated. There is extensive colonic distention with distal colonic obstruction not completely excluded. The liver, spleen, adrenal glands and pancreas are unremarkable. There is no evidence of hydronephrosis bilaterally. No evidence of renal stone is seen. Fecal material is seen in the colon. There are normal size retroperitoneal and mesenteric lymph nodes. No ascites is seen. Atherosclerotic changes are present. Pelvic sidewalls are symmetric bilaterally. Bladder is well distended without wall thickening. IMPRESSION: 1. Extensive colonic distention with distal colonic obstruction cannot excluded. Findings may also be related to constipation. CT was performed with one or more following dose reduction techniques: automated exposure control, adjustment of the mA and kv according to patient's size, or use of a iterative reconstruction technique. DICTATED BY: LUIS BOWDEN MD DATE: 03/03/242051 ASSESSMENT: Hypokalemia colonic stricture distal of sigmoid evidence per flexible sigmoidoscopy s/p colectomy with colostomy Suspected small bowel obstruction, Intractable abd pain Extensive abdominal distention electrolytes derangement: Hypokalemia Obesity: BMI: 36.1 PLAN: Labs, diagnostic, radiologic exams reviewed and interpreted by myself and supervising physician. We have reviewed external records in detail Pending urine electrolytes, creatinine, osmolality and plasma renin activity and aldosterone. Potassium replacement has been ordered. Require close monitoring of renal function and electrolytes Order CBC, CMP, and electrolytes in am Continue with antibiotics BiPAP as necessary, for respiratory distress Monitor blood pressure adjust medication doses as needed Avoid hypotensive episodes May use Dilaudid 0.5 mg IV every 6 hours as needed for severe pain Monitor blood sugars Strict intake, output, and daily weight should be monitored Please renally adjust medications Avoid nephrotoxic and nonsteroidal drugs Avoid contrast if possible Will continue to monitor renal function, anemia, electrolytes Treatment plan discussed with patient Questions were answered We have discussed with the other team physicians in detail about the care plan We will continue to monitor the patient closely ATTESTATION BY PHYSICIAN I have seen and examined the patient. I reviewed the documentation, medical decision making, and treatment plan as noted by the mid-level provider above. I agree with the findings and plan of care. DAJUAN MCDONALD MD, [facility] Mar 15, 2024 15:52
[2024-03-16] VITALS (8 sets, daily range): BP systolic 120–132; BP diastolic 71–79; PULSE 59–69; RESP 16–19; TEMP 98.2–98.7; O2SAT 97
[2024-03-16] MEDS: ketOROlac 15MG/ML VIAL (15MG/ML) IV ONE (01:00)
[2024-03-16 05:01] LABS: BASOPHILS # (AUTO) 0.02 K/uL (0.00-0.20); BASOPHILS % (AUTO) 0.3 % (0.0-5.0); EOSINOPHILS % (AUTO) 2.5 % (0.0-8.0); HEMATOCRIT 29.5 % (42-54); IMMATURE GRANULOCYTE ABSOLUTE 0.12 K/uL (0-1); LYMPHOCYTES # (AUTO) 1.2 K/uL (1.0-4.8); LYMPHOCYTES % (AUTO) 14.8 % (21.0-51.0); MEAN CORPUSCULAR HEMOGLOBIN 29.6 pg (27.0-33.0); MEAN CORPUSCULAR HGB CONC 34.9 g/dL (32.0-36.0); MEAN CORPUSCULAR VOLUME 84.8 fL (79-99); MONOCYTES % (AUTO) 12.8 % (3.0-13.0); NEUTROPHILS # (AUTO) 5.5 K/uL (1.8-7.7); NEUTROPHILS % (AUTO) 68.1 % (40.0-77.0); PLATELET COUNT (AUTO) 364 K/uL (130-400); RED BLOOD CELL COUNT(AUTO) 3.48 MIL/uL (4.50-6.20); RED CELL DISTRIBUTION WIDTH 12.8 % (11.0-15.5)
[2024-03-16 05:16] LABS: BILIRUBIN,TOTAL 0.3 mg/dL (0.2-1.0); CREATININE 0.6 mg/dL (0.5-1.3); MAGNESIUM 1.5 mg/dL (1.80-2.40); TOTAL PROTEIN, SERUM 5.4 g/dL (6.0-8.3)
[2024-03-16 06:04] LABS: POTASSIUM 2.2 mmol/L (3.5-5.1)
--- NOTE | 2024-03-16 06:27 | NUR ---
ATTEMPTED TO PAGE HOSPITALIST ATTEMPTED TO PAGE REGARDING POTASSIUM LEVEL. LINE NOT ANSWERED. PATIENT RUNNING SINUS RHYTHM 62. WILL ATTEMPT TO REPAGE.
[2024-03-16] MEDS: MAGNESIUM 2GM PREMIX 50ML 50 ML IV SCH (09:53)
[2024-03-16] MEDS: PoTASSium chloRIDE 20MEQ/100ML 100 ML IV ONE (09:53)
[2024-03-16] MEDS: PoTASSium chloRIDE 10MEQ/100ML 100 ML IV SCH (09:54)
--- NOTE | 2024-03-16 11:55 | PN ---
[facility] PROGRESS NOTE Date of Service: Mar 16, 2024 Time of Service: 11:44 SUBJECTIVE: [ ] This is a 53-year-old male was admitted on 03/03/2024 presents in ED with chief complaints of abdominal pain. ER workup was consistent with small- bowel obstruction. NGT tube was placed in ED and surgeon was consulted. Patient was seen and examined this morning no output from NG tube patient appears distended. the patient remain Bowel rest until seen by surgeon: will follow recommendations: ordered a repeat KUB for this morning. 03/05/24 Patient is seen and examined with the attending, reviewed chart and discussed. Patient was seen by general surgeon continue conservative management. Patient had four BMs was given suppository laxative. Patient's potassium 2.9 was replaced early this morning we will repeat level and replace as needed we will wait for surgeon continues with NG tube and bowel rest. Repeat KUB: Distended loops of large and small bowel, unchanged. 03/06/24 patient is seen and examined reviewed chart discussed case with attending. Patient continues with hypokalemia patient is tolerating clear liquid no surgical intervention on this admission we will repeat potassium level at noon. Patient reports no nausea vomiting or abdominal pain. 03/07/24 the patient seen and examined,, the patient continue with abd distention had small bm this moring tolerating CLD General surgeon concern with colonic ileus consulted GI for possible colonoscopy. The patient was made aware a GI specialist will be seeing him today. 03/08/24 the patient was evaluated by GI scheduled patient flex sigmoid today will follow up result: cont Bowel rest with NGT to LIWS. cont with Nauseated. The patient denies chest pain or sob Given to findings of flexible sigmoidoscopy stricture of distal sigmoid will need surgery high risk for perforation today per Dr Watkins ex lap and diversion. The patient aware of risk and benefit is agreement with surgeon recommendations. DR Parnell evaluated the patient reviewed imaging: will scheduled the patient tomorrow am. 03/09/24: the patient was seen earlier: s/p POD 0 open sigmoid colectomy : the patient is doing well, abd binder colostomy bag: and j p drain: right upper quad encouraged to use IS while awake will follow Dr Parnell post operative recommendations. started the patient on Cefazolin 2 gm Q8hrs, metribudazike 500mg po Q8 hrs. will be monitored closed: continue with IV fluids. 03/10/24 s/p sigmoid colectomy: Day 1 physical therapy will work with patient today out of bed to chair as tolerated encouraged patient to use his IS while awake. Colostomy with output. NG tube with very minimal output. We will follow postoperative recommendations from surgeon. Patient denied chest pain shortness a breath. 03/11/24 the patient is seen and examined, reviewed chart: s/p POD 2 cont with NGT with LIWS with 350 output colostomy output: 1500 ml persistent hypokalemia 2.7 being replaced. will repeat potassium level: will follow post operative recommendations. will start CLD DC NG tube 03/12 the patient is seen and examined earlier this morning, had episode of emesis several times last night, noted to have abdominal distention, hemodynamically stable, no chest pain, no shortness a breath. Currently getting potassium supplementation IV per protocol. 03/13 patient is seen and examined this morning, acute events overnight, he is alert and oriented x3, hemodynamically stable, feels less distended, results of CT of the abdomen performed yesterday input reviewed and discussed with the aim of the at the bedside, patient was started back on clear liquid diet per General surgery, he is tolerating well, he is currently getting potassium IV per protocol during my visit. Already seen by General surgery, dressing changed. 03/14 the patient has been seen and examined today, no acute events overnight, diet has been advanced to full liquid diet, tolerating well, no nausea, no vomiting, no abdominal pain. Patient is still with persistent hypokalemia, potassium level at 3.0. We will continue to replace IV per protocol. Magnesium level of 1.7, we will give 2 g of magnesium sulfate IV x1. Nephrology consultation requested, follow input and recommendation. Follow urine electrolytes. Discussed with the patient, all questions answered, in agreement 03/15 patient is seen and examined today during rounding, no acute events overnight, remains hemodynamically stable, no chest pain, no shortness a breath, no nausea, no vomiting, he feels less distended, passing gas. Remains on full liquid diet, tolerating well. Potassium level remains low at 2.9, magnesium 1.7, we will replace IV per protocol, patient evaluated by healthcare management, aldosterone renin level ordered, we will follow up. 03/16 the patient has been seen and examined during rounding, patient with persistent hypokalemia, potassium level today at 2.2, he denies nausea, no vomiting, no abdominal discomfort. Patient having high output through the ostomy, per discussion with the nurse 1140 mL in last 24 hours. Remains with a RADHA drainage, total output of 200 mL. Two jodie were removed from midline incision by General surgery few days ago. Wound still with a mild sent weaning use output, no pus. REVIEW OF SYSTEMS CONSTITUTIONAL: Denies fevers, chills, or night sweats. No unintentional weight loss reported. NEUROLOGICAL: Denies headache, amaurosis fugax, motor weakness, sensory deficit, vertigo/spinning sensation, gait abnormalities, or tremors. ENT: No hearing loss, otalgia, otorrhea, rhinitis, rhinorrhea, hoarseness, or sore throat. CARDIOVASCULAR: Denies any exertional angina, dyspnea on exertion, orthopnea, paroxysmal nocturnal dyspnea, palpitations, life-threatening arrhythmias, claudication. PULMONARY: Denies any shortness of breath, cough, phlegm/sputum, hemoptysis, pleuritic chest pain. SLEEP: Denies morning headaches, daytime somnolence or napping. Denies difficulty falling asleep, staying asleep, waking from sleep. Denies knowledge of snoring. GASTROINTESTINAL: Denies any type of dysphagia to either liquids or solids. Denies nausea, vomiting, pyrosis, early satiety, abdominal pain, diarrhea, constipation, or changes in stool consistency or caliber. Denies coffee-ground emesis, hematemesis, hematochezia, or melanotic stools. GENITOURINARY: Denies frequency, urgency, nocturia, hematuria or incontinence (Storage/Irritative symptoms.) Low urinary stream, straining to void, urinary intermittency or hesitancy, splitting of the voiding stream, terminal dribbling. ENDOCRINOLOGIC: Denies polyuria, polydipsia, polyphagia or heat/cold intoleran farida. HEMATOLOGIC: Denies thrombophilia/previous clots, or coagulopathy/bleeding disorders. ONCOLOGIC: Denies personal history of malignancy. DERMATOLOGIC: Denies rashes or pruritus. PSYCHIATRIC: Denies any suicidal or homicidal ideation. Denies hallucinations. PHYSICAL EXAM GENERAL APPEARANCE: The patient is awake, alert, and oriented, in no acute cardiopulmonary distress. NEUROLOGICAL: Cranial nerves II-XII grossly intact. Motor is 5/5 in bilateral upper and lower extremities proximal to distal. No sensory deficits. HEENT: Face is symmetric. Pupils are equal and reactive. Extraocular movements are intact. NECK: Supple. No JVD. No thyromegaly. No submental, submandibular, pre- /postauricular, occipital or supraclavicular lymphadenopathy. CHEST: Normal chest expansion. No Telemetry. LUNGS: Absence of any rales, rhonchi or any wheezing. CARDIOVASCULAR: Regular. S1 and S2 normal. No appreciable rubs, murmurs or gallops. ABDOMEN: Less distended, binder in place. : Deferred. No Sagastume. EXTREMITIES: Non-edematous and not cyanotic. No clubbing. Good capillary refill. SKIN: No skin breakdown. Vital Signs (last 8hr) Date Time Temp Pulse Resp B/P (MAP) Pulse Ox O2 Delivery O2 Flow Rate FiO2 03/16/24 07:55 98.8 64 16 131/79 97 Room Air 03/16/24 04:00 98.8 66 16 120/78 98 Room Air LABS: Laboratory: Test 03/16/24 04:39 03/15/24 14:00 03/15/24 04:37 Range/Units White Blood Count 8.0 4.8-10.8 K/uL Red Blood Count 3.48 L 4.50-6.20 MIL/uL Hemoglobin 10.3 L 14.0-18.0 g/dL Hematocrit 29.5 L 42-54 % Mean Corpuscular Volume 84.8 79-99 fL Mean Corpuscular Hemoglobin 29.6 27.0-33.0 pg Mean Corpuscular Hemoglobin Concent 34.9 32.0-36.0 g/dL Red Cell Distribution Width 12.8 11.0-15.5 % Platelet Count 364 130-400 K/uL Mean Platelet Volume 10.2 7.5-10.5 fL Immature Granulocyte % (Auto) 1.5 H 0-1 % Neutrophils (%) (Auto) 68.1 40.0-77.0 % Lymphocytes (%) (Auto) 14.8 L 21.0-51.0 % Monocytes (%) (Auto) 12.8 3.0-13.0 % Eosinophils (%) (Auto) 2.5 0.0-8.0 % Basophils (%) (Auto) 0.3 0.0-5.0 % Neutrophils # (Auto) 5.5 1.8-7.7 K/uL Lymphocytes # (Auto) 1.2 1.0-4.8 K/uL Monocytes # (Auto) 1.0 0.1-1.0 K/uL Eosinophils # (Auto) 0.20 0.00-0.70 K/uL Basophils # (Auto) 0.02 0.00-0.20 K/uL Absolute Immature Granulocyte (auto 0.12 0-1 K/uL Nucleated Red Blood Cells 0.0 0.0-0.19 % Sodium Level 136 136-145 mmol/L Potassium Level 2.2 *L 3.5-5.1 mmol/L Chloride Level 102 101-111 mmol/L Carbon Dioxide Level 28 21-32 mmol/L Blood Urea Nitrogen 5 L 7-18 mg/dL Creatinine 0.6 0.5-1.3 mg/dL Glomerular Filtration Rate Calc 115 >90 mL/min Random Glucose 99 70-105 mg/dL Total Calcium 7.9 L 8.5-10.1 mg/dL Magnesium Level 1.50 L 1.80-2.40 mg/dL Total Bilirubin 0.3 0.2-1.0 mg/dL Aspartate Amino Transf (AST/SGOT) 29 10-37 U/L Alanine Aminotransferase (ALT/SGPT) 21 12-78 U/L Alkaline Phosphatase 42 L 50-136 U/L Total Protein 5.4 L 6.0-8.3 g/dL Albumin 2.0 L 3.5-5.0 g/dL Urine Random Creatinine 37.20 30-135 mg/dL Urine Random Sodium 134 40-220 mmol/l Urine Random Potassium 20 L 25-125 mmol/L Urine Random Chloride 202 110-250 mmol/L Phosphorus Level 2.8 2.5-4.9 mg/dL Current Medications Medications (Trade) Dose Ordered Sig/Krishan Route PRN Reason Start Time Stop Time Status Last Admin Dose Admin Acetaminophen (TYLenol 325MG TAB) 650 mg Q4H PRN PO TEMPERATURE GREATER THAN 101.5 03/06/24 12:30 04/05/24 12:29 03/14/24 16:46 650 MG Acetaminophen (TYLenol 650MG SUPPOSITORY) 650 mg Q6H PRN RC MILD PAIN (1-3) 12/9/24 22:30 03/06/24 12:11 DC Acetylcysteine (MUComyst 10% 4ML) 400mg = 4ml [id number] IH 03/05/24 12:00 03/05/24 11:36 DC Cefazolin Sodium (Ancef) 2 gm Q8H IVPB 03/09/24 16:30 03/09/24 11:29 DC Cefazolin Sodium (Ancef) 2 gm Q8H IVPB 03/09/24 16:30 03/19/24 16:29 03/16/24 08:37 2 GM Famotidine (Pepcid 20mg Vial) 20 mg DAILY IV 03/04/24 09:00 04/03/24 08:59 03/16/24 08:37 20 MG Famotidine (Pepcid 20mg Vial) 20 mg ONCE STAT IV 03/03/24 18:30 03/03/24 18:32 DC 03/03/24 20:11 20 MG Hydralazine HCl (APRESOLine 20MG INJ) 10 mg Q6H PRN IV For:SBP above 160;DBP above 90 03/03/24 22:30 04/02/24 22:29 Hydromorphone HCl (DiLAUDid 0.5MG INJ) 0.5 mg Q4H PRN IVP SEVERE PAIN (7-10) 03/08/24 16:00 03/10/24 08:19 DC 03/09/24 20:05 0.5 MG Hydromorphone HCl (DiLAUDid 0.5MG INJ) 0.5 mg Q4H PRN IVP SEVERE PAIN (7-10) 03/10/24 10:30 03/15/24 10:29 DC Ketorolac Tromethamine (toRADol) 15 mg ONCE STAT IV 03/03/24 18:30 03/03/24 18:32 DC 03/03/24 20:11 15 MG Ketorolac Tromethamine (toRADol) 30 mg Q6H IM 03/09/24 12:00 03/09/24 11:25 DC Ketorolac Tromethamine (toRADol) 30 mg Q6H IV 03/09/24 12:00 03/09/24 11:27 DC Ketorolac Tromethamine (toRADol) 30 mg Q6H IVP 03/09/24 12:00 03/14/24 11:59 DC 03/14/24 05:46 30 MG Lactated Ringer's 1,000 ml @ 100 mls/hr Q10H IV 03/03/24 22:30 03/06/24 07:54 DC 03/06/24 03:34 100 MLS/HR Magnesium Sulfate 50 ml @ 0 mls/hr PROTOCOL IV 03/13/24 08:30 03/14/24 11:27 DC 03/13/24 08:50 25 MLS/HR Magnesium Sulfate 50 ml @ 0 mls/hr PROTOCOL IV 03/14/24 11:30 03/15/24 09:44 DC 03/14/24 12:49 25 MLS/HR Magnesium Sulfate 50 ml @ 0 mls/hr PROTOCOL IV 03/15/24 10:00 03/16/24 08:27 DC Magnesium Sulfate 50 ml @ 0 mls/hr PROTOCOL IV 03/16/24 08:30 04/15/24 08:29 03/16/24 09:53 25 MLS/HR Magnesium Sulfate 50 ml @ 0 mls/hr PROTOCOL PRN IV low mag level 03/04/24 09:30 03/13/24 19:48 DC 03/05/24 20:22 25 MLS/HR Methylprednisolone Sodium Succinate (Solu-medROL 40MG) 40 mg Q8H IVP 03/05/24 12:00 03/05/24 11:36 DC Metronidazole/ Sodium Chloride (flaGYL) 500 mg Q8H IV 03/09/24 11:30 03/19/24 11:29 03/16/24 11:28 500 MG Metronidazole/ Sodium Chloride (flaGYL) 500 mg Q8H IV 03/09/24 12:30 03/09/24 11:27 DC Morphine Sulfate (morPHINE 4MG SYG) 4 mg Q4H PRN IV SEVERE PAIN (7-10) 03/03/24 22:30 03/08/24 09:03 DC 03/08/24 05:44 4 MG Ondansetron HCl (zoFRAN 4MG INJ) 4 mg ONCE STAT IVP 03/03/24 18:30 03/03/24 18:32 DC 03/03/24 20:11 4 MG Ondansetron HCl (zoFRAN 4MG INJ) 4 mg Q6H PRN IV NAUSEA/VOMITING 03/03/24 22:30 04/02/24 22:29 03/16/24 11:29 4 MG Phenol (Sore Throat [place]) 1 spry Q4H PRN PO SORE THROAT 03/11/24 00:00 04/10/24 00:00 03/10/24 23:54 1 SPRY Potassium Chloride 100 ml @ 50 mls/hr AD PRN IV POTASSIUM PROTOCOL 03/04/24 09:30 03/06/24 07:48 DC 03/05/24 06:32 50 MLS/HR Potassium Chloride 100 ml @ 100 mls/hr AD PRN IV POTASSIUM PROTOCOL 03/06/24 08:00 04/05/24 07:59 03/16/24 06:33 100 MLS/HR Potassium Chloride 100 ml @ 100 mls/hr Q1H IV 03/12/24 16:00 03/12/24 19:59 DC 03/12/24 19:53 100 MLS/HR Potassium Chloride 100 ml @ 100 mls/hr Q1H IV 03/13/24 20:00 03/14/24 01:59 DC 03/14/24 02:09 100 MLS/HR Potassium Chloride 100 ml @ 100 mls/hr Q1H IV 03/16/24 11:00 03/16/24 18:59 03/16/24 11:29 100 MLS/HR Potassium Chloride (K-Dur/Klor-Con 20meq) 20 meq AD PRN PO POTASSIUM PROTOCOL 03/06/24 08:00 04/05/24 07:59 03/11/24 20:15 20 MEQ Potassium Chloride (KCl 10% Elixir 20meq/15ml) 20 meq AD PRN PO POTASSIUM PROTOCOL 03/06/24 08:00 04/05/24 07:59 03/16/24 11:29 20 MEQ Simethicone (Mylicon) 80 mg PCHS PRN PO GI GAS 03/06/24 12:30 04/05/24 12:29 03/14/24 23:45 80 MG Sodium Chloride 1,000 ml @ 125 mls/hr Q8H IV 03/08/24 17:00 04/07/24 16:59 03/16/24 08:37 125 MLS/HR Sodium Chloride 1,000 ml @ 1,000 mls/hr Q1H STAT IV 03/03/24 20:00 03/03/24 20:59 DC 03/03/24 20:11 1,000 MLS/HR DIAGNOSTICS / RADIOLOGY: [ ] ASSESSMENT: 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 Patient did not tolerate p.o. potassium the last time he became nauseated and felt mild burning sensation, continue replacing IV. Nephrology consultation requested, pending urine electrolytes, creatinine, osmolality and plasma renin activity and aldosterone Continue to follow a.m. labs GI and DVT prophylaxis Disposition: Remains admitted to medical floor, continue full liquid diet, replace electrolytes IV per protocol, pending plasma renin activity and aldosterone level. Continue to follow surgical recommendations Plan of action discussed in detail with the patient, all questions answered, agreed and understood the information provided PARADISE MANZANARES MD Mar 16, 2024 11:55
--- NOTE | 2024-03-16 13:52 | NUR ---
NEW ORDER FROM DR MCDONALD TO START AMILORIDE ONCE RENIN AND ALDASTERONE LEVELS ARE COLLECTED. SPOKE TO LAB, LEVELS WERE COLLECTED ALREADY
--- NOTE | 2024-03-16 15:34 | PN ---
NEPHROLOGY PROGRESS NOTE Date/Time Patient Seen: Mar 16, 2024 SUBJECTIVE: This is a 53-year-old male with a past medical history of hyperlipidemia and gout He presented to the emergency with complaints of abdominal pain. He has been in the hospital for several days. He was admitted further evaluation and management of suspected small-bowel obstruction. S/p Neisha procedure. He continues to be followed by surgery. He was noted for hypokalemia. Potassium today was 2.2, replacement has been ordered. Pending plasma renin activity and aldosterone results He is pending PICC line placement. Was seen in the medical floor, in no acute distress No family at the bedside Prognosis remains guarded REVIEW OF SYSTEMS: GENERAL: Negative for any nausea, vomiting, fevers, chills, or weight loss. NEUROLOGIC: Negative for any blurry vision, blind spots, double vision, facial asymmetry, dysphagia, dysarthria, hemiparesis, hemisensory deficits, vertigo, ataxia. HEENT: Negative for any head trauma, neck trauma, neck stiffness, photophobia, phonophobia, sinusitis, rhinitis. CARDIAC: Negative for any chest pain, dyspnea on exertion, paroxysmal nocturnal dyspnea, peripheral edema. PULMONARY: Negative for any shortness of breath, wheezing, COPD, or TB exposure. GASTROINTESTINAL: Negative for any abdominal pain, nausea, vomiting, bright red blood per rectum, melena. GENITOURINARY: Negative for any dysuria, hematuria, incontinence. INTEGUMENTARY: Negative for any rashes, cuts, insect bites. RHEUMATOLOGIC: Negative for any joint pains, photosensitive rashes, history of vasculitis or kidney problems. HEMATOLOGIC: Negative for any abnormal bruising, frequent infections or bleeding. PHYSICAL EXAM: GENERAL: Alert and oriented x 3. No acute distress. Well-nourished. EYES: EOMI. Anicteric. HENT: Moist mucous membranes. No scleral icterus. No cervical lymphadenopathy. LUNGS: Clear to auscultation bilaterally. No accessory muscle use. CARDIOVASCULAR: Regular rate and rhythm. No murmur. No JVD. ABDOMEN: Soft, non-tender and non-distended. No palpable masses. EXTREMITIES: No edema. Non-tender.?SKIN: No rashes or lesions. Warm. NEUROLOGIC: No focal neurological deficits. CN II-XII grossly intact, but not individually tested. PSYCHIATRIC: Cooperative. Appropriate mood and affect. LABORATORY: [ ] Hematology Labs: Test 03/16/24 04:39 Range/Units White Blood Count 8.0 4.8-10.8 K/uL Red Blood Count 3.48 L 4.50-6.20 MIL/uL Hemoglobin 10.3 L 14.0-18.0 g/dL Hematocrit 29.5 L 42-54 % Mean Corpuscular Volume 84.8 79-99 fL Mean Corpuscular Hemoglobin 29.6 27.0-33.0 pg Mean Corpuscular Hemoglobin Concent 34.9 32.0-36.0 g/dL Red Cell Distribution Width 12.8 11.0-15.5 % Platelet Count 364 130-400 K/uL Mean Platelet Volume 10.2 7.5-10.5 fL Immature Granulocyte % (Auto) 1.5 H 0-1 % Neutrophils (%) (Auto) 68.1 40.0-77.0 % Lymphocytes (%) (Auto) 14.8 L 21.0-51.0 % Monocytes (%) (Auto) 12.8 3.0-13.0 % Eosinophils (%) (Auto) 2.5 0.0-8.0 % Basophils (%) (Auto) 0.3 0.0-5.0 % Neutrophils # (Auto) 5.5 1.8-7.7 K/uL Lymphocytes # (Auto) 1.2 1.0-4.8 K/uL Monocytes # (Auto) 1.0 0.1-1.0 K/uL Eosinophils # (Auto) 0.20 0.00-0.70 K/uL Basophils # (Auto) 0.02 0.00-0.20 K/uL Absolute Immature Granulocyte (auto 0.12 0-1 K/uL Nucleated Red Blood Cells 0.0 0.0-0.19 % Chemistry Labs: Test 03/16/24 04:39 03/15/24 04:37 Range/Units Sodium Level 136 136-145 mmol/L Potassium Level 2.2 *L 3.5-5.1 mmol/L Chloride Level 102 101-111 mmol/L Carbon Dioxide Level 28 21-32 mmol/L Blood Urea Nitrogen 5 L 7-18 mg/dL Creatinine 0.6 0.5-1.3 mg/dL Glomerular Filtration Rate Calc 115 >90 mL/min Random Glucose 99 70-105 mg/dL Total Calcium 7.9 L 8.5-10.1 mg/dL Magnesium Level 1.50 L 1.80-2.40 mg/dL Total Bilirubin 0.3 0.2-1.0 mg/dL Aspartate Amino Transf (AST/SGOT) 29 10-37 U/L Alanine Aminotransferase (ALT/SGPT) 21 12-78 U/L Alkaline Phosphatase 42 L 50-136 U/L Total Protein 5.4 L 6.0-8.3 g/dL Albumin 2.0 L 3.5-5.0 g/dL Phosphorus Level 2.8 2.5-4.9 mg/dL DIAGNOSTICS / RADIOLOGY: REASON: SIMON ORDERING PHYSICIAN: DAJUAN MCDONALD MD PROCEDURE: RENAL - US RENAL SONOGRAM US RENAL SONOGRAM HISTORY: Acute renal insufficiency COMPARISON: None TECHNIQUE: Renal and bladder ultrasound study was performed. FINDINGS: The right kidney measures 12.2 x 6.1 x 4.6 cm. The left kidney measures 12.1 x 5.6 x 5.5 cm. No evidence of hydronephrosis is seen of either kidney. Both kidneys are seen. Bladder is poorly visualized due to overlying bandages. IMPRESSION: 1. No hydronephrosis is seen. DICTATED BY: LUIS BOWDEN MD DATE: 03/14/242243 REASON: nausea and vomiting. Abdominal distension ORDERING PHYSICIAN: PARADISE MANZANARES MD PROCEDURE: ABD PEL WO - CT ABDOMEN/PELVIS W/O CONTRAST CT ABDOMEN/PELVIS W/O CONTRAST HISTORY: Nausea and vomiting COMPARISON: None TECHNIQUE: Multiple sequential axial images of the abdomen and pelvis were obtained from the dome of the diaphragm through symphysis pubis. Patient was not given contrast through intravenous route. Oral contrast was not given. FINDINGS: No pleural effusion is seen bilaterally. There is no evidence of parenchymal disease or pulmonary nodule of the visualized lower lungs. Degenerative changes of the thoracolumbar spine are present. The heart is not enlarged. Liver measured 20 cm. There is gastric distention with small bowel dilatation with air-fluid levels may be related to postop ileus versus small bowel obstruction. Gastrostomy tube is seen. Drainage tube is seen with distal tip in the left lower abdomen. The liver, spleen, adrenal glands and pancreas are unremarkable. There is no evidence of hydronephrosis bilaterally. No evidence of renal stone is seen. Fecal material is seen in the colon. There are normal size retroperitoneal and mesenteric lymph nodes. No ascites is seen. Atherosclerotic changes are present. Pelvic sidewalls are symmetric bilaterally. Bladder is well distended without wall thickening. IMPRESSION: 1. There is gastric distention with small bowel dilatation with air-fluid levels may be related to postop ileus versus small bowel obstruction. Gastrostomy tube is seen. Drainage tube is seen with distal tip in the left lower abdomen. CT was performed with one or more following dose reduction techniques: automated exposure control, adjustment of the mA and kv according to patient's size, or use of a iterative reconstruction technique. DICTATED BY: LUIS BOWDEN MD DATE: 03/12/24 1305 REASON: STRICTURE IN COLON ORDERING PHYSICIAN: ROSSY SYLVESTER Jr. PROCEDURE: ABD 1VW - ABD 1VW Exam Type: ABD 1VW Clinical Information: STRICTURE IN COLON Comparison: None Findings: Abdomen demonstrates no evidence of pathologic calcification or soft tissue mass. There are no radiopacities to suggest calculous disease. There is distention of large bowel without small bowel dilatation. There is distention of large bowel has decreased when compared with prior exam. Nasogastric tube tip in stomach. The bony structures are unremarkable. IMPRESSION: There is distention of large bowel without small bowel dilatation. There is distention of large bowel has decreased when compared with prior exam. DICTATED BY: JENS DEVINE MD DATE: 03/08/24 1545 REASON: sbo ORDERING PHYSICIAN: AGAPITO PRIETO NP PROCEDURE: ABD 1VW - ABD 1VW ABD 1VW REASON: sbo FINDINGS: Single image of the abdomen was obtained. There is persistent marked gaseous distention of the colon to the level of the pelvis. This could represent a low colon obstruction. The small bowel is not distended, and KV and intact ileocecal valve. IMPRESSION: 1. Marked gaseous distention of the colon, this could represent a low colon obstruction. DICTATED BY: LORENA OTERO MD DATE: 03/07/24 1046 REASON: sbo ORDERING PHYSICIAN: ROSSY SYLVESTER Jr. PROCEDURE: ABD 1VW - ABD 1VW ABD 1VW REASON: sbo FINDINGS: Single image of the abdomen was obtained. There is persistent moderate to marked gaseous distention of the colon. Small bowel gas pattern appears normal. Bones and soft tissues appear unremarkable. IMPRESSION: 1. Persistent moderate to marked gaseous distention of the colon, this may represent ileus, a low colon obstruction could cause this appearance as well. DICTATED BY: LORENA OTERO MD DATE: 03/06/241217 REASON: SBO ORDERING PHYSICIAN: AGAPITO PRIETO NP PROCEDURE: ABD 1VW - ABD 1VW ABD 1VW REASON: SBO FINDINGS: Single image of the abdomen was obtained. There is an NG tube with tip at the EG junction, sidehole remains in the distal esophagus. There is persistent gaseous distention of multiple large and small bowel loops, bowel gas pattern is unchanged. Soft tissues appear unremarkable. IMPRESSION: 1. NG tube tip just entering the stomach, sidehole remains in the distal esophagus. 2. Distended loops of large and small bowel, unchanged. DICTATED BY: LORENA OTERO MD DATE: 03/04/248 REASON: NG TUBE PLACEMENT ORDERING PHYSICIAN: REHANA OTT MD PROCEDURE: ABD 1VW - ABD 1VW ABD 1VW REASON: NG TUBE PLACEMENT FINDINGS: Single image of the abdomen was obtained. There is an NG tube with tip just entering the stomach, sidehole remains in the distal esophagus. There is moderate gaseous distention of the colon. There is contrast in the pelvicalyceal systems from recent CT scan. IMPRESSION: 1. NG tube tip just entering the stomach, sidehole remains in the distal esophagus. DICTATED BY: LORENA OTERO MD DATE: 03/04/24 0816 REASON: generalzied abdominal pain ORDERING PHYSICIAN: LURDES BAHENA NP PROCEDURE: ABD PEL W - CT ABDOMEN/PELVIS W/CONTRAST CT ABDOMEN/PELVIS W/CONTRAST HISTORY: Abdominal pain COMPARISON: None TECHNIQUE: Multiple sequential axial images of the abdomen and pelvis were obtained from the dome of the diaphragm through symphysis pubis. Patient was given 75 cc of Omnipaque through intravenous route. Oral contrast was not given. FINDINGS: No pleural effusion is seen bilaterally. There is no evidence of parenchymal disease or pulmonary nodule of the visualized lower lungs. Degenerative changes of the thoracolumbar spine are present. The heart is not enlarged. Liver measures 18 cm. Small hiatal hernia is seen. Small bowel loops are not dilated. There is extensive colonic distention with distal colonic obstruction not completely excluded. The liver, spleen, adrenal glands and pancreas are unremarkable. There is no evidence of hydronephrosis bilaterally. No evidence of renal stone is seen. Fecal material is seen in the colon. There are normal size retroperitoneal and mesenteric lymph nodes. No ascites is seen. Atherosclerotic changes are present. Pelvic sidewalls are symmetric bilaterally. Bladder is well distended without wall thickening. IMPRESSION: 1. Extensive colonic distention with distal colonic obstruction cannot excluded. Findings may also be related to constipation. CT was performed with one or more following dose reduction techniques: automated exposure control, adjustment of the mA and kv according to patient's size, or use of a iterative reconstruction technique. DICTATED BY: LUIS BOWDEN MD DATE: 03/03/242051 ASSESSMENT: Hypokalemia Colonic stricture distal of sigmoid evidence per flexible sigmoidoscopy s/p colectomy with colostomy Suspected small bowel obstruction, Intractable abd pain Extensive abdominal distention electrolytes derangement: Hypokalemia Obesity: BMI: 36.1 PLAN: Labs, diagnostic, radiologic exams reviewed and interpreted by myself and supervising physician. We have reviewed external records in detail Pending plasma renin activity and aldosterone results Start amiloride5 mg p.o. q.day Potassium replacement has been ordered. Require close monitoring of renal function and electrolytes Order CBC, CMP, and electrolytes in am Continue with antibiotics BiPAP as necessary, for respiratory distress Monitor blood pressure adjust medication doses as needed Avoid hypotensive episodes May use Dilaudid 0.5 mg IV every 6 hours as needed for severe pain Strict intake, output, and daily weight should be monitored Will continue to monitor renal function, anemia, electrolytes Treatment plan discussed with patient Questions were answered We have discussed with the other team physicians in detail about the care plan We will continue to monitor the patient closely ATTESTATION BY PHYSICIAN I have seen and examined the patient. I reviewed the documentation, medical decision making, and treatment plan as noted by the mid-level provider above. I agree with the findings and plan of care. DAJUAN MCDONALD MD, [facility] Mar 16, 2024 15:33
[2024-03-16 16:34] LABS: BILIRUBIN,TOTAL 0.2 mg/dL (0.2-1.0); CREATININE 0.8 mg/dL (0.5-1.3); TOTAL PROTEIN, SERUM 5.5 g/dL (6.0-8.3)
[2024-03-16] MEDS: AMILoride 5MG TAB PO SCH (16:42)
[2024-03-16 17:01] LABS: POTASSIUM 2.6 mmol/L (3.5-5.1)
[2024-03-16] MEDS: PoTASSium chl 10% ELIXIR 20MEQ 20 MEQ/15 ML UDCUP PO ONE (18:19)
[2024-03-16] MEDS ORDERED: PoTASSium chl 10% ELIXIR 20MEQ 20 MEQ/15 ML UDCUP PO ONE (18:30)
[2024-03-17] VITALS (9 sets, daily range): BP systolic 108–147; BP diastolic 64–85; PULSE 63–79; RESP 16–18; TEMP 98–99; O2SAT 97–99
[2024-03-17 07:02] LABS: HEMATOCRIT 29.7 % (42-54); MEAN CORPUSCULAR HEMOGLOBIN 29.8 pg (27.0-33.0); MEAN CORPUSCULAR HGB CONC 35.4 g/dL (32.0-36.0); MEAN CORPUSCULAR VOLUME 84.4 fL (79-99); RED BLOOD CELL COUNT(AUTO) 3.52 MIL/uL (4.50-6.20); RED CELL DISTRIBUTION WIDTH 12.6 % (11.0-15.5); WHITE BLOOD COUNT (AUTO) 10.8 K/uL (4.8-10.8)
[2024-03-17 07:30] LABS: ALBUMIN 2.1 g/dL (3.5-5.0); BILIRUBIN,TOTAL 0.3 mg/dL (0.2-1.0); CREATININE 0.7 mg/dL (0.5-1.3); MAGNESIUM 1.7 mg/dL (1.80-2.40); PHOSPHORUS 2.6 mg/dL (2.5-4.9); TOTAL PROTEIN, SERUM 5.5 g/dL (6.0-8.3)
[2024-03-17 07:58] LABS: POTASSIUM 2.9 mmol/L (3.5-5.1)
--- NOTE | 2024-03-17 08:51 | OP ---
Operative Note: DATE OF PROCEDURE: 03/09/24 SURGEON: LIDIA COLORADO MD ENVIRONMENT FRIENDLY LANDSCAPE DESIGNER: [] ANESTHESIA: [] General ANESTHESIOLOGIST/PATTERN FILER: [] PREOPERATIVE DIAGNOSIS: [] Large bowel obstruction POSTOPERATIVE DIAGNOSIS: [] The same SYNOPSIS: [] PROCEDURE: [] Neisha's procedure ESTIMATED BLOOD LOSS: [] 100 cc INDICATIONS: [] Patient with diagnosed stricture in the sigmoid colon and presenting symptoms of large bowel obstruction DESCRIPTION OF PROCEDURE: [] With the patient prepped and draped make a lower midline incision. Using cautery dissection and was able to get into the abdomen and fascia was opened. Fluids were seen probably ascites. Large bowel was very distended. I placed a Bookwalter retractor and a somewhat less in the left colon. This was very difficult because of the dilatation of the large bowel. I was able to transect a few cm above the obstruction with a EMILEE 100. After this was done I then make a pursestring and decompress the large bowel which m rocío it easier in order to continue the dissection. The dissection of the rectosigmoid was a hard due to severe adhesions from the area of the stricture there was already tattoo to the area of the bladder. I was able to mobilize this very close to the bowel in I found point that was soft below the stricture. I then transected this with EMILEE staplers. The mesentery was transected using LigaSure. The dissection was verified for the area of the ureters but this were not seen. There was significant inflammation to see the area of the ureters. After irrigation I make then an incision in the left lower quadrant to bring the ostomy. This was brought without any problem. I closed the fascia using looped PDS 1. Continuous. The skin was closed with staplers. A RADHA was placed in the area of the bladder in case that there was any injury to the bladder however the urine was clear all the procedure. I matured the ostomy with a 2-0 Vicryl pop-off. Patient was stable during the whole procedure LIDIA COLORADO MD Mar 17, 2024 08:51
[2024-03-17] MEDS ORDERED: PHENOL 177 ML BOTTLE PO PRN (09:00)
[2024-03-17] MEDS ORDERED: AMILoride 5MG TAB PO SCH (09:00)
[2024-03-17] MEDS ORDERED: PoTASSium chloRIDE 20MEQ ER 20 MEQ ERTAB PO SCH (10:00)
[2024-03-17] MEDS: PoTASSium chl 10% ELIXIR 20MEQ 20 MEQ/15 ML UDCUP PO SCH (11:32)
[2024-03-17] MEDS: LOPERAMIDE 1 MG/7.5 ML UDCUP PO SCH (11:33)
--- NOTE | 2024-03-17 11:39 | PN ---
Postop day eight after Nesiha's procedure. Patient is doing well. The patient is tolerating diet. Ostomy is working well. Main issue is low potassium that is being replaced. I have instructed the patient that most likely he will be discharged tomorrow. Continue ambulating. Patient apparently knows how to take care of a ostomy. Vitals/Labs Vital Signs Date Time Temp Pulse Resp B/P (MAP) Pulse Ox O2 Delivery O2 Flow Rate FiO2 03/17/24 11:19 98.1 64 18 138/85 90 Room Air 21 03/16/24 19:20 0 Laboratory Tests 03/16/24 16:10 03/16/24 21:34 03/17/24 06:37 LIDIA COLORADO MD Mar 17, 2024 11:39
--- NOTE | 2024-03-17 14:31 | PN ---
NEPHROLOGY PROGRESS NOTE Date/Time Patient Seen: Mar 17, 2024 SUBJECTIVE: This is a 53-year-old male with a past medical history of hyperlipidemia and gout He presented to the emergency with complaints of abdominal pain. He has been in the hospital for several days. He was admitted further evaluation and management of suspected small-bowel obstruction. S/p Neisha procedure. He continues to be followed by surgery. He was noted for hypokalemia. Potassium today was 2.9, replacement has been ordered. Pending plasma renin activity and aldosterone results Nurse reports loose stool from ostomy Continues on Amiloride. Was seen in the medical floor, in no acute distress No family at the bedside Prognosis remains guarded REVIEW OF SYSTEMS: GENERAL: Negative for any nausea, vomiting, fevers, chills, or weight loss. NEUROLOGIC: Negative for any blurry vision, blind spots, double vision, facial asymmetry, dysphagia, dysarthria, hemiparesis, hemisensory deficits, vertigo, ataxia. HEENT: Negative for any head trauma, neck trauma, neck stiffness, photophobia, phonophobia, sinusitis, rhinitis. CARDIAC: Negative for any chest pain, dyspnea on exertion, paroxysmal nocturnal dyspnea, peripheral edema. PULMONARY: Negative for any shortness of breath, wheezing, COPD, or TB exposure. GASTROINTESTINAL: Negative for any abdominal pain, nausea, vomiting, bright red blood per rectum, melena. GENITOURINARY: Negative for any dysuria, hematuria, incontinence. INTEGUMENTARY: Negative for any rashes, cuts, insect bites. RHEUMATOLOGIC: Negative for any joint pains, photosensitive rashes, history of vasculitis or kidney problems. HEMATOLOGIC: Negative for any abnormal bruising, frequent infections or bleeding. PHYSICAL EXAM: GENERAL: Alert and oriented x 3. No acute distress. Well-nourished. EYES: EOMI. Anicteric. HENT: Moist mucous membranes. No scleral icterus. No cervical lymphadenopathy. LUNGS: Clear to auscultation bilaterally. No accessory muscle use. CARDIOVASCULAR: Regular rate and rhythm. No murmur. No JVD. ABDOMEN: Soft, non-tender and non-distended. No palpable masses. EXTREMITIES: No edema. Non-tender.?SKIN: No rashes or lesions. Warm. NEUROLOGIC: No focal neurological deficits. CN II-XII grossly intact, but not individually tested. PSYCHIATRIC: Cooperative. Appropriate mood and affect. LABORATORY: [ ] Hematology Labs: Test 03/17/24 06:37 03/16/24 04:39 Range/Units White Blood Count 10.8 4.8-10.8 K/uL Red Blood Count 3.52 L 4.50-6.20 MIL/uL Hemoglobin 10.5 L 14.0-18.0 g/dL Hematocrit 29.7 L 42-54 % Mean Corpuscular Volume 84.4 79-99 fL Mean Corpuscular Hemoglobin 29.8 27.0-33.0 pg Mean Corpuscular Hemoglobin Concent 35.4 32.0-36.0 g/dL Red Cell Distribution Width 12.6 11.0-15.5 % Platelet Count 388 130-400 K/uL Mean Platelet Volume 10.2 7.5-10.5 fL Nucleated Red Blood Cells 0.0 0.0-0.19 % Immature Granulocyte % (Auto) 1.5 H 0-1 % Neutrophils (%) (Auto) 68.1 40.0-77.0 % Lymphocytes (%) (Auto) 14.8 L 21.0-51.0 % Monocytes (%) (Auto) 12.8 3.0-13.0 % Eosinophils (%) (Auto) 2.5 0.0-8.0 % Basophils (%) (Auto) 0.3 0.0-5.0 % Neutrophils # (Auto) 5.5 1.8-7.7 K/uL Lymphocytes # (Auto) 1.2 1.0-4.8 K/uL Monocytes # (Auto) 1.0 0.1-1.0 K/uL Eosinophils # (Auto) 0.20 0.00-0.70 K/uL Basophils # (Auto) 0.02 0.00-0.20 K/uL Absolute Immature Granulocyte (auto 0.12 0-1 K/uL Chemistry Labs: Test 03/17/24 06:37 Range/Units Sodium Level 137 136-145 mmol/L Potassium Level 2.9 *L 3.5-5.1 mmol/L Chloride Level 101 101-111 mmol/L Carbon Dioxide Level 28 21-32 mmol/L Blood Urea Nitrogen 5 L 7-18 mg/dL Creatinine 0.7 0.5-1.3 mg/dL Glomerular Filtration Rate Calc 110 >90 mL/min Random Glucose 104 70-105 mg/dL Total Calcium 8.0 L 8.5-10.1 mg/dL Phosphorus Level 2.6 2.5-4.9 mg/dL Magnesium Level 1.70 L 1.80-2.40 mg/dL Total Bilirubin 0.3 # 0.2-1.0 mg/dL Aspartate Amino Transf (AST/SGOT) 28 10-37 U/L Alanine Aminotransferase (ALT/SGPT) 19 12-78 U/L Alkaline Phosphatase 46 L 50-136 U/L Total Protein 5.5 L 6.0-8.3 g/dL Albumin 2.1 L 3.5-5.0 g/dL DIAGNOSTICS / RADIOLOGY: REASON: SIMON ORDERING PHYSICIAN: DAJUAN MCDONALD MD PROCEDURE: RENAL - US RENAL SONOGRAM US RENAL SONOGRAM HISTORY: Acute renal insufficiency COMPARISON: None TECHNIQUE: Renal and bladder ultrasound study was performed. FINDINGS: The right kidney measures 12.2 x 6.1 x 4.6 cm. The left kidney measures 12.1 x 5.6 x 5.5 cm. No evidence of hydronephrosis is seen of either kidney. Both kidneys are seen. Bladder is poorly visualized due to overlying bandages. IMPRESSION: 1. No hydronephrosis is seen. DICTATED BY: LUIS BOWDEN MD DATE: 03/14/242243 REASON: nausea and vomiting. Abdominal distension ORDERING PHYSICIAN: PARADISE MANZANARES MD PROCEDURE: ABD PEL WO - CT ABDOMEN/PELVIS W/O CONTRAST CT ABDOMEN/PELVIS W/O CONTRAST HISTORY: Nausea and vomiting COMPARISON: None TECHNIQUE: Multiple sequential axial images of the abdomen and pelvis were obtained from the dome of the diaphragm through symphysis pubis. Patient was not given contrast through intravenous route. Oral contrast was not given. FINDINGS: No pleural effusion is seen bilaterally. There is no evidence of parenchymal disease or pulmonary nodule of the visualized lower lungs. Degenerative changes of the thoracolumbar spine are present. The heart is not enlarged. Liver measured 20 cm. There is gastric distention with small bowel dilatation with air-fluid levels may be related to postop ileus versus small bowel obstruction. Gastrostomy tube is seen. Drainage tube is seen with distal tip in the left lower abdomen. The liver, spleen, adrenal glands and pancreas are unremarkable. There is no evidence of hydronephrosis bilaterally. No evidence of renal stone is seen. Fecal material is seen in the colon. There are normal size retroperitoneal and mesenteric lymph nodes. No ascites is seen. Atherosclerotic changes are present. Pelvic sidewalls are symmetric bilaterally. Bladder is well distended without wall thickening. IMPRESSION: 1. There is gastric distention with small bowel dilatation with air-fluid levels may be related to postop ileus versus small bowel obstruction. Gastrostomy tube is seen. Drainage tube is seen with distal tip in the left lower abdomen. CT was performed with one or more following dose reduction techniques: automated exposure control, adjustment of the mA and kv according to patient's size, or use of a iterative reconstruction technique. DICTATED BY: LUIS BOWDEN MD DATE: 03/12/24 1305 REASON: STRICTURE IN COLON ORDERING PHYSICIAN: ROSSY SYLVESTER Jr. PROCEDURE: ABD 1VW - ABD 1VW Exam Type: ABD 1VW Clinical Information: STRICTURE IN COLON Comparison: None Findings: Abdomen demonstrates no evidence of pathologic calcification or soft tissue mass. There are no radiopacities to suggest calculous disease. There is distention of large bowel without small bowel dilatation. There is distention of large bowel has decreased when compared with prior exam. Nasogastric tube tip in stomach. The bony structures are unremarkable. IMPRESSION: There is distention of large bowel without small bowel dilatation. There is distention of large bowel has decreased when compared with prior exam. DICTATED BY: JENS DEVINE MD DATE: 03/08/24 1545 REASON: sbo ORDERING PHYSICIAN: AGAPITO PRIETO NP PROCEDURE: ABD 1VW - ABD 1VW ABD 1VW REASON: sbo FINDINGS: Single image of the abdomen was obtained. There is persistent marked gaseous distention of the colon to the level of the pelvis. This could represent a low colon obstruction. The small bowel is not distended, and KV and intact ileocecal valve. IMPRESSION: 1. Marked gaseous distention of the colon, this could represent a low colon obstruction. DICTATED BY: LORENA OTERO MD DATE: 03/07/24 1046 REASON: sbo ORDERING PHYSICIAN: ROSSY SYLVESTER Jr. PROCEDURE: ABD 1VW - ABD 1VW ABD 1VW REASON: sbo FINDINGS: Single image of the abdomen was obtained. There is persistent moderate to marked gaseous distention of the colon. Small bowel gas pattern appears normal. Bones and soft tissues appear unremarkable. IMPRESSION: 1. Persistent moderate to marked gaseous distention of the colon, this may represent ileus, a low colon obstruction could cause this appearance as well. DICTATED BY: LORENA OTERO MD DATE: 03/06/241217 REASON: SBO ORDERING PHYSICIAN: AGAPITO PRIETO NP PROCEDURE: ABD 1VW - ABD 1VW ABD 1VW REASON: SBO FINDINGS: Single image of the abdomen was obtained. There is an NG tube with tip at the EG junction, sidehole remains in the distal esophagus. There is persistent gaseous distention of multiple large and small bowel loops, bowel gas pattern is unchanged. Soft tissues appear unremarkable. IMPRESSION: 1. NG tube tip just entering the stomach, sidehole remains in the distal esophagus. 2. Distended loops of large and small bowel, unchanged. DICTATED BY: LORENA OTERO MD DATE: 03/04/248 REASON: NG TUBE PLACEMENT ORDERING PHYSICIAN: REHANA OTT MD PROCEDURE: ABD 1VW - ABD 1VW ABD 1VW REASON: NG TUBE PLACEMENT FINDINGS: Single image of the abdomen was obtained. There is an NG tube with tip just entering the stomach, sidehole remains in the distal esophagus. There is moderate gaseous distention of the colon. There is contrast in the pelvicalyceal systems from recent CT scan. IMPRESSION: 1. NG tube tip just entering the stomach, sidehole remains in the distal esophagus. DICTATED BY: LORENA OTERO MD DATE: 03/04/24 0816 REASON: generalzied abdominal pain ORDERING PHYSICIAN: LURDES BAHENA NP PROCEDURE: ABD PEL W - CT ABDOMEN/PELVIS W/CONTRAST CT ABDOMEN/PELVIS W/CONTRAST HISTORY: Abdominal pain COMPARISON: None TECHNIQUE: Multiple sequential axial images of the abdomen and pelvis were obtained from the dome of the diaphragm through symphysis pubis. Patient was given 75 cc of Omnipaque through intravenous route. Oral contrast was not given. FINDINGS: No pleural effusion is seen bilaterally. There is no evidence of parenchymal disease or pulmonary nodule of the visualized lower lungs. Degenerative changes of the thoracolumbar spine are present. The heart is not enlarged. Liver measures 18 cm. Small hiatal hernia is seen. Small bowel loops are not dilated. There is extensive colonic distention with distal colonic obstruction not completely excluded. The liver, spleen, adrenal glands and pancreas are unremarkable. There is no evidence of hydronephrosis bilaterally. No evidence of renal stone is seen. Fecal material is seen in the colon. There are normal size retroperitoneal and mesenteric lymph nodes. No ascites is seen. Atherosclerotic changes are present. Pelvic sidewalls are symmetric bilaterally. Bladder is well distended without wall thickening. IMPRESSION: 1. Extensive colonic distention with distal colonic obstruction cannot excluded. Findings may also be related to constipation. CT was performed with one or more following dose reduction techniques: automated exposure control, adjustment of the mA and kv according to patient's size, or use of a iterative reconstruction technique. DICTATED BY: LUIS BOWDEN MD DATE: 03/03/242051 ASSESSMENT: Hypokalemia Colonic stricture distal of sigmoid evidence per flexible sigmoidoscopy s/p colectomy with colostomy Suspected small bowel obstruction, Intractable abd pain Extensive abdominal distention electrolytes derangement: Hypokalemia Obesity: BMI: 36.1 PLAN: Labs, diagnostic, radiologic exams reviewed and interpreted by myself and supervising physician. We have reviewed external records in detail Pending plasma renin activity and aldosterone results Continue with amiloride5 mg p.o. q.day Potassium replacement has been ordered. Require close monitoring of renal function and electrolytes Order CBC, CMP, and electrolytes in am Continue with antibiotics BiPAP as necessary, for respiratory distress Monitor blood pressure adjust medication doses as needed Avoid hypotensive episodes May use Dilaudid 0.5 mg IV every 6 hours as needed for severe pain Strict intake, output, and daily weight should be monitored Will continue to monitor renal function, anemia, electrolytes Treatment plan discussed with patient Questions were answered We have discussed with the other team physicians in detail about the care plan We will continue to monitor the patient closely ATTESTATION BY PHYSICIAN I have seen and examined the patient. I reviewed the documentation, medical decision making, and treatment plan as noted by the mid-level provider above. I agree with the findings and plan of care. DAJUAN MCDONALD MD, [facility] Mar 17, 2024 14:31
[2024-03-17] MEDS: ketOROlac 15MG/ML VIAL (15MG/ML) IV PRN (16:51)
--- NOTE | 2024-03-17 17:31 | PN ---
[facility] PROGRESS NOTE Date of Service: Mar 17, 2024 Time of Service: 17:28 SUBJECTIVE: This is a 53-year-old male was admitted on 03/03/2024 presents in ED with chief complaints of abdominal pain. ER workup was consistent with small- bowel obstruction. NGT tube was placed in ED and surgeon was consulted. Patient was seen and examined this morning no output from NG tube patient appears distended. the patient remain Bowel rest until seen by surgeon: will follow recommendations: ordered a repeat KUB for this morning. 03/05/24 Patient is seen and examined with the attending, reviewed chart and discussed. Patient was seen by general surgeon continue conservative management. Patient had four BMs was given suppository laxative. Patient's potassium 2.9 was replaced early this morning we will repeat level and replace as needed we will wait for surgeon continues with NG tube and bowel rest. Repeat KUB: Distended loops of large and small bowel, unchanged. 03/06/24 patient is seen and examined reviewed chart discussed case with attending. Patient continues with hypokalemia patient is tolerating clear liquid no surgical intervention on this admission we will repeat potassium level at noon. Patient reports no nausea vomiting or abdominal pain. 03/07/24 the patient seen and examined,, the patient continue with abd distention had small bm this moring tolerating CLD General surgeon concern with colonic ileus consulted GI for possible colonoscopy. The patient was made aware a GI specialist will be seeing him today. 03/08/24 the patient was evaluated by GI scheduled patient flex sigmoid today will follow up result: cont Bowel rest with NGT to LIWS. cont with Nauseated. The patient denies chest pain or sob Given to findings of flexible sigmoidoscopy stricture of distal sigmoid will need surgery high risk for perforation today per Dr Watkins ex lap and diversion. The patient aware of risk and benefit is agreement with surgeon recommendations. DR Parnell evaluated the patient reviewed imaging: will scheduled the patient tomorrow am. 03/09/24: the patient was seen earlier: s/p POD 0 open sigmoid colectomy : the patient is doing well, abd binder colostomy bag: and j p drain: right upper quad encouraged to use IS while awake will follow Dr Parnell post operative recommendations. started the patient on Cefazolin 2 gm Q8hrs, metribudazike 500mg po Q8 hrs. will be monitored closed: continue with IV fluids. 12/16/24 s/p sigmoid colectomy: Day 1 physical therapy will work with patient today out of bed to chair as tolerated encouraged patient to use his IS while awake. Colostomy with output. NG tube with very minimal output. We will follow postoperative recommendations from surgeon. Patient denied chest pain shortness a breath. 03/11/24 the patient is seen and examined, reviewed chart: s/p POD 2 cont with NGT with LIWS with 350 output colostomy output: 1500 ml persistent hypokalemia 2.7 being replaced. will repeat potassium level: will follow post operative recommendations. will start CLD DC NG tube 03/12 the patient is seen and examined earlier this morning, had episode of emesis several times last night, noted to have abdominal distention, hemodynamically stable, no chest pain, no shortness a breath. Currently getting potassium supplementation IV per protocol. 03/13 patient is seen and examined this morning, acute events overnight, he is alert and oriented x3, hemodynamically stable, feels less distended, results of CT of the abdomen performed yesterday input reviewed and discussed with the aim of the at the bedside, patient was started back on clear liquid diet per General surgery, he is tolerating well, he is currently getting potassium IV per protocol during my visit. Already seen by General surgery, dressing changed. 03/14 the patient has been seen and examined today, no acute events overnight, diet has been advanced to full liquid diet, tolerating well, no nausea, no vomiting, no abdominal pain. Patient is still with persistent hypokalemia, potassium level at 3.0. We will continue to replace IV per protocol. Magnesium level of 1.7, we will give 2 g of magnesium sulfate IV x1. Nephrology consultation requested, follow input and recommendation. Follow urine electrolytes. Discussed with the patient, all questions answered, in agreement 03/15 patient is seen and examined today during rounding, no acute events overnight, remains hemodynamically stable, no chest pain, no shortness a breath, no nausea, no vomiting, he feels less distended, passing gas. Remains on full liquid diet, tolerating well. Potassium level remains low at 2.9, magnesium 1.7, we will replace IV per protocol, patient evaluated by photogrammetric stereo compiler, aldosterone renin level ordered, we will follow up. 03/16 the patient has been seen and examined during rounding, patient with persistent hypokalemia, potassium level today at 2.2, he denies nausea, no vomiting, no abdominal discomfort. Patient having high output through the ostomy, per discussion with the nurse 1140 mL in last 24 hours. Remains with a RADHA drainage, total output of 200 mL. Two jodie were removed from midline incision by General surgery few days ago. Wound still with a mild sent weaning use output, no pus. 03/17 patient seen at bedside, no acute events overnight. Patient ostomy output was not adequately recorded overnight. He has been consistently having high output from his ostomy, nursing says he continues to have output. We will start him on loperamide and continue to replete his potassium. Potassium likely low due to his high output. We will follow up with further recommendations from General surgery. RADHA drain with 30 cc of serous output, will follow up with general surgery on removal recommendations REVIEW OF SYSTEMS 12 point review of systems negative unless noted in HPI PHYSICAL EXAM GENERAL APPEARANCE: The patient is awake, alert, and oriented, in no acute cardiopulmonary distress. NEUROLOGICAL: Cranial nerves II-XII grossly intact. Motor is 5/5 in bilateral upper and lower extremities proximal to distal. No sensory deficits. HEENT: Face is symmetric. Pupils are equal and reactive. Extraocular movements are intact. NECK: Supple. No JVD. No thyromegaly. No submental, submandibular, pre- /postauricular, occipital or supraclavicular lymphadenopathy. CHEST: Normal chest expansion. No Telemetry. LUNGS: Absence of any rales, rhonchi or any wheezing. CARDIOVASCULAR: Regular. S1 and S2 normal. No appreciable rubs, murmurs or gallops. ABDOMEN: Less distended, binder in place. : Deferred. No Sagastume. EXTREMITIES: Non-edematous and not cyanotic. No clubbing. Good capillary refill. SKIN: No skin breakdown. Vital Signs (last 8hr) Date Time Temp Pulse Resp B/P (MAP) Pulse Ox O2 Delivery O2 Flow Rate FiO2 03/17/24 16:00 98.2 79 18 108/64 100 Room Air 21 03/17/24 11:19 98.1 64 18 138/85 90 Room Air 21 LABS: Laboratory: Test 03/17/24 06:37 03/16/24 04:39 Range/Units White Blood Count 10.8 4.8-10.8 K/uL Red Blood Count 3.52 L 4.50-6.20 MIL/uL Hemoglobin 10.5 L 14.0-18.0 g/dL Hematocrit 29.7 L 42-54 % Mean Corpuscular Volume 84.4 79-99 fL Mean Corpuscular Hemoglobin 29.8 27.0-33.0 pg Mean Corpuscular Hemoglobin Concent 35.4 32.0-36.0 g/dL Red Cell Distribution Width 12.6 11.0-15.5 % Platelet Count 388 130-400 K/uL Mean Platelet Volume 10.2 7.5-10.5 fL Nucleated Red Blood Cells 0.0 0.0-0.19 % Sodium Level 137 136-145 mmol/L Potassium Level 2.9 *L 3.5-5.1 mmol/L Chloride Level 101 101-111 mmol/L Carbon Dioxide Level 28 21-32 mmol/L Blood Urea Nitrogen 5 L 7-18 mg/dL Creatinine 0.7 0.5-1.3 mg/dL Glomerular Filtration Rate Calc 110 >90 mL/min Random Glucose 104 70-105 mg/dL Total Calcium 8.0 L 8.5-10.1 mg/dL Phosphorus Level 2.6 2.5-4.9 mg/dL Magnesium Level 1.70 L 1.80-2.40 mg/dL Total Bilirubin 0.3 # 0.2-1.0 mg/dL Aspartate Amino Transf (AST/SGOT) 28 10-37 U/L Alanine Aminotransferase (ALT/SGPT) 19 12-78 U/L Alkaline Phosphatase 46 L 50-136 U/L Total Protein 5.5 L 6.0-8.3 g/dL Albumin 2.1 L 3.5-5.0 g/dL Immature Granulocyte % (Auto) 1.5 H 0-1 % Neutrophils (%) (Auto) 68.1 40.0-77.0 % Lymphocytes (%) (Auto) 14.8 L 21.0-51.0 % Monocytes (%) (Auto) 12.8 3.0-13.0 % Eosinophils (%) (Auto) 2.5 0.0-8.0 % Basophils (%) (Auto) 0.3 0.0-5.0 % Neutrophils # (Auto) 5.5 1.8-7.7 K/uL Lymphocytes # (Auto) 1.2 1.0-4.8 K/uL Monocytes # (Auto) 1.0 0.1-1.0 K/uL Eosinophils # (Auto) 0.20 0.00-0.70 K/uL Basophils # (Auto) 0.02 0.00-0.20 K/uL Absolute Immature Granulocyte (auto 0.12 0-1 K/uL Current Medications Medications (Trade) Dose Ordered Sig/Krishan Route PRN Reason Start Time Stop Time Status Last Admin Dose Admin Acetaminophen (TYLenol 325MG TAB) 650 mg Q4H PRN PO TEMPERATURE GREATER THAN 101.5 03/06/24 12:30 04/05/24 12:29 03/14/24 16:46 650 MG Acetaminophen (TYLenol 650MG SUPPOSITORY) 650 mg Q6H PRN RC MILD PAIN (1-3) 03/03/24 22:30 03/06/24 12:11 DC Acetylcysteine (MUComyst 10% 4ML) 400mg = 4ml [id number] IH 03/05/24 12:00 03/05/24 11:36 DC Amiloride HCl (MiDAMor 5MG TAB) 5 mg DAILY PO 03/16/24 16:00 04/15/24 15:59 03/17/24 08:18 5 MG Amiloride HCl (MiDAMor 5MG TAB) 5 mg DAILY PO 03/17/24 09:00 03/16/24 15:35 DC Cefazolin Sodium (Ancef) 2 gm Q8H IVPB 03/09/24 16:30 03/09/24 11:29 DC Cefazolin Sodium (Ancef) 2 gm Q8H IVPB 03/09/24 16:30 03/17/24 11:42 DC 03/17/24 08:18 2 GM Famotidine (Pepcid 20mg Vial) 20 mg DAILY IV 03/04/24 09:00 04/03/24 08:59 03/17/24 08:18 20 MG Famotidine (Pepcid 20mg Vial) 20 mg ONCE STAT IV 03/03/24 18:30 03/03/24 18:32 DC 03/03/24 20:11 20 MG Hydralazine HCl (APRESOLine 20MG INJ) 10 mg Q6H PRN IV For:SBP above 160;DBP above 90 12/9/24 22:30 04/02/24 22:29 Hydromorphone HCl (DiLAUDid 0.5MG INJ) 0.5 mg Q4H PRN IVP SEVERE PAIN (7-10) 03/08/24 16:00 03/10/24 08:19 DC 03/09/24 20:05 0.5 MG Hydromorphone HCl (DiLAUDid 0.5MG INJ) 0.5 mg Q4H PRN IVP SEVERE PAIN (7-10) 03/10/24 10:30 03/15/24 10:29 DC Ketorolac Tromethamine (toRADol) 15 mg ONCE STAT IV 03/03/24 18:30 03/03/24 18:32 DC 03/03/24 20:11 15 MG Ketorolac Tromethamine (toRADol) 15 mg Q6H PRN IV MODERATE PAIN (4-6) 03/17/24 16:30 03/22/24 16:29 03/17/24 16:51 15 MG Ketorolac Tromethamine (toRADol) 30 mg Q6H IM 03/09/24 12:00 03/09/24 11:25 DC Ketorolac Tromethamine (toRADol) 30 mg Q6H IV 03/09/24 12:00 03/09/24 11:27 DC Ketorolac Tromethamine (toRADol) 30 mg Q6H IVP 03/09/24 12:00 03/14/24 11:59 DC 03/14/24 05:46 30 MG Lactated Ringer's 1,000 ml @ 100 mls/hr Q10H IV 03/03/24 22:30 03/06/24 07:54 DC 03/06/24 03:34 100 MLS/HR Loperamide HCl (Immodium Liquid) 4 mg BID PO 03/17/24 10:30 04/16/24 10:29 03/17/24 11:33 4 MG Magnesium Sulfate 50 ml @ 0 mls/hr PROTOCOL IV 03/13/24 08:30 03/14/24 11:27 DC 03/13/24 08:50 25 MLS/HR Magnesium Sulfate 50 ml @ 0 mls/hr PROTOCOL IV 03/14/24 11:30 03/15/24 09:44 DC 03/14/24 12:49 25 MLS/HR Magnesium Sulfate 50 ml @ 0 mls/hr PROTOCOL IV 03/15/24 10:00 03/16/24 08:27 DC Magnesium Sulfate 50 ml @ 0 mls/hr PROTOCOL IV 03/16/24 08:30 04/15/24 08:29 03/17/24 11:32 25 MLS/HR Magnesium Sulfate 50 ml @ 0 mls/hr PROTOCOL PRN IV low mag level 03/04/24 09:30 03/13/24 19:48 DC 03/05/24 20:22 25 MLS/HR Methylprednisolone Sodium Succinate (Solu-medROL 40MG) 40 mg Q8H IVP 03/05/24 12:00 03/05/24 11:36 DC Metronidazole/ Sodium Chloride (flaGYL) 500 mg Q8H IV 03/09/24 11:30 03/16/24 11:56 DC 03/16/24 11:28 500 MG Metronidazole/ Sodium Chloride (flaGYL) 500 mg Q8H IV 03/09/24 12:30 03/09/24 11:27 DC Morphine Sulfate (morPHINE 4MG SYG) 4 mg Q4H PRN IV SEVERE PAIN (7-10) 03/03/24 22:30 03/08/24 09:03 DC 03/08/24 05:44 4 MG Ondansetron HCl (zoFRAN 4MG INJ) 4 mg ONCE STAT IVP 03/03/24 18:30 03/03/24 18:32 DC 03/03/24 20:11 4 MG Ondansetron HCl (zoFRAN 4MG INJ) 4 mg Q6H PRN IV NAUSEA/VOMITING 03/03/24 22:30 04/02/24 22:29 03/16/24 11:29 4 MG Phenol (Sore Throat [place]) 1 SPRAY Q4H PRN PO SORE THROAT 03/17/24 09:00 04/10/24 00:00 Phenol (Sore Throat [place]) 1 spry Q4H PRN PO SORE THROAT 03/11/24 00:00 03/17/24 08:57 DC 03/10/24 23:54 1 SPRY Potassium Chloride 100 ml @ 50 mls/hr AD PRN IV POTASSIUM PROTOCOL 03/04/24 09:30 03/06/24 07:48 DC 03/05/24 06:32 50 MLS/HR Potassium Chloride 100 ml @ 100 mls/hr AD PRN IV POTASSIUM PROTOCOL 03/06/24 08:00 04/05/24 07:59 03/17/24 15:12 100 MLS/HR Potassium Chloride 100 ml @ 100 mls/hr Q1H IV 03/12/24 16:00 03/12/24 19:59 DC 03/12/24 19:53 100 MLS/HR Potassium Chloride 100 ml @ 100 mls/hr Q1H IV 03/13/24 20:00 03/14/24 01:59 DC 03/14/24 02:09 100 MLS/HR Potassium Chloride 100 ml @ 100 mls/hr Q1H IV 03/16/24 11:00 03/16/24 18:59 DC 03/16/24 18:04 100 MLS/HR Potassium Chloride (K-Dur/Klor-Con 20meq) 20 meq AD PRN PO POTASSIUM PROTOCOL 03/06/24 08:00 04/05/24 07:59 03/17/24 08:19 20 MEQ Potassium Chloride (K-Dur/Klor-Con 20meq) 40 meq BID PO 03/17/24 10:00 03/17/24 11:27 DC Potassium Chloride (KCl 10% Elixir 20meq/15ml) 20 meq AD PRN PO POTASSIUM PROTOCOL 03/06/24 08:00 04/05/24 07:59 03/17/24 15:12 20 MEQ Potassium Chloride (KCl 10% Elixir 20meq/15ml) 40 meq BID PO 03/17/24 11:30 03/17/24 21:01 03/17/24 11:32 40 MEQ Simethicone (Mylicon) 80 mg PCHS PRN PO GI GAS 03/06/24 12:30 04/05/24 12:29 03/14/24 23:45 80 MG Sodium Chloride 1,000 ml @ 125 mls/hr Q8H IV 03/08/24 17:00 04/07/24 16:59 03/17/24 08:20 125 MLS/HR Sodium Chloride 1,000 ml @ 1,000 mls/hr Q1H STAT IV 03/03/24 20:00 03/03/24 20:59 DC 03/03/24 20:11 1,000 MLS/HR DIAGNOSTICS / RADIOLOGY: [ ] ASSESSMENT: 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 Patient did not tolerate p.o. potassium the last time he became nauseated and felt mild burning sensation, continue replacing IV. Nephrology consultation requested, pending urine electrolytes, creatinine, osmolality and plasma renin activity and aldosterone Continue to follow a.m. labs GI and DVT prophylaxis Disposition: Pending improvement in ostomy output and general surgery recommendations Plan of action discussed in detail with the patient, all questions answered, agreed and understood the information provided INES LOPEZ MD Mar 17, 2024 17:31
[2024-03-18 03:22] VITALS: BP 123/77; PULSE 66; RESP 18; TEMP 98.5
[2024-03-18 05:46] LABS: HEMATOCRIT 31.4 % (42-54); MEAN CORPUSCULAR HEMOGLOBIN 29.8 pg (27.0-33.0); MEAN CORPUSCULAR HGB CONC 34.4 g/dL (32.0-36.0); MEAN CORPUSCULAR VOLUME 86.5 fL (79-99); RED BLOOD CELL COUNT(AUTO) 3.63 MIL/uL (4.50-6.20); RED CELL DISTRIBUTION WIDTH 12.8 % (11.0-15.5); WHITE BLOOD COUNT (AUTO) 11.5 K/uL (4.8-10.8)
[2024-03-18 06:03] LABS: ALBUMIN 2.1 g/dL (3.5-5.0); BILIRUBIN,TOTAL 0.2 mg/dL (0.2-1.0); CREATININE 0.5 mg/dL (0.5-1.3); MAGNESIUM 1.8 mg/dL (1.80-2.40); POTASSIUM 3.8 mmol/L (3.5-5.1); TOTAL PROTEIN, SERUM 5.6 g/dL (6.0-8.3)
[2024-03-18 08:00] VITALS: BP 125/79; PULSE 63; RESP 18; TEMP 98; O2SAT 98
[2024-03-18] MEDS ORDERED: LOPE2TAB26 PO (08:20)
--- NOTE | 2024-03-18 13:14 | PN ---
NEPHROLOGY PROGRESS NOTE Date/Time Patient Seen: Mar 18, 2024 SUBJECTIVE: This is a 53-year-old male with a past medical history of hyperlipidemia and gout He presented to the emergency with complaints of abdominal pain. He has been in the hospital for several days. He was admitted further evaluation and management of suspected small-bowel obstruction. S/p Neisha procedure. He continues to be followed by surgery. He was noted for hypokalemia. Potassium today was 2.9, replacement has been ordered. Pending plasma renin activity and aldosterone results Nurse reports loose stool from ostomy Continues on Amiloride. Was seen in the medical floor, in no acute distress No family at the bedside Prognosis remains guarded REVIEW OF SYSTEMS: GENERAL: Negative for any nausea, vomiting, fevers, chills, or weight loss. NEUROLOGIC: Negative for any blurry vision, blind spots, double vision, facial asymmetry, dysphagia, dysarthria, hemiparesis, hemisensory deficits, vertigo, ataxia. HEENT: Negative for any head trauma, neck trauma, neck stiffness, photophobia, phonophobia, sinusitis, rhinitis. CARDIAC: Negative for any chest pain, dyspnea on exertion, paroxysmal nocturnal dyspnea, peripheral edema. PULMONARY: Negative for any shortness of breath, wheezing, COPD, or TB exposure. GASTROINTESTINAL: Negative for any abdominal pain, nausea, vomiting, bright red blood per rectum, melena. GENITOURINARY: Negative for any dysuria, hematuria, incontinence. INTEGUMENTARY: Negative for any rashes, cuts, insect bites. RHEUMATOLOGIC: Negative for any joint pains, photosensitive rashes, history of vasculitis or kidney problems. HEMATOLOGIC: Negative for any abnormal bruising, frequent infections or bleeding. PHYSICAL EXAM: GENERAL: Alert and oriented x 3. No acute distress. Well-nourished. EYES: EOMI. Anicteric. HENT: Moist mucous membranes. No scleral icterus. No cervical lymphadenopathy. LUNGS: Clear to auscultation bilaterally. No accessory muscle use. CARDIOVASCULAR: Regular rate and rhythm. No murmur. No JVD. ABDOMEN: Soft, non-tender and non-distended. No palpable masses. EXTREMITIES: No edema. Non-tender.?SKIN: No rashes or lesions. Warm. NEUROLOGIC: No focal neurological deficits. CN II-XII grossly intact, but not individually tested. PSYCHIATRIC: Cooperative. Appropriate mood and affect. LABORATORY: [ ] Hematology Labs: Test 03/18/24 05:33 Range/Units White Blood Count 11.5 H 4.8-10.8 K/uL Red Blood Count 3.63 L 4.50-6.20 MIL/uL Hemoglobin 10.8 L 14.0-18.0 g/dL Hematocrit 31.4 L 42-54 % Mean Corpuscular Volume 86.5 79-99 fL Mean Corpuscular Hemoglobin 29.8 27.0-33.0 pg Mean Corpuscular Hemoglobin Concent 34.4 32.0-36.0 g/dL Red Cell Distribution Width 12.8 11.0-15.5 % Platelet Count 385 130-400 K/uL Mean Platelet Volume 9.9 7.5-10.5 fL Nucleated Red Blood Cells 0.0 0.0-0.19 % Chemistry Labs: Test 03/18/24 05:33 03/17/24 06:37 Range/Units Sodium Level 137 136-145 mmol/L Potassium Level 3.8 3.5-5.1 mmol/L Chloride Level 102 101-111 mmol/L Carbon Dioxide Level 28 21-32 mmol/L Blood Urea Nitrogen 10 7-18 mg/dL Creatinine 0.5 0.5-1.3 mg/dL Glomerular Filtration Rate Calc 121 >90 mL/min Random Glucose 104 70-105 mg/dL Total Calcium 8.0 L 8.5-10.1 mg/dL Magnesium Level 1.80 1.80-2.40 mg/dL Total Bilirubin 0.2 # 0.2-1.0 mg/dL Aspartate Amino Transf (AST/SGOT) 30 10-37 U/L Alanine Aminotransferase (ALT/SGPT) 21 12-78 U/L Alkaline Phosphatase 45 L 50-136 U/L Total Protein 5.6 L 6.0-8.3 g/dL Albumin 2.1 L 3.5-5.0 g/dL Phosphorus Level 2.6 2.5-4.9 mg/dL DIAGNOSTICS / RADIOLOGY: REASON: SIMON ORDERING PHYSICIAN: DAJUAN MCDONALD MD PROCEDURE: RENAL - US RENAL SONOGRAM US RENAL SONOGRAM HISTORY: Acute renal insufficiency COMPARISON: None TECHNIQUE: Renal and bladder ultrasound study was performed. FINDINGS: The right kidney measures 12.2 x 6.1 x 4.6 cm. The left kidney measures 12.1 x 5.6 x 5.5 cm. No evidence of hydronephrosis is seen of either kidney. Both kidneys are seen. Bladder is poorly visualized due to overlying bandages. IMPRESSION: 1. No hydronephrosis is seen. DICTATED BY: LUIS BOWDEN MD DATE: 03/14/24 8491 REASON: nausea and vomiting. Abdominal distension ORDERING PHYSICIAN: PARADISE MANZANARES MD PROCEDURE: ABD PEL WO - CT ABDOMEN/PELVIS W/O CONTRAST CT ABDOMEN/PELVIS W/O CONTRAST HISTORY: Nausea and vomiting COMPARISON: None TECHNIQUE: Multiple sequential axial images of the abdomen and pelvis were obtained from the dome of the diaphragm through symphysis pubis. Patient was not given contrast through intravenous route. Oral contrast was not given. FINDINGS: No pleural effusion is seen bilaterally. There is no evidence of parenchymal disease or pulmonary nodule of the visualized lower lungs. Degenerative changes of the thoracolumbar spine are present. The heart is not enlarged. Liver measured 20 cm. There is gastric distention with small bowel dilatation with air-fluid levels may be related to postop ileus versus small bowel obstruction. Gastrostomy tube is seen. Drainage tube is seen with distal tip in the left lower abdomen. The liver, spleen, adrenal glands and pancreas are unremarkable. There is no evidence of hydronephrosis bilaterally. No evidence of renal stone is seen. Fecal material is seen in the colon. There are normal size retroperitoneal and mesenteric lymph nodes. No ascites is seen. Atherosclerotic changes are present. Pelvic sidewalls are symmetric bilaterally. Bladder is well distended without wall thickening. IMPRESSION: 1. There is gastric distention with small bowel dilatation with air-fluid levels may be related to postop ileus versus small bowel obstruction. Gastrostomy tube is seen. Drainage tube is seen with distal tip in the left lower abdomen. CT was performed with one or more following dose reduction techniques: automated exposure control, adjustment of the mA and kv according to patient's size, or use of a iterative reconstruction technique. DICTATED BY: LUIS BOWDEN MD DATE: 03/12/24 1305 REASON: STRICTURE IN COLON ORDERING PHYSICIAN: ROSSY SYLVESTER Jr. PROCEDURE: ABD 1VW - ABD 1VW Exam Type: ABD 1VW Clinical Information: STRICTURE IN COLON Comparison: None Findings: Abdomen demonstrates no evidence of pathologic calcification or soft tissue mass. There are no radiopacities to suggest calculous disease. There is distention of large bowel without small bowel dilatation. There is distention of large bowel has decreased when compared with prior exam. Nasogastric tube tip in stomach. The bony structures are unremarkable. IMPRESSION: There is distention of large bowel without small bowel dilatation. There is distention of large bowel has decreased when compared with prior exam. DICTATED BY: JENS DEVINE MD DATE: 03/08/24 1545 REASON: sbo ORDERING PHYSICIAN: AGAPITO PRIETO NP PROCEDURE: ABD 1VW - ABD 1VW ABD 1VW REASON: sbo FINDINGS: Single image of the abdomen was obtained. There is persistent marked gaseous distention of the colon to the level of the pelvis. This could represent a low colon obstruction. The small bowel is not distended, and KV and intact ileocecal valve. IMPRESSION: 1. Marked gaseous distention of the colon, this could represent a low colon obstruction. DICTATED BY: LORENA OTERO MD DATE: 03/07/24 1046 REASON: sbo ORDERING PHYSICIAN: ROSSY SYLVESTER Jr. PROCEDURE: ABD 1VW - ABD 1VW ABD 1VW REASON: sbo FINDINGS: Single image of the abdomen was obtained. There is persistent moderate to marked gaseous distention of the colon. Small bowel gas pattern appears normal. Bones and soft tissues appear unremarkable. IMPRESSION: 1. Persistent moderate to marked gaseous distention of the colon, this may represent ileus, a low colon obstruction could cause this appearance as well. DICTATED BY: LORENA OTERO MD DATE: 03/06/24 1218 REASON: SBO ORDERING PHYSICIAN: AGAPITO PRIETO NP PROCEDURE: ABD 1VW - ABD 1VW ABD 1VW REASON: SBO FINDINGS: Single image of the abdomen was obtained. There is an NG tube with tip at the EG junction, sidehole remains in the distal esophagus. There is persistent gaseous distention of multiple large and small bowel loops, bowel gas pattern is unchanged. Soft tissues appear unremarkable. IMPRESSION: 1. NG tube tip just entering the stomach, sidehole remains in the distal esophagus. 2. Distended loops of large and small bowel, unchanged. DICTATED BY: LORENA OTERO MD DATE: 03/04/24 1208 REASON: NG TUBE PLACEMENT ORDERING PHYSICIAN: REHANA OTT MD PROCEDURE: ABD 1VW - ABD 1VW ABD 1VW REASON: NG TUBE PLACEMENT FINDINGS: Single image of the abdomen was obtained. There is an NG tube with tip just entering the stomach, sidehole remains in the distal esophagus. There is moderate gaseous distention of the colon. There is contrast in the pelvicalyceal systems from recent CT scan. IMPRESSION: 1. NG tube tip just entering the stomach, sidehole remains in the distal esophagus. DICTATED BY: LORENA OTERO MD DATE: 03/04/24 0816 REASON: generalzied abdominal pain ORDERING PHYSICIAN: LURDES BAHENA NP PROCEDURE: ABD PEL W - CT ABDOMEN/PELVIS W/CONTRAST CT ABDOMEN/PELVIS W/CONTRAST HISTORY: Abdominal pain COMPARISON: None TECHNIQUE: Multiple sequential axial images of the abdomen and pelvis were obtained from the dome of the diaphragm through symphysis pubis. Patient was given 75 cc of Omnipaque through intravenous route. Oral contrast was not given. FINDINGS: No pleural effusion is seen bilaterally. There is no evidence of parenchymal disease or pulmonary nodule of the visualized lower lungs. Degenerative changes of the thoracolumbar spine are present. The heart is not enlarged. Liver measures 18 cm. Small hiatal hernia is seen. Small bowel loops are not dilated. There is extensive colonic distention with distal colonic obstruction not completely excluded. The liver, spleen, adrenal glands and pancreas are unremarkable. There is no evidence of hydronephrosis bilaterally. No evidence of renal stone is seen. Fecal material is seen in the colon. There are normal size retroperitoneal and mesenteric lymph nodes. No ascites is seen. Atherosclerotic changes are present. Pelvic sidewalls are symmetric bilaterally. Bladder is well distended without wall thickening. IMPRESSION: 1. Extensive colonic distention with distal colonic obstruction cannot excluded. Findings may also be related to constipation. CT was performed with one or more following dose reduction techniques: automated exposure control, adjustment of the mA and kv according to patient's size, or use of a iterative reconstruction technique. DICTATED BY: LUIS BOWDEN MD DATE: 03/03/242051 ASSESSMENT: Hypokalemia Colonic stricture distal of sigmoid evidence per flexible sigmoidoscopy s/p colectomy with colostomy Suspected small bowel obstruction, Intractable abd pain Extensive abdominal distention electrolytes derangement: Hypokalemia Obesity: BMI: 36.1 PLAN: Labs, diagnostic, radiologic exams reviewed and interpreted by myself and supervising physician. We have reviewed external records in detail Pending plasma renin activity and aldosterone results Continue with amiloride5 mg p.o. q.day Potassium replacement has been ordered. Require close monitoring of renal function and electrolytes Order CBC, CMP, and electrolytes in am Continue with antibiotics BiPAP as necessary, for respiratory distress Monitor blood pressure adjust medication doses as needed Avoid hypotensive episodes May use Dilaudid 0.5 mg IV every 6 hours as needed for severe pain Strict intake, output, and daily weight should be monitored Will continue to monitor renal function, anemia, electrolytes Treatment plan discussed with patient Questions were answered We have discussed with the other team physicians in detail about the care plan We will continue to monitor the patient closely AGAPITO TODD Mar 18, 2024 13:14
--- NOTE | 2024-03-18 13:27 | NUR ---
DISCHARGE PERIPHERAL IV DISCONTINUED DISCHARGE INSTRUCTIONS GIVEN PATIENT AWARE OF PRESCRIPTION BEING SENT TO PHARMACY. PATIENT AWARE TO FOLLOW UP WITH PRIMARY CARE PROVIDER AND DR. COLORADO 03/24/24 @0930 A.M. ALL QUESTIONS ANSWERED PRIOR TO DISCHARGE.
--- NOTE | 2024-03-18 15:08 | PN ---
NEPHROLOGY PROGRESS NOTE Date/Time Patient Seen: Mar 18, 2024 SUBJECTIVE: This is a 53-year-old male with a past medical history of hyperlipidemia and gout He presented to the emergency with complaints of abdominal pain. He has been in the hospital for several days. He was admitted further evaluation and management of suspected small-bowel obstruction. S/p Neisha procedure. He continues to be followed by surgery. He was noted for hypokalemia. Potassium today was 3.8 Continues on Amiloride. Pending plasma renin activity and aldosterone results He was seen in the medical floor, in no acute distress Family at the bedside Pending discharge disposition later today REVIEW OF SYSTEMS: GENERAL: Negative for any nausea, vomiting, fevers, chills, or weight loss. NEUROLOGIC: Negative for any blurry vision, blind spots, double vision, facial asymmetry, dysphagia, dysarthria, hemiparesis, hemisensory deficits, vertigo, ataxia. HEENT: Negative for any head trauma, neck trauma, neck stiffness, photophobia, phonophobia, sinusitis, rhinitis. CARDIAC: Negative for any chest pain, dyspnea on exertion, paroxysmal nocturnal dyspnea, peripheral edema. PULMONARY: Negative for any shortness of breath, wheezing, COPD, or TB exposure. GASTROINTESTINAL: Negative for any abdominal pain, nausea, vomiting, bright red blood per rectum, melena. GENITOURINARY: Negative for any dysuria, hematuria, incontinence. INTEGUMENTARY: Negative for any rashes, cuts, insect bites. RHEUMATOLOGIC: Negative for any joint pains, photosensitive rashes, history of vasculitis or kidney problems. HEMATOLOGIC: Negative for any abnormal bruising, frequent infections or bleeding. PHYSICAL EXAM: GENERAL: Alert and oriented x 3. No acute distress. Well-nourished. EYES: EOMI. Anicteric. HENT: Moist mucous membranes. No scleral icterus. No cervical lymphadenopathy. LUNGS: Clear to auscultation bilaterally. No accessory muscle use. CARDIOVASCULAR: Regular rate and rhythm. No murmur. No JVD. ABDOMEN: Soft, non-tender and non-distended. No palpable masses. EXTREMITIES: No edema. Non-tender.?SKIN: No rashes or lesions. Warm. NEUROLOGIC: No focal neurological deficits. CN II-XII grossly intact, but not individually tested. PSYCHIATRIC: Cooperative. Appropriate mood and affect. LABORATORY: [ ] Hematology Labs: Test 03/18/24 05:33 Range/Units White Blood Count 11.5 H 4.8-10.8 K/uL Red Blood Count 3.63 L 4.50-6.20 MIL/uL Hemoglobin 10.8 L 14.0-18.0 g/dL Hematocrit 31.4 L 42-54 % Mean Corpuscular Volume 86.5 79-99 fL Mean Corpuscular Hemoglobin 29.8 27.0-33.0 pg Mean Corpuscular Hemoglobin Concent 34.4 32.0-36.0 g/dL Red Cell Distribution Width 12.8 11.0-15.5 % Platelet Count 385 130-400 K/uL Mean Platelet Volume 9.9 7.5-10.5 fL Nucleated Red Blood Cells 0.0 0.0-0.19 % Chemistry Labs: Test 03/18/24 05:33 03/17/24 06:37 Range/Units Sodium Level 137 136-145 mmol/L Potassium Level 3.8 3.5-5.1 mmol/L Chloride Level 102 101-111 mmol/L Carbon Dioxide Level 28 21-32 mmol/L Blood Urea Nitrogen 10 7-18 mg/dL Creatinine 0.5 0.5-1.3 mg/dL Glomerular Filtration Rate Calc 121 >90 mL/min Random Glucose 104 70-105 mg/dL Total Calcium 8.0 L 8.5-10.1 mg/dL Magnesium Level 1.80 1.80-2.40 mg/dL Total Bilirubin 0.2 # 0.2-1.0 mg/dL Aspartate Amino Transf (AST/SGOT) 30 10-37 U/L Alanine Aminotransferase (ALT/SGPT) 21 12-78 U/L Alkaline Phosphatase 45 L 50-136 U/L Total Protein 5.6 L 6.0-8.3 g/dL Albumin 2.1 L 3.5-5.0 g/dL Phosphorus Level 2.6 2.5-4.9 mg/dL DIAGNOSTICS / RADIOLOGY: REASON: SIMON ORDERING PHYSICIAN: DAJUAN MCDONALD MD PROCEDURE: RENAL - US RENAL SONOGRAM US RENAL SONOGRAM HISTORY: Acute renal insufficiency COMPARISON: None TECHNIQUE: Renal and bladder ultrasound study was performed. FINDINGS: The right kidney measures 12.2 x 6.1 x 4.6 cm. The left kidney measures 12.1 x 5.6 x 5.5 cm. No evidence of hydronephrosis is seen of either kidney. Both kidneys are seen. Bladder is poorly visualized due to overlying bandages. IMPRESSION: 1. No hydronephrosis is seen. DICTATED BY: LUIS BOWDEN MD DATE: 03/14/24 2905 REASON: nausea and vomiting. Abdominal distension ORDERING PHYSICIAN: PARADISE MANZANARES MD PROCEDURE: ABD PEL WO - CT ABDOMEN/PELVIS W/O CONTRAST CT ABDOMEN/PELVIS W/O CONTRAST HISTORY: Nausea and vomiting COMPARISON: None TECHNIQUE: Multiple sequential axial images of the abdomen and pelvis were obtained from the dome of the diaphragm through symphysis pubis. Patient was not given contrast through intravenous route. Oral contrast was not given. FINDINGS: No pleural effusion is seen bilaterally. There is no evidence of parenchymal disease or pulmonary nodule of the visualized lower lungs. Degenerative changes of the thoracolumbar spine are present. The heart is not enlarged. Liver measured 20 cm. There is gastric distention with small bowel dilatation with air-fluid levels may be related to postop ileus versus small bowel obstruction. Gastrostomy tube is seen. Drainage tube is seen with distal tip in the left lower abdomen. The liver, spleen, adrenal glands and pancreas are unremarkable. There is no evidence of hydronephrosis bilaterally. No evidence of renal stone is seen. Fecal material is seen in the colon. There are normal size retroperitoneal and mesenteric lymph nodes. No ascites is seen. Atherosclerotic changes are present. Pelvic sidewalls are symmetric bilaterally. Bladder is well distended without wall thickening. IMPRESSION: 1. There is gastric distention with small bowel dilatation with air-fluid levels may be related to postop ileus versus small bowel obstruction. Gastrostomy tube is seen. Drainage tube is seen with distal tip in the left lower abdomen. CT was performed with one or more following dose reduction techniques: automated exposure control, adjustment of the mA and kv according to patient's size, or use of a iterative reconstruction technique. DICTATED BY: LUIS BOWDEN MD DATE: 03/12/24 1305 REASON: STRICTURE IN COLON ORDERING PHYSICIAN: ROSSY SYLVESTER Jr. PROCEDURE: ABD 1VW - ABD 1VW Exam Type: ABD 1VW Clinical Information: STRICTURE IN COLON Comparison: None Findings: Abdomen demonstrates no evidence of pathologic calcification or soft tissue mass. There are no radiopacities to suggest calculous disease. There is distention of large bowel without small bowel dilatation. There is distention of large bowel has decreased when compared with prior exam. Nasogastric tube tip in stomach. The bony structures are unremarkable. IMPRESSION: There is distention of large bowel without small bowel dilatation. There is distention of large bowel has decreased when compared with prior exam. DICTATED BY: JENS DEVINE MD DATE: 03/08/24 1545 REASON: sbo ORDERING PHYSICIAN: AGAPITO PRIETO NP PROCEDURE: ABD 1VW - ABD 1VW ABD 1VW REASON: sbo FINDINGS: Single image of the abdomen was obtained. There is persistent marked gaseous distention of the colon to the level of the pelvis. This could represent a low colon obstruction. The small bowel is not distended, and KV and intact ileocecal valve. IMPRESSION: 1. Marked gaseous distention of the colon, this could represent a low colon obstruction. DICTATED BY: LORENA OTERO MD DATE: 03/07/24 1046 REASON: sbo ORDERING PHYSICIAN: ROSSY SYLVESTER Jr. PROCEDURE: ABD 1VW - ABD 1VW ABD 1VW REASON: sbo FINDINGS: Single image of the abdomen was obtained. There is persistent moderate to marked gaseous distention of the colon. Small bowel gas pattern appears normal. Bones and soft tissues appear unremarkable. IMPRESSION: 1. Persistent moderate to marked gaseous distention of the colon, this may represent ileus, a low colon obstruction could cause this appearance as well. DICTATED BY: LORENA OTERO MD DATE: 03/06/24 1218 REASON: SBO ORDERING PHYSICIAN: AGAPITO PRIETO NP PROCEDURE: ABD 1VW - ABD 1VW ABD 1VW REASON: SBO FINDINGS: Single image of the abdomen was obtained. There is an NG tube with tip at the EG junction, sidehole remains in the distal esophagus. There is persistent gaseous distention of multiple large and small bowel loops, bowel gas pattern is unchanged. Soft tissues appear unremarkable. IMPRESSION: 1. NG tube tip just entering the stomach, sidehole remains in the distal esophagus. 2. Distended loops of large and small bowel, unchanged. DICTATED BY: LORENA OTERO MD DATE: 03/04/24 1208 REASON: NG TUBE PLACEMENT ORDERING PHYSICIAN: REHANA OTT MD PROCEDURE: ABD 1VW - ABD 1VW ABD 1VW REASON: NG TUBE PLACEMENT FINDINGS: Single image of the abdomen was obtained. There is an NG tube with tip just entering the stomach, sidehole remains in the distal esophagus. There is moderate gaseous distention of the colon. There is contrast in the pelvicalyceal systems from recent CT scan. IMPRESSION: 1. NG tube tip just entering the stomach, sidehole remains in the distal esophagus. DICTATED BY: LORENA OTERO MD DATE: 03/04/24 0816 REASON: generalzied abdominal pain ORDERING PHYSICIAN: LURDES BAHENA NP PROCEDURE: ABD PEL W - CT ABDOMEN/PELVIS W/CONTRAST CT ABDOMEN/PELVIS W/CONTRAST HISTORY: Abdominal pain COMPARISON: None TECHNIQUE: Multiple sequential axial images of the abdomen and pelvis were obtained from the dome of the diaphragm through symphysis pubis. Patient was given 75 cc of Omnipaque through intravenous route. Oral contrast was not given. FINDINGS: No pleural effusion is seen bilaterally. There is no evidence of parenchymal disease or pulmonary nodule of the visualized lower lungs. Degenerative changes of the thoracolumbar spine are present. The heart is not enlarged. Liver measures 18 cm. Small hiatal hernia is seen. Small bowel loops are not dilated. There is extensive colonic distention with distal colonic obstruction not completely excluded. The liver, spleen, adrenal glands and pancreas are unremarkable. There is no evidence of hydronephrosis bilaterally. No evidence of renal stone is seen. Fecal material is seen in the colon. There are normal size retroperitoneal and mesenteric lymph nodes. No ascites is seen. Atherosclerotic changes are present. Pelvic sidewalls are symmetric bilaterally. Bladder is well distended without wall thickening. IMPRESSION: 1. Extensive colonic distention with distal colonic obstruction cannot excluded. Findings may also be related to constipation. CT was performed with one or more following dose reduction techniques: automated exposure control, adjustment of the mA and kv according to patient's size, or use of a iterative reconstruction technique. DICTATED BY: LUIS BOWDEN MD DATE: 03/03/242051 ASSESSMENT: Hypokalemia Colonic stricture distal of sigmoid evidence per flexible sigmoidoscopy s/p colectomy with colostomy Suspected small bowel obstruction, Intractable abd pain Extensive abdominal distention electrolytes derangement: Hypokalemia Obesity: BMI: 36.1 PLAN: Labs, diagnostic, radiologic exams reviewed and interpreted by myself and supervising physician. We have reviewed external records in detail Pending discharge disposition later today. Patient to be discharged on amiloride 5 mg p.o. q.day. Follow up in the renal clinic in 1-2 weeks Pending plasma renin activity and aldosterone results Monitor blood pressure adjust medication doses as needed Avoid hypotensive episodes May use Dilaudid 0.5 mg IV every 6 hours as needed for severe pain Strict intake, output, and daily weight should be monitored Will continue to monitor renal function, anemia, electrolytes Treatment plan discussed with patient Questions were answered We have discussed with the other team physicians in detail about the care plan We will continue to monitor the patient closely ATTESTATION BY PHYSICIAN I have seen and examined the patient. I reviewed the documentation, medical decision making, and treatment plan as noted by the mid-level provider above. I agree with the findings and plan of care. DAJUAN MCDONALD MD, [facility] Mar 18, 2024 15:08
--- NOTE | 2024-03-18 16:18 | DS ---
Discharge Summary Hospital Course Summary: Patient reports that he came to the emergency department with a chief complaint of abdominal pain. Onset was one week prior. Location was all four quadrants. Duration was constant. Character is described as" like my stomach is swollen. "There was no alleviating factors. There was no aggravating factors. Patient reported associated decreased appetite. CT of abdomen and pelvis showed extensive colonic distention with distal colonic obstruction. GI was consulted and a colonoscopy was performed where distal colonic strictures were noted. General Surgery was consulted. Patient was taken for a Neisha's procedure and an ostomy was created. Postoperatively the patient eventually developed high output ostomy and had recurrent low potassium that was aggressively repleted. Patient was started on loperamide which improved his potassium and decreased his output. By hospital day 15 patient's pain was controlled, he is tolerating p.o. diet, he was cleared by General surgery. A RADHA drain was removed prior to discharge. He will be discharged home to follow up with surgery in two weeks. Program Admin(s): Gastroenterology General Surgery . Procedure(s): US RENAL SONOGRAM HISTORY: Acute renal insufficiency COMPARISON: None TECHNIQUE: Renal and bladder ultrasound study was performed. FINDINGS: The right kidney measures 12.2 x 6.1 x 4.6 cm. The left kidney measures 12.1 x 5.6 x 5.5 cm. No evidence of hydronephrosis is seen of either kidney. Both kidneys are seen. Bladder is poorly visualized due to overlying bandages. IMPRESSION: 1. No hydronephrosis is seen. CT ABDOMEN/PELVIS W/O CONTRAST HISTORY: Nausea and vomiting COMPARISON: None TECHNIQUE: Multiple sequential axial images of the abdomen and pelvis were obtained from the dome of the diaphragm through symphysis pubis. Patient was not given contrast through intravenous route. Oral contrast was not given. FINDINGS: No pleural effusion is seen bilaterally. There is no evidence of parenchymal disease or pulmonary nodule of the visualized lower lungs. Degenerative changes of the thoracolumbar spine are present. The heart is not enlarged. Liver measured 20 cm. There is gastric distention with small bowel dilatation with air-fluid levels may be related to postop ileus versus small bowel obstruction. Gastrostomy tube is seen. Drainage tube is seen with distal tip in the left lower abdomen. The liver, spleen, adrenal glands and pancreas are unremarkable. There is no evidence of hydronephrosis bilaterally. No evidence of renal stone is seen. Fecal material is seen in the colon. There are normal size retroperitoneal and mesenteric lymph nodes. No ascites is seen. Atherosclerotic changes are present. Pelvic sidewalls are symmetric bilaterally. Bladder is well distended without wall thickening. IMPRESSION: 1. There is gastric distention with small bowel dilatation with air-fluid levels may be related to postop ileus versus small bowel obstruction. Gastrostomy tube is seen. Drainage tube is seen with distal tip in the left lower abdomen. Assessment/Plan: Large bowel obstruction secondary to distal colonic stenosis, status post Neisha procedure 03/10/2024 High output ostomy, resolved Persistent hypokalemia, improving Hyperlipidemia Gout obesity Discharge Instructions: Follow up with PCP in 3-7 days. Please check potassium, sodium and magnesium levels Follow up with General surgery in 1 week Home Medications: Active Scripts Loperamide HCl (Loperamide) 2 Mg Tablet, 4 MG PO BID PRN for Ostomy output > 1800cc, #30 TAB 1 Refill Prov:INES LOPEZ MD 03/18/24 New Medications: Loperamide HCl (Loperamide) 2 Mg Tablet 4 MG PO BID PRN for Ostomy output > 1800cc, #30 TAB 1 Refill Time spent arranging discharge: 31-60 minutes INES LOPEZ MD Mar 18, 2024 16:18
== END 2024-03-18 14:15 | disposition home or self-care (01) | DRG 331 ==
LOC: EDH 16:11 → EDHIP 16:12 → UNDOADMIN 22:20 → EDHIP 22:20 → 3BH 03-04 00:36 → EDHIP 03-04 00:36
PROVIDERS: ADMIT Internal Medicine; ATTEND Internal Medicine
PROC: 0D9670Z Drainage of Stomach with Drainage Device, Via Natural or Artificial Opening (ICD-10-PCS; 2024-03-04)
PROC: 0DJD8ZZ Inspection of Lower Intestinal Tract, Via Natural or Artificial Opening Endoscopic (ICD-10-PCS; 2024-03-08)
PROC: 0DTN0ZZ Resection of Sigmoid Colon, Open Approach (ICD-10-PCS; principal; 2024-03-17)
DX: K56.50 Intestinal adhesions [bands], unspecified as to partial versus complete obstruction (principal); E78.5 Hyperlipidemia, unspecified; M10.9 Gout, unspecified; E87.6 Hypokalemia; R14.0 Abdominal distension (gaseous); E66.9 Obesity, unspecified; K59.00 Constipation, unspecified; K31.89 Other diseases of stomach and duodenum; K63.89 Other specified diseases of intestine; Z93.3 Colostomy status; Z90.49 Acquired absence of other specified parts of digestive tract; Z68.36 Body mass index [BMI] 36.0-36.9, adult; Z93.1 Gastrostomy status; Z79.899 Other long term (current) drug therapy
CPT/HCPCS: 36415; 45335; 74018; 74176; 74177; 76770; 80048; 80051; 80053; 80076; 81001; 82088; 82570; 83605; 83690; 83735; 83930; 84100; 84132; 84244; 85025; 85027; 85610; 85730; 86850; 86900; 86901; 88307; 93005; 96374; 96375; 99285; A4344; A4450; A4606; G0378; J0330; J0690; J1100; J1171; J1885; J2003; J2175; J2250; J2270; J2371; J2405; J2704; J2795; J3010; J3475; J3480; J3490; J7030; P9045; Q9967; A4215; A4222; A4406; A4600; A4620; A4649; A4657; A7002